=== PATIENT | male | born 1955 | race Two or more races ===

== ENCOUNTER 2021-11-06 22:49 | Inpatient (IN) | payer MEDICARE, MEDICAID, SELFPAY ==
--- NOTE | ~2021-11-06 | CT_ITS ---
EXAMINATION: CT ANGIOGRAM OF THE CHEST WITH AND WITHOUT CONTRAST (CT PULMONARY ANGIOGRAM FOR PE) CLINICAL INFORMATION: Reason for Exam Shortness of breath, elevated D-dimer rule out PE COMPARISON: Chest x-ray dated 11/06/2021 TECHNIQUE: Prior to contrast administration, noncontrast localization images were obtained. Subsequently, multidetector volumetric imaging was performed from the thoracic inlet to below the diaphragms following the administration of 65 mL Omnipaque 350 intravenous contrast. No contrast reaction reported Sagittal, coronal, and MIP oblique sagittal reformatted images were obtained on the CT workstation, uploaded to PACS, and reviewed. This CT examination was performed using dose optimization techniques as appropriate, variously including the following: *Automated exposure control *Adjustment of mA and/or kV according to patient size (this includes techniques or standardized protocols for targeted exams where dose is matched to indication/reason for exam; i.e. extremities or head) *Use of iterative reconstruction technique Total exam dose-length product 259 mGy-cm FINDINGS: QUALITY OF STUDY/CONTRAST BOLUS: Satisfactory. PULMONARY ARTERIES: No central or segmental pulmonary emboli. THORACIC AORTA: Right aortic arch with mirror-image branching of the supraaortic branches. No aneurysm or dissection. LUNG/PLEURA: [id number] emphysema. Mild diffuse bronchial wall thickening without bronchiectasis. There is a 2.5 x 1.5 cm patchy opacity within the left upper lobe, subpleural in location. No focal opacities present within the right upper lobe laterally. There are small bilateral pleural effusions with accompanying atelectasis. No pneumothorax. MEDIASTINUM: Mild cardiomegaly. No pericardial effusion. No mediastinal or hilar adenopathy. No evidence of septal bowing or right heart strain. CHEST WALL/AXILLA: No axillary or internal mammary lymphadenopathy. OSSEOUS STRUCTURES: No acute or suspicious osseous abnormality. UPPER ABDOMEN: Cholelithiasis. Impression CT/CT angio chest PE protocol IMPRESSION: * Focal patchy subpleural parenchymal airspace opacities within the bilateral upper lobes could represent infiltrates or noninfectious pulmonary nodules. Follow CT chest recommended in 3 months. * Moderate emphysema. * Small bilateral pleural effusions with accompanying atelectasis. * Right aortic arch with near image branching. * Mild cardiomegaly. * Hepatic steatosis VTE: negative
--- NOTE | ~2021-11-06 | XR_ITS ---
EXAMINATION: XR CHEST CLINICAL INFORMATION: Shortness of breath COMPARISON: 05/13/2012 TECHNIQUE: Frontal view of the chest was obtained. FINDINGS: Cardiomegaly and pulmonary venous congestion. Interstitial edema evident. Bilateral perihilar streaky airspace and patchy airspace opacities. Small bilateral pleural effusions. Normal heart size. No pneumothorax. No acute or suspicious osseous abnormalities. XR/XR chest 1V IMPRESSION: * Cardiomegaly, pulmonary venous congestion and interstitial edema with small bilateral pleural effusions. * There are bilateral parahilar patchy and streaky airspace opacities which could represent an alveolar component of the edema or multifocal infectious pneumonitis.
[2021-11-06 22:55] VITALS: BP 166/98; PULSE 130; O2SAT 89
[2021-11-06 23:36] VITALS: BP 137/56; PULSE 85; RESP 20; TEMP 36; O2SAT 100; BMI 25.2
--- NOTE | 2021-11-06 23:48 | ECG_ITS ---
Test Reason : SHORTNESS OF BREATH Blood Pressure : / mmHG Vent. Rate : 090 BPM Atrial Rate : 090 BPM P-R Int : 166 ms QRS Dur : 112 ms QT Int : 352 ms P-R-T Axes : 063 -30 080 degrees QTc Int : 430 ms Artifact in tracing Normal sinus rhythm Left axis deviation Left ventricular hypertrophy with repolarization abnormality ( [place] product , Romhilt-Granado ) Abnormal ECG When compared with ECG of 13-MAY-2012 11:55, QRS duration has increased Nonspecific T wave abnormality no longer evident in Inferior leads Referred By: Generic ED Physician Electronically Signed By:AMINA WHATLEY
[2021-11-07] VITALS (8 sets, daily range): BP systolic 133–160; BP diastolic 67–77; PULSE 69–87; RESP 15–26; TEMP 36.6–36.9; O2SAT 97–100
[2021-11-07] LABS: COVID-19 Test Negative (Negative)
[2021-11-07 01:14] LABS: MANUAL DIFF FLAG NO
[2021-11-07 01:22] LABS: Basophils Percent Auto 0.4 % (0-2); Eosinophils Absolute Auto 0.1 X10*3/uL (0.0-0.4); Eosinophils Percent Auto 1.5 % (0-4); Hemoglobin 11.4 g/dl (14.0-18.0); Imm Gran Abs Auto 0.01 X10*3/uL (0.00-0.03); Imm Gran Pct Auto 0.2 % (0.0-0.4); Lymphocytes Absolute Auto 1.2 X10*3/uL (1.2-4.9); Lymphocytes Percent Auto 22.9 % (20-40); Mean Corpuscular HGB Conc 30.8 g/dl (31.0-36.0); Mean Corpuscular Hemoglobin 25.9 pg (27.0-33.0); Mean Corpuscular Volume 83.9 fL (80.0-98.0); Mean Platelet Volume 11.6 fL (9.4-12.4); Monocytes Absolute Auto 0.6 X10*3/uL (0.1-1.2); Monocytes Percent Auto 10.7 % (2-11); Neutrophils Absolute Auto 3.4 x10*3/uL (2.0-8.3); Neutrophils Percent Auto 64.3 % (45-73); Platelet Count 269 X10*3/uL (160-400); Red Blood Count 4.41 X10*6/uL (4.60-5.80); Red Cell Distribution Width 15.7 % (11.0-16.0); White Blood Count 5.3 X10*3/uL (4.8-10.8)
[2021-11-07 01:32] LABS: Anion Gap 12 (12-20); Blood Urea Nitrogen 15 mg/dL (9-16); Calcium 9.2 mg/dL (8.4-10.2); Carbon Dioxide 26 mmol/L (22-29); Chloride 108 mmol/L (96-108); Creatinine Clr Calc Pharmacy 45.9; Estimated Glomerular Filt Rate 59; Glucose Random 136 mg/dL (60-115); Potassium 4.3 mmol/L (3.3-5.1); Sodium 142 mmol/L (135-145)
[2021-11-07 01:39] LABS: B Type Natriuretic Peptide 1143 pg/mL (<100); Troponin-I High Sensitivity 24.9 ng/L (<3.5-35.0)
[2021-11-07 02:05] LABS: Lactic Acid 0.6 mmol/L (0.5-2.0)
[2021-11-07] MEDS: Furosemide 40 MG/4 ML VIAL IVPUSH ×2 (02:12→18:33)
[2021-11-07] MEDS: cefTRIAXone sodium 1 GM in 0.9 % Sodium Chloride 50 ML IV (02:13)
[2021-11-07] MEDS: dexAMETHasone sod phosphate 10 MG/ML VIAL IVPUSH (02:13)
[2021-11-07 02:14] LABS: Prothrombin Time 11.9 SEC (9.9-13.0)
[2021-11-07 02:16] LABS: D Dimer High Sensitivity 348 NG/ML; Partial Thromboplastin Time 36.7 SEC (24.1-38.0)
[2021-11-07 02:18] LABS: Alanine Aminotransferase 26 U/L (0-40); Albumin Level 3.4 g/dL (3.5-5.0); Alkaline Phosphatase 276 U/L (39-117); Aspartate Amino Transferase 39 U/L (5-37); Bilirubin Direct 0.3 mg/dL (0.0-0.5); Bilirubin Total 0.4 mg/dL (0.0-1.0); C Reactive Protein 2.41 mg/dL (< or = 0.50); Lactate Dehydrogenase 191 U/L (118-273); Total Protein 7.6 g/dL (6.5-8.0)
[2021-11-07] MEDS: Azithromycin 500 MG in 0.9 % Sodium Chloride 250 ML 125 MG IV (02:22)
[2021-11-07 02:30] LABS: Ferritin 61 ng/mL (20-250)
[2021-11-07 03:17] LABS: Erythrocyte Sedimentation Rate 54 MM/HR (0-15)
[2021-11-07 03:18] LABS: Procalcitonin 0.32 ng/mL
[2021-11-07 04:32] LABS: Troponin-I High Sensitivity 23.6 ng/L (<3.5-35.0)
[2021-11-07] MEDS: iohexoL 350 MG/ML 100 ML INFUS..BTL 65 ML IV (04:58)
--- NOTE | 2021-11-07 05:44 | PC.NURSE ---
Pt resting on stretcher in NAD, breathing with ease on supplemental O2. Pt offers no complaints of pain/discomfort, uses bedside urinal independently.
--- NOTE | 2021-11-07 06:27 | ED_ITS ---
HPI - SOB/Dyspnea General Chief Complaint: Dyspnea Stated Complaint: difficulty breathing Time Seen by Provider: 11/07/21 01:12 Source: patient Mode of arrival: EMS Limitations: language barrier (Japanese speaking only, assistant engineer used) History of Present Illness HPI Narrative: 66-year-old man who presents emergency department for evaluation of shortness of breath since 11/04/2021 (3 days). The patient states that the shortness of breath came on gradually and got progressively worse. He states that he has had a fever which is occasionally productive of clear phlegm with no blood in the sputum. He denied fever or chills. He denied chest pain. States he is having significant dyspnea on exertion and he is also having orthopnea. He did not notice any leg swelling. The patient has a history of asthma and he states that he was using his updraft and inhaler without any relief. Patient shortness of breath got worse so he called an ambulance. The patient was found to have an O2 saturation of 89% on room air which improved to 100% on 2 L of oxygen via nasal cannula. He denied myalgias arthralgias but is complaining of lower back pain. He denied nausea, vomiting or diarrhea. The patient has been vaccinated with the 2 shot [employer] vaccination. Related Data Home Medications Medication Instructions Recorded Confirmed amlodipine 5 mg tablet 1 tab PO DAILY 11/07/21 11/07/21 aspirin 81 mg tablet,delayed 1 tab PO DAILY 11/07/21 11/07/21 release atorvastatin 20 mg tablet 1 tab PO DAILY 11/07/21 11/07/21 carvedilol 6.25 mg tablet 1 tab PO BID 11/07/21 11/07/21 cholecalciferol (vitamin D3) 25 1 tab PO DAILY 11/07/21 11/07/21 mcg (1,000 unit) tablet (Vitamin D3) docusate sodium 100 mg capsule 1 cap PO BID PRN 11/07/21 11/07/21 (DOK) fluticasone 232 mcg-salmeterol 14 1 puff INHALATION BID 11/07/21 11/07/21 mcg/actuation breath activated powdr folic acid 1 mg tablet 1 tab PO DAILY 11/07/21 11/07/21 furosemide 20 mg tablet 1 tab PO DAILY 11/07/21 11/07/21 lisinopril 10 mg tablet 1 tab PO DAILY 11/07/21 11/07/21 multivitamin with folic acid 400 1 tab PO DAILY 11/07/21 11/07/21 mcg tablet (Tab-A-Miguelangel) oxybutynin chloride 5 mg 1 tab PO DAILY 11/07/21 11/07/21 tablet,extended release 24 hr quetiapine 50 mg tablet 1 tab PO DAILY PRN 11/07/21 11/07/21 sertraline 100 mg tablet 1 tab PO DAILY 11/07/21 11/07/21 terazosin 5 mg capsule 1 cap PO BEDTIME 11/07/21 11/07/21 tiotropium bromide 18 mcg capsule 1 cap INHALATION DAILY 11/07/21 11/07/21 with inhalation device (Spiriva with HandiHaler) Allergies Allergy/AdvReac Type Severity Reaction Status Date / Time acetaminophen [From Tylenol] Allergy Unknown UNKNOWN Verified 11/07/21 02:26 Review of Systems Review of Systems: Yes all other systems are reviewed and are negative [facility] Past Medical History [facility] Narrative: Past medical history: Hypertension, hyperlipidemia, myocardial infarction x2 with his last infarction 2 years prior. Heart murmur, asthma, stroke 2 years prior. Past surgical history the patient states he has had multiple surgeries on his bladder. Social history: The patient lives alone. He smokes 1/2 pack of cigarettes per day times 53 years. He denies alcohol use. He denies drug use. Medical History (Updated 11/07/21 @ 07:42 by Abhinav Carbajal MD) Asthma Social History Social History Advance Directives: No Physical Exam Vital Signs: Vital Signs: Last Vital Signs Temp 98.3 F 11/07/21 02:00 Pulse 84 11/07/21 05:40 Resp 24 H 11/07/21 05:40 BP 160/77 H 11/07/21 05:40 Pulse Ox 98 11/07/21 05:40 Oxygen Flow Rate 4 11/06/21 23:36 BMI result Body Mass Index 25.2 Const: Other: Very thin appearing male patient, pleasant and cooperative, appears to be short of breath, answers all questions appropriately. HENMT: Head: Yes normal to inspection, Yes normocephalic and Yes atraumatic Ears: external ears normal General nose exam: Normal external nose present Face and sinus: Yes normal facial exam Mouth: Normal oral and palatal mucosa present Throat: Yes posterior oropharynx normal Eyes: General: appearance normal, both eyes and all related structures Pupils: Equal, round and reactive pupils present Neck: Neck: Yes normal visual inspection, Yes no lymphadenopathy, Yes trachea midline and Yes supple Chest: Chest palpation & inspection: normal inspection of the chest and normal palpation of entire chest wall Resp: Effort & Inspection: able to speak in complete sentences Auscultation: rales (At base) Cardio: Rate: regular rate Rhythm: regular rhythm Heart sounds: S1 normal heart sound present, S2 normal heart sound present and no murmurs GI: Inspection: Yes normal to inspection Palpation (GI): Soft to palpation, nontender and no guarding Auscultation: normal bowel sounds : General: Yes no CVA tenderness Back/Spine/Pelvis: Back: no CVA tenderness Skin: General skin exam: no rashes or lesions noted Neuro: Cranial nerves: Yes CN's II-XII intact bilaterally and Yes Equal, round and reactive pupils present Cognition (Neuro): normal cognition Motor exam (neuro): 5/5 motor strength present throughout Extrem: General: Yes normal to inspection Psych: Appearance: grossly normal Speech and movement: Normal speech and movement present Affect: normal affect Attitude: cooperative Thought process: Normal thought process present Thought content: Normal thought content present Course Course Course Narrative: 66-year-old male with history of hypertension, hyperlipidemia, myocardial infarction with stents 2 years prior, asthma who presents emergency department for evaluation of gradual onset of shortness of breath 3 days prior with a cough which is occasionally productive of phlegm, no fever, no chills no chest pain. He has also noted significant dyspnea on exertion and orthopnea. Vital signs revealed elevated blood pressure is 137/56 and 160/77, respiratory rate varied from 20-24, patient had documented hypoxia by the paramedics but his O2 saturation was 100% on 2 L of oxygen via nasal cannula. Lung exam did reveal rales at the bases. 0653: Laboratory evaluation: CBC was unremarkable. Coags revealed an elevated D-dimer of 348. COVID-19 was negative. COVID-19 was negative. ESR was elevated at 54, CRP was elevated at 2.41. BNP was elevated at 1141. Procalcitonin was normal. Ferritin was normal. Chest x-ray revealed car diomegaly with venous congestion interstitial edema, small bilateral pleural effusions and bilateral airspace disease. CT pulmonary angiogram PE protocol revealed no obvious PE. Patient had focal patchy subpleural parenchymal airspace opacity within the bilateral upper lobes which could represent infiltrate or non infection. Patient had moderate emphysema. Small bilateral pleural effusions with atelectasis. Given these findings, the patient was treated for pneumonia with ceftriaxone 1 g IV and azithromycin 500 mg IV and Lasix 40 mg IV. Patient had good diuresis with the Lasix (1.2 L of urine output). Patient is feeling better. The patient's COVID-19 is negative any is vaccinated however given his hypoxia I did order dexamethasone 10 mg IV. I will discuss admission with the covering hospitalist. 0706: Patient was noted to have a rapid heart rate. Twelve EKG revealed an SVT with a rate of 142. The nurse performed a vagal maneuver and made the patient blood into a 10 cc syringe with the plunger in the syringe. and the patient's SVT broke and he is now in a sinus rhythm with a rate of 80. 0740: Patient again went into an SVT with a rate of 142, 12 EKG revealed a narrow complex SVT with prolonged QTC of 486 milliseconds and a prolonged QRS of 114 milliseconds with no significant change in ST segment elevation/depression compared to the baseline EKG. Patient again broke with a vagal maneuver by blowing into a 10 cc syringe. I did discuss admission with the covering hospitalist, Dr. Talley. MDM - SOB/Dyspnea Lab Data Result diagrams: 11/07/21 01:04 11/07/21 01:04 Labs: Lab Results 11/06/21 11/07/21 11/07/21 Range/Units 23:30 01:04 01:04 WBC 5.3 (4.8-10.8) X10*3/uL RBC 4.41 L (4.60-5.80) X10*6/uL Hgb 11.4 L (14.0-18.0) g/dl Hct 37.0 L (42.0-52.0) % MCV 83.9 (80.0-98.0) fL MCH 25.9 L (27.0-33.0) pg MCHC 30.8 L (31.0-36.0) g/dl RDW 15.7 (11.0-16.0) % Plt Count 269 (160-400) X10*3/uL MPV 11.6 (9.4-12.4) fL Immature Gran % (Auto) 0.2 (0.0-0.4) % Neut % (Auto) 64.3 (45-73) % Lymph % (Auto) 22.9 (20-40) % [place] % (Auto) 10.7 (2-11) % Eos % (Auto) 1.5 (0-4) % Baso % (Auto) 0.4 (0-2) % Lymph # (Auto) 1.2 (1.2-4.9) X10*3/uL [place] # (Auto) 0.6 (0.1-1.2) X10*3/uL Eos # (Auto) 0.1 (0.0-0.4) X10*3/uL Baso # (Auto) 0.0 (0.0-0.2) X10*3/uL Abs Immat Gran (auto) 0.01 (0.00-0.03) X10*3/uL Absolute Neuts (auto) 3.4 (2.0-8.3) x10*3/uL Absolute Nucleated RBC 0.000 (0.0-0.012) X10*3/uL Nucleated RBC % (auto) 0.0 (0.0-0.2) /100WBC ESR (0-15) MM/HR PT (9.9-13.0) SEC INR (0.9-1.1) APTT (24.1-38.0) SEC D-Dimer High Sensitivty NG/ML Sodium 142 (135-145) mmol/L Potassium 4.3 (3.3-5.1) mmol/L Chloride 108 (96-108) mmol/L Carbon Dioxide 26 (22-29) mmol/L Anion Gap 12 (12-20) BUN 15 (9-16) mg/dL Creatinine 1.22 (0.5-1.4) mg/dL Estim Creat Clear Calc 45.9 Estimated GFR 59 Random Glucose 136 H (60-115) mg/dL Lactic Acid (0.5-2.0) mmol/L Calcium 9.2 (8.4-10.2) mg/dL Ferritin 61 (20-250) ng/mL Total Bilirubin 0.4 (0.0-1.0) mg/dL Direct Bilirubin 0.3 (0.0-0.5) mg/dL AST 39 H (5-37) U/L ALT 26 (0-40) U/L Alkaline Phosphatase 276 H (39-117) U/L Lactate Dehydrogenase 191 (118-273) U/L Troponin I High Sens (<3.5-35.0) ng/L C-Reactive Protein 2.41 H (< or = 0.50) mg/dL B-Natriuretic Peptide (<100) pg/mL Total Protein 7.6 (6.5-8.0) g/dL Albumin 3.4 L (3.5-5.0) g/dL Procalcitonin ng/mL COVID-19 (SOLE) Negative (Negative) COVID-19 Clin Com See Note 11/07/21 11/07/21 11/07/21 Range/Units 01:04 01:04 01:04 WBC (4.8-10.8) X10*3/uL RBC (4.60-5.80) X10*6/uL Hgb (14.0-18.0) g/dl Hct (42.0-52.0) % MCV (80.0-98.0) fL MCH (27.0-33.0) pg MCHC (31.0-36.0) g/dl RDW (11.0-16.0) % Plt Count (160-400) X10*3/uL MPV (9.4-12.4) fL Immature Gran % (Auto) (0.0-0.4) % Neut % (Auto) (45-73) % Lymph % (Auto) (20-40) % [place] % (Auto) (2-11) % Eos % (Auto) (0-4) % Baso % (Auto) (0-2) % Lymph # (Auto) (1.2-4.9) X10*3/uL [place] # (Auto) (0.1-1.2) X10*3/uL Eos # (Auto) (0.0-0.4) X10*3/uL Baso # (Auto) (0.0-0.2) X10*3/uL Abs Immat Gran (auto) (0.00-0.03) X10*3/uL Absolute Neuts (auto) (2.0-8.3) x10*3/uL Absolute Nucleated RBC (0.0-0.012) X10*3/uL Nucleated RBC % (auto) (0.0-0.2) /100WBC ESR (0-15) MM/HR PT 11.9 (9.9-13.0) SEC INR 1.0 (0.9-1.1) APTT 36.7 (24.1-38.0) SEC D-Dimer High Sensitivty 348 NG/ML Sodium (135-145) mmol/L Potassium (3.3-5.1) mmol/L Chloride (96-108) mmol/L Carbon Dioxide (22-29) mmol/L Anion Gap (12-20) BUN (9-16) mg/dL Creatinine (0.5-1.4) mg/dL Estim Creat Clear Calc Estimated GFR Random Glucose (60-115) mg/dL Lactic Acid (0.5-2.0) mmol/L Calcium (8.4-10.2) mg/dL Ferritin (20-250) ng/mL Total Bilirubin (0.0-1.0) mg/dL Direct Bilirubin (0.0-0.5) mg/dL AST (5-37) U/L ALT (0-40) U/L Alkaline Phosphatase (39-117) U/L Lactate Dehydrogenase (118-273) U/L Troponin I High Sens 24.9 (<3.5-35.0) ng/L C-Reactive Protein (< or = 0.50) mg/dL B-Natriuretic Peptide 1143 H (<100) pg/mL Total Protein (6.5-8.0) g/dL Albumin (3.5-5.0) g/dL Procalcitonin 0.32 ng/mL COVID-19 (SOLE) (Negative) COVID-19 Clin Com 11/07/21 11/07/21 11/07/21 Range/Units 01:47 02:11 04:02 WBC (4.8-10.8) X10*3/uL RBC (4.60-5.80) X10*6/uL Hgb (14.0-18.0) g/dl Hct (42.0-52.0) % MCV (80.0-98.0) fL MCH (27.0-33.0) pg MCHC (31.0-36.0) g/dl RDW (11.0-16.0) % Plt Count (160-400) X10*3/uL MPV (9.4-12.4) fL Immature Gran % (Auto) (0.0-0.4) % Neut % (Auto) (45-73) % Lymph % (Auto) (20-40) % [place] % (Auto) (2-11) % Eos % (Auto) (0-4) % Baso % (Auto) (0-2) % Lymph # (Auto) (1.2-4.9) X10*3/uL [place] # (Auto) (0.1-1.2) X10*3/uL Eos # (Auto) (0.0-0.4) X10*3/uL Baso # (Auto) (0.0-0.2) X10*3/uL Abs Immat Gran (auto) (0.00-0.03) X10*3/uL Absolute Neuts (auto) (2.0-8.3) x10*3/uL Absolute Nucleated RBC (0.0-0.012) X10*3/uL Nucleated RBC % (auto) (0.0-0.2) /100WBC ESR 54 H (0-15) MM/HR PT (9.9-13.0) SEC INR (0.9-1.1) APTT (24.1-38.0) SEC D-Dimer High Sensitivty NG/ML Sodium (135-145) mmol/L Potassium (3.3-5.1) mmol/L Chloride (96-108) mmol/L Carbon Dioxide (22-29) mmol/L Anion Gap (12-20) BUN (9-16) mg/dL Creatinine (0.5-1.4) mg/dL Estim Creat Clear Calc Estimated GFR Random Glucose (60-115) mg/dL Lactic Acid 0.6 (0.5-2.0) mmol/L Calcium (8.4-10.2) mg/dL Ferritin (20-250) ng/mL Total Bilirubin (0.0-1.0) mg/dL Direct Bilirubin (0.0-0.5) mg/dL AST (5-37) U/L ALT (0-40) U/L Alkaline Phosphatase (39-117) U/L Lactate Dehydrogenase (118-273) U/L Troponin I High Sens 23.6 (<3.5-35.0) ng/L C-Reactive Protein (< or = 0.50) mg/dL B-Natriuretic Peptide (<100) pg/mL Total Protein (6.5-8.0) g/dL Albumin (3.5-5.0) g/dL Procalcitonin ng/mL COVID-19 (SOLE) (Negative) COVID-19 Clin Com ECG Data Attestation: I personally reviewed and interpreted this ECG as follows: Interpretation: 0121: Normal sinus rhythm with a rate of 90, normal DC interval of 166 milliseconds, prolonged QTC interval of 112 milliseconds, normal QTC of 430 milliseconds, is J-point elevation V1 through V5 with less than [address] segment depression V5 and V6, no PACs, no PVCs. 0657: Supraventricular tachycardia with a rate of 142, prolonged QRS of 114 milliseconds prolonged QTC of 486 milliseconds, J-point elevation V1 through V4 and less than [address] segment depression V5 and V6 similar to initial EKG except for the SVT. No PACs no PVCs Critical Care Time Critical Care Time Total Critical Care Time: 50 Attestation: Critical Care: The patient was critically ill with a high pr obability of imminent or life threatening deterioration. I spent greater than 30 minutes of discontinuous time evaluating the patient,delivering critical care at the bedside, discussing and evaluating pertinent data with consultants. Critical care time does not include time spent performing separately billable procedures or teaching. Total time spent performing critical care was 50 minutes. Discharge Plan Discharge Patient Disposition: Admitted As Inpatient Prescriptions: No Action terazosin 5 mg capsule 1 cap PO BEDTIME RF: 0 carvedilol 6.25 mg tablet 1 tab PO BID RF: 0 atorvastatin 20 mg tablet 1 tab PO DAILY RF: 0 sertraline 100 mg tablet 1 tab PO DAILY RF: 0 amlodipine 5 mg tablet 1 tab PO DAILY RF: 0 aspirin 81 mg tablet,delayed release (DR/EC) 1 tab PO DAILY RF: 0 lisinopril 10 mg tablet 1 tab PO DAILY RF: 0 docusate sodium [DOK] 100 mg capsule 1 cap PO BID PRN (Reason: constipation) RF: 0 oxybutynin chloride 5 mg tablet extended release 24hr 1 tab PO DAILY RF: 0 folic acid 1 mg tablet 1 tab PO DAILY RF: 0 furosemide 20 mg tablet 1 tab PO DAILY RF: 0 Spiriva with HandiHaler 18 mcg capsule, w/inhalation device 1 cap inhalation DAILY RF: 0 quetiapine 50 mg tablet 1 tab PO DAILY PRN (Reason: Agitation) RF: 0 cholecalciferol (vitamin D3) [Vitamin D3] 25 mcg (1,000 unit) tablet 1 tab PO DAILY RF: 0 multivitamin with folic acid [Tab-A-Miguelangel] 400 mcg tablet 1 tab PO DAILY RF: 0 fluticasone propion-salmeterol 232-14 mcg/actuation aerosol powdr breath activated 1 puff inhalation BID RF: 0
--- NOTE | 2021-11-07 06:58 | ECG_ITS ---
Test Reason : TACHYCARDIA Blood Pressure : / mmHG Vent. Rate : 142 BPM Atrial Rate : 000 BPM P-R Int : 000 ms QRS Dur : 114 ms QT Int : 316 ms P-R-T Axes : 000 050 088 degrees QTc Int : 486 ms Supraventricular tachycardia Left ventricular hypertrophy with repolarization abnormality ( [place] product , Romhilt-Granado ) Abnormal ECG When compared with ECG of 07-NOV-2021 01:21, Vent. rate has increased BY 52 BPM Referred By: Abhinav Carbajal Electronically Signed By:AMINA WHATLEY
--- NOTE | 2021-11-07 07:03 | PC.NURSE ---
this rn notified by [facility] that pt hr in 140s. this rn notified dr ruggiero, this rn to bedside, notes what appears to be svt on bedside monitor. ekg obtained which confirms svt. pt provided a syringe to blow into to perform vagal maneuver, converted to NSR at 85.
--- NOTE | 2021-11-07 07:19 | PC.NURSE ---
this rn giving report to yazmin champagne and notes pt in svt in 140s again. per sciaruto, give 6mg of adenosine. this rn to bedside to medicate, pallet sorter called to bedside. while awaiting pallet sorter, this rn had pt blow into syringe once again to vagal pt. pt performed vagal maneuver, hr to NSR 85. per sciangelo, hold adenosine at this time.
--- NOTE | 2021-11-07 10:23 | P.HPHOSP_ITS ---
History of Present Illness Date of Service: 11/07/21 Attending physician on admission: Sherrie Richmond Chief Complaint: sob 66-year-old Swedish-speaking gentleman with past medical history significant for coronary artery disease status post myocardial infarction 2 years ago, history of CVA, hypertension , hyperlipidemia, asthma, lives alone presented to [facility] with progressive shortness of breath of 2-3 days duration associated with orthopnea and dyspnea on exertion, patient denies any associated chest pain no diaphoresis denies any fever chills complaining of cough productive of clear phlegm , denies nausea vomiting abdominal pain or diarrhea, denies urinary symptoms of urgency and frequency, denies sick contacts, no recent travel not on home O2, he took his home inhalers with no relief therefore called the ambulance EMS found O2 sat of 89% on room air therefore patient was placed on 2 L of oxygen O2 sat improved to 100%. Workup in the emergency room showed elevated D-dimer of 348 COVID-19 was negative ESR 54 CRP 2.41 BNP 1140, chest x-ray showed cardiomegaly with venous congestion and small bilateral pleural effusion and bilateral airspace disease, CTA chest showed no PE patient was noted to have patchy subpleural parenchymal airspace opacity both upper lobes and moderate emphysema with small bilateral pleural effusion, patient in the ER was treated with IV azithromycin and ceftriaxone and 1 dose of IV Lasix, patient responded well to Lasix and diuresed 1.2 L of urine COVID-19 came back negative while in the emergency room patient noted to have a rapid heart rate in 140s that improved after vagal maneuver, patient went back into SVT within half an hours EKG showed narrow complex SVT patient treated again with vagal Meniere with good response currently in normal sinus rhythm Patient is being admitted due to acute congestive heart failure with no prior history of CHF. Review of Systems Review of Systems: General no headache no dizziness no fever chills. CVS no chest pain, no palpitation. Respiratory shortness of breath, orthopnea, denies respiratory distress, dyspnea on exertion Gastrointestinal no nausea no vomiting, no abdominal pain no urgency , no frequency Skin no rash Musculoskeletal no pain Yes all other systems are reviewed and are negative [facility] Medical History (Updated 11/07/21 @ 10:46 by Sherrie Richmond MD) Asthma CVA (cerebrovascular accident) Pertinent family history: No history of premature coronary artery disease. Social History (Updated 11/07/21 @ 10:48 by Sherrie Richmond MD) Patient Tobacco Use Status: Current everyday Tobacco user Advance Directives: No Meds Allergies Allergy/AdvReac Type Severity Reaction Status Date / Time acetaminophen [From Tylenol] Allergy Unknown UNKNOWN Verified 11/07/21 02:26 Active Medications: Current Medications Acetaminophen (Acetaminophen 325 Mg Tablet) 650 mg PO Q6H PRN PRN Reason: Pain, Mild (Pain Scale 1-3) Amlodipine Besylate (Amlodipine Besylate 5 Mg Tablet) 5 mg PO DAILY [facility]; Protocol Aspirin (Aspirin Enteric Coated 81 Mg Tablet.Dr) 81 mg PO DAILY [facility] Atorvastatin Calcium (Atorvastatin Calcium 20 Mg Tablet) 20 mg PO DAILY [facility] Carvedilol (Carvedilol 6.25 Mg Tablet) 6.25 mg PO BID [facility]; Protocol Docusate Sodium (Docusate Sodium 100 Mg Capsule) 100 mg PO BID PRN PRN Reason: constipation Folic Acid (Folic Acid 1 Mg Tablet) 1 mg PO DAILY [facility] Lisinopril (Lisinopril 10 Mg Tablet) 10 mg PO DAILY [facility]; Protocol Multivitamins/Vitamin C (Multivitamin Tablet) 1 tab PO DAILY [facility] Non-Formulary Medication (Terazosin) 1 cap PO BEDTIME [facility] Ondansetron HCl (Ondansetron Hcl 4 Mg/2 Ml Vial) 4 mg IVPUSH Q8H PRN PRN Reason: Nausea and Vomiting Oxybutynin Chloride (Oxybutynin Chloride Er 5 Mg Tab.Er.24) 5 mg PO DAILY [facility] Quetiapine Fumarate (Quetiapine Fumarate 50 Mg Tablet) 50 mg PO DAILY PRN PRN Reason: Agitation Sertraline HCl (Sertraline Hcl 100 Mg Tablet) 100 mg PO DAILY [facility] Sodium Chloride (0.9 % Sodium Chloride Flush 3 Ml Syringe) 3 ml IVFLUSH QSHIFT [facility] Tiotropium [place] (Tiotropium [place] 18 Mcg Cap.W.Dev) puff INHALE DAILY [facility] Vitamin D (Cholecalciferol (Vitamin D3) 25 Mcg Tablet) 25 mcg PO DAILY [facility] Home Medications Medication Instructions Recorded Confirmed Last Taken Type amlodipine 5 mg tablet 1 tab PO DAILY 11/07/21 11/07/21 Unknown History aspirin 81 mg tablet,delayed 1 tab PO DAILY 11/07/21 11/07/21 Unknown History release atorvastatin 20 mg tablet 1 tab PO DAILY 11/07/21 11/07/21 Unknown History carvedilol 6.25 mg tablet 1 tab PO BID 11/07/21 11/07/21 Unknown History cholecalciferol (vitamin D3) 25 1 tab PO DAILY 11/07/21 11/07/21 Unknown History mcg (1,000 unit) tablet (Vitamin D3) docusate sodium 100 mg capsule 1 cap PO BID PRN 11/07/21 11/07/21 Unknown History (DOK) fluticasone 232 mcg-salmeterol 14 1 puff INHALATION BID 11/07/21 11/07/21 Unknown History mcg/actuation breath activated powdr folic acid 1 mg tablet 1 tab PO DAILY 11/07/21 11/07/21 Unknown History furosemide 20 mg tablet 1 tab PO DAILY 11/07/21 11/07/21 Unknown History lisinopril 10 mg tablet 1 tab PO DAILY 11/07/21 11/07/21 Unknown History multivitamin with folic acid 400 1 tab PO DAILY 11/07/21 11/07/21 Unknown History mcg tablet (Tab-A-Miguelangel) oxybutynin chloride 5 mg 1 tab PO DAILY 11/07/21 11/07/21 Unknown History tablet,extended release 24 hr quetiapine 50 mg tablet 1 tab PO DAILY PRN 11/07/21 11/07/21 Unknown History sertraline 100 mg tablet 1 tab PO DAILY 11/07/21 11/07/21 Unknown History terazosin 5 mg capsule 1 cap PO BEDTIME 11/07/21 11/07/21 Unknown History tiotropium bromide 18 mcg capsule 1 cap INHALATION DAILY 11/07/21 11/07/21 Unknown History with inhalation device (Spiriva with HandiHaler) Physical Exam Vital Signs and Narrative: Vital Signs: Last Vital Signs Temp 98.3 F 11/07/21 02:00 Pulse 84 11/07/21 05:40 Resp 24 H 11/07/21 05:40 BP 160/77 H 11/07/21 05:40 Pulse Ox 98 11/07/21 05:40 Oxygen Flow Rate 4 11/06/21 23:36 BMI result Body Mass Index 25.2 General awake alert, in no acute distress HEENT pupils equal round reactive to light and accommodation Neck supple no JVD. CVS regular rate rhythm, Respiratory lungs bibasilar crackles no use of accessory muscle Gastrointestinal abdomen soft, nontender, bowel sounds audible,no guarding , no rigidity. Extremities no edema. Neuro nonfocal Skin no rash Psych appropriate affect Results Labs CBC and Chem 7: 11/07/21 01:04 11/07/21 01:04 Labs: Laboratory Results - last 24 hr 11/06/21 11/07/21 11/07/21 23:30 01:04 01:04 MCV 83.9 MCH 25.9 L MCHC 30.8 L RDW 15.7 Plt Count 269 MPV 11.6 Immature Gran % (Auto) 0.2 Neut % (Auto) 64.3 Lymph % (Auto) 22.9 [place] % (Auto) 10.7 Eos % (Auto) 1.5 Baso % (Auto) 0.4 Lymph # (Auto) 1.2 [place] # (Auto) 0.6 Eos # (Auto) 0.1 Baso # (Auto) 0.0 Abs Immat Gran (auto) 0.01 Absolute Neuts (auto) 3.4 Absolute Nucleated RBC 0.000 Nucleated RBC % (auto) 0.0 ESR PT INR APTT D-Dimer High Sensitivty Anion Gap 12 Estim Creat Clear Calc 45.9 Estimated GFR 59 Random Glucose 136 H Lactic Acid Calcium 9.2 Ferritin 61 Total Bilirubin 0.4 Direct Bilirubin 0.3 AST 39 H ALT 26 Alkaline Phosphatase 276 H Lactate Dehydrogenase 191 Troponin I High Sens C-Reactive Protein 2.41 H B-Natriuretic Peptide Total Protein 7.6 Albumin 3.4 L Procalcitonin COVID-19 (SOLE) Negative COVID-19 Clin Com See Note 11/07/21 11/07/21 11/07/21 01:04 01:04 01:04 MCV MCH MCHC RDW Plt Count MPV Immature Gran % (Auto) Neut % (Auto) Lymph % (Auto) [place] % (Auto) Eos % (Auto) Baso % (Auto) Lymph # (Auto) [place] # (Auto) Eos # (Auto) Baso # (Auto) Abs Immat Gran (auto) Absolute Neuts (auto) Absolute Nucleated RBC Nucleated RBC % (auto) ESR PT 11.9 INR 1.0 APTT 36.7 D-Dimer High Sensitivty 348 Anion Gap Estim Creat Clear Calc Estimated GFR Random Glucose Lactic Acid Calcium Ferritin Total Bilirubin Direct Bilirubin AST ALT Alkaline Phosphatase Lactate Dehydrogenase Troponin I High Sens 24.9 C-Reactive Protein B-Natriuretic Peptide 1143 H Total Protein Albumin Procalcitonin 0.32 COVID-19 (SOLE) COVID-19 Clin Com 11/07/21 11/07/21 11/07/21 01:47 02:11 04:02 MCV MCH MCHC RDW Plt Count MPV Immature Gran % (Auto) Neut % (Auto) Lymph % (Auto) [place] % (Auto) Eos % (Auto) Baso % (Auto) Lymph # (Auto) [place] # (Auto) Eos # (Auto) Baso # (Auto) Abs Immat Gran (auto) Absolute Neuts (auto) Absolute Nucleated RBC Nucleated RBC % (auto) ESR 54 H PT INR APTT D-Dimer High Sensitivty Anion Gap Estim Creat Clear Calc Estimated GFR Random Glucose Lactic Acid 0.6 Calcium Ferritin Total Bilirubin Direct Bilirubin AST ALT Alkaline Phosphatase Lactate Dehydrogenase Troponin I High Sens 23.6 C-Reactive Protein B-Natriuretic Peptide Total Protein Albumin Procalcitonin COVID-19 (SOLE) COVID-19 Clin Com Imaging Radiologist's Impressions: Impressions Chest X-Ray 11/07/21 00:15 IMPRESSION: * Cardiomegaly, pulmonary venous congestion and interstitial edema with small bilateral pleural effusions. * There are bilateral parahilar patchy and streaky airspace opacities which could represent an alveolar component of the edema or multifocal infectious pneumonitis. Chest CTA 11/07/21 04:48 IMPRESSION: * Focal patchy subpleural parenchymal airspace opacities within the bilateral upper lobes could represent infiltrates or noninfectious pulmonary nodules. Follow CT chest recommended in 3 months. * Moderate emphysema. * Small bilateral pleural effusions with accompanying atelectasis. * Right aortic arch with near image branching. * Mild cardiomegaly. * Hepatic steatosis VTE: negative Assessment and Plan (1) CHF (congestive heart failure): Qualifiers: Heart failure type: other Qualified Code(s): I50.9 - Heart failure, unspecified Status: Acute (2) SVT (supraventricular tachycardia): Status: Acute (3) Pneumonia: Qualifiers: Laterality: bilateral Pneumonia type: due to unspecified organism Status: Acute (4) Acute respiratory failure with hypoxia: Status: Acute (5) Hypertension: Status: Acute (6) Coronary artery disease: Status: Acute 66-year-old [place] gentleman with known history of coronary artery disease status post NE 2 years ago being followed by orthopedic surgeon from was last seen 1 year ago presented to [facility] with worsening shortness of breath worse with exertion and orthopnea of 2-3 days duration workup in the emergency room showed elevated BNP, normal troponin, chest x-ray and CTA chest suggestive of fluid overload patient is now being admitted with a diagnosis of acute congestive heart failure with unknown EF, and also noted to have 2 episodes of SVT that broke with vagal maneuver. Acute hypoxic respiratory failure due to acute congestive heart failure/pneumonia wean o2 as tolerated New onset acute congestive heart failure of unknown EF Will admit to telemetry unit treat with IV Lasix 40 mg b.i.d. Obtain echocardiogram strict I's and O's daily weight Continue Coreg and lisinopril Obtain cardiology consultation SVT Improved continue beta-blockers, tele monitor follow electrolytes closely Pneumonia Complaining of productive cough, no fevers no chills normal WBC Bilateral infiltrates on chest x-ray and CT chest Will treat with IV ceftriaxone and azithromycin x5 days , cough medication and repeat imaging study in 3 months History of coronary artery disease No chest pain, normal troponins follow clinical course Continue aspirin, statins and beta-hayley Tobacco use disorder will place on Nicorette gums patient is self weaning History of asthma/emphysema (overlap syndrome) Strongly recommend to abstain from smoking Will continue home inhalers, as needed updraft History of CVA no residual Code status full code DVT prophylaxis with Lovenox subcu Quality Stroke Does the patient have a stroke diagnosis?: No VTE Prior VTE?: No VTE Risk Level:: Medical - moderate - high VTE Device Contraindication: Treatment Not Indicated VTE Drug Contraindication: N/A - Med Ordered
[2021-11-07] MEDS: Aspirin Enteric Coated 81 MG TABLET.DR PO (11:50)
[2021-11-07] MEDS: amLODIPine Besylate 5 MG TABLET PO (11:50)
[2021-11-07] MEDS: carvediloL 6.25 MG TABLET PO ×2 (11:50→21:50)
[2021-11-07] MEDS: 0.9 % Sodium Chloride Flush 3 ML SYRINGE IVFLUSH (18:34)
[2021-11-07] MEDS: Doxazosin Mesylate 2 MG TABLET 4 MG PO (21:50)
[2021-11-08] VITALS (7 sets, daily range): BP systolic 140–160; BP diastolic 66–76; PULSE 70–96; RESP 16–33; TEMP 36.7–36.9; O2SAT 96–98
[2021-11-08] MEDS: 0.9 % Sodium Chloride Flush 3 ML SYRINGE IVFLUSH (00:48)
[2021-11-08] MEDS: amLODIPine Besylate 5 MG TABLET PO (07:50)
[2021-11-08] MEDS: Cholecalciferol (Vitamin D3) 25 MCG TABLET PO (07:50)
[2021-11-08] MEDS: Multivitamin TABLET 1 TAB PO (07:50)
[2021-11-08] MEDS: lisinopriL 10 MG TABLET PO (07:50)
[2021-11-08] MEDS: carvediloL 6.25 MG TABLET PO (07:50)
[2021-11-08] MEDS: Furosemide 40 MG/4 ML VIAL IVPUSH ×2 (07:51→16:37)
[2021-11-08] MEDS: Folic Acid 1 MG TABLET PO (07:51)
[2021-11-08] MEDS: Sertraline HCL 100 MG TABLET PO (07:51)
[2021-11-08] MEDS: Aspirin Enteric Coated 81 MG TABLET.DR PO (07:51)
[2021-11-08] MEDS: Atorvastatin Calcium 20 MG TABLET PO (07:51)
--- NOTE | 2021-11-08 07:58 | PC.NURSE ---
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 Pt has intermittent prod cough with high respiratoins and remains on 2L N/C Heart murmur ausculated with lungs crackles and slight wheeze. Pt abd soft and non-tender. B/L LE no edema noted.
[2021-11-08 08:24] LABS: Anion Gap 11 (12-20); Blood Urea Nitrogen 27 mg/dL (9-16); Calcium 9.2 mg/dL (8.4-10.2); Carbon Dioxide 29 mmol/L (22-29); Chloride 106 mmol/L (96-108); Creatinine Clr Calc Pharmacy 44.8; Estimated Glomerular Filt Rate 58; Glucose Random 128 mg/dL (60-115); Potassium 4.4 mmol/L (3.3-5.1); Sodium 142 mmol/L (135-145)
[2021-11-08 08:27] LABS: B Type Natriuretic Peptide 891 pg/mL (<100)
--- NOTE | 2021-11-08 11:34 | PM.CNCAR ---
History of Present Illness History of Present Illness Date of Service: 11/08/21 Chief complaint: SOB Narrative: This is a cardiology consultation regarding shortness of breath. He states that recently has not been feeling good and has been short of breath even walking short distances. It seems that he probably has some shortness of breath at baseline. However, progress recently. No clear anginal-type symptoms. No significant leg swelling. No palpitations, dizzy spells or syncopal episodes. Unclear coronary status but there is a history of myocardial infarction in the past. When I questioned him regarding cardiac catheterization, he states he has not had 1. Hence not clear what really happened. Otherwise multiple co-morbidities including history of stroke, hypertension, dyslipidemia, asthma. Review of Systems Review of Systems: Yes all other systems are reviewed and are negative Cardiovascular: Cardiovascular: Reports as per HPI, Reports no additional cardiovascular complaints, Denies acrocyanosis, Denies cool extremities, Denies painful fingertips, Denies chest pain, Denies chest pain at rest, Denies diaphoresis, Denies syncope, Denies irregular heart rhythm, Denies claudication, Denies leg edema, Denies lightheadedness, Denies palpitations and Reports dyspnea Respiratory: Respiratory: Reports dyspnea Neurologic: Denies syncope Endocrine: Endocrine: Denies palpitations PMFSH Past Medical History Medical History (Updated 11/08/21 @ 11:37 by Boris Gan MD) Asthma CVA (cerebrovascular accident) Family History Pertinent family history: No significant relevant FH Social History Social History (Updated 11/07/21 @ 10:48 by Sherrie Richmond MD) Patient Tobacco Use Status: Current everyday Tobacco user Advance Directives: No Meds Allergies Allergy/AdvReac Type Severity Reaction Status Date / Time acetaminophen [From Tylenol] Allergy Unknown UNKNOWN Verified 11/07/21 02:26 Active Medications: Current Medications Acetaminophen (Acetaminophen 325 Mg Tablet) 650 mg PO Q6H PRN PRN Reason: Pain, Mild (Pain Scale 1-3) Albuterol/Ipratropium (Albuterol/Iprat 2.5/0.5mg 3 Ml Ampul.Neb) 3 ml INHALE Q4H PRN PRN Reason: Shortness of Breath Amlodipine Besylate (Amlodipine Besylate 5 Mg Tablet) 5 mg PO DAILY [facility]; Protocol Last Admin: 11/08/21 07:50 Dose: 5 mg Documented by: Aspirin (Aspirin Enteric Coated 81 Mg Tablet.) 81 mg PO DAILY [facility] Last Admin: 11/08/21 07:51 Dose: 81 mg Documented by: Atorvastatin Calcium (Atorvastatin Calcium 20 Mg Tablet) 20 mg PO DAILY [facility] Last Admin: 11/08/21 07:51 Dose: 20 mg Documented by: Carvedilol (Carvedilol 6.25 Mg Tablet) 6.25 mg PO BID [facility]; Protocol Last Admin: 11/08/21 07:50 Dose: 6.25 mg Documented by: Docusate Sodium (Docusate Sodium 100 Mg Capsule) 100 mg PO BID PRN PRN Reason: constipation Doxazosin Mesylate (Doxazosin Mesylate 2 Mg Tablet) 4 mg PO BEDTIME [facility] Last Admin: 11/07/21 21:50 Dose: 4 mg Documented by: Folic Acid (Folic Acid 1 Mg Tablet) 1 mg PO DAILY [facility] Last Admin: 11/08/21 07:51 Dose: 1 mg Documented by: Furosemide (Furosemide 40 Mg/4 Ml Vial) 40 mg IVPUSH BID@0900,1800 [facility]; Protocol Last Admin: 11/08/21 07:51 Dose: 40 mg Documented by: Lisinopril (Lisinopril 10 Mg Tablet) 10 mg PO DAILY [facility]; Protocol Last Admin: 11/08/21 07:50 Dose: 10 mg Documented by: Multivitamins/Vitamin C (Multivitamin Tablet) 1 tab PO DAILY [facility] Last Admin: 11/08/21 07:50 Dose: 1 tab Documented by: Nicotine Polacrilex (Nicotine Polacrilex 2 Mg Gum) 2 mg BUCCAL Q3H PRN PRN Reason: nicotine cravings Ondansetron HCl (Ondansetron Hcl 4 Mg/2 Ml Vial) 4 mg IVPUSH Q8H PRN PRN Reason: Nausea and Vomiting Oxybutynin Chloride (Oxybutynin Chloride Er 5 Mg Tab.Er.24) 5 mg PO DAILY [facility] Last Admin: 11/08/21 08:28 Dose: 5 mg Documented by: Quetiapine Fumarate (Quetiapine Fumarate 50 Mg Tablet) 50 mg PO DAILY PRN PRN Reason: Agitation Sertraline HCl (Sertraline Hcl 100 Mg Tablet) 100 mg PO DAILY [facility] Last Admin: 11/08/21 07:51 Dose: 100 mg Documented by: Sodium Chloride (0.9 % Sodium Chloride Flush 3 Ml Syringe) 3 ml IVFLUSH QSHIFT [facility] Last Admin: 11/08/21 07:01 Dose: Not Given Documented by: Tiotropium [place] (Tiotropium [place] 18 Mcg Cap.W.Dev) 1 puff INHALE DAILY [facility] Last Admin: 11/08/21 10:35 Dose: 1 puff Documented by: Vitamin D (Cholecalciferol (Vitamin D3) 25 Mcg Tablet) 25 mcg PO DAILY [facility] Last Admin: 11/08/21 07:50 Dose: 25 mcg Documented by: Home Medications Medication Instructions Recorded Confirmed Last Taken Type amlodipine 5 mg tablet 1 tab PO DAILY 11/07/21 11/07/21 Unknown History aspirin 81 mg tablet,delayed 1 tab PO DAILY 11/07/21 11/07/21 Unknown History release atorvastatin 20 mg tablet 1 tab PO DAILY 11/07/21 11/07/21 Unknown History carvedilol 6.25 mg tablet 1 tab PO BID 11/07/21 11/07/21 Unknown History cholecalciferol (vitamin D3) 25 1 tab PO DAILY 11/07/21 11/07/21 Unknown History mcg (1,000 unit) tablet (Vitamin D3) docusate sodium 100 mg capsule 1 cap PO BID PRN 11/07/21 11/07/21 Unknown History (DOK) fluticasone 232 mcg-salmeterol 14 1 puff INHALATION BID 11/07/21 11/07/21 Unknown History mcg/actuation breath activated powdr folic acid 1 mg tablet 1 tab PO DAILY 11/07/21 11/07/21 Unknown History furosemide 20 mg tablet 1 tab PO DAILY 11/07/21 11/07/21 Unknown History lisinopril 10 mg tablet 1 tab PO DAILY 11/07/21 11/07/21 Unknown History multivitamin with folic acid 400 1 tab PO DAILY 11/07/21 11/07/21 Unknown History mcg tablet (Tab-A-Miguelangel) oxybutynin chloride 5 mg 1 tab PO DAILY 11/07/21 11/07/21 Unknown History tablet,extended release 24 hr quetiapine 50 mg tablet 1 tab PO DAILY PRN 11/07/21 11/07/21 Unknown History sertraline 100 mg tablet 1 tab PO DAILY 11/07/21 11/07/21 Unknown History terazosin 5 mg capsule 1 cap PO BEDTIME 11/07/21 11/07/21 Unknown History tiotropium bromide 18 mcg capsule 1 cap INHALATION DAILY 11/07/21 11/07/21 Unknown History with inhalation device (Spiriva with HandiHaler) Physical Exam Vital Signs: Vital Signs: Last Vital Signs Temp 98.5 F 11/08/21 07:55 Pulse 96 11/08/21 07:55 Resp 33 H 11/08/21 07:55 BP 153/76 H 11/08/21 07:55 Pulse Ox 98 11/08/21 07:55 Oxygen Flow Rate 4 11/06/21 23:36 BMI result Body Mass Index 25.2 Const: General: no acute distress HENMT: Other: Unremarkable Neck: Neck: Yes normal visual inspection Chest: Chest palpation & inspection: normal inspection of the chest Resp: Other: pursed lip breathing Auscultation: crackles (basal) Cardio: Palpation: normal PMI Heart sounds: S1 normal heart sound present, S2 normal heart sound present, no gallops, no murmurs and no rubs GI: Palpation (GI): Soft to palpation Back/Spine/Pelvis: Other: unremarkable Skin: Lesions: other Neuro: Cranial nerves: Yes Other cranial nerve findings present Extrem: General: Yes other Psych: Mental Status: other Objective Labs and Meds Result diagrams: 11/07/21 01:04 11/08/21 07:28 Lab results: Laboratory Results - last 24 hr 11/08/21 11/08/21 07:28 07:28 Sodium 142 Potassium 4.4 Chloride 106 Carbon Dioxide 29 Anion Gap 11 L BUN 27 H D Creatinine 1.25 Estim Creat Clear Calc 44.8 Estimated GFR 58 Random Glucose 128 H Calcium 9.2 B-Natriuretic Peptide 891 H ECG Interpretation: EKG with sinus rhythm at 90/Min; left ventricle hypertrophy/repolarization changes. In the repeat EKG, probable sinus tachycardia at 142/Min vs SVT. Assessment and Plan (1) Acute on chronic congestive heart failure: Status: Acute (2) Essential hypertension: Status: Acute (3) SVT (supraventricular tachycardia): Status: Acute High sensitivity troponins are 24.923.6. Cardiac BNP is 1143 and 891. COVID test is negative. Chest CT reported to have focal patchy parenchymal opacities in the upper lobes which could represent infiltrates are not infectious. Moderate emphysema. Overall, possibly multifactorial symptoms. Unknown LVEF. We need to get an echocardiogram for further evaluation. Empiric diuretics but he does not look too much volume overloaded. With regard to the question of SVT episode , based on response to vagal maneuver could be SVT. Has not had any recurrences. If necessary can go up on beta-blockers or add diltiazem. Procedures Date of Service Date of Service: 11/08/21
[2021-11-08] MEDS: cefTRIAXone sodium 1 GM in 0.9 % Sodium Chloride 50 ML IV (13:11)
[2021-11-08] MEDS: Azithromycin 500 MG in 0.9 % Sodium Chloride 250 ML 125 MG IV (14:34)
--- NOTE | 2021-11-08 15:30 | HO.PM.IMPN ---
Subjective Subjective Date of Service: 11/08/21 Interval History: Feeling better since admit, able to sleep last night but still complaining of shortness of breath, denies chest pain, no palpitations, no nausea, no vomiting no fevers no chills no other acute complaints. Review of Systems Review of Systems: Yes all other systems are reviewed and are negative Physical Exam Vital Signs: Vital Signs: Last Vital Signs Temp 98.5 F 11/08/21 07:55 Pulse 81 11/08/21 14:35 Resp 16 11/08/21 14:35 BP 151/75 H 11/08/21 14:35 Pulse Ox 98 11/08/21 14:35 Oxygen Flow Rate 4 11/06/21 23:36 BMI result Body Mass Index 25.2 General awake alert, in no acute distress HEENT pupils equal round reactive to light and accommodation Neck supple,+ JVD. CVS? regular rate rhythm, Respiratory lungs bibasilar crackles no use of accessory muscle Gastrointestinal abdomen soft, nontender, bowel sounds audible,no guarding , no rigidity. Extremities no edema. Neuro nonfocal Skin no rash Psych appropriate affect Objective Data Active Medications Acetaminophen (Acetaminophen 325 Mg Tablet) 650 mg PO Q6H PRN PRN Reason: Pain, Mild (Pain Scale 1-3) Albuterol/Ipratropium (Albuterol/Iprat 2.5/0.5mg 3 Ml Ampul.Neb) 3 ml INHALE Q4H PRN PRN Reason: Shortness of Breath Amlodipine Besylate (Amlodipine Besylate 5 Mg Tablet) 5 mg PO DAILY [facility]; Protocol Last Admin: 11/08/21 07:50 Dose: 5 mg Documented by: MARY ALICE Aspirin (Aspirin Enteric Coated 81 Mg Tablet.) 81 mg PO DAILY [facility] Last Admin: 11/08/21 07:51 Dose: 81 mg Documented by: MARY ALICE Atorvastatin Calcium (Atorvastatin Calcium 20 Mg Tablet) 20 mg PO DAILY [facility] Last Admin: 11/08/21 07:51 Dose: 20 mg Documented by: MARY ALICE Carvedilol (Carvedilol 6.25 Mg Tablet) 6.25 mg PO BID [facility]; Protocol Last Admin: 11/08/21 07:50 Dose: 6.25 mg Documented by: MARY ALICE Docusate Sodium (Docusate Sodium 100 Mg Capsule) 100 mg PO BID PRN PRN Reason: constipation Doxazosin Mesylate (Doxazosin Mesylate 2 Mg Tablet) 4 mg PO BEDTIME [facility] Last Admin: 11/07/21 21:50 Dose: 4 mg Documented by: JOHN Folic Acid (Folic Acid 1 Mg Tablet) 1 mg PO DAILY [facility] Last Admin: 11/08/21 07:51 Dose: 1 mg Documented by: MARY ALICE Furosemide (Furosemide 40 Mg/4 Ml Vial) 40 mg IVPUSH BID@0900,1800 [facility]; Protocol Last Admin: 11/08/21 07:51 Dose: 40 mg Documented by: MARY ALICE Azithromycin 500 mg/ Sodium (Chloride) 250 mls @ 125 mls/hr IV Q24H [facility] Last Admin: 11/08/21 14:34 Dose: 125 mls/hr Documented by: MARY ALICE Ceftriaxone Sodium 1 gm/ (Sodium Chloride) 50 mls @ 100 mls/hr IV Q24H [facility] Last Infusion: 11/08/21 13:59 Dose: 0 mls/hr Documented by: MARY ALICE Lisinopril (Lisinopril 10 Mg Tablet) 10 mg PO DAILY [facility]; Protocol Last Admin: 11/08/21 07:50 Dose: 10 mg Documented by: MARY ALICE Multivitamins/Vitamin C (Multivitamin Tablet) 1 tab PO DAILY [facility] Last Admin: 11/08/21 07:50 Dose: 1 tab Documented by: MARY ALICE Nicotine Polacrilex (Nicotine Polacrilex 2 Mg Gum) 2 mg BUCCAL Q3H PRN PRN Reason: nicotine cravings Ondansetron HCl (Ondansetron Hcl 4 Mg/2 Ml Vial) 4 mg IVPUSH Q8H PRN PRN Reason: Nausea and Vomiting Oxybutynin Chloride (Oxybutynin Chloride Er 5 Mg Tab.Er.24) 5 mg PO DAILY [facility] Last Admin: 11/08/21 08:28 Dose: 5 mg Documented by: MARY ALICE Quetiapine Fumarate (Quetiapine Fumarate 50 Mg Tablet) 50 mg PO DAILY PRN PRN Reason: Agitation Sertraline HCl (Sertraline Hcl 100 Mg Tablet) 100 mg PO DAILY [facility] Last Admin: 11/08/21 07:51 Dose: 100 mg Documented by: MARY ALICE Sodium Chloride (0.9 % Sodium Chloride Flush 3 Ml Syringe) 3 ml IVFLUSH QSHIFT [facility] Last Admin: 11/08/21 15:17 Dose: Not Given Documented by: MARY ALICE Non-Admin Reason: Med Not Available Tiotropium [place] (Tiotropium [place] 18 Mcg Cap.W.Dev) 1 puff INHALE DAILY [facility] Last Admin: 11/08/21 10:35 Dose: 1 puff Documented by: MARY ALICE Vitamin D (Cholecalciferol (Vitamin D3) 25 Mcg Tablet) 25 mcg PO DAILY [facility] Last Admin: 11/08/21 07:50 Dose: 25 mcg Documented by: MARY ALICE Labs CBC & Chem 7: 11/07/21 01:04 11/08/21 07:28 Labs: Laboratory Results - last 24 hr 11/08/21 11/08/21 07:28 07:28 Anion Gap 11 L Estim Creat Clear Calc 44.8 Estimated GFR 58 Random Glucose 128 H Calcium 9.2 B-Natriuretic Peptide 891 H Microbiology Microbiology Results: Microbiology 11/07/21 02:10 Blood Culture - Preliminary Blood - Venous No growth after 24 hours. 11/07/21 01:47 Blood Culture - Preliminary Blood - Venous No growth after 24 hours. Assessment and Plan (1) Essential hypertension: Status: Acute (2) Hypertension: Status: Acute (3) SVT (supraventricular tachycardia): Status: Acute (4) Pneumonia: Status: Acute (5) CHF (congestive heart failure): Status: Acute (6) Acute respiratory failure with hypoxia: Status: Acute Assessment and Plan: 66-year-old [place] gentleman with known history of coronary artery disease status post OH 2 years ago being followed by interactive marketing strategist from [facility] was last seen 1 year ago presented to [facility] with worsening shortness of breath worse with exertion and orthopnea of 2-3 days duration workup in the emergency room showed elevated BNP, normal troponin, chest x-ray and CTA chest suggestive of fluid overload patient is now being admitted with a diagnosis of acute congestive heart failure with unknown EF, and also noted to have 2 episodes of SVT that broke with vagal maneuver. Acute hypoxic respiratory failure due to acute congestive heart failure/pneumonia Continue 2 L of oxygen, finger oximetry 98% wean o2 as tolerated, not on home O2 New onset acute congestive heart failure of unknown EF Persistent shortness of breath, on IV Lasix 40 mg b.i.d. echocardiogram, strict I's and O's, daily weight Continue Coreg and lisinopril BNP trending down, stable electrolytes follow BMP/mg and BNP. Seen by Cardiology they agree with above management SVT Improved continue beta-blockers, will increase dose of Coreg from 6.25-12.5 b.i.d., continue tele monitor follow electrolytes closely Pneumonia Complaining of productive cough, no fevers no chills normal WBC Bilateral infiltrates on chest x-ray and CT chest on IV ceftriaxone and azithromycin day 2/5 days , cough medication and repeat imaging study in 3 months History of coronary artery disease No chest pain, normal troponins follow clinical course Continue aspirin, statins and beta-hayley dose increased as above Tobacco use disorder on Nicorette gums patient is self weaning, counseling done Acute exacerbation of asthma/emphysema (overlap syndrome) Persistent shortness of breath due to combination of CHF and exacerbation of copd Strongly recommend to abstain from smoking Will place on scheduled and as needed xopenex, IV steroids , home inhalers, will need outpatient PFTs History of CVA no residual Code status full code DVT prophylaxis with Lovenox subcu Quality Stroke Does the patient have a stroke diagnosis?: No VTE Prior VTE?: No VTE Risk Level:: Medical - moderate - high VTE Device Contraindication: Treatment Not Indicated VTE Drug Contraindication: N/A - Med Ordered
[2021-11-08] MEDS: methylPREDNISolone Sod Succ 40 MG/ML VIAL IVPUSH (16:36)
[2021-11-08] MEDS: Enoxaparin Sodium 40 MG/0.4 ML SYRINGE SUBCUT (17:11)
[2021-11-08] MEDS: carvediloL 12.5 MG TABLET PO (21:53)
[2021-11-09] VITALS (8 sets, daily range): BP systolic 139–158; BP diastolic 53–73; PULSE 60–90; RESP 15–22; O2SAT 95–100; BMI 21.4
[2021-11-09] MEDS: 0.9 % Sodium Chloride Flush 3 ML SYRINGE IVFLUSH ×2 (00:13→08:43)
[2021-11-09] MEDS: methylPREDNISolone Sod Succ 40 MG/ML VIAL IVPUSH ×2 (04:21→17:00)
--- NOTE | 2021-11-09 05:30 | MHC.PIE ---
P SVT I.PT HAD BURST OF SVT,HR 160'S.ABLE TO BREAK WITH VAGAL MANUEVERS.HR BACK TO SB,HR 50'S.BEING FOLLOWED BY CARDIOLOGY.KEITH AMES UPDATED.NO NEW ORDERS. E.CONT TO MONITOR.
[2021-11-09 05:33] LABS: B Type Natriuretic Peptide 1122 pg/mL (<100)
[2021-11-09 05:39] LABS: Anion Gap 15 (12-20); Blood Urea Nitrogen 38 mg/dL (9-16); Calcium 9.3 mg/dL (8.4-10.2); Carbon Dioxide 30 mmol/L (22-29); Chloride 104 mmol/L (96-108); Creatinine Clr Calc Pharmacy 41.2; Estimated Glomerular Filt Rate 52; Glucose Random 120 mg/dL (60-115); Magnesium 2.3 mg/dL (1.6-2.6); Potassium 5.2 mmol/L (3.3-5.1); Sodium 144 mmol/L (135-145)
--- NOTE | 2021-11-09 07:30 | CA_ITS ---
Transthoracic Echocardiogram Patient (Last, First, Middle): Chu Tan, Gender: Male Date of : 1955 Age: 66 Procedure Date: 11/09/2021 Procedure Type: Transthoracic Echocardiogram Location: ER Height: 157.48 cm Weight: 53.07 kg BSA: 1.52 m2 Heart Rate: bpm BP: 158 / 73 mmHg Senior Application Programmer: GERALDINE Referring MD: Sherrie Richmond MD Symptoms: chf Study Quality: Fair Conclusions: - Normal left ventricular cavity size. There is normal left ventricular wall thickness. The left ventricular systolic function is moderate to severely decreased. The visually estimated ejection fraction is between 25-30%. - The entire septum is akinetic. - Normal right ventricular cavity size and systolic function. - Membranous VSD noted with a small mobile mass attached to it - differentials vegetation vs clot. - Cannot estimate an accurate pulmonary pressure because Doppler assessment for tricuspid valve regurgitation is in the same area where VSD jet is present. - There is mild dilatation of the ascending aorta measuring 3.50 cm. Findings Left Ventricle Normal left ventricular cavity size. There is normal left ventricular wall thickness. The left ventricular systolic function is moderate to severely decreased. The visually estimated ejection fraction is between 25-30%. There is moderate global hypokinesis. Abnormal diastolic function is noted. Spectral Doppler is indicative of an impaired relaxation filling pattern. Elevated filling pressures. Membranous VSD noted with a small mobile mass attached to it - differentials vegetation vs clot. Wall Motion Rest Echo Findings The entire septum is akinetic. Right Ventricle Normal right ventricular cavity size and systolic function. Atria The left atrium is severely dilated. Aortic Valve There is mild calcification of the aortic valve. There is mild thickening of the aortic valve. There is no aortic valve stenosis. There is trace (trivial) aortic valve regurgitation. Mitral Valve Normal mitral valve structure and function. There is mild mitral valve regurgitation. There is no mitral valve stenosis. Tricuspid Valve Moderately elevated right atrial pressure. Cannot estimate an accurate pulmonary pressure because Doppler assessment for tricuspid valve regurgitation is in the same area where VSD jet is present. Great Vessels There is mild dilatation of the ascending aorta measuring 3.50 cm. The visualized portions of the pulmonary artery and branches are normal. Venous The inferior vena cava is dilated and collapses greater than 50% with inspiration. Pericardium/Pleural There is no evidence of pericardial effusion. Prior Study Comparison No prior study available for comparison. Measurements 2D Linear Measurements IVSd: 0.85 0.6-0.9/0.6-1.0 cm LVIDd: 5.58 3.9-5.3/4.2-5.9 cm LVIDd Index: 3.67 2.4-3.2/2.2-3.1 cm/m2 LVIDs: 5.03 2.0-3.6 cm LVPWd: 0.89 0.7-1.1 cm Ao Root: 3.30 2.1-3.5 cm LA Diam: 3.70 2.7-3.8/3.0-4.0 cm LAIDs Index: 2.43 1.5-2.3 cm/m2 LV Mass: 227.05 67-162/88-224 g LV Mass Index: 149.38 43-95/49-115 g/m2 LVOT Diam: 2.10 3.0+(-)1.3 cm 2D Systolic Function EF 4C: 45.10 >55% EF 2C: 34.10 >55% Mitral Valve MV Pk E: 1.21 MV PK A: 1.03 MV Decel Time: 139.00 E/A: 1.20 E'Lateral: 7.94 E'Medial: 4.79 E/E' Med: 25.30 E/E' Lat: 15.20 PHT: 41.00 MVA PHT: 5.37 Decel [place]: 8.72 Aortic Valve AoV Pk Yariel: 1.79 AoV Mn Yariel: 1.28 AoV VTI: 0.38 AoV Pk Grad: 13.00 Aov Mn Grad: 7.00 ERNESTO Cont.VTI: 1.89 LVOT LVOT Pk Yariel: 0.95 LVOT Mn Yariel: 0.65 LVOT VTI: 0.21 LVOT Pk Grad: 4.00 LVOT Mn Grad: 2.00 LVOT Diam: 2.10 LVOT Area: 3.46 Diastolic Function MV Pk E: 1.21 MV Pk A: 1.03 E/A: 1.20 E'Medial: 4.79 E/E' Med: 25.30 E' Laterial: 7.94 E/E' Lat: 15.20 Right Ventricle TAPSE (mm): 2.43 TVS' Yariel: 16.10 Tricuspid Valve TR Pk Yariel: 4.78 TR Pk Grad: 91.00 RA Press: 15.00 Great Vessels Aorta Ao Root-2D: 3.30 2.0-3.7 cm Ao Asc: 3.50 2.1-3.4 cm Updated in Other Vendor System with Status of Final Cruz Teran MD electronically signed on 11/09/2021 4:42:41 PM with status of Final
--- NOTE | 2021-11-09 07:32 | PHA.MEDREC ---
Pharmacy Consult ? Medication Reconciliation Pharmacy has reviewed the medication reconciliation completed by Janene San. There are no remarkable issues for provider's attention. Valorie Israel, PharmD
[2021-11-09] MEDS: Folic Acid 1 MG TABLET PO (08:39)
[2021-11-09] MEDS: Furosemide 40 MG/4 ML VIAL IVPUSH (08:39)
[2021-11-09] MEDS: Aspirin Enteric Coated 81 MG TABLET.DR PO (08:39)
[2021-11-09] MEDS: carvediloL 12.5 MG TABLET PO ×2 (08:40→20:34)
[2021-11-09] MEDS: Multivitamin TABLET 1 TAB PO (08:40)
[2021-11-09] MEDS: Cholecalciferol (Vitamin D3) 25 MCG TABLET PO (08:40)
[2021-11-09] MEDS: lisinopriL 10 MG TABLET PO (08:40)
[2021-11-09] MEDS: Sertraline HCL 100 MG TABLET PO (08:40)
[2021-11-09] MEDS: Atorvastatin Calcium 20 MG TABLET PO (08:40)
[2021-11-09] MEDS: amLODIPine Besylate 5 MG TABLET PO (08:40)
--- NOTE | 2021-11-09 09:41 | PC.NURSE ---
Pt is A&Ox3, no complaints of pain at this time,SR on the monitor at this time, R lung with crackles in the bases at this time. Medicated as per [facility] orders, aware lasix was given, urinal at bedside. Awaiting bed assignment, will continue to monitor.
[2021-11-09 10:33] LABS: Procalcitonin 0.27 ng/mL
[2021-11-09] MEDS: Sodium Zirconium Cyclosilicate 10 GM POWD.PACK PO (11:37)
--- NOTE | 2021-11-09 11:39 | P.PNCA_ITS ---
Subjective Subjective Date of Service: 11/09/21 Interval history: Patient was seen and examined at bedside. Feeling better. Echo showing LV dysfunction with EF 25 30%. He also has concern for ventricular septal defect. Physical Exam Vital Signs: Last Vital Signs Temp 98.1 F 11/08/21 19:56 Pulse 66 11/09/21 08:54 Resp 15 11/09/21 08:54 BP 150/70 H 11/09/21 08:54 Pulse Ox 98 11/09/21 08:54 Oxygen Flow Rate 4 11/06/21 23:36 BMI result Body Mass Index 21.4 GENERAL APPEARANCE: in no acute distress, pleasant. NECK: no carotid bruit, no obvious jugular venous distention. SKIN: no suspicious lesions, warm and dry. HEART: no murmurs, regular rate and rhythm. LUNGS: clear to auscultation bilaterally. ABDOMEN: soft, nontender. EXTREMITIES: no edema. Objective Labs and Meds Result diagrams: 11/07/21 01:04 11/09/21 04:17 Lab results: Laboratory Results - last 24 hr 11/09/21 11/09/21 11/09/21 04:17 04:17 04:17 Sodium 144 Potassium 5.2 H Chloride 104 Carbon Dioxide 30 H Anion Gap 15 BUN 38 H Creatinine 1.36 Estim Creat Clear Calc 41.2 Estimated GFR 52 Random Glucose 120 H Calcium 9.3 Magnesium 2.3 C-Reactive Protein 2.40 H Cancelled B-Natriuretic Peptide 1122 H Procalcitonin 11/09/21 04:17 Sodium Potassium Chloride Carbon Dioxide Anion Gap BUN Creatinine Estim Creat Clear Calc Estimated GFR Random Glucose Calcium Magnesium C-Reactive Protein B-Natriuretic Peptide Procalcitonin 0.27 Progress Note: A&P Assessment and plan (1) Essential hypertension: Status: Acute (2) Acute on chronic congestive heart failure: Status: Acute (3) VSD (ventricular septal defect): Status: Acute Assessment and Plan: [age] year gentleman gentleman shortness of breath. He had elevated BNP levels and was diuresed. Echocardiography is showing moderate severe LV dysfunction with concern for ventricular septal defect. There is also small mobile mass attached to that area and I cannot rule out endocarditis. His blood cultures are positive 1/2 with Gram-positive cocci. Continue antibiotics adjust for Gram-positive cocci. Repeat blood cultures. I will see if there is any or echocardiogram in [facility] system which I can review to see if he did have a VSD before. Ventricular septal defect eventually leads to LV volume overload and dysfunction which we are seeing and I am not sure whether this is the reason for LV dysfunction in this case or not. He is hemodynamically stable at this point. Thank you for allowing me to participate in the care of your patient. Please feel free to contact me if you have any questions. Fall Risk Details Current Medications: Current Medications Acetaminophen (Acetaminophen 325 Mg Tablet) 650 mg PO Q6H PRN PRN Reason: Pain, Mild (Pain Scale 1-3) Albuterol/Ipratropium (Albuterol/Iprat 2.5/0.5mg 3 Ml Ampul.Neb) 3 ml INHALE Q4H PRN PRN Reason: Shortness of Breath Amlodipine Besylate (Amlodipine Besylate 5 Mg Tablet) 5 mg PO DAILY [facility]; Protocol Last Admin: 11/09/21 08:40 Dose: 5 mg Documented by: Aspirin (Aspirin Enteric Coated 81 Mg Tablet.) 81 mg PO DAILY [facility] Last Admin: 11/09/21 08:39 Dose: 81 mg Documented by: Atorvastatin Calcium (Atorvastatin Calcium 20 Mg Tablet) 20 mg PO DAILY [facility] Last Admin: 11/09/21 08:40 Dose: 20 mg Documented by: Carvedilol (Carvedilol 12.5 Mg Tablet) 12.5 mg PO BID [facility]; Protocol Last Admin: 11/09/21 08:40 Dose: 12.5 mg Documented by: Docusate Sodium (Docusate Sodium 100 Mg Capsule) 100 mg PO BID PRN PRN Reason: constipation Doxazosin Mesylate (Doxazosin Mesylate 2 Mg Tablet) 4 mg PO BEDTIME [facility] Last Admin: 11/08/21 21:54 Dose: Not Given Documented by: Enoxaparin Sodium (Enoxaparin Sodium 40 Mg/0.4 Ml Syringe) 40 mg SUBCUT Q24H [facility] Last Admin: 11/08/21 17:11 Dose: 40 mg Documented by: Folic Acid (Folic Acid 1 Mg Tablet) 1 mg PO DAILY [facility] Last Admin: 11/09/21 08:39 Dose: 1 mg Documented by: Furosemide (Furosemide 40 Mg/4 Ml Vial) 40 mg IVPUSH BID@0900,1800 [facility]; Protocol Last Admin: 11/09/21 08:39 Dose: 40 mg Documented by: Azithromycin 500 mg/ Sodium (Chloride) 250 mls @ 125 mls/hr IV Q24H [facility] Last Infusion: 11/08/21 16:30 Dose: Infused Documented by: Ceftriaxone Sodium 1 gm/ (Sodium Chloride) 50 mls @ 100 mls/hr IV Q24H [facility] Last Infusion: 11/08/21 13:59 Dose: Infused Documented by: Levalbuterol HCl (Levalbuterol Hcl 1.25 Mg/0.5 Ml Vial.Neb) 1.25 mg INHALE RQ4H WHILE AWAKE [facility] Last Admin: 11/09/21 08:50 Dose: 1.25 mg Documented by: Lisinopril (Lisinopril 10 Mg Tablet) 10 mg PO DAILY [facility]; Protocol Last Admin: 11/09/21 08:40 Dose: 10 mg Documented by: Methylprednisolone Sodium Succinate (Methylprednisolone Sod Succ 40 Mg/Ml Vial) 40 mg IVPUSH Q12H [facility] Last Admin: 11/09/21 04:21 Dose: 40 mg Documented by: Multivitamins/Vitamin C (Multivitamin Tablet) 1 tab PO DAILY [facility] Last Admin: 11/09/21 08:40 Dose: 1 tab Documented by: Nicotine Polacrilex (Nicotine Polacrilex 2 Mg Gum) 2 mg BUCCAL Q3H PRN PRN Reason: nicotine cravings Ondansetron HCl (Ondansetron Hcl 4 Mg/2 Ml Vial) 4 mg IVPUSH Q8H PRN PRN Reason: Nausea and Vomiting Oxybutynin Chloride (Oxybutynin Chloride Er 5 Mg Tab.Er.24) 5 mg PO DAILY [facility] Last Admin: 11/09/21 08:40 Dose: 5 mg Documented by: Quetiapine Fumarate (Quetiapine Fumarate 50 Mg Tablet) 50 mg PO DAILY PRN PRN Reason: Agitation Sertraline HCl (Sertraline Hcl 100 Mg Tablet) 100 mg PO DAILY [facility] Last Admin: 11/09/21 08:40 Dose: 100 mg Documented by: Sodium Chloride (0.9 % Sodium Chloride Flush 3 Ml Syringe) 3 ml IVFLUSH QSHIFT [facility] Last Admin: 11/09/21 08:43 Dose: 3 ml Documented by: Tiotropium [place] (Tiotropium [place] 18 Mcg Cap.W.Dev) 1 puff INHALE DAILY [facility] Last Admin: 11/08/21 10:35 Dose: 1 puff Documented by: Vitamin D (Cholecalciferol (Vitamin D3) 25 Mcg Tablet) 25 mcg PO DAILY [facility] Last Admin: 11/09/21 08:40 Dose: 25 mcg Documented by: Time Spent With Patient Time: Total time spent is greater than 50% in coordination of care (as documente d) at patient's floor/unit and/or counseling patient: Time with patient: 25 - 35 minutes Progress Note: Quality Stroke Does the patient have a stroke diagnosis?: No Procedures Date of Service Date of Service: 11/09/21
--- NOTE | 2021-11-09 12:16 | HO.PM.IMPN ---
Subjective Subjective Date of Service: 11/09/21 Interval History: Short run of SVT this am that terminated with vagal manuevers. Dyspnea improved. No chest pain. 1/2 BCx positive for GPCs in clusters TTE shows VSD and likely aortic valve vegetation Review of Systems Review of Systems: Yes all other systems are reviewed and are negative Physical Exam Vital Signs: Vital Signs: Last Vital Signs Temp 98.1 F 11/08/21 19:56 Pulse 67 11/09/21 12:05 Resp 17 11/09/21 12:05 BP 150/70 H 11/09/21 08:54 Pulse Ox 98 11/09/21 08:54 Oxygen Flow Rate 4 11/06/21 23:36 BMI result Body Mass Index 21.4 Gen: in no acute distress HEENT: sclera anicteric, moist mucus membranes Neck: supple Lungs: clear to auscultation bilaterally Heart: regular rate and rhythm, no murmurs Abd: soft, non-tender, non-distended Ext: no edema Skin: warm/well-perfused Neuro: alert and oriented x3, no focal findings Psych: appropriate affect Objective Data Active Medications Acetaminophen (Acetaminophen 325 Mg Tablet) 650 mg PO Q6H PRN PRN Reason: Pain, Mild (Pain Scale 1-3) Albuterol/Ipratropium (Albuterol/Iprat 2.5/0.5mg 3 Ml Ampul.Neb) 3 ml INHALE Q4H PRN PRN Reason: Shortness of Breath Amlodipine Besylate (Amlodipine Besylate 5 Mg Tablet) 5 mg PO DAILY [facility]; Protocol Last Admin: 11/09/21 08:40 Dose: 5 mg Documented by: LUIZ Aspirin (Aspirin Enteric Coated 81 Mg Tablet.) 81 mg PO DAILY [facility] Last Admin: 11/09/21 08:39 Dose: 81 mg Documented by: LUIZ Atorvastatin Calcium (Atorvastatin Calcium 20 Mg Tablet) 20 mg PO DAILY [facility] Last Admin: 11/09/21 08:40 Dose: 20 mg Documented by: LUIZ Carvedilol (Carvedilol 12.5 Mg Tablet) 12.5 mg PO BID [facility]; Protocol Last Admin: 11/09/21 08:40 Dose: 12.5 mg Documented by: LUIZ Docusate Sodium (Docusate Sodium 100 Mg Capsule) 100 mg PO BID PRN PRN Reason: constipation Doxazosin Mesylate (Doxazosin Mesylate 2 Mg Tablet) 4 mg PO BEDTIME [facility] Last Admin: 11/08/21 21:54 Dose: Not Given Documented by: LEONIDES Non-Admin Reason: Med Not Available Enoxaparin Sodium (Enoxaparin Sodium 40 Mg/0.4 Ml Syringe) 40 mg SUBCUT Q24H [facility] Last Admin: 11/08/21 17:11 Dose: 40 mg Documented by: MARY ALICE Folic Acid (Folic Acid 1 Mg Tablet) 1 mg PO DAILY [facility] Last Admin: 11/09/21 08:39 Dose: 1 mg Documented by: LUIZ Furosemide (Furosemide 40 Mg Tablet) 40 mg PO DAILY [facility]; Protocol Azithromycin 500 mg/ Sodium (Chloride) 250 mls @ 125 mls/hr IV Q24H [facility] Last Infusion: 11/08/21 16:30 Dose: 0 mls/hr Documented by: MARY ALICE Ceftriaxone Sodium 1 gm/ (Sodium Chloride) 50 mls @ 100 mls/hr IV Q24H [facility] Last Infusion: 11/08/21 13:59 Dose: 0 mls/hr Documented by: MARY ALICE Levalbuterol HCl (Levalbuterol Hcl 1.25 Mg/0.5 Ml Vial.Neb) 1.25 mg INHALE RQ4H WHILE AWAKE [facility] Last Admin: 11/09/21 12:04 Dose: 1.25 mg Documented by: ALESHA Lisinopril (Lisinopril 10 Mg Tablet) 10 mg PO DAILY [facility]; Protocol Last Admin: 11/09/21 08:40 Dose: 10 mg Documented by: LUIZ Methylprednisolone Sodium Succinate (Methylprednisolone Sod Succ 40 Mg/Ml Vial) 40 mg IVPUSH Q12H [facility] Last Admin: 11/09/21 04:21 Dose: 40 mg Documented by: ELISE Multivitamins/Vitamin C (Multivitamin Tablet) 1 tab PO DAILY [facility] Last Admin: 11/09/21 08:40 Dose: 1 tab Documented by: LUIZ Nicotine Polacrilex (Nicotine Polacrilex 2 Mg Gum) 2 mg BUCCAL Q3H PRN PRN Reason: nicotine cravings Ondansetron HCl (Ondansetron Hcl 4 Mg/2 Ml Vial) 4 mg IVPUSH Q8H PRN PRN Reason: Nausea and Vomiting Oxybutynin Chloride (Oxybutynin Chloride Er 5 Mg Tab.Er.24) 5 mg PO DAILY [facility] Last Admin: 11/09/21 08:40 Dose: 5 mg Documented by: LUIZ Pharmacy Consult (Consult Rx Vancomycin Dosing) 1 each MISCELLANE NOW STA Stop: 11/09/21 12:10 Quetiapine Fumarate (Quetiapine Fumarate 50 Mg Tablet) 50 mg PO DAILY PRN PRN Reason: Agitation Sertraline HCl (Sertraline Hcl 100 Mg Tablet) 100 mg PO DAILY [facility] Last Admin: 11/09/21 08:40 Dose: 100 mg Documented by: LUIZ Sodium Chloride (0.9 % Sodium Chloride Flush 3 Ml Syringe) 3 ml IVFLUSH QSHIFT [facility] Last Admin: 11/09/21 08:43 Dose: 3 ml Documented by: LUIZ Tiotropium Beeson (Tiotropium Beeson 18 Mcg Cap.W.Dev) 1 puff INHALE DAILY [facility] Last Admin: 11/09/21 11:50 Dose: Not Given Documented by: ALESHA Non-Admin Reason: Med Not Available Vitamin D (Cholecalciferol (Vitamin D3) 25 Mcg Tablet) 25 mcg PO DAILY [facility] Last Admin: 11/09/21 08:40 Dose: 25 mcg Documented by: LUIZ Labs CBC & Chem 7: 11/07/21 01:04 11/09/21 04:17 Labs: Laboratory Results - last 24 hr 11/09/21 11/09/21 11/09/21 04:17 04:17 04:17 Anion Gap 15 Estim Creat Clear Calc 41.2 Estimated GFR 52 Random Glucose 120 H Calcium 9.3 Magnesium 2.3 C-Reactive Protein 2.40 H Cancelled B-Natriuretic Peptide 1122 H Procalcitonin 11/09/21 04:17 Anion Gap Estim Creat Clear Calc Estimated GFR Random Glucose Calcium Magnesium C-Reactive Protein B-Natriuretic Peptide Procalcitonin 0.27 Microbiology Microbiology Results: Microbiology 11/07/21 02:10 Blood Culture - Preliminary Blood - Venous Prelim: GPC Gram Stain only 11/07/21 01:47 Blood Culture - Preliminary Blood - Venous No growth after 48 hours. Assessment and Plan (1) Essential hypertension: Status: Acute (2) Hypertension: Status: Acute (3) SVT (supraventricular tachycardia): Status: Acute (4) Pneumonia: Status: Acute (5) CHF (congestive heart failure): Status: Acute (6) Acute respiratory failure with hypoxia: Status: Acute Assessment and Plan: hospital d#3 66yo M with CAD s/p SC 2 yr ago presenting with worsening exertional dyspnea + orthopnea x3d admitted for CHF exacerbation, SVT episodes, pneumonia, hypoxia # suspected infective endocarditis - on ceftriaxone d#3, add vancomycin, recheck BCx, follow speciation + susceptibilities # VSD - Cardiology to discuss with Cardiothoracic Surgery # acute HFrEF - now euvolemic, change to PO furosemide - continue carvedilol + lisinopril # acute hypoxic respiratory failure - supplemental O2, wean as tolerated, treat CHF + pneumonia # acute asthma/COPD exacerbation - IV steroids, scheduled/prn levalbuterol, home tiotropium - outpt PFTs # SVT - continue carvedilol at increased dose # hyperK, mild - Lokelma, recheck BMP in am # PNA - ceftriaxone + azithromycin d#3, trend PCT, check RVP, follow BCx # CAD # hx CVA with no residual - continue ASA, statin, carvedilol, lisinopril # tobacco abuse - NRT # VTE ppx - LMWH Quality Stroke Does the patient have a stroke diagnosis?: No VTE Prior VTE?: No VTE Risk Level:: Medical - moderate - high VTE Device Contraindication: Treatment Not Indicated VTE Drug Contraindication: N/A - Med Ordered
[2021-11-09] MEDS: cefTRIAXone sodium 1 GM in 0.9 % Sodium Chloride 50 ML IV (12:54)
[2021-11-09] MEDS: vancomycin HCL 1,250 MG in 0.9 % Sodium Chloride 250 ML 166.67 MG IV (13:08)
[2021-11-09] MEDS: Azithromycin 500 MG in 0.9 % Sodium Chloride 250 ML 125 MG IV (16:18)
[2021-11-09] MEDS: Enoxaparin Sodium 40 MG/0.4 ML SYRINGE SUBCUT (17:00)
[2021-11-09] MEDS: Doxazosin Mesylate 2 MG TABLET 4 MG PO (20:32)
[2021-11-10] VITALS (9 sets, daily range): BP systolic 135–153; BP diastolic 44–98; PULSE 54–82; RESP 15–24; TEMP 36.2–36.9; O2SAT 97–100
[2021-11-10 04:26] LABS: HBc Num1 0.27 S/CO (0.00-0.79); HIV AB/AG Nonreactive (Nonreactive); HIV Num 1 0.19 S/CO (0.00-0.99); Hepatitis B Core Antibody Nonreactive (Nonreactive); ~HepC Num1 12.42 S/CO (0.00-0.79); ~Hepatitis C Antibody Reactive (Nonreactive)
[2021-11-10 04:27] LABS: HBS Num1 1.13 mIU/mL (0-7.99); Hepatitis B Surface Antigen Negative (Negative); ~Hepatitis B Surface Antibody NONREACTIVE (Nonreactive)
[2021-11-10] MEDS: methylPREDNISolone Sod Succ 40 MG/ML VIAL IVPUSH (05:58)
[2021-11-10 07:25] LABS: Hematocrit 29.3 % (42.0-52.0); Mean Corpuscular HGB Conc 30.7 g/dl (31.0-36.0); Mean Corpuscular Hemoglobin 25.8 pg (27.0-33.0); Mean Platelet Volume 12.6 fL (9.4-12.4); Platelet Count 236 X10*3/uL (160-400); Red Blood Count 3.49 X10*6/uL (4.60-5.80); Red Cell Distribution Width 15.5 % (11.0-16.0); White Blood Count 4.8 X10*3/uL (4.8-10.8)
[2021-11-10 07:45] LABS: B Type Natriuretic Peptide 939 pg/mL (<100)
[2021-11-10 07:51] LABS: Anion Gap 12 (12-20); Blood Urea Nitrogen 46 mg/dL (9-16); Calcium 8.8 mg/dL (8.4-10.2); Carbon Dioxide 29 mmol/L (22-29); Chloride 104 mmol/L (96-108); Creatinine Clr Calc Pharmacy 41.9; Estimated Glomerular Filt Rate 55; Glucose Random 123 mg/dL (60-115); Magnesium 2.5 mg/dL (1.6-2.6); Potassium 4.6 mmol/L (3.3-5.1); Sodium 140 mmol/L (135-145)
[2021-11-10] MEDS: lisinopriL 10 MG TABLET PO ×2 (09:33→13:10)
[2021-11-10] MEDS: 0.9 % Sodium Chloride Flush 3 ML SYRINGE IVFLUSH ×2 (09:33→16:09)
[2021-11-10] MEDS: carvediloL 12.5 MG TABLET PO ×2 (09:34→21:26)
[2021-11-10] MEDS: Atorvastatin Calcium 20 MG TABLET PO (09:34)
[2021-11-10] MEDS: amLODIPine Besylate 5 MG TABLET PO (09:34)
[2021-11-10] MEDS: Folic Acid 1 MG TABLET PO (09:34)
[2021-11-10] MEDS: Furosemide 40 MG TABLET PO (09:34)
[2021-11-10] MEDS: Multivitamin TABLET 1 TAB PO (09:35)
[2021-11-10] MEDS: Cholecalciferol (Vitamin D3) 25 MCG TABLET PO (09:35)
[2021-11-10] MEDS: Aspirin Enteric Coated 81 MG TABLET.DR PO (09:35)
[2021-11-10] MEDS: Sertraline HCL 100 MG TABLET PO (09:37)
--- NOTE | 2021-11-10 09:42 | MHC.CM.PN ---
Addendum entered by Arlen Maya RN 11/10/21 09:46: CM ALSO MET W/PT TO COMPLETE A HCP, PT NAMED HIS BROTHER RALPH AMBROSIO [phone] Original Note: IMM 11/10/21, EMR REVIEWED, PT ADMITTED W/SOB AND ACUTE NEW ONSET CHF, CM MET W/PT VIA [employer] PT IS A&O, REPORTS HE IS INDEPENDENT W/CARE, HAS NO DME HOWEVER DOES HAVE A VNA BID FOR MEDS, PT IS UNABLE TO VERIFY HIS PCP HOWEVER REPORTS HE GOES TO [facility] AND CM HOME BUILDER WILL CALL TO [facility], PT ALSO REPORTS HE RECEIVED 2 PFIZER VACCINES HOWEVER HAS CARD W/HIM AND VACCINE CARD SHOWS MODERNA 02/28, 03/28 AND PT REPORTS HE RECEIVED IT AT [facility]. DCP: RETURN HOME W/BID NURSING, PT WILL NEED [facility] SHUTTLE HOME.
[2021-11-10] MEDS: cefTRIAXone sodium 1 GM in 0.9 % Sodium Chloride 50 ML IV (11:41)
[2021-11-10] MEDS: vancomycin HCL 1,000 MG in 0.9 % Sodium Chloride 250 ML 270 MG IV (12:50)
--- NOTE | 2021-11-10 12:54 | P.PNCA_ITS ---
Subjective Subjective Date of Service: 11/10/21 Interval history: He is saying his breathing is okay. Occasionally feels short of breath. Echocardiography has shown moderate severe LV dysfunction with ventricular septal defect. Discussing with him he had known history of EST. I have rev iewed his chart at [facility] and appears he had echocardiography last year which showed EF of 30 35% with small VSD. He was last seen by Dr. Myles at [facility]. Physical Exam Vital Signs: Last Vital Signs Temp 97.5 F 11/10/21 10:19 Pulse 63 11/10/21 11:32 Resp 20 11/10/21 11:32 BP 153/75 H 11/10/21 10:19 Pulse Ox 97 11/10/21 10:19 Oxygen Flow Rate 4 11/06/21 23:36 BMI result Body Mass Index 21.4 GENERAL APPEARANCE: in no acute distress, pleasant. NECK: no carotid bruit, positive for degenerative flux. SKIN: no suspicious lesions, warm and dry. HEART: Faint holosystolic murmur left sternal border regular rate and rhythm. LUNGS: Diminished at bases with bilateral crackles. ABDOMEN: soft, nontender. EXTREMITIES: no edema. Objective Labs and Meds Result diagrams: 11/10/21 06:29 11/10/21 06:29 Lab results: Laboratory Results - last 24 hr 11/09/21 11/10/21 11/10/21 12:40 06:29 06:29 WBC 4.8 RBC 3.49 L D Hgb 9.0 L D Hct 29.3 L D MCV 84.0 MCH 25.8 L MCHC 30.7 L RDW 15.5 Plt Count 236 MPV 12.6 H Absolute Nucleated RBC 0.000 Nucleated RBC % (auto) 0.0 Sodium 140 Potassium 4.6 Chloride 104 Carbon Dioxide 29 Anion Gap 12 BUN 46 H Creatinine 1.30 Estim Creat Clear Calc 41.9 Estimated GFR 55 Random Glucose 123 H Calcium 8.8 Magnesium 2.5 B-Natriuretic Peptide Hep Bs Antigen Negative Hep Bs Antibody NONREACTIVE Hep B Core Total Ab Nonreactive Hepatitis C Ab (EIA) Reactive H HIV 1&2 Ab/P24 Ag 4thGn Nonreactive 11/10/21 06:29 WBC RBC Hgb Hct MCV MCH MCHC RDW Plt Count MPV Absolute Nucleated RBC Nucleated RBC % (auto) Sodium Potassium Chloride Carbon Dioxide Anion Gap BUN Creatinine Estim Creat Clear Calc Estimated GFR Random Glucose Calcium Magnesium B-Natriuretic Peptide 939 H Hep Bs Antigen Hep Bs Antibody Hep B Core Total Ab Hepatitis C Ab (EIA) HIV 1&2 Ab/P24 Ag 4thGn Progress Note: A&P Assessment and plan (1) VSD (ventricular septal defect): Status: Acute (2) Essential hypertension: Status: Acute (3) Acute on chronic congestive heart failure: Status: Acute Assessment and Plan: Pleasant 66 year gentleman with known ventricular septal defect from as well as cardiomyopathy with EF of 30 35% with presenting with dyspnea and congestive heart failure. Clinically still congested and I think we should continue IV diuretics. Ejection fraction is 25 30% which is similar to his previous ejection fraction. He follows with [facility]. Blood pressure is elevated and I think we should increase the lisinopril to 20 mg once a day. Giving an extra dose of 10 mg today. I think we should maximize lisinopril as next step. I think his VSD and ca rdiomyopathy is known. As he improves plan is to discharge home. He had 1/2 cultures positive for problem positive cocci. I think we should repeat blood cultures but it is likely that he had contamination. Thank you for allowing me to participate in the care of your patient. Please feel free to contact me if you have any questions. Fall Risk Details Current Medications: Current Medications Acetaminophen (Acetaminophen 325 Mg Tablet) 650 mg PO Q6H PRN PRN Reason: Pain, Mild (Pain Scale 1-3) Albuterol/Ipratropium (Albuterol/Iprat 2.5/0.5mg 3 Ml Ampul.Neb) 3 ml INHALE Q4H PRN PRN Reason: Shortness of Breath Amlodipine Besylate (Amlodipine Besylate 5 Mg Tablet) 5 mg PO DAILY [facility]S [facility]; Protocol Last Admin: 11/10/21 09:34 Dose: 5 mg Documented by: Aspirin (Aspirin Enteric Coated 81 Mg Tablet.) 81 mg PO DAILY [facility] 234 BEDS AT [facility] Last Admin: 11/10/21 09:35 Dose: 81 mg Documented by: Atorvastatin Calcium (Atorvastatin Calcium 20 Mg Tablet) 20 mg PO DAILY [facility] 234 BEDS AT THE [facility] Last Admin: 11/10/21 09:34 Dose: 20 mg Documented by: Carvedilol (Carvedilol 12.5 Mg Tablet) 12.5 mg PO BID [facility] 234 BEDS AT THE [facility]; Protocol Last Admin: 11/10/21 09:34 Dose: 12.5 mg Documented by: Docusate Sodium (Docusate Sodium 100 Mg Capsule) 100 mg PO BID PRN PRN Reason: constipation Doxazosin Mesylate (Doxazosin Mesylate 2 Mg Tablet) 4 mg PO BEDTIME [facility] 234 BEDS AT [facility] Last Admin: 11/09/21 20:32 Dose: 4 mg Documented by: Enoxaparin Sodium (Enoxaparin Sodium 40 Mg/0.4 Ml Syringe) 40 mg SUBCUT Q24H [facility] 234 BEDS AT THE [facility] Last Admin: 11/09/21 17:00 Dose: 40 mg Documented by: Folic Acid (Folic Acid 1 Mg Tablet) 1 mg PO DAILY [facility] 234 BEDS AT [facility] Last Admin: 11/10/21 09:34 Dose: 1 mg Documented by: Furosemide (Furosemide 40 Mg/4 Ml Vial) 40 mg IVPUSH BID@0900,1800 [facility]CLUDE 234 BEDS AT [facility]; Protocol Ceftriaxone Sodium 1 gm/ (Sodium Chloride) 50 mls @ 100 mls/hr IV Q24H [facility] 234 BEDS AT THE [facility] Last Infusion: 11/10/21 12:13 Dose: Infused Documented by: Vancomycin HCl 1,000 mg/ (Sodium Chloride) 270 mls @ 270 mls/hr IV Q24H [facility]CLUDE 234 BEDS AT THE [facility] Azithromycin 500 mg/ Sodium (Chloride) 250 mls @ 125 mls/hr IV Q24H [facility]CLUDE 234 BEDS AT THE [facility] Last Infusion: 11/09/21 20:32 Dose: Infused Documented by: Levalbuterol HCl (Levalbuterol Hcl 1.25 Mg/0.5 Ml Vial.Neb) 1.25 mg INHALE RQ4H WHILE AWAKE [facility] 234 BEDS AT THE [facility] Last Admin: 11/10/21 11:31 Dose: 1.25 mg Documented by: Lisinopril (Lisinopril 10 Mg Tablet) 10 mg PO DAILY [facility] 234 BEDS AT [facility]; Protocol Last Admin: 11/10/21 09:33 Dose: 10 mg Documented by: Methylprednisolone Sodium Succinate (Methylprednisolone Sod Succ 40 Mg/Ml Vial) 40 mg IVPUSH Q24H [facility]CLUDE 234 BEDS AT THE [facility] Multivitamins/Vitamin C (Multivitamin Tablet) 1 tab PO DAILY [facility] 234 BEDS AT THE [facility] Last Admin: 11/10/21 09:35 Dose: 1 tab Documented by: Nicotine Polacrilex (Nicotine Polacrilex 2 Mg Gum) 2 mg BUCCAL Q3H PRN PRN Reason: nicotine cravings Ondansetron HCl (Ondansetron Hcl 4 Mg/2 Ml Vial) 4 mg IVPUSH Q8H PRN PRN Reason: Nausea and Vomiting Oxybutynin Chloride (Oxybutynin Chloride Er 5 Mg Tab.Er.24) 5 mg PO DAILY [facility] 234 BEDS AT [facility] Last Admin: 11/10/21 09:33 Dose: 5 mg Documented by: Quetiapine Fumarate (Quetiapine Fumarate 50 Mg Tablet) 50 mg PO DAILY PRN PRN Reason: Agitation Sertraline HCl (Sertraline Hcl 100 Mg Tablet) 100 mg PO DAILY [facility] 234 BEDS AT [facility] Last Admin: 11/10/21 09:37 Dose: 100 mg Documented by: Sodium Chloride (0.9 % Sodium Chloride Flush 3 Ml Syringe) 3 ml IVFLUSH QSHIFT [facility]S INCLUDE 234 BEDS AT THE [facility] Last Admin: 11/10/21 09:33 Dose: 3 ml Documented by: Tiotropium [place] (Tiotropium [place] 18 Mcg Cap.W.Dev) 1 puff INHALE DAILY [facility]CLUDE 234 BEDS AT THE [facility] Last Admin: 11/10/21 08:51 Dose: 1 puff Documented by: Vitamin D (Cholecalciferol (Vitamin D3) 25 Mcg Tablet) 25 mcg PO DAILY [facility]CLUDE 234 BEDS AT THE [facility] Last Admin: 11/10/21 09:35 Dose: 25 mcg Documented by: Time Spent With Patient Time: Total time spent is greater than 50% in coordination of care (as do cumented) at patient's floor/unit and/or counseling patient: Time with patient: 25 - 35 minutes Progress Note: Quality Stroke Does the patient have a stroke diagnosis?: No Procedures Date of Service Date of Service: 11/10/21
--- NOTE | 2021-11-10 13:34 | P.PNIM_ITS ---
Subjective Subjective Date of Service: 11/10/21 Interval History: Dyspnea somewhat improved States he was diagnosed with VSD as child and is followed at [facility] BCx grew 1/2 coag-neg Staph, likely contaminant Review of Systems Review of Systems: Yes all other systems are reviewed and are negative Physical Exam Vital Signs: Vital Signs: Last Vital Signs Temp 97.5 F 11/10/21 10:19 Pulse 63 11/10/21 11:32 Resp 20 11/10/21 11:32 BP 153/75 H 11/10/21 10:19 Pulse Ox 97 11/10/21 10:19 Oxygen Flow Rate 4 11/06/21 23:36 BMI result Body Mass Index 21.4 Gen: in no acute distress HEENT: sclera anicteric, moist mucus membranes Neck: supple Lungs diminished bilaterally Heart: regular rate and rhythm, no murmurs Abd: soft, non-tender, non-distended Ext: no edema Skin: warm/well-perfused Neuro: alert and oriented x3, no focal findings Psych: appropriate affect Objective Data Active Medications Acetaminophen (Acetaminophen 325 Mg Tablet) 650 mg PO Q6H PRN PRN Reason: Pain, Mild (Pain Scale 1-3) Albuterol/Ipratropium (Albuterol/Iprat 2.5/0.5mg 3 Ml Ampul.Neb) 3 ml INHALE Q4H PRN PRN Reason: Shortness of Breath Amlodipine Besylate (Amlodipine Besylate 5 Mg Tablet) 5 mg PO DAILY [facility]; Protocol Last Admin: 11/10/21 09:34 Dose: 5 mg Documented by: VIVIAN Aspirin (Aspirin Enteric Coated 81 Mg Tablet.) 81 mg PO DAILY [facility] Last Admin: 11/10/21 09:35 Dose: 81 mg Documented by: VIVIAN Atorvastatin Calcium (Atorvastatin Calcium 20 Mg Tablet) 20 mg PO DAILY [facility] Last Admin: 11/10/21 09:34 Dose: 20 mg Documented by: VIVIAN Carvedilol (Carvedilol 12.5 Mg Tablet) 12.5 mg PO BID [facility]; Protocol Last Admin: 11/10/21 09:34 Dose: 12.5 mg Documented by: VIVIAN Docusate Sodium (Docusate Sodium 100 Mg Capsule) 100 mg PO BID PRN PRN Reason: constipation Doxazosin Mesylate (Doxazosin Mesylate 2 Mg Tablet) 4 mg PO BEDTIME [facility] Last Admin: 11/09/21 20:32 Dose: 4 mg Documented by: SRAVAN Enoxaparin Sodium (Enoxaparin Sodium 40 Mg/0.4 Ml Syringe) 40 mg SUBCUT Q24H [facility] Last Admin: 11/09/21 17:00 Dose: 40 mg Documented by: SARAH-KRISTIAN Folic Acid (Folic Acid 1 Mg Tablet) 1 mg PO DAILY [facility] Last Admin: 11/10/21 09:34 Dose: 1 mg Documented by: VIVIAN Furosemide (Furosemide 40 Mg/4 Ml Vial) 40 mg IVPUSH BID@0900,1800 [facility]; Protocol Ceftriaxone Sodium 1 gm/ (Sodium Chloride) 50 mls @ 100 mls/hr IV Q24H [facility] Last Infusion: 11/10/21 12:13 Dose: 0 mls/hr Documented by: VIVIAN Vancomycin HCl 1,000 mg/ (Sodium Chloride) 270 mls @ 270 mls/hr IV Q24H [facility] Last Admin: 11/10/21 12:50 Dose: 270 mls/hr Documented by: VIVIAN Azithromycin 500 mg/ Sodium (Chloride) 250 mls @ 125 mls/hr IV Q24H [facility] Last Infusion: 11/09/21 20:32 Dose: 0 mls/hr Documented by: SRAVAN Levalbuterol HCl (Levalbuterol Hcl 1.25 Mg/0.5 Ml Vial.Neb) 1.25 mg INHALE RQ4H WHILE AWAKE [facility] Last Admin: 11/10/21 11:31 Dose: 1.25 mg Documented by: SHAILA Lisinopril (Lisinopril 20 Mg Tablet) 20 mg PO DAILY [facility]; Protocol Methylprednisolone Sodium Succinate (Methylprednisolone Sod Succ 40 Mg/Ml Vial) 40 mg IVPUSH Q24H [facility] Multivitamins/Vitamin C (Multivitamin Tablet) 1 tab PO DAILY [facility] Last Admin: 11/10/21 09:35 Dose: 1 tab Documented by: VIVIAN Nicotine Polacrilex (Nicotine Polacrilex 2 Mg Gum) 2 mg BUCCAL Q3H PRN PRN Reason: nicotine cravings Ondansetron HCl (Ondansetron Hcl 4 Mg/2 Ml Vial) 4 mg IVPUSH Q8H PRN PRN Reason: Nausea and Vomiting Oxybutynin Chloride (Oxybutynin Chloride Er 5 Mg Tab.Er.24) 5 mg PO DAILY [facility] Last Admin: 11/10/21 09:33 Dose: 5 mg Documented by: VIVIAN Quetiapine Fumarate (Quetiapine Fumarate 50 Mg Tablet) 50 mg PO DAILY PRN PRN Reason: Agitation Sertraline HCl (Sertraline Hcl 100 Mg Tablet) 100 mg PO DAILY [facility] Last Admin: 11/10/21 09:37 Dose: 100 mg Documented by: VIVIAN Sodium Chloride (0.9 % Sodium Chloride Flush 3 Ml Syringe) 3 ml IVFLUSH QSHIFT [facility] Last Admin: 11/10/21 09:33 Dose: 3 ml Documented by: VIVIAN Tiotropium [place] (Tiotropium [place] 18 Mcg Cap.W.Dev) 1 puff INHALE DAILY [facility] Last Admin: 11/10/21 08:51 Dose: 1 puff Documented by: ALESHA Vitamin D (Cholecalciferol (Vitamin D3) 25 Mcg Tablet) 25 mcg PO DAILY [facility] Last Admin: 11/10/21 09:35 Dose: 25 mcg Documented by: VIVIAN Labs CBC & Chem 7: 11/10/21 06:29 11/10/21 06:29 Labs: Laboratory Results - last 24 hr 11/09/21 11/10/21 11/10/21 12:40 06:29 06:29 MCV 84.0 MCH 25.8 L MCHC 30.7 L RDW 15.5 Plt Count 236 MPV 12.6 H Absolute Nucleated RBC 0.000 Nucleated RBC % (auto) 0.0 Anion Gap 12 Estim Creat Clear Calc 41.9 Estimated GFR 55 Random Glucose 123 H Calcium 8.8 Magnesium 2.5 B-Natriuretic Peptide Hep Bs Antigen Negative Hep Bs Antibody NONREACTIVE Hep B Core Total Ab Nonreactive Hepatitis C Ab (EIA) Reactive H HIV 1&2 Ab/P24 Ag 4thGn Nonreactive 11/10/21 06:29 MCV MCH MCHC RDW Plt Count MPV Absolute Nucleated RBC Nucleated RBC % (auto) Anion Gap Estim Creat Clear Calc Estimated GFR Random Glucose Calcium Magnesium B-Natriuretic Peptide 939 H Hep Bs Antigen Hep Bs Antibody Hep B Core Total Ab Hepatitis C Ab (EIA) HIV 1&2 Ab/P24 Ag 4thGn Microbiology Microbiology Results: Microbiology 11/07/21 02:10 Blood Culture - Final Blood - Venous Coag negative Staphylococcus Assessment and Plan (1) Essential hypertension: Status: Acute (2) Hypertension: Status: Acute (3) SVT (supraventricular tachycardia): Status: Acute (4) Pneumonia: Status: Acute (5) CHF (congestive heart failure): Status: Acute (6) Acute respiratory failure with hypoxia: Status: Acute Assessment and Plan: hospital d#4 66yo M with CAD s/p DC 2 yr ago presenting with worsening exertional dyspnea + orthopnea x3d admitted for CHF exacerbation, SVT episodes, pneumonia, hypoxia # acute/chronic HFrEF - hypervolemic, will restart IV furosemide, trend I+O/BNP/BMP/Mg - continue carvedilol + lisinopril [increased latter from 10 to 20 mg/d] # VSD, ?vegetation vs clot - outpt f/u with [facility] - very unlikely to have IE given coag-neg staph. repeat BCx pending. will d/c vancomycin. # acute hypoxic respiratory failure - supplemental O2, wean as tolerated, treat CHF + pneumonia # acute asthma/COPD exacerbation - IV steroids, scheduled/prn levalbuterol, home tiotropium - outpt PFTs # SVT - continue carvedilol at increased dose # hyperK, mild - resolved after Lokelma x1 dose # PNA - ceftriaxone + azithromycin d#4, trend PCT # CAD # hx CVA with no residual - continue ASA, statin, carvedilol, lisinopril # tobacco abuse - NRT # VTE ppx - LMWH # dispo - anticipate home with VNA once euvolemic Quality Stroke Does the patient have a stroke diagnosis?: No VTE Prior VTE?: No VTE Risk Level:: Medical - moderate - high VTE Device Contraindication: Treatment Not Indicated VTE Drug Contraindication: N/A - Med Ordered
[2021-11-10 13:56] LABS: Immature Retic Fraction 15.4 % (2.3-13.4); Reticulocytes Absolute 0.068 X10*6/uL (0.026-0.095)
[2021-11-10 14:06] LABS: Iron 20 mcg/dL (45-160); Lactate Dehydrogenase 167 U/L (118-273); Percent Iron Saturation 5 % (15-50); Total Iron Binding Capacity 391 mcg/dL (228-428); Unsaturated Iron Binding 371 ug/dL
[2021-11-10 14:26] LABS: Ferritin 60 ng/mL (20-250)
[2021-11-10 14:45] LABS: Folate > 20.0 ng/mL (> or = 4.0); Vitamin B12 830 pg/mL (200-900)
--- NOTE | 2021-11-10 15:47 | MHC.CM.PN ---
CM CONTACTED PT'S PCP OFFICE AND THEIR MEDICAL RECORD DEPT TO VERIFY VNA SERVICES AND THEY HAVE NOTHING LISTED FOR PT, CM ALSO CONTACTED [facility] AND THEY HAVE NO RECORD OF A VNA FOR PT, CM HAS SENT OUT 34 REFERRALS W/NO ONE CLAIMING THIS PT IS UNDER THEIR CARE, CM HAS ATTEMPTED TO CONTACT PT'S BROTHER RALPH AMBROSIO AT 3:50PM [phone], NO ANSWER AND MESSAGE LEFT W/CM CONTACT INFO.
[2021-11-10] MEDS: Azithromycin 500 MG in 0.9 % Sodium Chloride 250 ML 125 MG IV (15:59)
[2021-11-10] MEDS: Enoxaparin Sodium 40 MG/0.4 ML SYRINGE SUBCUT (16:09)
[2021-11-10] MEDS: Furosemide 40 MG/4 ML VIAL IVPUSH (18:12)
--- NOTE | 2021-11-10 20:12 | PC.NURSE ---
pt sitting upright in bed, resps = and non labored. bronchial and vesicular ls are clear all laird, pt is nsr in lead 2. pt offers no complaint.
[2021-11-10] MEDS: Doxazosin Mesylate 2 MG TABLET 4 MG PO (21:27)
[2021-11-11] VITALS (13 sets, daily range): BP systolic 132–179; BP diastolic 57–79; PULSE 50–81; RESP 15–28; TEMP 23.6–37.1; O2SAT 90–100
[2021-11-11] MEDS: methylPREDNISolone Sod Succ 40 MG/ML VIAL IVPUSH (05:27)
[2021-11-11 07:02] LABS: Hemoglobin 9.2 g/dl (14.0-18.0); Mean Corpuscular HGB Conc 30.7 g/dl (31.0-36.0); Mean Corpuscular Volume 84.7 fL (80.0-98.0); Mean Platelet Volume 12.7 fL (9.4-12.4); Platelet Count 226 X10*3/uL (160-400); Red Blood Count 3.54 X10*6/uL (4.60-5.80); Red Cell Distribution Width 15.5 % (11.0-16.0); White Blood Count 5.4 X10*3/uL (4.8-10.8)
[2021-11-11 07:32] LABS: B Type Natriuretic Peptide 815 pg/mL (<100)
[2021-11-11 07:42] LABS: Anion Gap 12 (12-20); Blood Urea Nitrogen 46 mg/dL (9-16); Calcium 9.2 mg/dL (8.4-10.2); Carbon Dioxide 33 mmol/L (22-29); Chloride 103 mmol/L (96-108); Creatinine Clr Calc Pharmacy 39.2; Estimated Glomerular Filt Rate 51; Glucose Random 116 mg/dL (60-115); Magnesium 2.5 mg/dL (1.6-2.6); Potassium 4.8 mmol/L (3.3-5.1); Sodium 143 mmol/L (135-145)
[2021-11-11 07:50] LABS: Procalcitonin 0.41 ng/mL
--- NOTE | 2021-11-11 08:19 | MHC.CM.PN ---
SEVERAL VNA AGENCIES ARE OFFERING SERVICES, CM WILL DETERMINE WHICH IS ABLE TO PROVIDE THE SOONEST SOC. CURRENT DC PLAN IS HOME WITH VNA FAMILY TO TRANSPORT. CM ALSO RECEIVED A VM FROM [facility] BROTHER RALPH [phone]
[2021-11-11] MEDS: Atorvastatin Calcium 20 MG TABLET PO (08:56)
[2021-11-11] MEDS: Multivitamin TABLET 1 TAB PO (08:56)
[2021-11-11] MEDS: Furosemide 40 MG/4 ML VIAL IVPUSH ×2 (08:56→18:14)
[2021-11-11] MEDS: amLODIPine Besylate 5 MG TABLET PO (08:56)
[2021-11-11] MEDS: Sertraline HCL 100 MG TABLET PO (08:56)
[2021-11-11] MEDS: Aspirin Enteric Coated 81 MG TABLET.DR PO (08:56)
[2021-11-11] MEDS: carvediloL 12.5 MG TABLET PO ×2 (08:56→19:54)
[2021-11-11] MEDS: Folic Acid 1 MG TABLET PO (08:56)
[2021-11-11] MEDS: Cholecalciferol (Vitamin D3) 25 MCG TABLET PO (08:56)
[2021-11-11] MEDS: 0.9 % Sodium Chloride Flush 3 ML SYRINGE IVFLUSH ×2 (08:57→19:54)
[2021-11-11] MEDS: lisinopriL 20 MG TABLET PO (08:57)
--- NOTE | 2021-11-11 10:24 | P.PNCA_ITS ---
Subjective Subjective Date of Service: 11/11/21 Interval history: Feeling better. Physical Exam Vital Signs: Last Vital Signs Temp 97.3 F 11/11/21 08:08 Pulse 81 11/11/21 08:11 Resp 17 11/11/21 08:11 BP 134/59 L 11/11/21 08:08 Pulse Ox 96 11/11/21 08:08 Oxygen Flow Rate 4 11/06/21 23:36 BMI result Body Mass Index 21.4 GENERAL APPEARANCE: in no acute distress, pleasant. NECK: no carotid bruit, positive JVD. SKIN: no suspicious lesions, warm and dry. HEART:? Faint holosystolic murmur left sternal border regular rate and rhythm. LUNGS:? It auscultation. ABDOMEN: soft, nontender. EXTREMITIES: no edema. Objective Labs and Meds Result diagrams: 11/11/21 06:13 11/11/21 06:13 Lab results: Laboratory Results - last 24 hr 11/10/21 11/10/21 11/10/21 06:29 06:29 06:29 WBC RBC Hgb Hct MCV MCH MCHC RDW Plt Count MPV Absolute Nucleated RBC Nucleated RBC % (auto) Absolute Retic 0.068 Percent Retic 2.0 H Immature Retic Fraction 15.4 H Retic Hgb Equivalent 26.0 L Sodium Potassium Chloride Carbon Dioxide Anion Gap BUN Creatinine Estim Creat Clear Calc Estimated GFR Random Glucose Calcium Magnesium Iron 20 L TIBC 391 % Saturation 5 L Unsat Iron Binding 371 Ferritin 60 Lactate Dehydrogenase 167 B-Natriuretic Peptide Vitamin B12 830 Folate > 20.0 Procalcitonin 11/11/21 11/11/21 11/11/21 06:13 06:13 06:13 WBC 5.4 RBC 3.54 L Hgb 9.2 L Hct 30.0 L MCV 84.7 MCH 26.0 L MCHC 30.7 L RDW 15.5 Plt Count 226 MPV 12.7 H Absolute Nucleated RBC 0.000 Nucleated RBC % (auto) 0.0 Absolute Retic Percent Retic Immature Retic Fraction Retic Hgb Equivalent Sodium 143 Potassium 4.8 Chloride 103 Carbon Dioxide 33 H Anion Gap 12 BUN 46 H Creatinine 1.39 Estim Creat Clear Calc 39.2 Estimated GFR 51 Random Glucose 116 H Calcium 9.2 Magnesium 2.5 Iron TIBC % Saturation Unsat Iron Binding Ferritin Lactate Dehydrogenase B-Natriuretic Peptide Vitamin B12 Folate Procalcitonin 0.41 11/11/21 06:13 WBC RBC Hgb Hct MCV MCH MCHC RDW Plt Count MPV Absolute Nucleated RBC Nucleated RBC % (auto) Absolute Retic Percent Retic Immature Retic Fraction Retic Hgb Equivalent Sodium Potassium Chloride Carbon Dioxide Anion Gap BUN Creatinine Estim Creat Clear Calc Estimated GFR Random Glucose Calcium Magnesium Iron TIBC % Saturation Unsat Iron Binding Ferritin Lactate Dehydrogenase B-Natriuretic Peptide 815 H Vitamin B12 Folate Procalcitonin Progress Note: A&P Assessment and plan (1) VSD (ventricular septal defect): Status: Acute (2) Essential hypertension: Status: Acute (3) Acute on chronic congestive heart failure: Status: Acute Assessment and Plan: Pleasant 66-year-old gentleman who is presenting for shortness of breath. Clinically was in heart failure and has been diuresed. He has known history of cardiomyopathy with EF of 30 35% and small ventricular septal defect present from . Volume status is improving. I think he should stay on IV diuretics today. Can be changed to oral furosemide twice a day from tomorrow. Can go home and follow-up with Dr. Micaela Myles with [facility]. Thank you for allowing me to participate in the care of your patient. Please feel free to contact me if you have any questions. Fall Risk Details Current Medications: Current Medications Acetaminophen (Acetaminophen 325 Mg Tablet) 650 mg PO Q6H PRN PRN Reason: Pain, Mild (Pain Scale 1-3) Albuterol/Ipratropium (Albuterol/Iprat 2.5/0.5mg 3 Ml Ampul.Neb) 3 ml INHALE Q4H PRN PRN Reason: Shortness of Breath Amlodipine Besylate (Amlodipine Besylate 5 Mg Tablet) 5 mg PO DAILY [facility]; Protocol Last Admin: 11/11/21 08:56 Dose: 5 mg Documented by: Aspirin (Aspirin Enteric Coated 81 Mg Tablet.) 81 mg PO DAILY [facility] Last Admin: 11/11/21 08:56 Dose: 81 mg Documented by: Atorvastatin Calcium (Atorvastatin Calcium 20 Mg Tablet) 20 mg PO DAILY [facility] Last Admin: 11/11/21 08:56 Dose: 20 mg Documented by: Carvedilol (Carvedilol 12.5 Mg Tablet) 12.5 mg PO BID [facility]; Protocol Last Admin: 11/11/21 08:56 Dose: 12.5 mg Documented by: Docusate Sodium (Docusate Sodium 100 Mg Capsule) 100 mg PO BID PRN PRN Reason: constipation Doxazosin Mesylate (Doxazosin Mesylate 2 Mg Tablet) 4 mg PO BEDTIME [facility] Last Admin: 11/10/21 21:27 Dose: 4 mg Documented by: Enoxaparin Sodium (Enoxaparin Sodium 40 Mg/0.4 Ml Syringe) 40 mg SUBCUT Q24H [facility] Last Admin: 11/10/21 16:09 Dose: 40 mg Documented by: Folic Acid (Folic Acid 1 Mg Tablet) 1 mg PO DAILY [facility] Last Admin: 11/11/21 08:56 Dose: 1 mg Documented by: Furosemide (Furosemide 40 Mg/4 Ml Vial) 40 mg IVPUSH BID@0900,1800 [facility]; Protocol Last Admin: 11/11/21 08:56 Dose: 40 mg Documented by: Ceftriaxone Sodium 1 gm/ (Sodium Chloride) 50 mls @ 100 mls/hr IV Q24H [facility] Last Infusion: 11/10/21 12:13 Dose: Infused Documented by: Azithromycin 500 mg/ Sodium (Chloride) 250 mls @ 125 mls/hr IV Q24H [facility] Last Infusion: 11/10/21 18:09 Dose: Infused Documented by: Levalbuterol HCl (Levalbuterol Hcl 1.25 Mg/0.5 Ml Vial.Neb) 1.25 mg INHALE RQ4H WHILE AWAKE [facility] Last Admin: 11/11/21 08:08 Dose: 1.25 mg Documented by: Lisinopril (Lisinopril 20 Mg Tablet) 20 mg PO DAILY [facility]; Protocol Last Admin: 11/11/21 08:57 Dose: 20 mg Documented by: Methylprednisolone Sodium Succinate (Methylprednisolone Sod Succ 40 Mg/Ml Vial) 40 mg IVPUSH Q24H [facility] Last Admin: 11/11/21 05:27 Dose: 40 mg Documented by: Multivitamins/Vitamin C (Multivitamin Tablet) 1 tab PO DAILY [facility] Last Admin: 11/11/21 08:56 Dose: 1 tab Documented by: Nicotine Polacrilex (Nicotine Polacrilex 2 Mg Gum) 2 mg BUCCAL Q3H PRN PRN Reason: nicotine cravings Ondansetron HCl (Ondansetron Hcl 4 Mg/2 Ml Vial) 4 mg IVPUSH Q8H PRN PRN Reason: Nausea and Vomiting Oxybutynin Chloride (Oxybutynin Chloride Er 5 Mg Tab.Er.24) 5 mg PO DAILY [facility] Last Admin: 11/11/21 08:56 Dose: 5 mg Documented by: Quetiapine Fumarate (Quetiapine Fumarate 50 Mg Tablet) 50 mg PO DAILY PRN PRN Reason: Agitation Sertraline HCl (Sertraline Hcl 100 Mg Tablet) 100 mg PO DAILY [facility] Last Admin: 11/11/21 08:56 Dose: 100 mg Documented by: Sodium Chloride (0.9 % Sodium Chloride Flush 3 Ml Syringe) 3 ml IVFLUSH QSHIFT [facility] Last Admin: 11/11/21 08:57 Dose: 3 ml Documented by: Tiotropium [place] (Tiotrop[place] 18 Mcg Cap.W.Dev) 1 puff INHALE DAILY [facility] Last Admin: 11/11/21 08:08 Dose: 1 puff Documented by: Vitamin D (Cholecalciferol (Vitamin D3) 25 Mcg Tablet) 25 mcg PO DAILY [facility] Last Admin: 11/11/21 08:56 Dose: 25 mcg Documented by: Time Spent With Patient Time: Total time spent is greater than 50% in coordination of care (as documented) at patient's floor/unit and/or counseling patient: Time with patient: 15 - 24 minutes Progress Note: Quality Stroke Does the patient have a stroke diagnosis?: No Procedures Date of Service Date of Service: 11/11/21
--- NOTE | 2021-11-11 11:28 | PC.NURSE ---
Pt is A&Ox3, SB on monitor. No complaints of pain, LCA. Medicated as per MAR orders, plan for IV lasix today and DC tomorrow on PO diuretics. Call mares within reach, will continue to monitor.
--- NOTE | 2021-11-11 12:30 | MHC.CM.PN ---
Addendum entered by Felipa Jiang 11/11/21 12:34: Per Dr House, patient will need VNA for fci at d/c. Original Note: Patient remains in ER overflow. Patient is from home with [employer]. Patient thought he received VNA services. However, after contacting PCP's office, patient is not active with any VNA. Per Dr House, patient will be home to discharge home in 2-3 days. Spoke with patient's brother, Montez, via telephone at [phone]. Update given. Montez verbalized understanding. Continue to monitor for d/c needs.
[2021-11-11] MEDS: cefTRIAXone sodium 1 GM in 0.9 % Sodium Chloride 50 ML IV (12:42)
--- NOTE | 2021-11-11 15:40 | HO.PM.IMPN ---
Subjective Subjective Date of Service: 11/11/21 Interval History: This history was taken in Frisian from the patient. Still dyspneic and on O2 though feeling better. Review of Systems Review of Systems: Yes all other systems are reviewed and are negative Physical Exam Vital Signs: Vital Signs: Last Vital Signs Temp 97.8 F 11/11/21 11:34 Pulse 67 11/11/21 15:26 Resp 15 11/11/21 15:26 BP 132/58 L 11/11/21 11:34 Pulse Ox 100 11/11/21 11:34 Oxygen Flow Rate 4 11/06/21 23:36 BMI result Body Mass Index 21.4 Gen: in no acute distress HEENT: sclera anicteric, moist mucus membranes Neck: supple, JVD present Lungs diminished bilaterally Heart: regular rate and rhythm, no murmurs Abd: soft, non-tender, non-distended Ext: no edema Skin: warm/well-perfused Neuro: alert and oriented x3, no focal findings Psych: appropriate affect Objective Data Active Medications Acetaminophen (Acetaminophen 325 Mg Tablet) 650 mg PO Q6H PRN PRN Reason: Pain, Mild (Pain Scale 1-3) Albuterol/Ipratropium (Albuterol/Iprat 2.5/0.5mg 3 Ml Ampul.Neb) 3 ml INHALE Q4H PRN PRN Reason: Shortness of Breath Amlodipine Besylate (Amlodipine Besylate 5 Mg Tablet) 5 mg PO DAILY [facility]; Protocol Last Admin: 11/11/21 08:56 Dose: 5 mg Documented by: LUIZ Aspirin (Aspirin Enteric Coated 81 Mg Tablet.) 81 mg PO DAILY [facility] Last Admin: 11/11/21 08:56 Dose: 81 mg Documented by: LUIZ Atorvastatin Calcium (Atorvastatin Calcium 20 Mg Tablet) 20 mg PO DAILY [facility] Last Admin: 11/11/21 08:56 Dose: 20 mg Documented by: LUIZ Carvedilol (Carvedilol 12.5 Mg Tablet) 12.5 mg PO BID [facility]; Protocol Last Admin: 11/11/21 08:56 Dose: 12.5 mg Documented by: LUIZ Docusate Sodium (Docusate Sodium 100 Mg Capsule) 100 mg PO BID PRN PRN Reason: constipation Doxazosin Mesylate (Doxazosin Mesylate 2 Mg Tablet) 4 mg PO BEDTIME [facility] Last Admin: 11/10/21 21:27 Dose: 4 mg Documented by: JUAN Enoxaparin Sodium (Enoxaparin Sodium 40 Mg/0.4 Ml Syringe) 40 mg SUBCUT Q24H [facility] Last Admin: 11/10/21 16:09 Dose: 40 mg Documented by: VIVIAN Folic Acid (Folic Acid 1 Mg Tablet) 1 mg PO DAILY [facility] Last Admin: 11/11/21 08:56 Dose: 1 mg Documented by: LUIZ Furosemide (Furosemide 40 Mg/4 Ml Vial) 40 mg IVPUSH BID@0900,1800 [facility]; Protocol Last Admin: 11/11/21 08:56 Dose: 40 mg Documented by: LUIZ Ceftriaxone Sodium 1 gm/ (Sodium Chloride) 50 mls @ 100 mls/hr IV Q24H [facility] Last Admin: 11/11/21 12:42 Dose: 100 mls/hr Documented by: LUIZ Azithromycin 500 mg/ Sodium (Chloride) 250 mls @ 125 mls/hr IV Q24H [facility] Last Infusion: 11/10/21 18:09 Dose: 0 mls/hr Documented by: VIVIAN Levalbuterol HCl (Levalbuterol Hcl 1.25 Mg/0.5 Ml Vial.Neb) 1.25 mg INHALE RQ4H WHILE AWAKE [facility] Last Admin: 11/11/21 15:24 Dose: 1.25 mg Documented by: ALESHA Lisinopril (Lisinopril 20 Mg Tablet) 20 mg PO DAILY [facility]; Protocol Last Admin: 11/11/21 08:57 Dose: 20 mg Documented by: LUIZ Methylprednisolone Sodium Succinate (Methylprednisolone Sod Succ 40 Mg/Ml Vial) 40 mg IVPUSH Q24H [facility] Last Admin: 11/11/21 05:27 Dose: 40 mg Documented by: MEGAN Multivitamins/Vitamin C (Multivitamin Tablet) 1 tab PO DAILY [facility] Last Admin: 11/11/21 08:56 Dose: 1 tab Documented by: LUIZ Nicotine Polacrilex (Nicotine Polacrilex 2 Mg Gum) 2 mg BUCCAL Q3H PRN PRN Reason: nicotine cravings Ondansetron HCl (Ondansetron Hcl 4 Mg/2 Ml Vial) 4 mg IVPUSH Q8H PRN PRN Reason: Nausea and Vomiting Oxybutynin Chloride (Oxybutynin Chloride Er 5 Mg Tab.Er.24) 5 mg PO DAILY [facility] Last Admin: 11/11/21 08:56 Dose: 5 mg Documented by: LUIZ Quetiapine Fumarate (Quetiapine Fumarate 50 Mg Tablet) 50 mg PO DAILY PRN PRN Reason: Agitation Sertraline HCl (Sertraline Hcl 100 Mg Tablet) 100 mg PO DAILY [facility] Last Admin: 11/11/21 08:56 Dose: 100 mg Documented by: LUIZ Sodium Chloride (0.9 % Sodium Chloride Flush 3 Ml Syringe) 3 ml IVFLUSH QSHIFT [facility] Last Admin: 11/11/21 08:57 Dose: 3 ml Documented by: LUIZ Tiotropium [place] (Tiotropium [place] 18 Mcg Cap.W.Dev) 1 puff INHALE DAILY [facility] Last Admin: 11/11/21 08:08 Dose: 1 puff Documented by: ALESHA Vitamin D (Cholecalciferol (Vitamin D3) 25 Mcg Tablet) 25 mcg PO DAILY [facility] Last Admin: 11/11/21 08:56 Dose: 25 mcg Documented by: LUIZ Labs CBC & Chem 7: 11/11/21 06:13 11/11/21 06:13 Labs: Laboratory Results - last 24 hr 11/11/21 11/11/21 11/11/21 06:13 06:13 06:13 MCV 84.7 MCH 26.0 L MCHC 30.7 L RDW 15.5 Plt Count 226 MPV 12.7 H Absolute Nucleated RBC 0.000 Nucleated RBC % (auto) 0.0 Anion Gap 12 Estim Creat Clear Calc 39.2 Estimated GFR 51 Random Glucose 116 H Calcium 9.2 Magnesium 2.5 B-Natriuretic Peptide Procalcitonin 0.41 11/11/21 06:13 MCV MCH MCHC RDW Plt Count MPV Absolute Nucleated RBC Nucleated RBC % (auto) Anion Gap Estim Creat Clear Calc Estimated GFR Random Glucose Calcium Magnesium B-Natriuretic Peptide 815 H Procalcitonin Microbiology Microbiology Results: Microbiology 11/09/21 13:17 Blood Culture - Preliminary Blood - Venous No growth after 48 hours. 11/09/21 15:42 Blood Culture - Preliminary Blood - Venous No growth after 24 hours. Assessment and Plan (1) Essential hypertension: Status: Acute (2) Hypertension: Status: Acute (3) SVT (supraventricular tachycardia): Status: Acute (4) Pneumonia: Status: Acute (5) CHF (congestive heart failure): Status: Acute (6) Acute respiratory failure with hypoxia: Status: Acute Assessment and Plan: hospital d#4 66yo M with CAD s/p [facility] 2 yr ago presenting with worsening exertional dyspnea + orthopnea x3d admitted for CHF exacerbation, SVT episodes, pneumonia, hypoxia # acute/chronic HFrEF [LVEF 25-30% 11/09/21] - will diurese IV another day. Cardiology following. - continue carvedilol + lisinopril # VSD, ?vegetation vs clot - outpt f/u with [facility]. known to have VSD since - very unlikely to have IE given coag-neg staph. repeat BCx negative at 24hr # acute hypoxic respiratory failure - supplemental O2, wean as tolerated, treat CHF + pneumonia # acute asthma/COPD exacerbation - IV steroids, scheduled/prn levalbuterol, home tiotropium - outpt PFTs # SVT - continue carvedilol at increased dose # hyperK, mild - resolved after Lokelma x1 dose # anemia - replete Fe # HCV Ab positive - viral load pending, outpt f/u # PNA - ceftriaxone + azithromycin d#5, trend PCT # CAD # hx CVA with no residual - continue ASA, statin, carvedilol, lisinopril # tobacco abuse - NRT # VTE ppx - LMWH # dispo - anticipate home with VNA once euvolemic, possibly tomorrow Quality Stroke Does the patient have a stroke diagnosis?: No VTE Prior VTE?: No VTE Risk Level:: Medical - moderate - high VTE Device Contraindication: Treatment Not Indicated VTE Drug Contraindication: N/A - Med Ordered
[2021-11-11] MEDS: Azithromycin 500 MG in 0.9 % Sodium Chloride 250 ML 125 MG IV (16:28)
--- NOTE | 2021-11-11 17:59 | PC.NURSE ---
Pt A&Ox3, report octavio Dixon RN. Pt medicated as per MAR orders prior to leaving unit.
[2021-11-11] MEDS: Enoxaparin Sodium 40 MG/0.4 ML SYRINGE SUBCUT (18:17)
[2021-11-11] MEDS: Doxazosin Mesylate 2 MG TABLET 4 MG PO (19:54)
[2021-11-12 03:39] VITALS: BP 154/63; PULSE 65; RESP 18; TEMP 36.7; O2SAT 93
[2021-11-12] MEDS: methylPREDNISolone Sod Succ 40 MG/ML VIAL IVPUSH (05:39)
[2021-11-12 05:57] LABS: Anion Gap 11 (12-20); Blood Urea Nitrogen 46 mg/dL (9-16); Calcium 9.3 mg/dL (8.4-10.2); Carbon Dioxide 34 mmol/L (22-29); Chloride 104 mmol/L (96-108); Creatinine Clr Calc Pharmacy 42.6; Estimated Glomerular Filt Rate 56; Glucose Random 117 mg/dL (60-115); Magnesium 2.3 mg/dL (1.6-2.6); Potassium 4.3 mmol/L (3.3-5.1); Sodium 145 mmol/L (135-145)
[2021-11-12 06:03] LABS: B Type Natriuretic Peptide 736 pg/mL (<100)
[2021-11-12 07:30] VITALS: BP 135/67; PULSE 76; RESP 19; TEMP 36.7; O2SAT 94
[2021-11-12] MEDS: Multivitamin TABLET 1 TAB PO (07:54)
[2021-11-12] MEDS: Furosemide 40 MG/4 ML VIAL IVPUSH (07:54)
[2021-11-12] MEDS: carvediloL 12.5 MG TABLET PO (07:54)
[2021-11-12] MEDS: Sertraline HCL 100 MG TABLET PO (07:54)
[2021-11-12] MEDS: Folic Acid 1 MG TABLET PO (07:54)
[2021-11-12] MEDS: Cholecalciferol (Vitamin D3) 25 MCG TABLET PO (07:54)
[2021-11-12] MEDS: lisinopriL 20 MG TABLET PO (07:55)
[2021-11-12] MEDS: Aspirin Enteric Coated 81 MG TABLET.DR PO (07:55)
[2021-11-12] MEDS: Ferrous Sulfate 324 MG TABLET.DR PO (07:55)
[2021-11-12] MEDS: Atorvastatin Calcium 20 MG TABLET PO (07:55)
[2021-11-12] MEDS: amLODIPine Besylate 5 MG TABLET PO (07:55)
[2021-11-12] MEDS: 0.9 % Sodium Chloride Flush 3 ML SYRINGE IVFLUSH (07:57)
[2021-11-12 08:07] VITALS: PULSE 64; RESP 18; O2SAT 95
[2021-11-12 11:26] VITALS: PULSE 64; RESP 16; O2SAT 94
--- NOTE | 2021-11-12 11:34 | PM.DS ---
DS: Providers Provider Date of Service: 11/12/21 Date of admission: 11/07/21 10:15 Primary care physician: Unknown Physician Consults: 11/07/21 10:22 Consult to Cardiology Routine Consulting Provider: Boris Gan Reason for consultation: chf/svt Has provider been notified: No DS: Diagnosis Discharge Diagnosis (1) Essential hypertension: Status: Acute (2) Hypertension: Status: Acute (3) SVT (supraventricular tachycardia): Status: Acute (4) Pneumonia: Status: Acute (5) CHF (congestive heart failure): Status: Acute (6) Acute respiratory failure with hypoxia: Status: Acute DS: Summary Hospital Course Hospital Course: Chief Complaint: sob 66-year-old Maldivian-speaking gentleman with past medical history significant for coronary artery disease status post myocardial infarction 2 years ago, history of CVA, hypertension , hyperlipidemia, asthma, lives alone presented to [facility] with progressive shortness of breath of 2-3 days duration associated with orthopnea and dyspnea on exertion, patient denies any associated chest pain no diaphoresis denies any fever chills complaining of cough productive of clear phlegm , denies nausea vomiting abdominal pain or diarrhea, denies urinary symptoms of urgency and frequency, denies sick contacts, no recent travel not on home O2, he took his home inhalers with no relief therefore called the ambulance EMS found O2 sat of 89% on room air therefore patient was placed on 2 L of oxygen O2 sat improved to 100%. Workup in the emergency room showed elevated D-dimer of 348 COVID-19 was negative ESR 54 CRP 2.41 BNP 1140, chest x-ray showed cardiomegaly with venous congestion and small bilateral pleural effusion and bilateral airspace disease, CTA chest showed no PE patient was noted to have patchy subpleural parenchymal airspace opacity both upper lobes and moderate emphysema with small bilateral pleural effusion, patient in the ER was treated with IV azithromycin and ceftriaxone and 1 dose of IV Lasix, patient responded well to Lasix and diuresed 1.2 L of urine COVID-19 came back negative while in the emergency room patient noted to have a rapid heart rate in 140s that improved after vagal maneuver, patient went back into SVT within half an hours EKG showed narrow complex SVT patient treated again with vagal Meniere with good response currently in normal sinus rhythm Patient is being admitted due to acute congestive heart failure with no prior history of CHF. Hospital course 66yo M with CAD s/p [place] 2 yr ago presented with worsening exertional dyspnea + orthopnea x3d, admitted to [facility] with a diagnosis of congestive heart failure and couple episode of supraventricular tachycardia pneumonia and acute hypoxic respiratory failure, patient treated with IV Lasix, dose of Coreg and lisinopril were adjusted and echocardiogram was obtained that showed EF of 25-30% and a small ventricular septal defect, that he has from there was a is small mobile mass attached to it question vegetation versus clot, infective endocarditis less likely given negative blood cultures recommend outpatient follow-up with primary client support representative Dr. Myles with repeat echocardiogram, patient responded well to above treatment currently appears euvolemic with stable blood pressure therefore being discharged home with VNA services oxygenation is stable on room air. BNP improved from 939 to 736. In regard to acute asthma/COPD exacerbation with pneumonia patient was treated with IV antibiotic, IV steroids, oxygen and updraft treatment, patient finished course of antibiotic , he has been recommended to completely abstain from smoking and is being discharged home on Spiriva and home inhalers, and recommend to use as needed albuterol, he was noted to have mild hyperkalemia that has been resolved with lokelma, patient noted to have H CV antibody positive, viral load remains pending recommend close outpatient follow-up with primary care physician. Patient has history of CVA with no residual, in regard to coronary artery disease patient has been continued on aspirin statin Coreg and lisinopril. Patient also noted to have normocytic anemia with low iron and saturation, has been placed on iron supplement will need close outpatient CBC follow-up and further testing including stool guaiac and colonoscopy as recommended. Time Spent with Patient Time attestation: Total time spent providing and/or coordinating discharge services: Discharge coordination time: Greater than 30 minutes Quality: Stroke Does the patient have a stroke diagnosis?: No Physical Exam Vital Signs: Vital Signs: Last Vital Signs Temp 98.0 F 11/12/21 07:30 Pulse 64 11/12/21 11:26 Resp 16 11/12/21 11:26 BP 135/67 11/12/21 07:30 Pulse Ox 94 11/12/21 07:30 Oxygen Flow Rate 4 11/06/21 23:36 BMI result Body Mass Index 21.4 Gen: in no acute d istress HEENT: scl era anicteric, king st mucus membranes Neck: supple, no JVD Lungs clear to auscultation no wheeze, no crackl es Heart: regular rate and rhythm, n o murmurs Abd: sof t, non-tender, non -distended Ext: no edema Skin: warm/ well-perfused Neur o: alert and orien cherri x3, no focal f indings Psych: abiola ropriate affect DS: Data Data Completed and Pending Labs on day of discharge: Laboratory Results - last 24 hr 11/12/21 11/12/21 05:20 05:20 Sodium 145 Potassium 4.3 Chloride 104 Carbon Dioxide 34 H Anion Gap 11 L BUN 46 H Creatinine 1.28 Estim Creat Clear Calc 42.6 Estimated GFR 56 Random Glucose 117 H Calcium 9.3 Magnesium 2.3 B-Natriuretic Peptide 736 H Preliminary micro results at discharge 11/09/21 15:42 Blood Culture - Preliminary Blood - Venous No growth after 48 hours. 11/09/21 13:17 Blood Culture - Preliminary Blood - Venous No growth after 48 hours. Discharge Plan Discharge Patient Disposition: Home Health Service Discharge Diagnosis: Acute on chronic heart failure with reduced EF Acute hypoxic respiratory failure Acute asthma/COPD exacerbation Supraventricular tachycardia Hyperkalemia Pneumonia Tobacco use disorder Referrals: Physician,Unknown J [Primary Care Provider] - 1 Week Discharge Medications: New lisinopril 20 mg Tablet 20 mg PO DAILY Qty: 30 RF: 0 furosemide [Lasix] 40 mg tablet 40 mg PO BID Qty: 60 RF: 0 nicotine (polacrilex) 2 mg Gum 2 mg buccal Q3H PRN (Reason: nicotine cravings) Qty: 60 RF: 0 albuterol sulfate 90 mcg/actuation HFA aerosol inhaler 2 puff inhalation QID PRN (Reason: shortness of breath or wheezing) Qty: 8.5 RF: 0 carvedilol 12.5 mg Tablet 12.5 mg PO BID Qty: 60 RF: 0 Continued terazosin 5 mg capsule 1 cap PO BEDTIME RF: 0 atorvastatin 20 mg tablet 1 tab PO DAILY RF: 0 sertraline 100 mg tablet 1 tab PO DAILY RF: 0 amlodipine 5 mg tablet 1 tab PO DAILY RF: 0 aspirin 81 mg tablet,delayed release (DR/EC) 1 tab PO DAILY RF: 0 docusate sodium [DOK] 100 mg capsule 1 cap PO BID PRN (Reason: constipation) RF: 0 oxybutynin chloride 5 mg tablet extended release 24hr 1 tab PO DAILY RF: 0 folic acid 1 mg tablet 1 tab PO DAILY RF: 0 Spiriva with HandiHaler 18 mcg capsule, w/inhalation device 1 cap inhalation DAILY RF: 0 quetiapine 50 mg tablet 1 tab PO DAILY PRN (Reason: Agitation) RF: 0 cholecalciferol (vitamin D3) [Vitamin D3] 25 mcg (1,000 unit) tablet 1 tab PO DAILY RF: 0 multivitamin with folic acid [Tab-A-Miguelangel] 400 mcg tablet 1 tab PO DAILY RF: 0 fluticasone propion-salmeterol 232-14 mcg/actuation aerosol powdr breath activated 1 puff inhalation BID RF: 0 quetiapine 150 mg tablet extended release 24 hr 1 tab PO BEDTIME RF: 0 Discontinued carvedilol 6.25 mg tablet 1 tab PO BID RF: 0 lisinopril 10 mg tablet 1 tab PO DAILY RF: 0 furosemide 20 mg tablet 1 tab PO DAILY RF: 0 Discharge Orders: Discharge Order (Routine); Ordered 11/12/21 Ordered By: Sherrie Richmond Diet: low fat, low cholesterol Activity on Discharge: As tolerated Stand Alone Forms: Patient Portal Discharge page Other Ambulatory Orders: Basic Metabolic Panel (Routine) Timeframe: [id number] Facility: [facility] - Location: Laboratory Ordered By: Sherrie Richmond Care Plan Goals: Acute respiratory failure due to pneumonia, congestive heart failure and COPD exacerbation resolved dose of Lasix increased to 40 mg b.i.d., dose of lisinopril increased to 20 mg daily, and dose of Coreg increased to 12.5 mg b.i.d. recommend outpatient follow-up with primary client support representative Dr. Myles in next 1-2 weeks Follow low-salt and low-cholesterol diet, completely abstain from smoking, use Nicorette gums as needed Follow BMP in 1 week Health Concerns: Congestive heart failure/COPD/smoking/says coronary artery disease/mood disorder take all medications as prescribed above being discharged with VNA service Plan of Treatment: Outpatient follow-up with primary care physician in 1-2 weeks, outpatient follow-up with primary client support representative Dr. Micaela myles in 1-2 weeks call to make appointment Assessment: Per discharge summary
--- NOTE | 2021-11-12 11:54 | P.PNCA_ITS ---
Subjective Subjective Date of Service: 11/12/21 Interval history: Feeling better Physical Exam Vital Signs: Last Vital Signs Temp 98.0 F 11/12/21 07:30 Pulse 64 11/12/21 11:26 Resp 16 11/12/21 11:26 BP 135/67 11/12/21 07:30 Pulse Ox 94 11/12/21 07:30 Oxygen Flow Rate 4 11/06/21 23:36 BMI result Body Mass Index 21.4 GENERAL APPEARANCE: in no acute distress, pleasant. NECK: no carotid bruit, positive JVD. SKIN: no suspicious lesions, warm and dry. HEART:? Faint holosystolic murmur left sternal border regular rate and rhythm. LUNGS:? It auscultation. ABDOMEN: soft, nontender. EXTREMITIES: no edema. Objective Labs and Meds Result diagrams: 11/11/21 06:13 11/12/21 05:20 Lab results: Laboratory Results - last 24 hr 11/12/21 11/12/21 05:20 05:20 Sodium 145 Potassium 4.3 Chloride 104 Carbon Dioxide 34 H Anion Gap 11 L BUN 46 H Creatinine 1.28 Estim Creat Clear Calc 42.6 Estimated GFR 56 Random Glucose 117 H Calcium 9.3 Magnesium 2.3 B-Natriuretic Peptide 736 H Progress Note: A&P Assessment and plan (1) VSD (ventricular septal defect): Status: Acute (2) Essential hypertension: Status: Acute (3) Acute on chronic congestive heart failure: Status: Acute Assessment and Plan: 66-year-old gentleman with hypertension, VSD and acute on chronic congestive heart failure. Clinically compensated. Blood pressure control is good. He can be discharged home and follow up with Dr. Micaela Myles at [facility]. Thank you for allowing me to participate in the care of your patient. Please feel free to contact me if you have any questions. Fall Risk Details Current Medications: Current Medications Acetaminophen (Acetaminophen 325 Mg Tablet) 650 mg PO Q6H PRN PRN Reason: Pain, Mild (Pain Scale 1-3) Albuterol/Ipratropium (Albuterol/Iprat 2.5/0.5mg 3 Ml Ampul.Neb) 3 ml INHALE Q4H PRN PRN Reason: Shortness of Breath Amlodipine Besylate (Amlodipine Besylate 5 Mg Tablet) 5 mg PO DAILY KRISTIE; Protocol Last Admin: 11/12/21 07:55 Dose: 5 mg Documented by: Aspirin (Aspirin Enteric Coated 81 Mg Tablet.) 81 mg PO DAILY [facility] Last Admin: 11/12/21 07:55 Dose: 81 mg Documented by: Atorvastatin Calcium (Atorvastatin Calcium 20 Mg Tablet) 20 mg PO DAILY [facility] Last Admin: 11/12/21 07:55 Dose: 20 mg Documented by: Carvedilol (Carvedilol 12.5 Mg Tablet) 12.5 mg PO BID [facility]; Protocol Last Admin: 11/12/21 07:54 Dose: 12.5 mg Documented by: Docusate Sodium (Docusate Sodium 100 Mg Capsule) 100 mg PO BID PRN PRN Reason: constipation Doxazosin Mesylate (Doxazosin Mesylate 2 Mg Tablet) 4 mg PO BEDTIME [facility] Last Admin: 11/11/21 19:54 Dose: 4 mg Documented by: Enoxaparin Sodium (Enoxaparin Sodium 40 Mg/0.4 Ml Syringe) 40 mg SUBCUT Q24H [facility] Last Admin: 11/11/21 18:17 Dose: 40 mg Documented by: Ferrous Sulfate (Ferrous Sulfate 324 Mg Tablet.) 324 mg PO DAILY [facility] Last Admin: 11/12/21 07:55 Dose: 324 mg Documented by: Folic Acid (Folic Acid 1 Mg Tablet) 1 mg PO DAILY [facility] Last Admin: 11/12/21 07:54 Dose: 1 mg Documented by: Furosemide (Furosemide 40 Mg/4 Ml Vial) 40 mg IVPUSH BID@0900,1800 [facility]; Protocol Last Admin: 11/12/21 07:54 Dose: 40 mg Documented by: Ceftriaxone Sodium 1 gm/ (Sodium Chloride) 50 mls @ 100 mls/hr IV Q24H [facility] Last Infusion: 11/11/21 18:11 Dose: Infused Documented by: Azithromycin 500 mg/ Sodium (Chloride) 250 mls @ 125 mls/hr IV Q24H [facility] Last Infusion: 11/11/21 18:30 Dose: Infused Documented by: Levalbuterol HCl (Levalbuterol Hcl 1.25 Mg/0.5 Ml Vial.Rock) 1.25 mg INHALE RQ4H WHILE AWAKE [facility] Last Admin: 11/12/21 11:24 Dose: 1.25 mg Documented by: Lisinopril (Lisinopril 20 Mg Tablet) 20 mg PO DAILY [facility]; Protocol Last Admin: 11/12/21 07:55 Dose: 20 mg Documented by: Methylprednisolone Sodium Succinate (Methylprednisolone Sod Succ 40 Mg/Ml Vial) 40 mg IVPUSH Q24H [facility] Last Admin: 11/12/21 05:39 Dose: 40 mg Documented by: Multivitamins/Vitamin C (Multivitamin Tablet) 1 tab PO DAILY [facility] Last Admin: 11/12/21 07:54 Dose: 1 tab Documented by: Nicotine Polacrilex (Nicotine Polacrilex 2 Mg Gum) 2 mg BUCCAL Q3H PRN PRN Reason: nicotine cravings Ondansetron HCl (Ondansetron Hcl 4 Mg/2 Ml Vial) 4 mg IVPUSH Q8H PRN PRN Reason: Nausea and Vomiting Oxybutynin Chloride (Oxybutynin Chloride Er 5 Mg Tab.Er.24) 5 mg PO DAILY [facility] Last Admin: 11/12/21 07:54 Dose: 5 mg Documented by: Quetiapine Fumarate (Quetiapine Fumarate 50 Mg Tablet) 50 mg PO DAILY PRN PRN Reason: Agitation Sertraline HCl (Sertraline Hcl 100 Mg Tablet) 100 mg PO DAILY [facility] Last Admin: 11/12/21 07:54 Dose: 100 mg Documented by: Sodium Chloride (0.9 % Sodium Chloride Flush 3 Ml Syringe) 3 ml IVFLUSH QSHIFT [facility] Last Admin: 11/12/21 07:57 Dose: 3 ml Documented by: Tiotropium Inavale (Tiotropium Inavale 18 Mcg Cap.W.Dev) 1 puff INHALE DAILY [facility] Last Admin: 11/12/21 08:35 Dose: 1 puff Documented by: Vitamin D (Cholecalciferol (Vitamin D3) 25 Mcg Tablet) 25 mcg PO DAILY [facility] Last Admin: 11/12/21 07:54 Dose: 25 mcg Documented by: Time Spent With Patient Time: Total time spent is greater than 50% in coordination of care (as documented) at patient's floor/unit and/or counseling patient: Time with patient: 15 - 24 minutes Progress Note: Quality Stroke Does the patient have a stroke diagnosis?: No Procedures Date of Service Date of Service: 11/12/21
[2021-11-12] MEDS: cefTRIAXone sodium 1 GM in 0.9 % Sodium Chloride 50 ML IV (12:04)
[2021-11-12 12:07] LABS: Vancomycin Trough 7.6 mcg/mL (10.0-20.0)
--- NOTE | 2021-11-12 12:31 | MHC.CM.PN ---
PATIENT IS RETURNING HOME WITH [facility]. HIS BROTHER WILL BE IN TO TRANSPORT PATIENT HOME. IMM 11/10 IN CHART
--- NOTE | 2021-11-12 12:58 | P.F2F_ITS ---
Service Date Service Date: 11/12/21 Encounter Date of encounter: 11/12/21 Reasons for Services Signs and symptoms assessed: Shortness of breath due to acute congestive heart failure with reduced EF , pneumonia, acute hypoxic respiratory failure and COPD/asthma exacerbation, Reason for jail: CV/CP assess and/or care and medication treatment Homebound: Leaving the home is medically contraindicated at this time without the asist of a device and/or another person due th the listed conditions above and below. Reason homebound: weakness related to hospital stay Certification: Based on the above findings, I certify that this patient is confined to the home and needs intermittent jail care, physical therapy and/or speech therapy, or continues to need occupational therapy. The patient is under my care, and I have initiated the establishment of the plan of care. The patient will be followed by a physician who will periodically review the plan of care.
[2021-11-17 10:56] LABS: HCV Log PCR 6.79 log IU/mL; HepC Viral Load 6160000 IU/mL
== END 2021-11-12 14:14 | disposition home health service (06) | DRG 291 ==
LOC: HO.ED 11-07 07:42 → HO.EDOVER 11-07 10:33 → HO.S3 11-11 17:16
PROVIDERS: Family Medicine; Admitting Provider Hospitalist; Emergency Provider Emergency Medicine Emergency Medical Services; PCP Student in an Organized Health Care Education/Training Program; Visit Provider Hospitalist
DX: I11.0 Hypertensive heart disease with heart failure (principal); J18.9 Pneumonia, unspecified organism; J96.01 Acute respiratory failure with hypoxia; I50.23 Acute on chronic systolic (congestive) heart failure; I47.1 Supraventricular tachycardia; Q21.0 Ventricular septal defect; J45.901 Unspecified asthma with (acute) exacerbation; F17.210 Nicotine dependence, cigarettes, uncomplicated; Z71.6 Tobacco abuse counseling; Z86.73 Personal history of transient ischemic attack (TIA), and cerebral infarction without residual deficits; J45.909 Unspecified asthma, uncomplicated; J43.9 Emphysema, unspecified; I42.9 Cardiomyopathy, unspecified; I25.10 Atherosclerotic heart disease of native coronary artery without angina pectoris; I25.2 Old myocardial infarction; Z23 Encounter for immunization; Z20.822 Contact with and (suspected) exposure to COVID-19; Z88.6 Allergy status to analgesic agent; Z79.51 Long term (current) use of inhaled steroids; Z79.82 Long term (current) use of aspirin; Z79.899 Other long term (current) drug therapy
CPT/HCPCS: 36415; 71045; 71275; 80048; 80076; 80202; 82607; 82728; 82746; 83540; 83605; 83615; 83735; 83880; 84145; 84484; 85025; 85027; 85045; 85379; 85610; 85652; 85730; 86140; 86704; 86706; 86803; 87040; 87147; 87205; 87340; 87389; 87522; 87635; 90471; 90686; 93005; 93306; 96365; 96366; 96367; 96375; 97162; 99285; 99291; J0456; J0696; J1100; J1650; J1940; J2920; J3370; Q9967

== ENCOUNTER 2022-01-26 20:15 | Inpatient (IN) | payer MEDICARE, MEDICAID, SELFPAY ==
--- NOTE | ~2022-01-26 | CT_ITS ---
EXAMINATION: CT ABDOMEN WITHOUT AND WITH CONTRAST CLINICAL INFORMATION: Liver and renal mass COMPARISON: CT abdomen pelvis 04/11/2012, abdominal ultrasound 01/28/2022 TECHNIQUE: Contiguous axial thin section helical images of the abdomen were performed before and after the administration of 85 mL of Omnipaque 350 intravenous contrast. The data set was reformatted in the coronal and sagittal planes and reviewed on an independent workstation. This CT examination was performed using dose optimization techniques as appropriate, variously including the following: *Automated exposure control *Adjustment of mA and/or kV according to patient size (this includes techniques or standardized protocols for targeted exams where dose is matched to indication/reason for exam; i.e. extremities or head) *Use of iterative reconstruction technique DLP: 599 mGy-cm FINDINGS: LUNG BASES: Bibasilar atelectasis. Stable trace left pleural effusion. ABDOMINAL AND PELVIC WALL: Partially imaged mesh from prior hernia repair is noted in the left ventral pelvic wall. LIVER AND BILIARY TREE: A 10.2 x 8.5 cm mass replacing the right hepatic lobe which demonstrates heterogeneous arterial phase hyperenhancement with washout on more delayed phase. A 2.1 x 1.9 cm heterogeneously persistently hyperenhancing mass in hepatic segment 2/3. GALLBLADDER: Cholelithiasis without evidence of acute cholecystitis. PANCREAS: Unremarkable. SPLEEN: Unremarkable. ADRENAL GLANDS: Unremarkable. KIDNEYS AND URETERS: A 2.8 x 2.3 cm heterogeneously enhancing solid left exophytic renal mass which contacts the perirenal fascia. Bilateral renal hypodensities too small to characterize. GASTROINTESTINAL TRACT: Unremarkable. VASCULAR: Atherosclerosis of the abdominal aorta and iliac arteries. Conventional hepatic arterial anatomy. The hepatic mass displaces the hepatic veins and severely attenuates the branches of the right portal vein. LYMPH NODES/PERITONEUM: No lymphadenopathy. FREE FLUID: None. OSSEOUS STRUCTURES: Unremarkable. CT/CT abdomen wo/w con IMPRESSION: A 10.2 cm mass replacing the right hepatic lobe which demonstrate heterogeneous arterial phase enhancement with washout on more delayed phases suggestive of infiltrative hepatocellular carcinoma. An additional 2.1 cm heterogeneously enhancing left hepatic lobe mass in demonstrates indeterminate enhancement characteristics, however a metastasis or multifocal hepatocellular carcinoma could be considered. A 2.8 cm heterogeneously enhancing solid left exophytic renal mass contacting the perirenal fascia suspicious for renal cell carcinoma. The findings and recommendations were discussed with Dr. Bird by telephone at 01/30/2022 12:31 AM and it was ascertained that the content and urgency of the report was understood at the time of direct communication.
--- NOTE | ~2022-01-26 | XR_ITS ---
EXAMINATION: XR CHEST CLINICAL INFORMATION: Shortness of breath COMPARISON: 11/06/2021 TECHNIQUE: Frontal view of the chest was obtained. FINDINGS: Lung volumes are symmetric. Few scattered patchy opacities are identified bilaterally, most prominently at the lung bases. Somewhat coarsened appearance of the interstitium is noted. No evidence of pneumothorax or significant pleural effusion. Cardiac size is within normal limits. Redemonstrated right-sided aortic arch. No acute osseous findings are seen. XR/XR chest 1V IMPRESSION: Few scattered patchy opacities bilaterally, most prominently at the lung bases, which may be due to a mild infectious/inflammatory etiology. Somewhat coarsened appearance of interstitium may represent acute or chronic airways disease.
--- NOTE | ~2022-01-26 | XR_ITS ---
EXAMINATION: XR CHEST CLINICAL INFORMATION: Shortness of breath COMPARISON: 01/27/2022 TECHNIQUE: Frontal view of the chest was obtained. FINDINGS: There is slight elevation of the right hemidiaphragm, similar to prior. Streaky bibasilar opacities are noted, right greater than left. Mild interstitial prominence bilaterally. No evidence of pneumothorax or significant pleural effusion. Cardiac size is within normal limits. Right-sided aortic arch again noted. No acute osseous findings are seen. XR/XR chest 1V IMPRESSION: Mild diffuse interstitial prominence suggesting interstitial edema in the proper clinical setting. Streaky bibasilar opacities, right greater than left, more suggestive of atelectasis.
--- NOTE | ~2022-01-26 | US_ITS ---
EXAMINATION: ULTRASOUND-GUIDED LIVER BIOPSY CLINICAL INFORMATION: Liver masses and left renal mass. COMPARISON: Previous CT of the abdomen and pelvis and abdominal ultrasound from earlier this month. TECHNIQUE: Procedure and risks and benefits including bleeding and infection were discussed with the patient through an safety officer and informed consent was obtained. The patient was positioned in the left decubitus position. The right upper quadrant was prepped and draped in the usual sterile fashion. The skin and soft tissues were anesthetized with 1% lidocaine plain. Using CT guidance and a coaxial system, access to the lesion in the right lobe of the liver was obtained. Four 20-gauge core biopsies were obtained. There was no complication. The patient received Versed 0.5 mg and fentanyl 25 mcg intravenously during the procedure. Total sedation time was 15 minutes. FINDINGS: There is an 11 x 11 x 9 cm heterogeneous mass in the right lobe of the liver that was targeted for ultrasound-guided biopsy. US/US biopsy liver IMPRESSION: Ultrasound-guided liver biopsy.
--- NOTE | ~2022-01-26 | US_ITS ---
EXAMINATION: ABDOMINAL ULTRASOUND WITH DOPPLER CLINICAL INFORMATION: Bleed with question of portal vein thrombosis, cirrhosis or liver lesion COMPARISON: CT chest 01/27/2022, CT abdomen pelvis 05/11/2012 TECHNIQUE: Ultrasound of the abdomen was performed along with color flow Doppler imaging. FINDINGS: PANCREAS: The pancreas is well seen and is hyperechoic with heterogeneous coarse echotexture. No masses or ductal dilatation is seen. AORTA AND IVC: Visualized portions are clear normal but portions of these vessels are not seen. LIVER: 2 liver masses are seen. The largest is in the right lobe of the liver measuring 11.9 x 9.6 x 10.5 cm in size. It is heterogeneous with hyperechoic and isoechoic areas. There is vascular flow A smaller mass in the left lobe is seen measuring 2.0 x 1.4 x 2.1 cm which is also vascular.. No bile duct dilatation is seen. No ascites is present. GALLBLADDER: Multiple gallstones are seen with at least one stone measuring 1.5 cm in diameter. There is some areas of comet tail artifact in the gallbladder wall suggesting adenomyosis. No evidence of cholecystitis. COMMON BILE DUCT: 0.7 cm RIGHT KIDNEY: Right kidney measures 11.1 cm in length. No renal stones are seen. No gross hydronephrosis. There is a lower pole cyst measuring 1.1 x 1.3 x 1.5 cm. LEFT KIDNEY: Left kidney measures 10.6 cm in length. No gross hydronephrosis is seen. There is a small upper pole Bosniak class I cyst measuring 0.8 x 0.5 x 0.9 cm. At the lower pole, there is a complex mass with a large solid component measuring 3.6 x 2.1 x 2.4 cm. SPLEEN: The spleen appears unremarkable measuring 10 cm in greatest length Incidental note is made of bilateral pleural effusions. DOPPLER EXAM: Hepatopedal is noted in the portal venous system below the right portal vein could not be seen secondary to the large mass. Only the main hepatic artery was seen with a velocity of 276 cm/s. The hepatic veins are patent. There are distorted by the large liver mass. The splenic vein is patent. US/US duplex arterial venous comp IMPRESSION: * There are 2 hepatic mass is present measuring 11.9 cm and 2 cm. Surprisingly, these are extremely poorly seen on CT scan. MRI could be performed for further evaluation. The portal venous system appears patent. * There is a mass in the left kidney measuring 3.6 cm which needs further evaluation. MRI would be an excellent choice for further evaluation of both the above-mentioned hepatic masses in the renal mass. * Other incidental findings described above including cholelithiasis,
--- NOTE | ~2022-01-26 | CT_ITS ---
EXAMINATION: CT CHEST WITHOUT CONTRAST CLINICAL INFORMATION: Shortness of breath COMPARISON: CT from 11/07/2021 TECHNIQUE: Multidetector volumetric CT imaging of the chest was done. Axial MIP volume rendering provided. Sagittal and coronal reformatted images were obtained. This CT examination was performed using dose optimization techniques as appropriate, variously including the following: *Automated exposure control *Adjustment of mA and/or kV according to patient size (this includes techniques or standardized protocols for targeted exams where dose is matched to indication/reason for exam; i.e. extremities or head) *Use of iterative reconstruction technique DLP: 240 to mGy-cm FINDINGS: CAFETERIA OPERATOR: Elevated right hemidiaphragm. LUNGS: The central airways are patent. Motion limits evaluation of the lung parenchyma. There is bilateral diffuse septal thickening. Patchy airspace opacities are seen bilaterally. These were present on the previous study with somewhat nodular appearance. For instance nodular opacity measures 1.7 cm on series 6 image 138 in the right upper lobe. Left upper lobe nodular opacity measures 2.8 cm. Trace left pleural effusion noted. No pneumothorax. MEDIASTINUM: Somewhat prominent heart. Coronary artery calcifications. No pericardial effusion. Right-sided aortic arch noted. Mirror image branching. No lymphadenopathy. AXILLA: No lymphadenopathy. UPPER ABDOMEN: Stones in the gallbladder lumen. No inflammatory changes are seen. Somewhat heterogeneous attenuation of the liver, with evaluation limited on this noncontrast study. The appearance could be secondary to motion artifact. OSSEOUS STRUCTURES: No acute or suspicious osseous abnormality. Mild degenerative changes of the spine. CT/CT chest wo con IMPRESSION: Septal thickening is seen bilaterally, suggestive of edema. Patchy bilateral airspace opacities are present, which remain from the study on 11/07/2021. While infection does remain a possibility, cannot exclude neoplastic process. The overall similar appearance of these opacities does raise some concern. Consider PET/CT or tissue diagnosis. Fleischner guidelines were followed.
[2022-01-26 20:19] VITALS: BP 120/60; BP 121/52; PULSE 127; RESP 27; TEMP 36.9; O2SAT 97; O2SAT 99; BMI 21.6
--- NOTE | 2022-01-26 20:41 | ECG_ITS ---
Test Reason : TACHYCARDIA Blood Pressure : / mmHG Vent. Rate : 124 BPM Atrial Rate : 124 BPM P-R Int : 224 ms QRS Dur : 122 ms QT Int : 290 ms P-R-T Axes : 000 -73 056 degrees QTc Int : 416 ms Sinus tachycardia with 1st degree A-V block Left axis deviation Left ventricular hypertrophy with QRS widening and repolarization abnormality ( Goran product ) Abnormal ECG When compared with ECG of 07-NOV-2021 06:57, Sinus tachycardia has replaced Possible Supraventricular tachycardia NC interval has increased QRS axis Shifted left Nonspecific T wave abnormality no longer evident in Inferior leads Referred By: Brice Degroot Electronically Signed By:URSULA GODINEZ MD
--- NOTE | 2022-01-26 20:45 | ED_ITS ---
HPI - General Adult General Chief complaint: Recheck/Abnormal Lab/Rx Stated complaint: ? Blood pressure Time Seen by Provider: 01/26/22 20:33 Source: patient Mode of arrival: ambulatory Limitations: no limitations History of Present Illness HPI narrative: Patient history of hypertension schizoaffective disorder, ventricular septal defect on baby aspirin was seen at clinic had the labs done told that his hemoglobin is 6.3 patient feels weak sometimes dizzy with increased shortness of breath when ambulates, no chest pain no palpitation. No history of bleeding denies any black stool no abdominal pain Related Data Home Medications Medication Instructions Recorded Confirmed amlodipine 5 mg tablet 1 tab PO DAILY 11/07/21 01/26/22 aspirin 81 mg tablet,delayed 1 tab PO DAILY 11/07/21 01/26/22 release atorvastatin 20 mg tablet 1 tab PO DAILY 11/07/21 01/26/22 cholecalciferol (vitamin D3) 25 1 tab PO DAILY 11/07/21 01/26/22 mcg (1,000 unit) tablet (Vitamin D3) folic acid 1 mg tablet 1 tab PO DAILY 11/07/21 01/26/22 multivitamin with folic acid 400 1 tab PO DAILY 11/07/21 01/26/22 mcg tablet (Tab-A-Miguelangel) oxybutynin chloride 5 mg 1 tab PO DAILY 11/07/21 01/26/22 tablet,extended release 24 hr quetiapine 50 mg tablet 1 tab PO DAILY PRN 11/07/21 01/26/22 sertraline 100 mg tablet 1 tab PO DAILY 11/07/21 01/26/22 terazosin 5 mg capsule 1 cap PO BEDTIME 11/07/21 01/26/22 tiotropium bromide 18 mcg capsule 1 cap INHALATION DAILY 11/07/21 01/26/22 with inhalation device (Spiriva with HandiHaler) quetiapine 150 mg tablet,extended 1 tab PO BEDTIME 11/09/21 01/26/22 release 24 hr ferrous sulfate 325 mg (65 mg 1 tab PO DAILY 01/26/22 01/26/22 iron) tablet,delayed release fluticasone 232 mcg-salmeterol 14 1 puff INHALATION BID 01/26/22 01/26/22 mcg/actuation breath activated powdr furosemide 20 mg tablet 1 tab PO BID 01/26/22 01/26/22 lisinopril 10 mg tablet 1 tab PO DAILY 01/26/22 01/26/22 Previous Rx's Medication Instructions Recorded albuterol sulfate 90 mcg/actuation 2 puff INHALATION QID PRN #8.5 g 11/12/21 aerosol inhaler carvedilol 12.5 mg tablet 12.5 mg PO BID #60 tab 11/12/21 nicotine (polacrilex) 2 mg gum 2 mg BUCCAL Q3H PRN #60 ea 11/12/21 Allergies Allergy/AdvReac Type Severity Reaction Status Date / Time acetaminophen [From Tylenol] Allergy Unknown UNKNOWN Verified 11/07/21 02:26 Review of Systems Review of Systems: Yes all other systems are reviewed and are negative [facility] Past Medical History Medical History Asthma CHF (congestive heart failure) Coronary artery disease CVA (cerebrovascular accident) Essential hypertension Hypertension VSD (ventricular septal defect) Social History Social History Household Members: None Housing: Apartment Do you presently have visiting nurse or other home services: Yes Patient Tobacco Use Status: Current everyday Tobacco user Tobacco use type: Cigarette Cigarettes Per Day: 10 Second Hand Smoke Exposure: No Advance Directives: No Advance Directives Information Provided: Yes service: No Current occupational status: unemployed Physical Exam ED Vital Signs: Vital Signs - 24 hr 01/26/22 20:19 01/26/22 22:26 01/26/22 22:48 Temperature 98.5 F 98.8 F 985 F H Pulse Rate 127 H 128 H 128 H Respiratory Rate 27 H 21 H 24 H Blood Pressure 121/52 L 127/73 127/73 Pulse Oximetry 97 93 01/26/22 23:02 Temperature 98.3 F Pulse Rate 127 H Respiratory Rate 24 H Blood Pressure 128/68 Pulse Oximetry BMI result Body Mass Index 21.6 Appearance: Alert. Oriented X3. No acute distress. Eyes: No pallor or icterus ENT: Pharynx normal. Oral Mucosa moist Neck: Normal inspection. Neck supple. CVS: Sinus tachycardia soft holosystolic murmur left parasternal, Pulses normal. Respiratory: No respiratory distress. Equal air entry bilateral, no wheezing/rhonchi , bilateral basal rales++ Abdomen: Soft and nontender. Bowel sounds are present, no mass palpable, no CVA tenderness Rectal: Dark stool occult blood positive Skin: Skin warm and dry. Normal skin color. Normal skin turgor. Extremities: No lower extremity edema. No calf tenderness Neuro: Oriented X 3. No motor deficit. Medical Decision Making MDM Narrative Medical decision making narrative: Patient has significant anemia with guaiac-positive and dark stools likely a gastric ulcer patient denies any abdominal pain will give him Protonix transfuse 2 units of blood and admit. Patient does have iron deficiency anemia also has not taking his iron pills lab workup showed significant iron deficiency also patient BNP is elevated with chest x-ray showing some congestion will give Lasix Medical Records Medical records reviewed: Yes I reviewed the patient's medical records. Lab Data Lab results reviewed: Yes I reviewed the patient's lab results. Result diagrams: 01/26/22 20:53 01/26/22 20:53 Labs: Lab Results 01/26/22 01/26/22 01/26/22 Range/Units 20:53 20:53 20:53 WBC 7.2 (4.8-10.8) X10*3/uL RBC 2.93 L (4.60-5.80) X10*6/uL Hgb 6.4 L* D (14.0-18.0) g/dl Hct 22.2 L D (42.0-52.0) % MCV 75.8 L (80.0-98.0) fL MCH 21.8 L (27.0-33.0) pg MCHC 28.8 L (31.0-36.0) g/dl RDW 16.5 H (11.0-16.0) % Plt Count 500 H D (160-400) X10*3/uL MPV 11.1 (9.4-12.4) fL Immature Gran % (Auto) 0.1 (0.0-0.4) % Neut % (Auto) 65.2 (45-73) % Lymph % (Auto) 21.2 (20-40) % [place] % (Auto) 11.2 H (2-11) % Eos % (Auto) 1.9 (0-4) % Baso % (Auto) 0.4 (0-2) % Lymph # (Auto) 1.5 (1.2-4.9) X10*3/uL [place] # (Auto) 0.8 (0.1-1.2) X10*3/uL Eos # (Auto) 0.1 (0.0-0.4) X10*3/uL Baso # (Auto) 0.0 (0.0-0.2) X10*3/uL Abs Immat Gran (auto) 0.01 (0.00-0.03) X10*3/uL Absolute Neuts (auto) 4.7 (2.0-8.3) x10*3/uL Absolute Nucleated RBC 0.000 (0.0-0.012) X10*3/uL Nucleated RBC % (auto) 0.0 (0.0-0.2) /100WBC PT 14.4 H (9.9-13.0) SEC INR 1.3 H (0.9-1.1) Sodium 140 (135-145) mmol/L Potassium 4.3 (3.3-5.1) mmol/L Chloride 103 (96-108) mmol/L Carbon Dioxide 30 H (22-29) mmol/L Anion Gap 11 L (12-20) BUN 31 H (9-16) mg/dL Creatinine 1.90 H (0.5-1.4) mg/dL Estim Creat Clear Calc 31.8 Estimated GFR 36 Random Glucose 110 (60-115) mg/dL Calcium 8.8 (8.4-10.2) mg/dL Iron 25 L (45-160) mcg/dL TIBC 475 H (228-428) mcg/dL % Saturation 5 L (15-50) % Unsat Iron Binding 450 ug/dL Total Bilirubin 0.3 (0.0-1.0) mg/dL AST 36 (5-37) U/L ALT 17 (0-40) U/L Alkaline Phosphatase 400 H D (39-117) U/L B-Natriuretic Peptide (<100) pg/mL Total Protein 7.5 (6.5-8.0) g/dL Albumin 3.2 L (3.5-5.0) g/dL Stool Occult Blood (NEGATIVE) COVID-19 (SOLE) (Negative) COVID-19 Clin Com Blood Type Antibody Screen Crossmatch 01/26/22 01/26/22 01/26/22 Range/Units 20:53 20:53 21:47 WBC (4.8-10.8) X10*3/uL RBC (4.60-5.80) X10*6/uL Hgb (14.0-18.0) g/dl Hct (42.0-52.0) % MCV (80.0-98.0) fL MCH (27.0-33.0) pg MCHC (31.0-36.0) g/dl RDW (11.0-16.0) % Plt Count (160-400) X10*3/uL MPV (9.4-12.4) fL Immature Gran % (Auto) (0.0-0.4) % Neut % (Auto) (45-73) % Lymph % (Auto) (20-40) % [place] % (Auto) (2-11) % Eos % (Auto) (0-4) % Baso % (Auto) (0-2) % Lymph # (Auto) (1.2-4.9) X10*3/uL [place] # (Auto) (0.1-1.2) X10*3/uL Eos # (Auto) (0.0-0.4) X10*3/uL Baso # (Auto) (0.0-0.2) X10*3/uL Abs Immat Gran (auto) (0.00-0.03) X10*3/uL Absolute Neuts (auto) (2.0-8.3) x10*3/uL Absolute Nucleated RBC (0.0-0.012) X10*3/uL Nucleated RBC % (auto) (0.0-0.2) /100WBC PT (9.9-13.0) SEC INR (0.9-1.1) Sodium (135-145) mmol/L Potassium (3.3-5.1) mmol/L Chloride (96-108) mmol/L Carbon Dioxide (22-29) mmol/L Anion Gap (12-20) BUN (9-16) mg/dL Creatinine (0.5-1.4) mg/dL Estim Creat Clear Calc Estimated GFR Random Glucose (60-115) mg/dL Calcium (8.4-10.2) mg/dL Iron (45-160) mcg/dL TIBC (228-428) mcg/dL % Saturation (15-50) % Unsat Iron Binding ug/dL Total Bilirubin (0.0-1.0) mg/dL AST (5-37) U/L ALT (0-40) U/L Alkaline Phosphatase (39-117) U/L B-Natriuretic Peptide 1238 H (<100) pg/mL Total Protein (6.5-8.0) g/dL Albumin (3.5-5.0) g/dL Stool Occult Blood (NEGATIVE) COVID-19 (SOLE) Negative (Negative) COVID-19 Clin Com See Note Blood Type A Positive Antibody Screen NEGATIVE Crossmatch See Detail 01/26/22 Range/Units 22:26 WBC (4.8-10.8) X10*3/uL RBC (4.60-5.80) X10*6/uL Hgb (14.0-18.0) g/dl Hct (42.0-52.0) % MCV (80.0-98.0) fL MCH (27.0-33.0) pg MCHC (31.0-36.0) g/dl RDW (11.0-16.0) % Plt Count (160-400) X10*3/uL MPV (9.4-12.4) fL Immature Gran % (Auto) (0.0-0.4) % Neut % (Auto) (45-73) % Lymph % (Auto) (20-40) % [place] % (Auto) (2-11) % Eos % (Auto) (0-4) % Baso % (Auto) (0-2) % Lymph # (Auto) (1.2-4.9) X10*3/uL [place] # (Auto) (0.1-1.2) X10*3/uL Eos # (Auto) (0.0-0.4) X10*3/uL Baso # (Auto) (0.0-0.2) X10*3/uL Abs Immat Gran (auto) (0.00-0.03) X10*3/uL Absolute Neuts (auto) (2.0-8.3) x10*3/uL Absolute Nucleated RBC (0.0-0.012) X10*3/uL Nucleated RBC % (auto) (0.0-0.2) /100WBC PT (9.9-13.0) SEC INR (0.9-1.1) Sodium (135-145) mmol/L Potassium (3.3-5.1) mmol/L Chloride (96-108) mmol/L Carbon Dioxide (22-29) mmol/L Anion Gap (12-20) BUN (9-16) mg/dL Creatinine (0.5-1.4) mg/dL Estim Creat Clear Calc Estimated GFR Random Glucose (60-115) mg/dL Calcium (8.4-10.2) mg/dL Iron (45-160) mcg/dL TIBC (228-428) mcg/dL % Saturation (15-50) % Unsat Iron Binding ug/dL Total Bilirubin (0.0-1.0) mg/dL AST (5-37) U/L ALT (0-40) U/L Alkaline Phosphatase (39-117) U/L B-Natriuretic Peptide (<100) pg/mL Total Protein (6.5-8.0) g/dL Albumin (3.5-5.0) g/dL Stool Occult Blood POSITIVE (NEGATIVE) COVID-19 (SOLE) (Negative) COVID-19 Clin Com Blood Type Antibody Screen Crossmatch Discharge Plan Discharge Clinical Impression: Severe anemia, GI (gastrointestinal bleed) Patient Disposition: Admitted As Inpatient
[2022-01-26 20:58] LABS: MANUAL DIFF FLAG NO
[2022-01-26 20:59] LABS: Basophils Percent Auto 0.4 % (0-2); Eosinophils Absolute Auto 0.1 X10*3/uL (0.0-0.4); Eosinophils Percent Auto 1.9 % (0-4); Hematocrit 22.2 % (42.0-52.0); Imm Gran Abs Auto 0.01 X10*3/uL (0.00-0.03); Imm Gran Pct Auto 0.1 % (0.0-0.4); Lymphocytes Absolute Auto 1.5 X10*3/uL (1.2-4.9); Lymphocytes Percent Auto 21.2 % (20-40); Mean Corpuscular HGB Conc 28.8 g/dl (31.0-36.0); Mean Corpuscular Hemoglobin 21.8 pg (27.0-33.0); Mean Corpuscular Volume 75.8 fL (80.0-98.0); Mean Platelet Volume 11.1 fL (9.4-12.4); Monocytes Absolute Auto 0.8 X10*3/uL (0.1-1.2); Monocytes Percent Auto 11.2 % (2-11); Neutrophils Absolute Auto 4.7 x10*3/uL (2.0-8.3); Neutrophils Percent Auto 65.2 % (45-73); Platelet Count 500 X10*3/uL (160-400); Red Blood Count 2.93 X10*6/uL (4.60-5.80); Red Cell Distribution Width 16.5 % (11.0-16.0); White Blood Count 7.2 X10*3/uL (4.8-10.8)
[2022-01-26 21:03] LABS: Hemoglobin 6.4 g/dl (14.0-18.0)
[2022-01-26 21:05] LABS: INTERNATIONAL NORM RATIO 1.3 (0.9-1.1); Prothrombin Time 14.4 SEC (9.9-13.0)
[2022-01-26 21:13] LABS: Alanine Aminotransferase 17 U/L (0-40); Albumin Level 3.2 g/dL (3.5-5.0); Alkaline Phosphatase 400 U/L (39-117); Anion Gap 11 (12-20); Aspartate Amino Transferase 36 U/L (5-37); Bilirubin Total 0.3 mg/dL (0.0-1.0); Blood Urea Nitrogen 31 mg/dL (9-16); Calcium 8.8 mg/dL (8.4-10.2); Carbon Dioxide 30 mmol/L (22-29); Chloride 103 mmol/L (96-108); Creatinine Clr Calc Pharmacy 31.8; Estimated Glomerular Filt Rate 36; Glucose Random 110 mg/dL (60-115); Potassium 4.3 mmol/L (3.3-5.1); Sodium 140 mmol/L (135-145); Total Protein 7.5 g/dL (6.5-8.0)
[2022-01-26 21:25] LABS: Iron 25 mcg/dL (45-160); Percent Iron Saturation 5 % (15-50); Total Iron Binding Capacity 475 mcg/dL (228-428); Unsaturated Iron Binding 450 ug/dL
[2022-01-26 22:10] LABS: COVID-19 Test Negative (Negative)
--- NOTE | 2022-01-26 22:20 | PHA.MEDREC ---
Pharmacy Consult ? Medication Reconciliation Pharmacy has completed the medication reconciliation.
[2022-01-26 22:26] VITALS: BP 127/73; PULSE 128; RESP 21; TEMP 37.1; O2SAT 93
[2022-01-26 22:40] LABS: OBS Int Ctl Valid YES; OBS1 POSITIVE (NEGATIVE)
[2022-01-26] MEDS: Pantoprazole Sodium 40 MG/10 ML VIAL IVPUSH (22:42)
[2022-01-26 22:48] VITALS: BP 127/73; PULSE 128; RESP 24; TEMP 529.4; TEMP 985
--- NOTE | 2022-01-26 23:00 | PM.IMHP ---
History of Present Illness Date of Service: 01/26/22 Chief Complaint: anemia Norwegian-speaking only, history is obtained with the help of staff interpreter This is a 66-year-old Norwegian-speaking male with past medical history of CHF on Lasix, iron deficiency anemia,asthma, CAD, CVA, HTN, VSD who presents to the hospital with complaints of abnormal labs. Patient reports that he did routine labs and was found to be anemic therefore was asked to come to the hospital. Patient denies any use of NSAIDs, he reports dark stools but he reports that he takes iron., no hematochezia, hemoptysis or heat hematemesis. He denies any dizziness, no weakness at this time. Patient reports compliance with his iron supplement. on my a exam patient appear to be tachypneic, on further questioning he reported orthopnea, PND, dyspnea on exertion, no lower extremity edema. On arrival to the ED patient found to have a heart rate of 127, respiratory rate of 27, blood pressure stable, patient's heart rate throughout the ED stay was jumping between 60s to 120s 130s. Labs are significant for hemoglobin of 6.4 which is significantly dropped from 9.2 in October, hematocrit 22.2, MCV of 75.8, INR of 1.3, creatinine of 1.9 C with a baseline around 1.28, iron of 25, TIBC of 475, BNP of 1238. stool guaiac positive Chest x-ray shows few scattered patchy opacities bilaterally, this may be mild infection versus inflammatory etiology. Review of Systems Review of Systems: Yes all other systems are reviewed and are negative [facility] Medical History Asthma CHF (congestive heart failure) Coronary artery disease CVA (cerebrovascular accident) Essential hypertension Hypertension VSD (ventricular septal defect) Social History Household Members: None Housing: Apartment Do you presently have visiting nurse or other home services: Yes Alcohol intake: unknown Patient Tobacco Use Status: Tobacco use Unknown Tobacco use type: Cigarette Cigarettes Per Day: 10 Second Hand Smoke Exposure: No Use of substances other than those prescribed or required for medical reasons: Unknown Advance Directives: No Advance Directives Information Provided: Yes service: No Current occupational status: unemployed Meds Allergies Allergy/AdvReac Type Severity Reaction Status Date / Time acetaminophen [From Tylenol] Allergy Unknown UNKNOWN Verified 11/07/21 02:26 Home Medications Medication Instructions Recorded Confirmed Last Taken Type amlodipine 5 mg tablet 1 tab PO DAILY 11/07/21 01/26/22 Unknown History aspirin 81 mg tablet,delayed 1 tab PO DAILY 11/07/21 01/26/22 Unknown History release atorvastatin 20 mg tablet 1 tab PO DAILY 11/07/21 01/26/22 Unknown History cholecalciferol (vitamin D3) 25 1 tab PO DAILY 11/07/21 01/26/22 Unknown History mcg (1,000 unit) tablet (Vitamin D3) folic acid 1 mg tablet 1 tab PO DAILY 11/07/21 01/26/22 Unknown History multivitamin with folic acid 400 1 tab PO DAILY 11/07/21 01/26/22 Unknown History mcg tablet (Tab-A-Miguelangel) oxybutynin chloride 5 mg 1 tab PO DAILY 11/07/21 01/26/22 Unknown History tablet,extended release 24 hr quetiapine 50 mg tablet 1 tab PO DAILY PRN 11/07/21 01/26/22 Unknown History sertraline 100 mg tablet 1 tab PO DAILY 11/07/21 01/26/22 Unknown History terazosin 5 mg capsule 1 cap PO BEDTIME 11/07/21 01/26/22 Unknown History tiotropium bromide 18 mcg capsule 1 cap INHALATION DAILY 11/07/21 01/26/22 Unknown History with inhalation device (Spiriva with HandiHaler) quetiapine 150 mg tablet,extended 1 tab PO BEDTIME 11/09/21 01/26/22 Unknown History release 24 hr ferrous sulfate 325 mg (65 mg 1 tab PO DAILY 01/26/22 01/26/22 Unknown History iron) tablet,delayed release fluticasone 232 mcg-salmeterol 14 1 puff INHALATION BID 01/26/22 01/26/22 Unknown History mcg/actuation breath activated powdr furosemide 20 mg tablet 1 tab PO BID 01/26/22 01/26/22 Unknown History lisinopril 10 mg tablet 1 tab PO DAILY 01/26/22 01/26/22 Unknown History Physical Exam Vital Signs and Narrative: Vital Signs: Last Vital Signs Temp 985 F H 01/26/22 22:48 Pulse 128 H 01/26/22 22:48 Resp 24 H 01/26/22 22:48 BP 127/73 01/26/22 22:48 Pulse Ox 93 01/26/22 22:26 BMI result Body Mass Index 21.6 Const: General: cooperative and no acute distress Orientation/consciousness: patient oriented x3 Eyes: General: appearance normal, both eyes and all related structures Pupils: Equal, round and reactive pupils present Resp: Other: Tachypneic, crackles bilaterally Effort & Inspection: normal respiratory effort Cardio: Other: tachycardic Rhythm: regular rhythm GI: Palpation (GI): Soft to palpation Auscultation: normal bowel sounds Skin: General skin exam: no rashes or lesions noted Neuro: General: patient oriented x3 Cranial nerves: Yes Equal, round and reactive pupils present Cognition (Neuro): normal cognition Extrem: Other: trace lower extremity edema bilaterally General: Yes normal to inspection Results Labs CBC and Chem 7: 01/26/22 20:53 01/26/22 20:53 Labs: Laboratory Results - last 24 hr 01/26/22 01/26/22 01/26/22 20:53 20:53 20:53 MCV 75.8 L MCH 21.8 L MCHC 28.8 L RDW 16.5 H Plt Count 500 H D MPV 11.1 Immature Gran % (Auto) 0.1 Neut % (Auto) 65.2 Lymph % (Auto) 21.2 [place] % (Auto) 11.2 H Eos % (Auto) 1.9 Baso % (Auto) 0.4 Lymph # (Auto) 1.5 [place] # (Auto) 0.8 Eos # (Auto) 0.1 Baso # (Auto) 0.0 Abs Immat Gran (auto) 0.01 Absolute Neuts (auto) 4.7 Absolute Nucleated RBC 0.000 Nucleated RBC % (auto) 0.0 PT 14.4 H INR 1.3 H Anion Gap 11 L Estim Creat Clear Calc 31.8 Estimated GFR 36 Random Glucose 110 Calcium 8.8 Iron 25 L TIBC 475 H % Saturation 5 L Unsat Iron Binding 450 Total Bilirubin 0.3 AST 36 ALT 17 Alkaline Phosphatase 400 H D Total Protein 7.5 Albumin 3.2 L Stool Occult Blood COVID-19 (SOLE) COVID-19 Clin Com Blood Type Antibody Screen Crossmatch 01/26/22 01/26/22 01/26/22 20:53 21:47 22:26 MCV MCH MCHC RDW Plt Count MPV Immature Gran % (Auto) Neut % (Auto) Lymph % (Auto) [place] % (Auto) Eos % (Auto) Baso % (Auto) Lymph # (Auto) [place] # (Auto) Eos # (Auto) Baso # (Auto) Abs Immat Gran (auto) Absolute Neuts (auto) Absolute Nucleated RBC Nucleated RBC % (auto) PT INR Anion Gap Estim Creat Clear Calc Estimated GFR Random Glucose Calcium Iron TIBC % Saturation Unsat Iron Binding Total Bilirubin AST ALT Alkaline Phosphatase Total Protein Albumin Stool Occult Blood POSITIVE COVID-19 (SOLE) Negative COVID-19 Clin Com See Note Blood Type A Positive Antibody Screen NEGATIVE Crossmatch See Detail Assessment and Plan (1) Severe anemia: Status: Acute (2) GI (gastrointestinal bleed): Status: Acute (3) CHF exacerbation: Status: Acute (4) Tachycardia: Status: Acute (5) Tachypnea: Status: Acute Plan this is a 66-year-old male with past medical history of CAD, CHF, hypertension presents to the hospital with complaints of abnormal labs found to be anemic # acute on chronic microcytic anemia - likely secondary to iron deficiency anemia - guaiac-positive - symptomatic with tachypnea, tachycardia, and dyspnea - patient receiving PRBC - follow CBC - GI consulted # GI bleed - guaiac-positive - denies any history of NSAID use - will consult GI # CHF exacerbation - has dyspnea, orthopnea, PND, trace lower extremity edema - pulmonary congestion on chest x-ray - will start on IV Lasix, low-sodium diet, strict I&O, daily weight - echocardiogram - cardiology on consult # ? pneumonia - pulmonary infiltrates on chest x-ray- likely pulmonary congestion, has no leukocytosis, afebrile - will obtain CT chest given his tachypnea - prophylactic treatment with antibiotic until chest CT shows further clarification of the infiltrate - blood cultures - lactic acid per day # tachycardia/tachypnea - likely secondary to severe anemia as well as CHF exacerbation - infection less likely - at this time will prophylactically treat with antibiotics until chest CT results # GUERRERO - likely prerenal in the setting of CHF - follow BMP # history of CAD - no chest pain - continue home medications # hypertension - stable - continue antihypertensive DVT prophylaxis: Heparin subQ Quality Stroke Does the patient have a stroke diagnosis?: No VTE Prior VTE?: No VTE Risk Level:: Medical - moderate - high VTE Device Contraindication: Treatment Not Indicated VTE Drug Contraindication: N/A - Med Ordered
[2022-01-26 23:02] VITALS: BP 128/68; PULSE 127; RESP 24; TEMP 36.8
[2022-01-27] VITALS (10 sets, daily range): BP systolic 116–135; BP diastolic 48–76; PULSE 62–136; RESP 20–28; TEMP 36.6–37; O2SAT 97–100
--- NOTE | 2022-01-27 | ECG_ITS ---
Test Reason : RECHECK BW Blood Pressure : / mmHG Vent. Rate : 129 BPM Atrial Rate : 000 BPM P-R Int : 000 ms QRS Dur : 126 ms QT Int : 340 ms P-R-T Axes : 000 -61 077 degrees QTc Int : 498 ms Sinus tachycardia Left axis deviation Left ventricular hypertrophy with QRS widening and repolarization abnormality ( Goran product ) Abnormal ECG When compared with ECG of 26-JAN-2022 20:42, No significant changes seen Referred By: Brice Degroot Electronically Signed By:URSULA GODINEZ MD
--- NOTE | 2022-01-27 | ECG_ITS ---
Test Reason : RECHECK BW Blood Pressure : / mmHG Vent. Rate : 127 BPM Atrial Rate : 127 BPM P-R Int : 208 ms QRS Dur : 128 ms QT Int : 292 ms P-R-T Axes : 000 -60 094 degrees QTc Int : 424 ms Sinus tachycardia Left axis deviation Left ventricular hypertrophy with QRS widening and repolarization abnormality ( Goran product ) Lateral infarct , age undetermined Abnormal ECG When compared with ECG of 26-JAN-2022 23:15, No significant changes seen Referred By: Brice Degroot Electronically Signed By:URSULA GODINEZ MD
[2022-01-27 00:02] LABS: B Type Natriuretic Peptide 1238 pg/mL (<100)
[2022-01-27 00:41] LABS: Troponin-I High Sensitivity 12.2 ng/L (<3.5-35.0)
[2022-01-27] MEDS: Furosemide 40 MG/4 ML VIAL IVPUSH ×4 (00:50→18:29)
[2022-01-27] MEDS: QUEtiapine Fumarate 50 MG TABLET 150 MG PO ×2 (00:59→21:31)
--- NOTE | 2022-01-27 03:37 | PC.NURSE ---
I assumed care of Chu upon his arrival to bed 22 from EMS stretcher. He presents via EMS from home due to low hemoglobin of 6.3. Since that time he has remained alert, oriented x 3, calm and cooperative, soft spoken, belarusian speaking only. He makes eye contact with staff, LIM x 4 and has ambulated to and from the bathroom independently and with steady gait. On arrival respirations are spontaneous, non-labored, RR 20, no cyanosis. Skin with scattered ecchymoses to upper extremities. NO nausea. No vomiting. HR 120-130's and regular on arrival. Pt denies any chest pain or SOB on arrival. Shortly after arrival IV access and labs were obtained and the pt was found to have a low hemoglobin. It was decided that the pt would receive 2U PRBC's. The 1st unit was given without incident. Prior to the second unit 40mg IVP Lasix was ordered and given. At this time the pt's HR, which was 128 and regular, broke to a rate of 60; it did not gradually decrease to 60, rather it went from 128 to 60 immediately. I attempted to obtain an EKG while his HR was in the 60's, but was unable to before his rate increased to 130 again. Pelon VASQUEZ was notified. A repeat EKG was obtained while in the rate of 120's and was visualized by ER MD Rodrigues. The 2nd unit was initiated and transfused without incident. At the completion of this the pt's HR again decreased into the 60's for a short time before increasing, again, to a HR in the 120's. Since the start of the second unit of PRBC's his respirations have appeared mildly labored and his RR - which was initially at a rate of 20 on arrival and was at a rate of 20 prior to 2nd unit PRBC's - has increased slightly to 24-26. Sat's on 2L are 96% (nasal cannula @ 2L was given immediately after arrival not due to hypoxia but because of the known low hemoglobin). No cyanosis. Pelon VASQUEZ has bene updated. Pt is sleeping. Since Lasix admin he has voided 650-700cc into bedside urinal. Will continue to monitor Chu.
[2022-01-27 07:50] LABS: Lactic Acid 0.5 mmol/L (0.5-2.0); MANUAL DIFF FLAG NO
[2022-01-27 07:57] LABS: Basophils Percent Auto 0.4 % (0-2); Eosinophils Absolute Auto 0.1 X10*3/uL (0.0-0.4); Eosinophils Percent Auto 0.7 % (0-4); Hematocrit 31.2 % (42.0-52.0); Hemoglobin 9.3 g/dl (14.0-18.0); Imm Gran Abs Auto 0.04 X10*3/uL (0.00-0.03); Imm Gran Pct Auto 0.4 % (0.0-0.4); Lymphocytes Absolute Auto 1.6 X10*3/uL (1.2-4.9); Lymphocytes Percent Auto 15.9 % (20-40); Mean Corpuscular HGB Conc 29.8 g/dl (31.0-36.0); Mean Corpuscular Hemoglobin 23.8 pg (27.0-33.0); Mean Corpuscular Volume 79.8 fL (80.0-98.0); Mean Platelet Volume 11.1 fL (9.4-12.4); Monocytes Absolute Auto 1.1 X10*3/uL (0.1-1.2); Monocytes Percent Auto 11.3 % (2-11); Neutrophils Percent Auto 71.3 % (45-73); Platelet Count 479 X10*3/uL (160-400); Red Blood Count 3.91 X10*6/uL (4.60-5.80); Red Cell Distribution Width 18.2 % (11.0-16.0); White Blood Count 9.8 X10*3/uL (4.8-10.8)
[2022-01-27] MEDS: Multivitamin TABLET 1 TAB PO (08:07)
[2022-01-27] MEDS: Folic Acid 1 MG TABLET PO (08:07)
[2022-01-27] MEDS: Cholecalciferol (Vitamin D3) 25 MCG TABLET PO (08:07)
[2022-01-27] MEDS: Sertraline HCL 100 MG TABLET PO (08:07)
[2022-01-27] MEDS: lisinopriL 10 MG TABLET PO (08:07)
[2022-01-27] MEDS: Ferrous Sulfate 324 MG TABLET.DR PO (08:07)
[2022-01-27 08:09] LABS: Anion Gap 13 (12-20); Blood Urea Nitrogen 29 mg/dL (9-16); Carbon Dioxide 28 mmol/L (22-29); Chloride 103 mmol/L (96-108); Creatinine Clr Calc Pharmacy 36.2; Estimated Glomerular Filt Rate 41; Glucose Random 128 mg/dL (60-115); Potassium 4.5 mmol/L (3.3-5.1); Sodium 139 mmol/L (135-145)
[2022-01-27] MEDS: cefTRIAXone sodium 1 GM in 0.9 % Sodium Chloride 50 ML IV (08:09)
[2022-01-27] MEDS: amLODIPine Besylate 5 MG TABLET PO (08:11)
[2022-01-27] MEDS: carvediloL 12.5 MG TABLET PO ×2 (08:11→21:31)
[2022-01-27] MEDS: Atorvastatin Calcium 20 MG TABLET PO (08:12)
[2022-01-27] MEDS: Azithromycin 500 MG in 0.9 % Sodium Chloride 250 ML 125 MG IV (08:53)
[2022-01-27] MEDS: Fluticasone/Vilanterol 200/25 BLST.W.DEV 1 PUFF INHALE (09:17)
--- NOTE | 2022-01-27 09:57 | PM.CNCAR ---
History of Present Illness History of Present Illness Date of Service: 01/27/22 Requesting physician: Balbina Bird Consult reason: congestive heart failure Chief complaint: Anemia, chf Narrative: I was consulted to see Chu in cardiology evaluation for severe cardiomyopathy and shortness of breath in the setting of severe anemia. History was obtained with help of carbon plant grinder. Patient says that he was called to come to the emergency room because his blood work showed severe anemia. He came to the emergency room and was noted to have elevated BNP and radiologic findings consistent with congestive heart failure. He denies any clear orthopnea but has significant exertional shortness of breath which limits his activity level. This is chronic. 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 He takes all his medications. Currently on carvedilol and lisinopril. He denies any significant chest pain or shortness of breath or palpitation at this time. When he came in he was noted to be tachycardic and EKGs are more consistent with sinus tachycardia. He is on low-dose aspirin therapy. Comes for recurrent GI bleed Review of Systems Constitutional: Constitutional: Reports lethargy and Reports weakness Eyes: Eyes: Reports no additional eye complaints Cardiovascular: Cardiovascular: Denies chest pain, Denies rapid heart rate, Denies lightheadedness, Denies Loss of Consciousness, Denies palpitations, Reports dyspnea on exertion and Denies orthopnea Respiratory: Respiratory: Reports no additional respiratory complaints and Reports dyspnea on exertion Gastrointestinal: Gastrointestinal: Reports melena Genitourinary: Genitourinary: Reports no additional male genitourinary complaints Musculoskeletal: Musculoskeletal: Reports no additional musculoskeletal complaints Integumentary/Breasts: Skin/Breast: Reports system reviewed and no additional complaints, except as docu Neurologic: Reports system reviewed and no additional complaints, except as documented and Reports weakness Psychiatric: Psychiatric: Reports no additional psychiatric complaints Endocrine: Endocrine: Reports no additional endocrine complaints and Denies palpitations Hematologic/Lymphatic: Hematologic/Lymphatic: Reports no additional hematologic/lymphatic complaints Allergic/Immunologic: Allergic/Immunologic: Reports no additional allergic/immunologic complaints [facility] Past Medical History Medical History Asthma CHF (congestive heart failure) Coronary artery disease CVA (cerebrovascular accident) Essential hypertension Hypertension VSD (ventricular septal defect) Social History Social History Household Members: None Housing: Apartment Do you presently have visiting nurse or other home services: Yes Alcohol intake: unknown Patient Tobacco Use Status: Tobacco use Unknown Tobacco use type: Cigarette Cigarettes Per Day: 10 Second Hand Smoke Exposure: No Use of substances other than those prescribed or required for medical reasons: Unknown Advance Directives: No Advance Directives Information Provided: Yes service: No Current occupational status: unemployed Meds Allergies Allergy/AdvReac Type Severity Reaction Status Date / Time acetaminophen [From Tylenol] Allergy Unknown UNKNOWN Verified 11/07/21 02:26 Active Medications: Current Medications Albuterol Sulfate (Albuterol Sulfate 90 Mcg 8 Gm Inhaler) 2 puff INHALE QID PRN PRN Reason: shortness of breath or wheezing Amlodipine Besylate (Amlodipine Besylate 5 Mg Tablet) 5 mg PO DAILY [facility]; Protocol Last Admin: 01/27/22 08:11 Dose: 5 mg Documented by: Atorvastatin Calcium (Atorvastatin Calcium 20 Mg Tablet) 20 mg PO DAILY [facility] Last Admin: 01/27/22 08:12 Dose: 20 mg Documented by: Carvedilol (Carvedilol 12.5 Mg Tablet) 12.5 mg PO BID [facility]; Protocol Last Admin: 01/27/22 08:11 Dose: 12.5 mg Documented by: Docusate Sodium (Docusate Sodium 100 Mg Capsule) 100 mg PO DAILY PRN PRN Reason: Constipation Ferrous Sulfate (Ferrous Sulfate 324 Mg Tablet.) 324 mg PO DAILY [facility] Last Admin: 01/27/22 08:07 Dose: 324 mg Documented by: Fluticasone/Vilanterol (Fluticasone/Vilanterol 200/25 Blst.W.Dev) 1 puff INHALE DAILY [facility] Last Admin: 01/27/22 09:17 Dose: 1 puff Documented by: Folic Acid (Folic Acid 1 Mg Tablet) 1 mg PO DAILY [facility] Last Admin: 01/27/22 08:07 Dose: 1 mg Documented by: Furosemide (Furosemide 40 Mg/4 Ml Vial) 40 mg IVPUSH BID@0900,1800 [facility]; Protocol Last Admin: 01/27/22 08:11 Dose: 40 mg Documented by: Ceftriaxone Sodium 1 gm/ (Sodium Chloride) 50 mls @ 100 mls/hr IV Q24H [facility] Last Admin: 01/27/22 08:09 Dose: 100 mls/hr Documented by: Azithromycin 500 mg/ Sodium (Chloride) 250 mls @ 125 mls/hr IV Q24H [facility] Last Admin: 01/27/22 08:53 Dose: 125 mls/hr Documented by: Lisinopril (Lisinopril 10 Mg Tablet) 10 mg PO DAILY [facility]; Protocol Last Admin: 01/27/22 08:07 Dose: 10 mg Documented by: Multivitamins/Vitamin C (Multivitamin Tablet) 1 tab PO DAILY [facility] Last Admin: 01/27/22 08:07 Dose: 1 tab Documented by: Nicotine Polacrilex (Nicotine Polacrilex 2 Mg Gum) 2 mg BUCCAL Q3H PRN PRN Reason: nicotine cravings Ondansetron HCl (Ondansetron Hcl 4 Mg/2 Ml Vial) 4 mg IVPUSH Q8H PRN PRN Reason: Nausea and Vomiting Oxybutynin Chloride (Oxybutynin Chloride Er 5 Mg Tab.Er.24) 5 mg PO DAILY [facility] Quetiapine Fumarate (Quetiapine Fumarate 50 Mg Tablet) 50 mg PO DAILY PRN PRN Reason: Agitation Quetiapine Fumarate (Quetiapine Fumarate 50 Mg Tablet) 150 mg PO BEDTIME [facility] Last Admin: 01/27/22 00:59 Dose: 150 mg Documented by: Sertraline HCl (Sertraline Hcl 100 Mg Tablet) 100 mg PO DAILY [facility] Last Admin: 01/27/22 08:07 Dose: 100 mg Documented by: Sodium Chloride (0.9 % Sodium Chloride Flush 3 Ml Syringe) 3 ml IVFLUSH QSHIFT [facility] Last Admin: 01/27/22 00:59 Dose: Not Given Documented by: Tiotropium Shaw (Tiotropium Shaw 18 Mcg Cap.W.Dev) 1 puff INHALE DAILY [facility] Last Admin: 01/27/22 09:17 Dose: 1 puff Documented by: Vitamin D (Cholecalciferol (Vitamin D3) 25 Mcg Tablet) 25 mcg PO DAILY [facility] Last Admin: 01/27/22 08:07 Dose: 25 mcg Documented by: Home Medications Medication Instructions Recorded Confirmed Last Taken Type amlodipine 5 mg tablet 1 tab PO DAILY 11/07/21 01/26/22 Unknown History aspirin 81 mg tablet,delayed 1 tab PO DAILY 11/07/21 01/26/22 Unknown History release atorvastatin 20 mg tablet 1 tab PO DAILY 11/07/21 01/26/22 Unknown History cholecalciferol (vitamin D3) 25 1 tab PO DAILY 11/07/21 01/26/22 Unknown History mcg (1,000 unit) tablet (Vitamin D3) folic acid 1 mg tablet 1 tab PO DAILY 11/07/21 01/26/22 Unknown History multivitamin with folic acid 400 1 tab PO DAILY 11/07/21 01/26/22 Unknown History mcg tablet (Tab-A-Miguelangel) oxybutynin chloride 5 mg 1 tab PO DAILY 11/07/21 01/26/22 Unknown History tablet,extended release 24 hr quetiapine 50 mg tablet 1 tab PO DAILY PRN 11/07/21 01/26/22 Unknown History sertraline 100 mg tablet 1 tab PO DAILY 11/07/21 01/26/22 Unknown History terazosin 5 mg capsule 1 cap PO BEDTIME 11/07/21 01/26/22 Unknown History tiotropium bromide 18 mcg capsule 1 cap INHALATION DAILY 11/07/21 01/26/22 Unknown History with inhalation device (Spiriva with HandiHaler) quetiapine 150 mg tablet,extended 1 tab PO BEDTIME 11/09/21 01/26/22 Unknown History release 24 hr ferrous sulfate 325 mg (65 mg 1 tab PO DAILY 01/26/22 01/26/22 Unknown History iron) tablet,delayed release fluticasone 232 mcg-salmeterol 14 1 puff INHALATION BID 01/26/22 01/26/22 Unknown History mcg/actuation breath activated powdr furosemide 20 mg tablet 1 tab PO BID 01/26/22 01/26/22 Unknown History lisinopril 10 mg tablet 1 tab PO DAILY 01/26/22 01/26/22 Unknown History Physical Exam Vital Signs: Vital Signs: Last Vital Signs Temp 98.5 F 01/27/22 01:11 Pulse 85 01/27/22 09:18 Resp 25 H 01/27/22 09:18 BP 121/55 L 01/27/22 08:59 Pulse Ox 100 01/27/22 08:59 BMI result Body Mass Index 21.6 Const: General: cooperative, comfortable, no acute distress, alert and awake Nutritional Appearance: underweight Orientation/consciousness: patient oriented x3 Limitations: no limitations HEENT: Head: Yes normocephalic and Yes atraumatic Neck: Neck: Yes trachea midline and Yes no JVD Chest: Chest palpation & inspection: normal inspection of the chest Resp: Effort & Inspection: normal respiratory effort Auscultation: crackles bilateral at the base Cardio: Jugular venous distension: no JVD Palpation: abnormal PMI displaced PMI Rate: regular rate Rhythm: regular rhythm Heart sounds: S1 normal heart sound present, S2 normal heart sound present, no click, no gallops and Murmur heart sound present systolic GI: Auscultation: normal bowel sounds Skin: General skin exam: no rashes or lesions noted and ecchymosis Neuro: General: patient oriented x3 and no focal motor deficits Extrem: General: Yes no clubbing, cyanosis or edema Psych: Appearance: grossly normal Objective Labs and Meds Result diagrams: 01/27/22 07:33 01/27/22 07:33 Lab results: Laboratory Results - last 24 hr 01/26/22 01/26/22 01/26/22 20:53 20:53 20:53 WBC 7.2 RBC 2.93 L Hgb 6.4 L* D Hct 22.2 L D MCV 75.8 L MCH 21.8 L MCHC 28.8 L RDW 16.5 H Plt Count 500 H D MPV 11.1 Immature Gran % (Auto) 0.1 Neut % (Auto) 65.2 Lymph % (Auto) 21.2 Monroe % (Auto) 11.2 H Eos % (Auto) 1.9 Baso % (Auto) 0.4 Lymph # (Auto) 1.5 Monroe # (Auto) 0.8 Eos # (Auto) 0.1 Baso # (Auto) 0.0 Abs Immat Gran (auto) 0.01 Absolute Neuts (auto) 4.7 Absolute Nucleated RBC 0.000 Nucleated RBC % (auto) 0.0 PT 14.4 H INR 1.3 H Sodium 140 Potassium 4.3 Chloride 103 Carbon Dioxide 30 H Anion Gap 11 L BUN 31 H Creatinine 1.90 H Estim Creat Clear Calc 31.8 Estimated GFR 36 Random Glucose 110 Lactic Acid Calcium 8.8 Iron 25 L TIBC 475 H % Saturation 5 L Unsat Iron Binding 450 Total Bilirubin 0.3 AST 36 ALT 17 Alkaline Phosphatase 400 H D Troponin I High Sens B-Natriuretic Peptide Total Protein 7.5 Albumin 3.2 L Stool Occult Blood COVID-19 (SOLE) COVID-19 Clin Com Resp Virus Cult Rapid Blood Type Antibody Screen Crossmatch 01/26/22 01/26/22 01/26/22 20:53 20:53 21:47 WBC RBC Hgb Hct MCV MCH MCHC RDW Plt Count MPV Immature Gran % (Auto) Neut % (Auto) Lymph % (Auto) Monroe % (Auto) Eos % (Auto) Baso % (Auto) Lymph # (Auto) Monroe # (Auto) Eos # (Auto) Baso # (Auto) Abs Immat Gran (auto) Absolute Neuts (auto) Absolute Nucleated RBC Nucleated RBC % (auto) PT INR Sodium Potassium Chloride Carbon Dioxide Anion Gap BUN Creatinine Estim Creat Clear Calc Estimated GFR Random Glucose Lactic Acid Calcium Iron TIBC % Saturation Unsat Iron Binding Total Bilirubin AST ALT Alkaline Phosphatase Troponin I High Sens B-Natriuretic Peptide 1238 H Total Protein Albumin Stool Occult Blood COVID-19 (SOLE) Negative COVID-19 Clin Com See Note Resp Virus Cult Rapid Blood Type A Positive Antibody Screen NEGATIVE Crossmatch See Detail 01/26/22 01/27/22 01/27/22 22:26 00:05 07:04 WBC RBC Hgb Hct MCV MCH MCHC RDW Plt Count MPV Immature Gran % (Auto) Neut % (Auto) Lymph % (Auto) Monroe % (Auto) Eos % (Auto) Baso % (Auto) Lymph # (Auto) Monroe # (Auto) Eos # (Auto) Baso # (Auto) Abs Immat Gran (auto) Absolute Neuts (auto) Absolute Nucleated RBC Nucleated RBC % (auto) PT INR Sodium Potassium Chloride Carbon Dioxide Anion Gap BUN Creatinine Estim Creat Clear Calc Estimated GFR Random Glucose Lactic Acid Calcium Iron TIBC % Saturation Unsat Iron Binding Total Bilirubin AST ALT Alkaline Phosphatase Troponin I High Sens 12.2 B-Natriuretic Peptide Total Protein Albumin Stool Occult Blood POSITIVE COVID-19 (SOLE) COVID-19 Clin Com Resp Virus Cult Rapid TNP Blood Type Antibody Screen Crossmatch 01/27/22 01/27/22 01/27/22 07:04 07:33 07:33 WBC 9.8 RBC 3.91 L D Hgb 9.3 L D Hct 31.2 L D MCV 79.8 L MCH 23.8 L MCHC 29.8 L RDW 18.2 H Plt Count 479 H MPV 11.1 Immature Gran % (Auto) 0.4 Neut % (Auto) 71.3 Lymph % (Auto) 15.9 L Monroe % (Auto) 11.3 H Eos % (Auto) 0.7 Baso % (Auto) 0.4 Lymph # (Auto) 1.6 Monroe # (Auto) 1.1 Eos # (Auto) 0.1 Baso # (Auto) 0.0 Abs Immat Gran (auto) 0.04 H Absolute Neuts (auto) 7.0 Absolute Nucleated RBC 0.000 Nucleated RBC % (auto) 0.0 PT INR Sodium 139 Potassium 4.5 Chloride 103 Carbon Dioxide 28 Anion Gap 13 BUN 29 H Creatinine 1.67 H Estim Creat Clear Calc 36.2 Estimated GFR 41 Random Glucose 128 H Lactic Acid Calcium 9.0 Iron TIBC % Saturation Unsat Iron Binding Total Bilirubin AST ALT Alkaline Phosphatase Troponin I High Sens B-Natriuretic Peptide Total Protein Albumin Stool Occult Blood COVID-19 (SOLE) COVID-19 Clin Com Resp Virus Cult Rapid TNP Blood Type Antibody Screen Crossmatch 01/27/22 07:33 WBC RBC Hgb Hct MCV MCH MCHC RDW Plt Count MPV Immature Gran % (Auto) Neut % (Auto) Lymph % (Auto) Monroe % (Auto) Eos % (Auto) Baso % (Auto) Lymph # (Auto) Monroe # (Auto) Eos # (Auto) Baso # (Auto) Abs Immat Gran (auto) Absolute Neuts (auto) Absolute Nucleated RBC Nucleated RBC % (auto) PT INR Sodium Potassium Chloride Carbon Dioxide Anion Gap BUN Creatinine Estim Creat Clear Calc Estimated GFR Random Glucose Lactic Acid 0.5 Calcium Iron TIBC % Saturation Unsat Iron Binding Total Bilirubin AST ALT Alkaline Phosphatase Troponin I High Sens B-Natriuretic Peptide Total Protein Albumin Stool Occult Blood COVID-19 (SOLE) COVID-19 Clin Com Resp Virus Cult Rapid Blood Type Antibody Screen Crossmatch Imaging Radiologist's impression: Impressions Chest X-Ray 01/26/22 23:35 IMPRESSION: Few scattered patchy opacities bilaterally, most prominently at the lung bases, which may be due to a mild infectious/inflammatory etiology. Somewhat coarsened appearance of interstitium may represent acute or chronic airways disease. Chest CT 01/27/22 08:11 IMPRESSION: Septal thickening is seen bilaterally, suggestive of edema. Patchy bilateral airspace opacities are present, which remain from the study on 11/07/2021. While infection does remain a possibility, cannot exclude neoplastic process. The overall similar appearance of these opacities does raise some concern. Consider PET/CT or tissue diagnosis. Fleischner guidelines were followed. Assessment and Plan (1) CHF exacerbation: Status: Acute CHF in this elderly gentleman with severe cardiomyopathy known by last echocardiogram, precipitated due to severe anemia. At current time still appears to have some rales in his lower basis. Continue IV diuresis. Strict intake and output chart. Continue to monitor renal function as well as electrolytes. Continue carvedilol therapy. Will switch his lisinopril therapy to Diovan therapy with the eventual plan to switch him to Entresto therapy given that he has NYHA class 3 symptoms. Also add Aldactone 12.5 mg to his regimen. Follow K levels. Transfuse as needed to maintain hematocrit above 30. GI consult to evaluate for recurrent anemia as this is leading to hospitalizations. Appears to be related to GI bleed. Stop his aspirin, no clear significant indication for it. He does have prior history of VSD but no clear history of CAD or prior vascular events. Discussed with him with help of carbon plant grinder importance of follow-up with Cardiology to optimize his medical regimen as outpatient to improve his long-term prognosis. He showed understanding. Will follow with you Procedures Date of Service Date of Service: 01/27/22
[2022-01-27] MEDS: Spironolactone 25 MG TABLET 12.5 MG PO (12:55)
--- NOTE | 2022-01-27 13:22 | HO.PM.IMPN ---
Subjective Subjective Date of Service: 01/28/22 Interval History: history obtained via last model maker, patient complains of chronic shortness of breath, orthopnea,PND,VIZCARRA, denies chest pain, no cough, no fever, no chills, no palpitations, no acute issues since admission. 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 CVS? regular rate rhythm, Respiratory lungs bibasilar crackles no use of accessory muscle Gastrointestinal abdomen soft, nontender, bowel sounds audible,no guarding , no rigidity. Extremities no edema. Neuro nonfocal Skin no rash Psych appropriate affect Objective Data Active Medications Albuterol Sulfate (Albuterol Sulfate 90 Mcg 8 Gm Inhaler) 2 puff INHALE QID PRN PRN Reason: shortness of breath or wheezing Amlodipine Besylate (Amlodipine Besylate 5 Mg Tablet) 5 mg PO DAILY [facility]; Protocol Last Admin: 01/27/22 08:11 Dose: 5 mg Documented by: YUKI Atorvastatin Calcium (Atorvastatin Calcium 20 Mg Tablet) 20 mg PO DAILY [facility] Last Admin: 01/27/22 08:12 Dose: 20 mg Documented by: YUKI Carvedilol (Carvedilol 12.5 Mg Tablet) 12.5 mg PO BID [facility]; Protocol Last Admin: 01/27/22 08:11 Dose: 12.5 mg Documented by: YUKI Docusate Sodium (Docusate Sodium 100 Mg Capsule) 100 mg PO DAILY PRN PRN Reason: Constipation Ferrous Sulfate (Ferrous Sulfate 324 Mg Tablet.Dr) 324 mg PO DAILY [facility] Last Admin: 01/27/22 08:07 Dose: 324 mg Documented by: YUKI Fluticasone/Vilanterol (Fluticasone/Vilanterol 200/25 Blst.W.Dev) 1 puff INHALE DAILY [facility] Last Admin: 01/27/22 09:17 Dose: 1 puff Documented by: ALESHA Folic Acid (Folic Acid 1 Mg Tablet) 1 mg PO DAILY [facility] Last Admin: 01/27/22 08:07 Dose: 1 mg Documented by: YUKI Furosemide (Furosemide 40 Mg/4 Ml Vial) 40 mg IVPUSH BID@0900,1800 [facility]; Protocol Last Admin: 01/27/22 08:11 Dose: 40 mg Documented by: YUKI Multivitamins/Vitamin C (Multivitamin Tablet) 1 tab PO DAILY [facility] Last Admin: 01/27/22 08:07 Dose: 1 tab Documented by: YUKI Nicotine Polacrilex (Nicotine Polacrilex 2 Mg Gum) 2 mg BUCCAL Q3H PRN PRN Reason: nicotine cravings Ondansetron HCl (Ondansetron Hcl 4 Mg/2 Ml Vial) 4 mg IVPUSH Q8H PRN PRN Reason: Nausea and Vomiting Oxybutynin Chloride (Oxybutynin Chloride Er 5 Mg Tab.Er.24) 5 mg PO DAILY [facility] Last Admin: 01/27/22 10:06 Dose: 5 mg Documented by: YUKI Quetiapine Fumarate (Quetiapine Fumarate 50 Mg Tablet) 50 mg PO DAILY PRN PRN Reason: Agitation Quetiapine Fumarate (Quetiapine Fumarate 50 Mg Tablet) 150 mg PO BEDTIME [facility] Last Admin: 01/27/22 00:59 Dose: 150 mg Documented by: SRAVAN Sertraline HCl (Sertraline Hcl 100 Mg Tablet) 100 mg PO DAILY [facility] Last Admin: 01/27/22 08:07 Dose: 100 mg Documented by: YUKI Sodium Chloride (0.9 % Sodium Chloride Flush 3 Ml Syringe) 3 ml IVFLUSH QSHIFT [facility] Last Admin: 01/27/22 10:11 Dose: Not Given Documented by: GE[place]IA Non-Admin Reason: Med Not Available Spironolactone (Spironolactone 25 Mg Tablet) 12.5 mg PO DAILY [facility]; Protocol Last Admin: 01/27/22 12:55 Dose: 12.5 mg Documented by: YUKI Tiotropium Reeves (Tiotropium Reeves 18 Mcg Cap.WPauletteDev) 1 puff INHALE DAILY [facility] Last Admin: 01/27/22 09:17 Dose: 1 puff Documented by: ALESHA Valsartan (Valsartan 40 Mg Tablet) 40 mg PO BID [facility]; Protocol Vitamin D (Cholecalciferol (Vitamin D3) 25 Mcg Tablet) 25 mcg PO DAILY [facility] Last Admin: 01/27/22 08:07 Dose: 25 mcg Documented by: YUKI Labs CBC & Chem 7: 01/27/22 07:33 01/28/22 06:52 Labs: Laboratory Results - last 24 hr 01/26/22 01/26/22 01/26/22 20:53 20:53 20:53 MCV 75.8 L MCH 21.8 L MCHC 28.8 L RDW 16.5 H Plt Count 500 H D MPV 11.1 Immature Gran % (Auto) 0.1 Neut % (Auto) 65.2 Lymph % (Auto) 21.2 [place] % (Auto) 11.2 H Eos % (Auto) 1.9 Baso % (Auto) 0.4 Lymph # (Auto) 1.5 [place] # (Auto) 0.8 Eos # (Auto) 0.1 Baso # (Auto) 0.0 Abs Immat Gran (auto) 0.01 Absolute Neuts (auto) 4.7 Absolute Nucleated RBC 0.000 Nucleated RBC % (auto) 0.0 PT 14.4 H INR 1.3 H Anion Gap 11 L Estim Creat Clear Calc 31.8 Estimated GFR 36 Random Glucose 110 Lactic Acid Calcium 8.8 Iron 25 L TIBC 475 H % Saturation 5 L Unsat Iron Binding 450 Total Bilirubin 0.3 AST 36 ALT 17 Alkaline Phosphatase 400 H D Troponin I High Sens B-Natriuretic Peptide Total Protein 7.5 Albumin 3.2 L Stool Occult Blood COVID-19 (SOLE) COVID-19 Clin Com Resp Virus Cult Rapid Blood Type Antibody Screen Crossmatch 01/26/22 01/26/22 01/26/22 20:53 20:53 21:47 MCV MCH MCHC RDW Plt Count MPV Immature Gran % (Auto) Neut % (Auto) Lymph % (Auto) [place] % (Auto) Eos % (Auto) Baso % (Auto) Lymph # (Auto) [place] # (Auto) Eos # (Auto) Baso # (Auto) Abs Immat Gran (auto) Absolute Neuts (auto) Absolute Nucleated RBC Nucleated RBC % (auto) PT INR Anion Gap Estim Creat Clear Calc Estimated GFR Random Glucose Lactic Acid Calcium Iron TIBC % Saturation Unsat Iron Binding Total Bilirubin AST ALT Alkaline Phosphatase Troponin I High Sens B-Natriuretic Peptide 1238 H Total Protein Albumin Stool Occult Blood COVID-19 (SOLE) Negative [employer]-19 Clin Com See Note Resp Virus Cult Rapid Blood Type A Positive Antibody Screen NEGATIVE Crossmatch See Detail 01/26/22 01/27/22 01/27/22 22:26 00:05 07:04 MCV MCH MCHC RDW Plt Count MPV Immature Gran % (Auto) Neut % (Auto) Lymph % (Auto) [place] % (Auto) Eos % (Auto) Baso % (Auto) Lymph # (Auto) [place] # (Auto) Eos # (Auto) Baso # (Auto) Abs Immat Gran (auto) Absolute Neuts (auto) Absolute Nucleated RBC Nucleated RBC % (auto) PT INR Anion Gap Estim Creat Clear Calc Estimated GFR Random Glucose Lactic Acid Calcium Iron TIBC % Saturation Unsat Iron Binding Total Bilirubin AST ALT Alkaline Phosphatase Troponin I High Sens 12.2 B-Natriuretic Peptide Total Protein Albumin Stool Occult Blood POSITIVE COVID-19 (SOLE) COVID-19 Clin Com Resp Virus Cult Rapid TNP Blood Type Antibody Screen Crossmatch 01/27/22 01/27/22 01/27/22 07:04 07:33 07:33 MCV 79.8 L MCH 23.8 L MCHC 29.8 L RDW 18.2 H Plt Count 479 H MPV 11.1 Immature Gran % (Auto) 0.4 Neut % (Auto) 71.3 Lymph % (Auto) 15.9 L [place] % (Auto) 11.3 H Eos % (Auto) 0.7 Baso % (Auto) 0.4 Lymph # (Auto) 1.6 [place] # (Auto) 1.1 Eos # (Auto) 0.1 Baso # (Auto) 0.0 Abs Immat Gran (auto) 0.04 H Absolute Neuts (auto) 7.0 Absolute Nucleated RBC 0.000 Nucleated RBC % (auto) 0.0 PT INR Anion Gap 13 Estim Creat Clear Calc 36.2 Estimated GFR 41 Random Glucose 128 H Lactic Acid Calcium 9.0 Iron TIBC % Saturation Unsat Iron Binding Total Bilirubin AST ALT Alkaline Phosphatase Troponin I High Sens B-Natriuretic Peptide Total Protein Albumin Stool Occult Blood COVID-19 (SOLE) COVID-19 Clin Com Resp Virus Cult Rapid TNP Blood Type Antibody Screen Crossmatch 01/27/22 07:33 MCV MCH MCHC RDW Plt Count MPV Immature Gran % (Auto) Neut % (Auto) Lymph % (Auto) [place] % (Auto) Eos % (Auto) Baso % (Auto) Lymph # (Auto) [place] # (Auto) Eos # (Auto) Baso # (Auto) Abs Immat Gran (auto) Absolute Neuts (auto) Absolute Nucleated RBC Nucleated RBC % (auto) PT INR Anion Gap Estim Creat Clear Calc Estimated GFR Random Glucose Lactic Acid 0.5 Calcium Iron TIBC % Saturation Unsat Iron Binding Total Bilirubin AST ALT Alkaline Phosphatase Troponin I High Sens B-Natriuretic Peptide Total Protein Albumin Stool Occult Blood COVID-19 (SOLE) COVID-19 Clin Com Resp Virus Cult Rapid Blood Type Antibody Screen Crossmatch Assessment and Plan (1) CHF exacerbation: Status: Acute (2) Severe anemia: Status: Acute (3) Tachycardia: Status: Acute Plan 66-year-old male with past medical history of CAD, CHF, hypertension presents to the hospital with complaints of abnormal labs found to have severe anemia #? acute on chronic microcytic anemia ?no acute GI bleed noted, guaiac-positive on presentation noted to have tachypnea, tachycardia, and dyspnea iron studies consistent with iron deficiency anemia received 2 units of packed RBC hematocrit improved from 22.2 to 31 DC aspirin,await GI input. #? acute on chronic CHF exacerbation due to reduced EF dyspnea, orthopnea, PND, trace? lower extremity edema and bilateral crackles present on admission noted to have tachycardia tachypnea likely due to CHF and anemia. continue IV Lasix 40 mg b.i.d., low-sodium diet, strict I&O, daily weight case discussed with Cardiology they recommend to add Aldactone 12.5 mg by mouth daily and valsartan 40 mg b.i.d., will DC lisinopril wishes to transfer his care to [facility] since find difficult to go to [place]. # ? pneumonia ? pulmonary infiltrates on chest x-ray, CT chest showed bilateral septal thickening likely pulmonary congestion, airspace opacities chronic since October/2021, neoplastic process cannot be ruled out therefore recommend PET/ CT or tissue diagnosis, history of tobacco use, will recommend outpatient pulmonary follow up LA 0.5, no fevers, no cough will DC IV antibiotics # ? GUERRERO -? likely prerenal in the setting of CHF, creatinine improved from 1.9 to 1.7 -? follow BMP #? history of CAD status post [place] -? no chest pain, DC aspirin due to anemia, continue Coreg and statin #? hypertension -? stable # history of asthma/ emphysema overlap syndrome no acute exacerbation continue Spiriva/ Breo # # VSD, ? vegetation vs clot seen on last echocardiogram, will discuss with Cardiology regarding limited echo # mood continues Zoloft, and Seroquel. ?DVT prophylaxis:? Heparin subQ Quality Stroke Does the patient have a stroke diagnosis?: No VTE Prior VTE?: No VTE Risk Level:: Medical - moderate - high VTE Device Contraindication: Treatment Not Indicated VTE Drug Contraindication: N/A - Med Ordered
--- NOTE | 2022-01-27 13:52 | PC.NURSE ---
PT SITTING UP AT BEDSIDE, EATING LUNCH, NO ACUTE ISSUES TO NOTE. AMBULATORY W SLOW, STEADY GAIT TO BATHROOM.
--- NOTE | 2022-01-27 16:05 | MHC.CM.PN ---
CM met with admitted patient with bed assignment pending. IMM 01/27. A&O x3, but pt is a poor historian. Message left with brother/HCP Montez Tan([phone]) to return CM call for history. Old record reviewed. PCP [address] [place]. Pt states [facility]. Vaxx2 moderna 02/28,03/28. Pt d/c from [facility] on 11/12 with [facility]. Pt states nurse comes to give him his medications and check his BP. Pt denies SPECIAL EVENT ASSISTANT or any other services. No DME. D/C plan is home with existing services. [facility] to see if pt active with [facility]. Pt states will take shuttle, lyft or cab home. CM to follow for d/c needs.
[2022-01-27 18:26] LABS: Glucose, Whole Blood 192 mg/dL (60-115)
[2022-01-27] MEDS: Valsartan 40 MG TABLET PO (21:31)
[2022-01-28] VITALS (10 sets, daily range): BP systolic 107–143; BP diastolic 50–81; PULSE 70–144; RESP 15–25; TEMP 36.5–37; O2SAT 90–99
--- NOTE | 2022-01-28 | ECG_ITS ---
Test Reason : cp Blood Pressure : / mmHG Vent. Rate : 141 BPM Atrial Rate : 141 BPM P-R Int : 152 ms QRS Dur : 122 ms QT Int : 306 ms P-R-T Axes : 000 -09 084 degrees QTc Int : 468 ms Sinus tachycardia Non-specific intra-ventricular conduction delay Minimal voltage criteria for LVH, may be normal variant ( Gallina product ) Nonspecific ST and T wave abnormality Abnormal ECG When compared with ECG of 27-JAN-2022 01:42, QRS axis Shifted right Criteria for Lateral infarct are no longer Present Referred By: Balbina Bird Electronically Signed By:URSULA GODINEZ MD
--- NOTE | 2022-01-28 | ECG_ITS ---
Test Reason : RHYTHM CHECK Blood Pressure : / mmHG Vent. Rate : 054 BPM Atrial Rate : 054 BPM P-R Int : 164 ms QRS Dur : 122 ms QT Int : 408 ms P-R-T Axes : 048 -49 -77 degrees QTc Int : 386 ms Sinus bradycardia with Premature atrial complexes Left axis deviation Left ventricular hypertrophy with QRS widening ( Goran product , Romhilt-Granado ) ST & T wave abnormality, consider lateral ischemia Abnormal ECG When compared with ECG of 28-JAN-2022 02:54, Sinus bradycardia has replaced Atrial tachycardia Referred By: Geraldo Boyle Electronically Signed By:GERALDO BOYLE MD
[2022-01-28] MEDS: 0.9 % Sodium Chloride Flush 3 ML SYRINGE IVFLUSH ×3 (01:09→23:20)
[2022-01-28] MEDS: Ibuprofen 800 MG TABLET PO (03:13)
[2022-01-28] MEDS: Metoprolol Tartrate 5 MG/5 ML VIAL IVPUSH ×2 (03:13→04:18)
--- NOTE | 2022-01-28 07:05 | PM.GICN ---
History of Present Illness Data of Consult Service Date: 01/28/22 Requesting physician: Sherrie Richmond Primary Care Provider: Unknown Physician HPI Reason for consult: anemia 66-year-old male with past medical history of CHF,? iron deficiency anemia, asthma, CAD, CVA, HTN, VSD who I am seeing for assessment for anemia. Patient was admitted after he had lab work done which revealed hemoglobin of 6.4 which dropped from 9.2 in October. He has been taking iron supplements and has dark stool at baseline, no fresh rectal bleeding, no hematuria, no hemoptysis or nose bleeds. He denies any dizziness, no weakness at this time but does admit to worsening SOB with orthopnea and exertional dyspnea. He denies abdominal pain, nausea, emesis. Patient denies any use of NSAIDs, Chest x-ray shows few scattered patchy opacities bilaterally, this may be mild infection versus inflammatory etiology. Hep C pos with pos viral load 10/2021, denies drug use and says he has known about the diagnosis for 8 yrs at least ? 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, no dizziness GI no nausea, no vomiting musculoskeletal no pain Yes all other systems are reviewed and are negative Constitutional: Constitutional: Reports lethargy and Reports weakness Eyes: Eyes: Reports no additional eye complaints Cardiovascular: Cardiovascular: Denies chest pain, Denies rapid heart rate, Denies lightheadedness, Denies Loss of Consciousness, Denies palpitations and Reports dyspnea on exertion Respiratory: Respiratory: Reports dyspnea on exertion Gastrointestinal: Gastrointestinal: Reports melena Genitourinary: Genitourinary: Reports no additional male genitourinary complaints Musculoskeletal: Musculoskeletal: Reports no additional musculoskeletal complaints Integumentary/Breasts: Skin/Breast: Reports system reviewed and no additional complaints, except as docu Neurologic: Reports system reviewed and no additional complaints, except as documented and Reports weakness Psychiatric: Psychiatric: Reports no additional psychiatric complaints Endocrine: Endocrine: Reports no additional endocrine complaints and Denies palpitations Hematologic/Lymphatic: Hematologic/Lymphatic: Reports no additional hematologic/lymphatic complaints Allergic/Immunologic: Allergic/Immunologic: Reports no additional allergic/immunologic complaints [facility] Past Medical History Medical History Asthma CHF (congestive heart failure) Coronary artery disease CVA (cerebrovascular accident) Essential hypertension Hypertension VSD (ventricular septal defect) Social History Social History Household Members: None Housing: Apartment Do you presently have visiting nurse or other home services: Yes Alcohol intake: unknown Patient Tobacco Use Status: Tobacco use Unknown Tobacco use type: Cigarette Cigarettes Per Day: 10 Second Hand Smoke Exposure: No Use of substances other than those prescribed or required for medical reasons: Unknown Advance Directives: No Advance Directives Information Provided: Yes service: No Current occupational status: unemployed Meds Allergies Allergy/AdvReac Type Severity Reaction Status Date / Time acetaminophen [From Tylenol] Allergy Unknown UNKNOWN Verified 11/07/21 02:26 Active Medications: Current Medications Albuterol Sulfate (Albuterol Sulfate 90 Mcg 8 Gm Inhaler) 2 puff INHALE QID PRN PRN Reason: shortness of breath or wheezing Amlodipine Besylate (Amlodipine Besylate 5 Mg Tablet) 5 mg PO DAILY [facility]; Protocol Last Admin: 01/27/22 08:11 Dose: 5 mg Documented by: Atorvastatin Calcium (Atorvastatin Calcium 20 Mg Tablet) 20 mg PO DAILY [facility] Last Admin: 01/27/22 08:12 Dose: 20 mg Documented by: Carvedilol (Carvedilol 12.5 Mg Tablet) 12.5 mg PO BID [facility]; Protocol Last Admin: 01/27/22 21:31 Dose: 12.5 mg Documented by: Docusate Sodium (Docusate Sodium 100 Mg Capsule) 100 mg PO DAILY PRN PRN Reason: Constipation Ferrous Sulfate (Ferrous Sulfate 324 Mg Tablet.) 324 mg PO DAILY [facility] Last Admin: 01/27/22 08:07 Dose: 324 mg Documented by: Fluticasone/Vilanterol (Fluticasone/Vilanterol 200/25 Blst.W.Dev) 1 puff INHALE DAILY [facility] Last Admin: 01/27/22 09:17 Dose: 1 puff Documented by: Folic Acid (Folic Acid 1 Mg Tablet) 1 mg PO DAILY [facility] Last Admin: 01/27/22 08:07 Dose: 1 mg Documented by: Furosemide (Furosemide 40 Mg/4 Ml Vial) 40 mg IVPUSH BID@0900,1800 [facility]; Protocol Last Admin: 01/27/22 18:29 Dose: 40 mg Documented by: Multivitamins/Vitamin C (Multivitamin Tablet) 1 tab PO DAILY [facility] Last Admin: 01/27/22 08:07 Dose: 1 tab Documented by: Nicotine Polacrilex (Nicotine Polacrilex 2 Mg Gum) 2 mg BUCCAL Q3H PRN PRN Reason: nicotine cravings Ondansetron HCl (Ondansetron Hcl 4 Mg/2 Ml Vial) 4 mg IVPUSH Q8H PRN PRN Reason: Nausea and Vomiting Oxybutynin Chloride (Oxybutynin Chloride Er 5 Mg Tab.Er.24) 5 mg PO DAILY [facility] Last Admin: 01/27/22 10:06 Dose: 5 mg Documented by: Quetiapine Fumarate (Quetiapine Fumarate 50 Mg Tablet) 50 mg PO DAILY PRN PRN Reason: Agitation Quetiapine Fumarate (Quetiapine Fumarate 50 Mg Tablet) 150 mg PO BEDTIME [facility] Last Admin: 01/27/22 21:31 Dose: 150 mg Documented by: Sertraline HCl (Sertraline Hcl 100 Mg Tablet) 100 mg PO DAILY [facility] Last Admin: 01/27/22 08:07 Dose: 100 mg Documented by: Sodium Chloride (0.9 % Sodium Chloride Flush 3 Ml Syringe) 3 ml IVFLUSH QSHIFT [facility] Last Admin: 01/28/22 01:09 Dose: 3 ml Documented by: Spironolactone (Spironolactone 25 Mg Tablet) 12.5 mg PO DAILY [facility]; Protocol Last Admin: 01/27/22 12:55 Dose: 12.5 mg Documented by: Tiotropium [place] (Tiotropium [place] 18 Mcg Cap.W.Dev) 1 puff INHALE DAILY [facility] Last Admin: 01/27/22 09:17 Dose: 1 puff Documented by: Valsartan (Valsartan 40 Mg Tablet) 40 mg PO BID [facility]; Protocol Last Admin: 01/27/22 21:31 Dose: 40 mg Documented by: Vitamin D (Cholecalciferol (Vitamin D3) 25 Mcg Tablet) 25 mcg PO DAILY [facility] Last Admin: 01/27/22 08:07 Dose: 25 mcg Documented by: Home Medications Medication Instructions Recorded Confirmed Last Taken Type amlodipine 5 mg tablet 1 tab PO DAILY 11/07/21 01/26/22 Unknown History aspirin 81 mg tablet,delayed 1 tab PO DAILY 11/07/21 01/26/22 Unknown History release atorvastatin 20 mg tablet 1 tab PO DAILY 11/07/21 01/26/22 Unknown History cholecalciferol (vitamin D3) 25 1 tab PO DAILY 11/07/21 01/26/22 Unknown History mcg (1,000 unit) tablet (Vitamin D3) folic acid 1 mg tablet 1 tab PO DAILY 11/07/21 01/26/22 Unknown History multivitamin with folic acid 400 1 tab PO DAILY 11/07/21 01/26/22 Unknown History mcg tablet (Tab-A-Miguelangel) oxybutynin chloride 5 mg 1 tab PO DAILY 11/07/21 01/26/22 Unknown History tablet,extended release 24 hr quetiapine 50 mg tablet 1 tab PO DAILY PRN 11/07/21 01/26/22 Unknown History sertraline 100 mg tablet 1 tab PO DAILY 11/07/21 01/26/22 Unknown History terazosin 5 mg capsule 1 cap PO BEDTIME 11/07/21 01/26/22 Unknown History tiotropium bromide 18 mcg capsule 1 cap INHALATION DAILY 11/07/21 01/26/22 Unknown History with inhalation device (Spiriva with HandiHaler) quetiapine 150 mg tablet,extended 1 tab PO BEDTIME 11/09/21 01/26/22 Unknown History release 24 hr ferrous sulfate 325 mg (65 mg 1 tab PO DAILY 01/26/22 01/26/22 Unknown History iron) tablet,delayed release fluticasone 232 mcg-salmeterol 14 1 puff INHALATION BID 01/26/22 01/26/22 Unknown History mcg/actuation breath activated powdr furosemide 20 mg tablet 1 tab PO BID 01/26/22 01/26/22 Unknown History lisinopril 10 mg tablet 1 tab PO DAILY 01/26/22 01/26/22 Unknown History Physical Exam Vital Signs: Vital Signs: Last Vital Signs Temp 98.6 F 01/28/22 04:00 Pulse 140 H 01/28/22 04:00 Resp 18 01/28/22 04:00 BP 143/81 H 01/28/22 04:00 Pulse Ox 98 01/28/22 04:00 BMI result Body Mass Index 21.6 Const: General: cooperative, comfortable, no acute distress, alert and awake Nutritional Appearance: underweight Orientation/consciousness: patient oriented x3 Limitations: no limitations HEENT: Head: Yes normocephalic and Yes atraumatic Eyes: General: appearance normal, both eyes and all related structures Pupils: Equal, round and reactive pupils present Neck: Neck: Yes trachea midline and Yes no JVD Chest: Chest palpation & inspection: normal inspection of the chest Resp: Effort & Inspection: abnormal respiratory pattern Auscultation: crackles bilateral at the base Cardio: Other: tachycardic Jugular venous distension: no JVD Palpation: abnormal PMI displaced PMI Rate: regular rate Rhythm: regular rhythm Heart sounds: S1 normal heart sound present, S2 normal heart sound present, no click, no gallops and Murmur heart sound present systolic GI: Palpation (GI): Soft to palpation Auscultation: normal bowel sounds Skin: General skin exam: no rashes or lesions noted and ecchymosis Neuro: General: patient oriented x3 and no focal motor deficits Cranial nerves: Yes Equal, round and reactive pupils present Cognition (Neuro): normal cognition Extrem: Other: trace lower extremity edema bilaterally General: Yes normal to inspection and Yes no clubbing, cyanosis or edema Psych: Appearance: grossly normal Results Labs CBC & Chem 7: 01/27/22 07:33 01/28/22 06:52 Labs: Short CBC 01/27/22 Range/Units 07:33 WBC 9.8 (4.8-10.8) X10*3/uL Hgb 9.3 L D (14.0-18.0) g/dl Hct 31.2 L D (42.0-52.0) % Plt Count 479 H (160-400) X10*3/uL BMP 01/27/22 07:33 Sodium 139 Potassium 4.5 Chloride 103 Carbon Dioxide 28 BUN 29 H Creatinine 1.67 H Calcium 9.0 Assessment and Plan (1) Severe anemia: Status: Acute Plan 1/ Acute on chronic blood loss anemia, pos hx of untreated Hep C, ddx:mucosal bleeding, portal hypertensive gastropathy, slow variceal bleed, PUD, dieulafoy, colonic lesion (never had colonoscopy) 2/ Acute CHF exacerbation, still SOB, and has crackles with episodic tachycardia (EF on ECHO 10/2021 about 25-30%) PLAN: 1/ Optimize cardiorespiratory status 2/ once diuresed then will schedule EGD,c olonoscopy, prob Tuesday unless clinical condition worsens, right now holding HGB, BP is ok 3/ US abdomen and doppler to check for PVT and cirrhosis, liver lesions 4/ PPI BID e.g pantoprazole 40 mg BID, if HGB trends further downwards and US with cirrhosis then can add octreotide Procedures Date of Service Date of Service: 01/28/22
[2022-01-28 07:28] LABS: Anion Gap 15 (12-20); Blood Urea Nitrogen 37 mg/dL (9-16); Calcium 8.9 mg/dL (8.4-10.2); Carbon Dioxide 27 mmol/L (22-29); Chloride 105 mmol/L (96-108); Creatinine Clr Calc Pharmacy 40.4; Estimated Glomerular Filt Rate 47; Glucose Random 124 mg/dL (60-115); Potassium 4.6 mmol/L (3.3-5.1); Sodium 142 mmol/L (135-145)
[2022-01-28 07:31] LABS: B Type Natriuretic Peptide 2812 pg/mL (<100)
[2022-01-28] MEDS: Fluticasone/Vilanterol 200/25 BLST.W.DEV 1 PUFF INHALE (07:45)
[2022-01-28] MEDS: Cholecalciferol (Vitamin D3) 25 MCG TABLET PO (08:13)
[2022-01-28] MEDS: Spironolactone 25 MG TABLET 12.5 MG PO (08:13)
[2022-01-28] MEDS: Furosemide 40 MG/4 ML VIAL IVPUSH (08:13)
[2022-01-28] MEDS: amLODIPine Besylate 5 MG TABLET PO (08:13)
[2022-01-28] MEDS: Multivitamin TABLET 1 TAB PO (08:13)
[2022-01-28] MEDS: carvediloL 12.5 MG TABLET PO ×2 (08:14→21:19)
[2022-01-28] MEDS: Sertraline HCL 100 MG TABLET PO (08:15)
[2022-01-28] MEDS: Ferrous Sulfate 324 MG TABLET.DR PO (08:15)
[2022-01-28] MEDS: Folic Acid 1 MG TABLET PO (08:15)
[2022-01-28] MEDS: Atorvastatin Calcium 20 MG TABLET PO (08:15)
[2022-01-28] MEDS: Valsartan 40 MG TABLET PO ×2 (08:25→21:19)
--- NOTE | 2022-01-28 08:25 | PC.NURSE ---
pt up to bathroom. reconnected to monitors upon return. 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 resting comfortably. pt placed back on 2L NC as SaO2 was 88-90%. pt requesting home O2 for d/c.
--- NOTE | 2022-01-28 08:38 | PC.NURSE ---
GI at bedside
--- NOTE | 2022-01-28 11:25 | MHC.CM.PN ---
Received notification from [facility] ed[facility] that patient is active with their agency. Referral made via [employer] so they can follow for d/c needs.
--- NOTE | 2022-01-28 11:50 | P.PNIM_ITS ---
Subjective Subjective Date of Service: 01/28/22 Interval History: noted to have shortness of breath and tachycardia with ambulation, denies chest pain, no lightheadedness, no dizziness, no fevers, no chills, no acute issues overnight. Review of Systems [employer] no headache no dizziness CVS no chest pain, no palpitation GI no nausea, no vomiting, no diarrhea Review of Systems: Yes all other systems are reviewed and are negative Physical Exam Vital Signs: Vital Signs: Last Vital Signs Temp 98.6 F 01/28/22 04:00 Pulse 88 01/28/22 08:03 Resp 24 H 01/28/22 08:03 BP 127/54 L 01/28/22 08:03 Pulse Ox 90 L 01/28/22 08:03 BMI result Body Mass Index 21.6 Const: Other: General awake alert, in no acute distress HEENT pupils equal round reactive to light and accommodation Neck supple,no JVD. CVS? regular rate rhythm, Respiratory lungs bibasilar crackles no use of accessory muscle Gastrointestinal abdomen soft, nontender, bowel sounds audible,no guarding , no rigidity. Extremities no edema. Neuro nonfocal Skin no rash Psych appropriate affect Objective Data Active Medications Albuterol Sulfate (Albuterol Sulfate 90 Mcg 8 Gm Inhaler) 2 puff INHALE QID PRN PRN Reason: shortness of breath or wheezing Amlodipine Besylate (Amlodipine Besylate 5 Mg Tablet) 5 mg PO DAILY [facility]; Protocol Last Admin: 01/28/22 08:13 Dose: 5 mg Documented by: IZAIAH Atorvastatin Calcium (Atorvastatin Calcium 20 Mg Tablet) 20 mg PO DAILY [facility] Last Admin: 01/28/22 08:15 Dose: 20 mg Documented by: IZAIAH Carvedilol (Carvedilol 12.5 Mg Tablet) 12.5 mg PO BID [facility]; Protocol Last Admin: 01/28/22 08:14 Dose: 12.5 mg Documented by: IZAIAH Docusate Sodium (Docusate Sodium 100 Mg Capsule) 100 mg PO DAILY PRN PRN Reason: Constipation Ferrous Sulfate (Ferrous Sulfate 324 Mg Tablet.Dr) 324 mg PO DAILY [facility] Last Admin: 01/28/22 08:15 Dose: 324 mg Documented by: IZAIAH Fluticasone/Vilanterol (Fluticasone/Vilanterol 200/25 Blst.W.Dev) 1 puff INHALE DAILY [facility] Last Admin: 01/28/22 07:45 Dose: 1 puff Documented by: ALESHA Folic Acid (Folic Acid 1 Mg Tablet) 1 mg PO DAILY [facility] Last Admin: 01/28/22 08:15 Dose: 1 mg Documented by: IZAIAH Furosemide 200 mg/ Sodium (Chloride) 100 mls @ 5 mls/hr IVCONT .Q20H [facility] Multivitamins/Vitamin C (Multivitamin Tablet) 1 tab PO DAILY [facility] Last Admin: 01/28/22 08:13 Dose: 1 tab Documented by: IZAIAH Nicotine Polacrilex (Nicotine Polacrilex 2 Mg Gum) 2 mg BUCCAL Q3H PRN PRN Reason: nicotine cravings Ondansetron HCl (Ondansetron Hcl 4 Mg/2 Ml Vial) 4 mg IVPUSH Q8H PRN PRN Reason: Nausea and Vomiting Oxybutynin Chloride (Oxybutynin Chloride Er 5 Mg Tab.Er.24) 5 mg PO DAILY [facility] Last Admin: 01/28/22 08:14 Dose: 5 mg Documented by: IZAIAH Quetiapine Fumarate (Quetiapine Fumarate 50 Mg Tablet) 50 mg PO DAILY PRN PRN Reason: Agitation Quetiapine Fumarate (Quetiapine Fumarate 50 Mg Tablet) 150 mg PO BEDTIME [facility] Last Admin: 01/27/22 21:31 Dose: 150 mg Documented by: JANNETH Sertraline HCl (Sertraline Hcl 100 Mg Tablet) 100 mg PO DAILY [facility] Last Admin: 01/28/22 08:15 Dose: 100 mg Documented by: IZAIAH Sodium Chloride (0.9 % Sodium Chloride Flush 3 Ml Syringe) 3 ml IVFLUSH QSHIFT [facility] Last Admin: 01/28/22 08:19 Dose: 3 ml Documented by: IZAIAH Spironolactone (Spironolactone 25 Mg Tablet) 12.5 mg PO DAILY [facility]; Protocol Last Admin: 01/28/22 08:13 Dose: 12.5 mg Documented by: IZAIAH Tiotropium Valier (Tiotropium Valier 18 Mcg Cap.W.Dev) 1 puff INHALE DAILY [facility] Last Admin: 01/28/22 07:45 Dose: 1 puff Documented by: ALESHA Valsartan (Valsartan 40 Mg Tablet) 40 mg PO BID [facility]; Protocol Last Admin: 01/28/22 08:25 Dose: 40 mg Documented by: IZAIAH Vitamin D (Cholecalciferol (Vitamin D3) 25 Mcg Tablet) 25 mcg PO DAILY [facility] Last Admin: 01/28/22 08:13 Dose: 25 mcg Documented by: IZAIAH Labs CBC & Chem 7: 01/27/22 07:33 01/28/22 06:52 Labs: Laboratory Results - last 24 hr 01/27/22 01/28/22 01/28/22 18:11 06:52 06:52 Anion Gap 15 Estim Creat Clear Calc 40.4 Estimated GFR 47 POC Glucose 192 H Random Glucose 124 H Calcium 8.9 B-Natriuretic Peptide 2812 H Microbiology Microbiology Results: Microbiology 01/27/22 07:33 Blood Culture - Preliminary Blood - Venous No growth after 24 hours. 01/27/22 07:33 Blood Culture - Preliminary Blood - Venous No growth after 24 hours. Assessment and Plan (1) CHF exacerbation: Status: Acute (2) Severe anemia: Status: Acute (3) Tachycardia: Status: Acute Plan 66-year-old male with past medical history of CAD, CHF, hypertension presents to the hospital with complaints of abnormal labs found to have severe anemia #? acute on chronic microcytic anemia ?no acute GI bleed noted, guaiac-positive iron studies consistent with iron deficiency anemia received 2 units of packed RBC hematocrit improved from 22.2 to [address] Finch he recommend EGD/ colonoscopy probably on Tuesday if cardio respiratory status is stable, will check abdominal ultrasound and Doppler to check for cirrhosis liver lesion and portal venous thrombosis, will continue PPI b.i.d. is him more Procrit trends down and ultrasound showed cirrhosis will consider octreotide #? acute on chronic CHF exacerbation due to reduced EF persistent tachycardia, tachypnea likely due to CHF and anemia. on IV Lasix 40 mg b.i.d., urinary output low, elevated BNP will transition to IV Lasix drip 10 milligram/hour, continue low-sodium diet, strict I&O, daily weight cont. Aldactone 12.5 mg by mouth daily and valsartan 40 mg b.i.d. follow BMP/ magnesium # ? pneumonia ? pulmonary infiltrates on chest x-ray, CT chest showed bilateral septal thickening likely pulmonary congestion, airspace opacities chronic since October/2021, neoplastic process cannot be ruled out therefore recommend PET/ CT or tissue diagnosis, history of tobacco use, will recommend outpatient pulmonary follow up LA 0.5, no fevers, no cough , does not qualify for antibiotics # ? GUERRERO -? likely prerenal in the setting of CHF, creatinine improved from 1.9 to 1.5 -? follow BMP while being diuresed #? history of CAD status post CA -? no chest pain, DC aspirin due to anemia, continue Coreg and statin #? hypertension -? stable # history of asthma/ emphysema overlap syndrome no acute exacerbation continue Spiriva/ Breo # # VSD, ? vegetation vs clot seen on last echocardiogram, limited echo for follow-up # mood continues Zoloft, and Seroquel. ?DVT prophylaxis:? Heparin subQ Quality Stroke Does the patient have a stroke diagnosis?: No VTE Prior VTE?: No VTE Risk Level:: Medical - moderate - high VTE Device Contraindication: Treatment Not Indicated VTE Drug Contraindication: N/A - Med Ordered
[2022-01-28] MEDS: Furosemide 200 MG in 0.9 % Sodium Chloride 80 ML IVCONT (12:21)
--- NOTE | 2022-01-28 12:28 | P.PNCA_ITS ---
Subjective Subjective Date of Service: 01/28/22 Principal diagnosis: Decompensated congestive heart failure. Interval history: Patient continues to be short of breath. Diuresing not very well. Not sure if eyes and nose I accurately charted. Intermittently has tachycardia. EKG in sinus rhythm appears to have normal VT interval. With tachycardia that appears to be prolonged VT interval consistent with most likely atrial tachycardia. However this is not persistent at this point in time. Denies palpitations, lightheadedness, syncope. Review of Systems Constitutional: Reports no additional constitutional complaints Cardiovascular: Denies chest pain, Denies rapid heart rate, Denies lightheadedness, Denies Loss of Consciousness and Reports dyspnea Respiratory: Reports no additional respiratory complaints and Reports dyspnea Gastrointestinal: Reports no additional gastrointestinal complaints Genitourinary: Reports no additional male genitourinary complaints Musculoskeletal: Reports no additional musculoskeletal complaints Skin/Breast: Reports system reviewed and no additional complaints, except as docu Reports system reviewed and no additional complaints, except as documented Psychiatric: Reports no additional psychiatric complaints Endocrine: Reports no additional endocrine complaints Hematologic/Lymphatic: Reports no additional hematologic/lymphatic complaints Physical Exam Vital Signs: Last Vital Signs Temp 98.1 F 01/28/22 11:52 Pulse 70 01/28/22 11:52 Resp 19 01/28/22 11:52 BP 107/71 01/28/22 11:52 Pulse Ox 98 01/28/22 11:52 BMI result Body Mass Index 21.6 Const General: cooperative, comfortable, alert, awake and in distress mild and respiratory Orientation/consciousness: patient oriented x3 Neck Neck: Yes trachea midline, Yes supple and Yes JVD Resp Effort & Inspection: normal respiratory effort Auscultation: rales bilateral 2/[address] way up and diminished lung sounds bilateral in the lower lung laird Cardio Jugular venous distension: JVD Rate: regular rate Rhythm: regular rhythm Heart sounds: S1 normal heart sound present, S2 normal heart sound present, no click, no gallops and no murmurs Neuro General: patient oriented x3 and no focal motor deficits Extrem General: Yes no clubbing, cyanosis or edema Objective Labs and Meds Result diagrams: 01/27/22 07:33 01/28/22 06:52 Lab results: Laboratory Results - last 24 hr 01/27/22 01/28/22 01/28/22 18:11 06:52 06:52 Sodium 142 Potassium 4.6 Chloride 105 Carbon Dioxide 27 Anion Gap 15 BUN 37 H Creatinine 1.50 H Estim Creat Clear Calc 40.4 Estimated GFR 47 POC Glucose 192 H Random Glucose 124 H Calcium 8.9 B-Natriuretic Peptide 2812 H Imaging Radiologist's impression: Impressions Chest X-Ray 01/28/22 03:20 IMPRESSION: Mild diffuse interstitial prominence suggesting interstitial edema in the proper clinical setting. Streaky bibasilar opacities, right greater than left, more suggestive of atelectasis. Progress Note: A&P Assessment and plan (1) CHF exacerbation: Status: Acute Assessment and Plan: Patient with persistent heart failure with not adequate diuresis with clinical findings consistent with decompensated congestive heart failure with increasing BNP. Switch to IV Lasix drip. Strict intake and output chart needs to be pursued. Continue monitor renal function and electrolytes. Continue spironolactone, carvedilol and valsartan therapy. Can add Jardiance 10 mg to his regimen. (2) Atrial tachycardia: Status: Acute Assessment and Plan: Intermittent fast heart rate, the retrospectively appear to be more atrial tachycardia. Currently in sinus rhythm and bradycardia. However if he has persistent recurrent atrial tachycardia that are difficult control may require antiarrhythmic drug therapy with amiodarone. Continue to monitor electrolytes and replace as needed. Will follow with you Fall Risk Details Current Medications: Current Medications Albuterol Sulfate (Albuterol Sulfate 90 Mcg 8 Gm Inhaler) 2 puff INHALE QID PRN PRN Reason: shortness of breath or wheezing Amlodipine Besylate (Amlodipine Besylate 5 Mg Tablet) 5 mg PO DAILY [facility]; Protocol Last Admin: 01/28/22 08:13 Dose: 5 mg Documented by: Atorvastatin Calcium (Atorvastatin Calcium 20 Mg Tablet) 20 mg PO DAILY [facility] Last Admin: 01/28/22 08:15 Dose: 20 mg Documented by: Carvedilol (Carvedilol 12.5 Mg Tablet) 12.5 mg PO BID [facility]; Protocol Last Admin: 01/28/22 08:14 Dose: 12.5 mg Documented by: Docusate Sodium (Docusate Sodium 100 Mg Capsule) 100 mg PO DAILY PRN PRN Reason: Constipation Ferrous Sulfate (Ferrous Sulfate 324 Mg Tablet.Dr) 324 mg PO DAILY [facility] Last Admin: 01/28/22 08:15 Dose: 324 mg Documented by: Fluticasone/Vilanterol (Fluticasone/Vilanterol 200/25 Blst.W.Dev) 1 puff INHALE DAILY [facility] Last Admin: 01/28/22 07:45 Dose: 1 puff Documented by: Folic Acid (Folic Acid 1 Mg Tablet) 1 mg PO DAILY [facility] Last Admin: 01/28/22 08:15 Dose: 1 mg Documented by: Furosemide 200 mg/ Sodium (Chloride) 100 mls @ 5 mls/hr IVCONT .Q20H [facility] Last Admin: 01/28/22 12:21 Dose: 10 mg/hr, 5 mls/hr Documented by: Multivitamins/Vitamin C (Multivitamin Tablet) 1 tab PO DAILY [facility] Last Admin: 01/28/22 08:13 Dose: 1 tab Documented by: Nicotine Polacrilex (Nicotine Polacrilex 2 Mg Gum) 2 mg BUCCAL Q3H PRN PRN Reason: nicotine cravings Omeprazole (Omeprazole 40 Mg Capsule.Dr) 40 mg PO BID@0630,1630 [facility] Ondansetron HCl (Ondansetron Hcl 4 Mg/2 Ml Vial) 4 mg IVPUSH Q8H PRN PRN Reason: Nausea and Vomiting Oxybutynin Chloride (Oxybutynin Chloride Er 5 Mg Tab.Er.24) 5 mg PO DAILY [facility] Last Admin: 01/28/22 08:14 Dose: 5 mg Documented by: Quetiapine Fumarate (Quetiapine Fumarate 50 Mg Tablet) 50 mg PO DAILY PRN PRN Reason: Agitation Quetiapine Fumarate (Quetiapine Fumarate 50 Mg Tablet) 150 mg PO BEDTIME [facility] Last Admin: 01/27/22 21:31 Dose: 150 mg Documented by: Sertraline HCl (Sertraline Hcl 100 Mg Tablet) 100 mg PO DAILY [facility] Last Admin: 01/28/22 08:15 Dose: 100 mg Documented by: Sodium Chloride (0.9 % Sodium Chloride Flush 3 Ml Syringe) 3 ml IVFLUSH QSHIFT [facility] Last Admin: 01/28/22 08:19 Dose: 3 ml Documented by: Spironolactone (Spironolactone 25 Mg Tablet) 12.5 mg PO DAILY [facility]; Protocol Last Admin: 01/28/22 08:13 Dose: 12.5 mg Documented by: Tiotropium Pierce (Tiotropium Pierce 18 Mcg Cap.W.Dev) 1 puff INHALE DAILY [facility] Last Admin: 01/28/22 07:45 Dose: 1 puff Documented by: Valsartan (Valsartan 40 Mg Tablet) 40 mg PO BID [facility]; Protocol Last Admin: 01/28/22 08:25 Dose: 40 mg Documented by: Vitamin D (Cholecalciferol (Vitamin D3) 25 Mcg Tablet) 25 mcg PO DAILY [facility] Last Admin: 01/28/22 08:13 Dose: 25 mcg Documented by: Time Spent With Patient Time: Total time spent is greater than 50% in coordination of care (as documented) at patient's floor/unit and/or counseling patient: Progress Note: Quality Stroke Does the patient have a stroke diagnosis?: No Procedures Date of Service Date of Service: 01/28/22
[2022-01-28] MEDS: Omeprazole 40 MG CAPSULE.DR PO (17:01)
--- NOTE | 2022-01-28 19:10 | PC.NURSE ---
Took report from Jennifer to assume care of PT.
[2022-01-28] MEDS: QUEtiapine Fumarate 50 MG TABLET 150 MG PO (21:19)
[2022-01-29] VITALS: BP 128/71; PULSE 67; RESP 16; TEMP 36.7; O2SAT 99
--- NOTE | 2022-01-29 01:01 | PC.NURSE ---
Pt sleeping, chest rise and fall observed, O2 sat 93-97% on 3 L NC, this RN continues to monito.
--- NOTE | 2022-01-29 02:41 | PC.NURSE ---
Pt transported to room 462 with classroom monitor, lasix infusing, Pt stable for transport, safety maintained
[2022-01-29 03:04] VITALS: BMI 18.1
[2022-01-29 03:24] VITALS: BP 120/58; PULSE 66; RESP 19; TEMP 37.8; O2SAT 96
[2022-01-29 05:00] VITALS: BMI 18.3
[2022-01-29] MEDS: Omeprazole 40 MG CAPSULE.DR PO ×2 (05:01→17:32)
[2022-01-29] MEDS: Furosemide 200 MG in 0.9 % Sodium Chloride 80 ML IVCONT (05:01)
[2022-01-29 07:38] VITALS: BP 134/59; PULSE 52; RESP 16; TEMP 36.7; O2SAT 96
[2022-01-29 09:30] LABS: Anion Gap 13 (12-20); Blood Urea Nitrogen 39 mg/dL (9-16); Calcium 8.9 mg/dL (8.4-10.2); Carbon Dioxide 34 mmol/L (22-29); Chloride 99 mmol/L (96-108); Creatinine Clr Calc Pharmacy 31.9; Estimated Glomerular Filt Rate 43; Glucose Random 142 mg/dL (60-115); Magnesium 2.1 mg/dL (1.6-2.6); Potassium 4.2 mmol/L (3.3-5.1); Sodium 142 mmol/L (135-145)
[2022-01-29] MEDS: Sertraline HCL 100 MG TABLET PO (09:46)
[2022-01-29] MEDS: Atorvastatin Calcium 20 MG TABLET PO (09:46)
[2022-01-29] MEDS: Spironolactone 25 MG TABLET 12.5 MG PO (09:46)
[2022-01-29] MEDS: 0.9 % Sodium Chloride Flush 3 ML SYRINGE IVFLUSH ×3 (09:46→20:07)
[2022-01-29] MEDS: Valsartan 40 MG TABLET PO ×2 (09:46→20:06)
[2022-01-29] MEDS: Ferrous Sulfate 324 MG TABLET.DR PO (09:46)
[2022-01-29] MEDS: Multivitamin TABLET 1 TAB PO (09:47)
[2022-01-29] MEDS: Cholecalciferol (Vitamin D3) 25 MCG TABLET PO (09:47)
[2022-01-29] MEDS: amLODIPine Besylate 5 MG TABLET PO (09:47)
[2022-01-29] MEDS: Folic Acid 1 MG TABLET PO (09:48)
[2022-01-29 10:38] VITALS: BMI 18.3
--- NOTE | 2022-01-29 11:29 | P.PNCA_ITS ---
Subjective Subjective Date of Service: 01/29/22 Principal diagnosis: Decompensated congestive heart failure. Interval history: patient feeling better. Diuresed well overnight with Lasix drip. Today his shortness of his back to normally laying flat in bed. Blood pressure is optimal. No significant tachycardia noted overnight. Review of Systems Constitutional: Reports no additional constitutional complaints Cardiovascular: Reports no additional cardiovascular complaints Respiratory: Reports no additional respiratory complaints Gastrointestinal: Reports no additional gastrointestinal complaints Genitourinary: Reports no additional male genitourinary complaints Musculoskeletal: Reports no additional musculoskeletal complaints Reports system reviewed and no additional complaints, except as documented Psychiatric: Reports no additional psychiatric complaints Endocrine: Reports no additional endocrine complaints Allergic/Immunologic: Reports no additional allergic/immunologic complaints Physical Exam Vital Signs: Last Vital Signs Temp 98.0 F 01/29/22 07:38 Pulse 52 01/29/22 07:38 Resp 16 01/29/22 07:38 BP 134/59 L 01/29/22 07:38 Pulse Ox 96 01/29/22 07:38 BMI result Body Mass Index 18.3 Const General: cooperative, comfortable, no acute distress, alert and awake Nutritional Appearance: thin Orientation/consciousness: patient oriented x3 Neck Neck: Yes trachea midline, Yes supple and Yes no JVD Resp Effort & Inspection: normal respiratory effort Auscultation: no rales and diminished lung sounds Cardio Jugular venous distension: no JVD Palpation: abnormal PMI displaced PMI Rate: regular rate Rhythm: regular rhythm Heart sounds: S1 normal heart sound present, S2 normal heart sound present, no click, no gallops and no murmurs GI Auscultation: normal bowel sounds Skin General skin exam: no rashes or lesions noted and ecchymosis Neuro General: patient oriented x3 Objective Labs and Meds Result diagrams: 01/27/22 07:33 01/29/22 08:51 Lab results: Laboratory Results - last 24 hr 01/29/22 08:51 Sodium 142 Potassium 4.2 Chloride 99 Carbon Dioxide 34 H Anion Gap 13 BUN 39 H Creatinine 1.61 H Estim Creat Clear Calc 31.9 Estimated GFR 43 Random Glucose 142 H Calcium 8.9 Magnesium 2.1 Imaging Radiologist's impression: Impressions Doppler Study Ultrasound 01/28/22 16:21 IMPRESSION: * There are 2 hepatic mass is present measuring 11.9 cm and 2 cm. Surprisingly, these are extremely poorly seen on CT scan. MRI could be performed for further evaluation. The portal venous system appears patent. * There is a mass in the left kidney measuring 3.6 cm which needs further evaluation. MRI would be an excellent choice for further evaluation of both the above-mentioned hepatic masses in the renal mass. * Other incidental findings described above including cholelithiasis, Progress Note: A&P Assessment and plan (1) CHF exacerbation: Status: Acute Assessment and Plan: CHF exacerbation due to severe anemia. Clinically doing well after IV Lasix drip yesterday. Clinically euvolemic and much improved. Switch to p.o. Lasix. Continue neurohormonal modulation with carvedilol and should switch lisinopril to Diovan therapy on discharge so we can transition him to Entresto therapy as outpatient. Continue Aldactone therapy. Heart failure education needs to be provided to the patient. Also recurrent anemia needs to be avoided at GI consult and follow-up should be pursued. Patient is agreeable to follow-up locally as he has having difficulty going to [place] for follow-up. Will set up for follow-up in 7-10 days. (2) Atrial tachycardia: Status: Acute Assessment and Plan: Atrial tachycardia with no recurrence. Continue carvedilol therapy. If he has future recurrence which affects his overall cardiac status and CHF may need antiarrhythmic drug therapy. Outpatient Holter monitor will be pursued. Will follow up as outpatient. Thank you for allowing us to partake in his care Fall Risk Details Current Medications: Current Medications Albuterol Sulfate (Albuterol Sulfate 90 Mcg 8 Gm Inhaler) 2 puff INHALE QID PRN PRN Reason: shortness of breath or wheezing Amlodipine Besylate (Amlodipine Besylate 5 Mg Tablet) 5 mg PO DAILY [facility]; Protocol Last Admin: 01/29/22 09:47 Dose: 5 mg Documented by: Atorvastatin Calcium (Atorvastatin Calcium 20 Mg Tablet) 20 mg PO DAILY [facility] Last Admin: 01/29/22 09:46 Dose: 20 mg Documented by: Carvedilol (Carvedilol 12.5 Mg Tablet) 12.5 mg PO BID [facility]; Protocol Last Admin: 01/29/22 10:12 Dose: Not Given Documented by: Docusate Sodium (Docusate Sodium 100 Mg Capsule) 100 mg PO DAILY PRN PRN Reason: Constipation Ferrous Sulfate (Ferrous Sulfate 324 Mg Tablet.Dr) 324 mg PO DAILY [facility] Last Admin: 01/29/22 09:46 Dose: 324 mg Documented by: Fluticasone/Vilanterol (Fluticasone/Vilanterol 200/25 Blst.W.Dev) 1 puff INHALE DAILY [facility] Last Admin: 01/28/22 07:45 Dose: 1 puff Documented by: Folic Acid (Folic Acid 1 Mg Tablet) 1 mg PO DAILY [facility] Last Admin: 01/29/22 09:48 Dose: 1 mg Documented by: Multivitamins/Vitamin C (Multivitamin Tablet) 1 tab PO DAILY [facility] Last Admin: 01/29/22 09:47 Dose: 1 tab Documented by: Nicotine Polacrilex (Nicotine Polacrilex 2 Mg Gum) 2 mg BUCCAL Q3H PRN PRN Reason: nicotine cravings Omeprazole (Omeprazole 40 Mg Capsule.Dr) 40 mg PO BID@0630,1630 [facility] Last Admin: 01/29/22 05:01 Dose: 40 mg Documented by: Ondansetron HCl (Ondansetron Hcl 4 Mg/2 Ml Vial) 4 mg IVPUSH Q8H PRN PRN Reason: Nausea and Vomiting Oxybutynin Chloride (Oxybutynin Chloride Er 5 Mg Tab.Er.24) 5 mg PO DAILY [facility] Last Admin: 01/29/22 09:47 Dose: 5 mg Documented by: Quetiapine Fumarate (Quetiapine Fumarate 50 Mg Tablet) 50 mg PO DAILY PRN PRN Reason: Agitation Quetiapine Fumarate (Quetiapine Fumarate 50 Mg Tablet) 150 mg PO BEDTIME [facility] Last Admin: 01/28/22 21:19 Dose: 150 mg Documented by: Sertraline HCl (Sertraline Hcl 100 Mg Tablet) 100 mg PO DAILY [facility] Last Admin: 01/29/22 09:46 Dose: 100 mg Documented by: Sodium Chloride (0.9 % Sodium Chloride Flush 3 Ml Syringe) 3 ml IVFLUSH QSHIFT [facility] Last Admin: 01/29/22 09:46 Dose: 3 ml Documented by: Spironolactone (Spironolactone 25 Mg Tablet) 12.5 mg PO DAILY [facility]; Protocol Last Admin: 01/29/22 09:46 Dose: 12.5 mg Documented by: Tiotropium [place] (Tiotropium [place] 18 Mcg Cap.W.Dev) 1 puff INHALE DAILY [facility] Last Admin: 01/28/22 07:45 Dose: 1 puff Documented by: Valsartan (Valsartan 40 Mg Tablet) 40 mg PO BID [facility]; Protocol Last Admin: 01/29/22 09:46 Dose: 40 mg Documented by: Vitamin D (Cholecalciferol (Vitamin D3) 25 Mcg Tablet) 25 mcg PO DAILY [facility] Last Admin: 01/29/22 09:47 Dose: 25 mcg Documented by: Time Spent With Patient Time: Total time spent is greater than 50% in coordination of care (as documented) at patient's floor/unit and/or counseling patient: Progress Note: Quality Stroke Does the patient have a stroke diagnosis?: No Procedures Date of Service Date of Service: 01/29/22
[2022-01-29 11:56] VITALS: BP 139/62; PULSE 75; RESP 16; TEMP 37; O2SAT 91
--- NOTE | 2022-01-29 13:06 | MHC.CM.PN ---
Patient is not yet medically cleared for dc (cardiology following); home/resume vna is the goal and CM will continue to follow for possible need to adjust the dc plan.
--- NOTE | 2022-01-29 14:21 | P.PNIM_ITS ---
Subjective Subjective Date of Service: 01/29/22 Interval History: feeling better this morning denies shortness of breath, no hematemesis, no melena, slept well, no acute issues overnight. 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 CVS? regular rate rhythm, Respiratory lungs no crackles , no use of accessory muscle Gastrointestinal abdomen soft, nontender, bowel sounds audible,no guarding , no rigidity. Extremities no edema. Neuro nonfocal Skin no rash Psych appropriate affect Objective Data Active Medications Albuterol Sulfate (Albuterol Sulfate 90 Mcg 8 Gm Inhaler) 2 puff INHALE QID PRN PRN Reason: shortness of breath or wheezing Amlodipine Besylate (Amlodipine Besylate 5 Mg Tablet) 5 mg PO DAILY [facility]; Protocol Last Admin: 01/29/22 09:47 Dose: 5 mg Documented by: JOYCELYN Atorvastatin Calcium (Atorvastatin Calcium 20 Mg Tablet) 20 mg PO DAILY [facility] Last Admin: 01/29/22 09:46 Dose: 20 mg Documented by: JOYCELYN Carvedilol (Carvedilol 12.5 Mg Tablet) 12.5 mg PO BID [facility]; Protocol Last Admin: 01/29/22 10:12 Dose: Not Given Documented by: JOYCELYN Non-Admin Reason: Decreased Heart Rate Docusate Sodium (Docusate Sodium 100 Mg Capsule) 100 mg PO DAILY PRN PRN Reason: Constipation Ferrous Sulfate (Ferrous Sulfate 324 Mg Tablet.Dr) 324 mg PO DAILY [facility] Last Admin: 01/29/22 09:46 Dose: 324 mg Documented by: JOYCELYN Fluticasone/Vilanterol (Fluticasone/Vilanterol 200/25 Blst.W.Dev) 1 puff INHALE DAILY [facility] Last Admin: 01/29/22 12:03 Dose: Not Given Documented by: MINOR Non-Admin Reason: Med Not Available Folic Acid (Folic Acid 1 Mg Tablet) 1 mg PO DAILY [facility] Last Admin: 01/29/22 09:48 Dose: 1 mg Documented by: JOYCELYN Multivitamins/Vitamin C (Multivitamin Tablet) 1 tab PO DAILY [facility] Last Admin: 01/29/22 09:47 Dose: 1 tab Documented by: JOYCELYN Nicotine Polacrilex (Nicotine Polacrilex 2 Mg Gum) 2 mg BUCCAL Q3H PRN PRN Reason: nicotine cravings Omeprazole (Omeprazole 40 Mg Capsule.Dr) 40 mg PO BID@0630,1630 [facility] Last Admin: 01/29/22 05:01 Dose: 40 mg Documented by: SWETHA Ondansetron HCl (Ondansetron Hcl 4 Mg/2 Ml Vial) 4 mg IVPUSH Q8H PRN PRN Reason: Nausea and Vomiting Oxybutynin Chloride (Oxybutynin Chloride Er 5 Mg Tab.Er.24) 5 mg PO DAILY [facility] Last Admin: 01/29/22 09:47 Dose: 5 mg Documented by: JOYCELYN Quetiapine Fumarate (Quetiapine Fumarate 50 Mg Tablet) 50 mg PO DAILY PRN PRN Reason: Agitation Quetiapine Fumarate (Quetiapine Fumarate 50 Mg Tablet) 150 mg PO BEDTIME [facility] Last Admin: 01/28/22 21:19 Dose: 150 mg Documented by: ANDRZEJ Sertraline HCl (Sertraline Hcl 100 Mg Tablet) 100 mg PO DAILY [facility] Last Admin: 01/29/22 09:46 Dose: 100 mg Documented by: JOYCELYN Sodium Chloride (0.9 % Sodium Chloride Flush 3 Ml Syringe) 3 ml IVFLUSH QSHIFT [facility] Last Admin: 01/29/22 09:46 Dose: 3 ml Documented by: JOYCELYN Spironolactone (Spironolactone 25 Mg Tablet) 12.5 mg PO DAILY [facility]; Protocol Last Admin: 01/29/22 09:46 Dose: 12.5 mg Documented by: JOYCELYN Tiotropium [place] (Tiotropium [place] 18 Mcg Cap.W.Dev) 1 puff INHALE DAILY [facility] Last Admin: 01/29/22 12:06 Dose: Not Given Documented by: MINOR Non-Admin Reason: Med Not Available Valsartan (Valsartan 40 Mg Tablet) 40 mg PO BID [facility]; Protocol Last Admin: 01/29/22 09:46 Dose: 40 mg Documented by: JOYCELYN Vitamin D (Cholecalciferol (Vitamin D3) 25 Mcg Tablet) 25 mcg PO DAILY [facility] Last Admin: 01/29/22 09:47 Dose: 25 mcg Documented by: JOYCELYN Labs CBC & Chem 7: 01/27/22 07:33 01/29/22 08:51 Labs: Laboratory Results - last 24 hr 01/29/22 08:51 Anion Gap 13 Estim Creat Clear Calc 31.9 Estimated GFR 43 Random Glucose 142 H Calcium 8.9 Magnesium 2.1 Microbiology Microbiology Results: Microbiology 01/27/22 07:33 Blood Culture - Preliminary Blood - Venous No growth after 48 hours. 01/27/22 07:33 Blood Culture - Preliminary Blood - Venous No growth after 48 hours. Assessment and Plan (1) CHF exacerbation: Status: Acute (2) Severe anemia: Status: Acute (3) Tachycardia: Status: Acute Plan 66-year-old male with past medical history of CAD, CHF, hypertension presents to the hospital with complaints of abnormal labs found to have severe anemia #? acute on chronic microcytic anemia ?no acute GI bleed noted, guaiac-positive iron studies consistent with iron deficiency anemia received 2 units of packed RBC hematocrit improved from 22.2 to [address] Finch he recommend EGD/ colonoscopy planned for Tuesday / keep him NPO Tuesday midnight abdominal ultrasound showed no portal venous thrombosis but showed 2 liver and left renal mass, CT abdomen with and without contrast ordered to follow-up on both masses continue PPI b.i.d. #? acute on chronic CHF exacerbation due to reduced EF no CHF, no PND or orthopnea on IV Lasix drip 10 milligram/hour, since patient clinically stable will DC Lasix drip and placed on Lasix 40 mg b.i.d. continue strict I&O, daily weight cont. Aldactone 12.5 mg by mouth daily and valsartan 40 mg b.i.d. follow BMP/ magnesium # atrial tachycardia recurrent runs of atrial tachycardia likely due to severely dilated left atrium # ? pneumonia ? pulmonary infiltrates on chest x-ray, CT chest showed bilateral septal thickening likely pulmonary congestion, airspace opacities chronic since October/2021, neoplastic process cannot be ruled out therefore recommend PET/ CT or tissue diagnosis, history of tobacco use, will recommend outpatient pulmonary follow up LA 0.5, no fevers, no cough , does not qualify for antibiotics # GUERRERO -? likely prerenal in the setting of CHF, creatinine improved from 1.9 to 1.5 -? follow BMP while being diuresed #? history of CAD status post IL -? no chest pain, DC aspirin due to anemia, continue Coreg and statin #? hypertension -? stable # history of asthma/ emphysema overlap syndrome no acute exacerbation continue Spiriva/ Breo # # VSD, Membranous VSD noted with a small mobile mass attached to it - differentials vegetation vs clot.seen on last echocardiogram, will order limited echo for follow-up. # mood continues Zoloft, and Seroquel. ?DVT prophylaxis:? Heparin subQ Quality Stroke Does the patient have a stroke diagnosis?: No VTE Prior VTE?: No VTE Risk Level:: Medical - moderate - high VTE Device Contraindication: Treatment Not Indicated VTE Drug Contraindication: N/A - Med Ordered
--- NOTE | 2022-01-29 15:30 | CA_ITS ---
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 The visually estimated ejection fraction is between 20-25%. There is severe global hypokinesis. There is no evidence of a mass in the left ventricle. There is evidence of a small membranous ventricular septal defect. Pericardium/Pleural There is no evidence of pericardial effusion. Measurements 2D Systolic Function EF 4C: 29.10 >55% EF 2C: 15.40 >55% EF BiP: 21.10 >55% Tricuspid Valve TR Pk Yariel: 3.42 TR Pk Grad: 47.00 Updated in Other Vendor System with Status of Final Geraldo Boyle MD electronically signed on 01/29/2022 4:41:37 PM with status of Final
[2022-01-29 15:43] VITALS: BP 140/71; PULSE 90; RESP 20; TEMP 37.3; O2SAT 92
[2022-01-29] MEDS: iohexoL 350 MG/ML 100 ML INFUS..BTL IV (17:33)
[2022-01-29 19:50] VITALS: BP 148/69; PULSE 84; RESP 18; TEMP 36.9; O2SAT 93
[2022-01-29] MEDS: QUEtiapine Fumarate 50 MG TABLET 150 MG PO (20:05)
[2022-01-29] MEDS: carvediloL 12.5 MG TABLET PO (20:06)
[2022-01-30] VITALS (7 sets, daily range): BP systolic 129–141; BP diastolic 62–67; PULSE 58–93; RESP 16–23; TEMP 36.5–37.1; O2SAT 87–99; BMI 18.6
--- NOTE | 2022-01-30 04:53 | PM.EVENT ---
Event Note Date of Service: 01/30/22 Event Note: ct abd showed possible malignancy
[2022-01-30] MEDS: Omeprazole 40 MG CAPSULE.DR PO ×2 (05:45→18:04)
[2022-01-30 06:44] LABS: Hematocrit 30.4 % (42.0-52.0); Hemoglobin 9.1 g/dl (14.0-18.0); Mean Corpuscular HGB Conc 29.9 g/dl (31.0-36.0); Mean Corpuscular Hemoglobin 23.7 pg (27.0-33.0); Mean Corpuscular Volume 79.2 fL (80.0-98.0); Mean Platelet Volume 11.6 fL (9.4-12.4); Platelet Count 377 X10*3/uL (160-400); Red Blood Count 3.84 X10*6/uL (4.60-5.80); Red Cell Distribution Width 19.9 % (11.0-16.0); White Blood Count 8.1 X10*3/uL (4.8-10.8)
[2022-01-30 07:00] LABS: Anion Gap 11 (12-20); Blood Urea Nitrogen 40 mg/dL (9-16); Calcium 8.9 mg/dL (8.4-10.2); Carbon Dioxide 34 mmol/L (22-29); Chloride 100 mmol/L (96-108); Creatinine Clr Calc Pharmacy 40.1; Estimated Glomerular Filt Rate 55; Glucose Random 103 mg/dL (60-115); Sodium 141 mmol/L (135-145)
[2022-01-30] MEDS: Fluticasone/Vilanterol 200/25 BLST.W.DEV 1 PUFF INHALE (08:19)
[2022-01-30] MEDS: Spironolactone 25 MG TABLET 12.5 MG PO (10:01)
[2022-01-30] MEDS: 0.9 % Sodium Chloride Flush 3 ML SYRINGE IVFLUSH ×2 (10:01→19:49)
[2022-01-30] MEDS: Sertraline HCL 100 MG TABLET PO (10:02)
[2022-01-30] MEDS: Atorvastatin Calcium 20 MG TABLET PO (10:02)
[2022-01-30] MEDS: Valsartan 40 MG TABLET PO ×2 (10:02→19:49)
[2022-01-30] MEDS: carvediloL 12.5 MG TABLET PO ×2 (10:02→19:49)
[2022-01-30] MEDS: Folic Acid 1 MG TABLET PO (10:02)
[2022-01-30] MEDS: amLODIPine Besylate 5 MG TABLET PO (10:02)
[2022-01-30] MEDS: Multivitamin TABLET 1 TAB PO (10:03)
[2022-01-30] MEDS: Ferrous Sulfate 324 MG TABLET.DR PO (10:03)
[2022-01-30] MEDS: Cholecalciferol (Vitamin D3) 25 MCG TABLET PO (10:03)
[2022-01-30] MEDS: Furosemide 40 MG TABLET PO ×2 (10:15→18:04)
--- NOTE | 2022-01-30 12:11 | PC.NURSE ---
RN NOTIFIED PATIENT HAD A BLOODY NOSE. O2 CHECKED ON ROOM AIR - 87-88% 2L GOLDEN NC WITH HUMIDIFIED AIR APPLIED - 98% DENIES PAIN, SOB, OR DIFFICULTY BREATHING. WILL CONTINUE TO MONITOR.
--- NOTE | 2022-01-30 17:07 | HO.PM.IMPN ---
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 No focal complaints Review of Systems Denies chest pain Denies shortness of breath Denies nausea vomiting diarrhea Physical Exam Vital Signs: Vital Signs: Last Vital Signs Temp 98 F 01/30/22 15:50 Pulse 63 01/30/22 15:50 Resp 18 01/30/22 15:50 BP 131/62 01/30/22 15:50 Pulse Ox 96 01/30/22 15:50 BMI result Body Mass Index 18.6 Const: Other: Awake alert oriented x3 no acute distress Resp: Other: Clear auscultation bilaterally no rales rhonchi or wheezes Cardio: Other: No S4; positive S1-S2; no S3 murmurs of her gallops GI: Other: Soft nontender nondistended with normoactive bowel sounds Extrem: Other: No edema bilaterally Objective Data Active Medications Albuterol Sulfate (Albuterol Sulfate 90 Mcg 8 Gm Inhaler) 2 puff INHALE QID PRN PRN Reason: shortness of breath or wheezing Amlodipine Besylate (Amlodipine Besylate 5 Mg Tablet) 5 mg PO DAILY [facility]; Protocol Last Admin: 01/30/22 10:02 Dose: 5 mg Documented by: CAITLYN Atorvastatin Calcium (Atorvastatin Calcium 20 Mg Tablet) 20 mg PO DAILY [facility] Last Admin: 01/30/22 10:02 Dose: 20 mg Documented by: CAITLYN Carvedilol (Carvedilol 12.5 Mg Tablet) 12.5 mg PO BID [facility]; Protocol Last Admin: 01/30/22 10:02 Dose: 12.5 mg Documented by: CAITLYN Docusate Sodium (Docusate Sodium 100 Mg Capsule) 100 mg PO DAILY PRN PRN Reason: Constipation Ferrous Sulfate (Ferrous Sulfate 324 Mg Tablet.Dr) 324 mg PO DAILY [facility] Last Admin: 01/30/22 10:03 Dose: 324 mg Documented by: CAITLYN Fluticasone/Vilanterol (Fluticasone/Vilanterol 200/25 Blst.W.Dev) 1 puff INHALE DAILY [facility] Last Admin: 01/30/22 08:19 Dose: 1 puff Documented by: EMILY Folic Acid (Folic Acid 1 Mg Tablet) 1 mg PO DAILY [facility] Last Admin: 01/30/22 10:02 Dose: 1 mg Documented by: CAITLYN Furosemide (Furosemide 40 Mg Tablet) 40 mg PO BID@0900,1800 [facility]; Protocol Last Admin: 01/30/22 10:15 Dose: 40 mg Documented by: CAITLYN Multivitamins/Vitamin C (Multivitamin Tablet) 1 tab PO DAILY [facility] Last Admin: 01/30/22 10:03 Dose: 1 tab Documented by: CAITLYN Nicotine Polacrilex (Nicotine Polacrilex 2 Mg Gum) 2 mg BUCCAL Q3H PRN PRN Reason: nicotine cravings Omeprazole (Omeprazole 40 Mg Capsule.Dr) 40 mg PO BID@0630,1630 [facility] Last Admin: 01/30/22 05:45 Dose: 40 mg Documented by: FERNANDO Ondansetron HCl (Ondansetron Hcl 4 Mg/2 Ml Vial) 4 mg IVPUSH Q8H PRN PRN Reason: Nausea and Vomiting Oxybutynin Chloride (Oxybutynin Chloride Er 5 Mg Tab.Er.24) 5 mg PO DAILY [facility] Last Admin: 01/30/22 10:03 Dose: 5 mg Documented by: CAITLYN Quetiapine Fumarate (Quetiapine Fumarate 50 Mg Tablet) 50 mg PO DAILY PRN PRN Reason: Agitation Quetiapine Fumarate (Quetiapine Fumarate 50 Mg Tablet) 150 mg PO BEDTIME [facility] Last Admin: 01/29/22 20:05 Dose: 150 mg Documented by: FERNANDO Sertraline HCl (Sertraline Hcl 100 Mg Tablet) 100 mg PO DAILY [facility] Last Admin: 01/30/22 10:02 Dose: 100 mg Documented by: CAITLYN Sodium Chloride (0.9 % Sodium Chloride Flush 3 Ml Syringe) [facility] Last Admin: 01/30/22 10:01 Dose: 3 ml Documented by: CAITLYN Spironolactone (Spironolactone 25 Mg Tablet) 12.5 mg PO DAILY [facility]; Protocol Last Admin: 01/30/22 10:01 Dose: 12.5 mg Documented by: CAITLYN Tiotropium [place] (Tiotropium [place] 18 Mcg Cap.W.Dev) 1 puff INHALE DAILY [facility] Last Admin: 01/30/22 08:19 Dose: 1 puff Documented by: HO.SCOVILH Valsartan (Valsartan 40 Mg Tablet) 40 mg PO BID [facility]; Protocol Last Admin: 01/30/22 10:02 Dose: 40 mg Documented by: CAITLYN Vitamin D (Cholecalciferol (Vitamin D3) 25 Mcg Tablet) 25 mcg PO DAILY [facility] Last Admin: 01/30/22 10:03 Dose: 25 mcg Documented by: CAITLYN Labs CBC & Chem 7: 01/30/22 06:03 01/30/22 06:03 Labs: Laboratory Results - last 24 hr 01/30/22 01/30/22 06:03 06:03 MCV 79.2 L MCH 23.7 L MCHC 29.9 L RDW 19.9 H Plt Count 377 MPV 11.6 Absolute Nucleated RBC 0.000 Nucleated RBC % (auto) 0.0 Anion Gap 11 L Estim Creat Clear Calc 40.1 Estimated GFR 55 Random Glucose 103 Calcium 8.9 Assessment and Plan (1) Severe anemia: Status: Acute (2) CHF exacerbation: Status: Acute (3) Atrial tachycardia: Status: Acute Plan 66-year-old male with past medical history of CAD, CHF, hypertension presents to the hospital with complaints of abnormal labs found to have severe anemia along with acute on chronic CHF. Scheduled for EGD 02/01/22. CT abdomen done today demonstrates to 10.2 cm mass replacing the right hepatic lobe suggestive of infiltrated hepatocellular carcinoma; an additional 2.1 cm heterogeneously enhancing left hepatic lobe mass also suspicious for hepatocellular carcinoma. Concurrent finding of a 2.8 cm heterogeneously enhancing solid left exophytic renal mass suspicious for renal cell carcinoma. 1.Acute on chronic microcytic anemia -2 units of packed RBC hematocrit improved from 22.2 to 31 -EGD/ colonoscopy planned for Tuesday02/01/22. NPO after midnoc -PPI BID -CT with multiple massess suspicious for HC Ca. WIll reviewe with GI 2. Acute on chronic Systolic CHF exacerbation -echo 01/30/22 LVEF 20-25% - Aldactone 12.5 mg daily/valsartan 40 mg b.i.d. -follow renals/divalents 3.Paroxysmal Atrial tachycardia -acceptable rate control -continue Coreg...adjust as clinically indicated 4. GUERRERO -returned to baseline -continue lasix as ordered -follow renals/divalents 5. HTN -acceptable control on current therapies -adjust as per clinical response Heparin subQ Full Code Will require at least 2 midnights going forward to accommodate EGD on 02/01/2022. May require additional midnights based on results of EEG. Quality Stroke Does the patient have a stroke diagnosis?: No VTE Prior VTE?: No VTE Risk Level:: Medical - moderate - high VTE Device Contraindication: Treatment Not Indicated VTE Drug Contraindication: N/A - Med Ordered
[2022-01-30] MEDS: QUEtiapine Fumarate 50 MG TABLET 150 MG PO (19:49)
[2022-01-31] VITALS: BP 142/66; PULSE 61; RESP 20; TEMP 36.6; O2SAT 93
[2022-01-31 03:55] VITALS: BP 155/71; PULSE 73; RESP 18; TEMP 36.6; O2SAT 94
[2022-01-31 05:17] LABS: MANUAL DIFF FLAG NO
[2022-01-31 05:47] LABS: Basophils Absolute Auto 0.1 X10*3/uL (0.0-0.2); Basophils Percent Auto 0.7 % (0-2); Eosinophils Absolute Auto 0.1 X10*3/uL (0.0-0.4); Eosinophils Percent Auto 1.5 % (0-4); Hematocrit 30.9 % (42.0-52.0); Hemoglobin 9.1 g/dl (14.0-18.0); Imm Gran Abs Auto 0.01 X10*3/uL (0.00-0.03); Imm Gran Pct Auto 0.1 % (0.0-0.4); Lymphocytes Absolute Auto 1.4 X10*3/uL (1.2-4.9); Lymphocytes Percent Auto 20.2 % (20-40); Mean Corpuscular HGB Conc 29.4 g/dl (31.0-36.0); Mean Corpuscular Hemoglobin 23.5 pg (27.0-33.0); Mean Corpuscular Volume 79.8 fL (80.0-98.0); Mean Platelet Volume 12.4 fL (9.4-12.4); Monocytes Percent Auto 14.4 % (2-11); Neutrophils Absolute Auto 4.2 x10*3/uL (2.0-8.3); Neutrophils Percent Auto 63.1 % (45-73); Platelet Count 347 X10*3/uL (160-400); Red Blood Count 3.87 X10*6/uL (4.60-5.80); Red Cell Distribution Width 19.9 % (11.0-16.0); White Blood Count 6.7 X10*3/uL (4.8-10.8)
[2022-01-31 05:53] LABS: Alanine Aminotransferase 16 U/L (0-40); Albumin Level 2.8 g/dL (3.5-5.0); Alkaline Phosphatase 362 U/L (39-117); Anion Gap 14 (12-20); Aspartate Amino Transferase 34 U/L (5-37); Bilirubin Total 0.4 mg/dL (0.0-1.0); Blood Urea Nitrogen 47 mg/dL (9-16); Calcium 8.9 mg/dL (8.4-10.2); Carbon Dioxide 32 mmol/L (22-29); Chloride 101 mmol/L (96-108); Creatinine Clr Calc Pharmacy 35.5; Estimated Glomerular Filt Rate 48; Glucose Fasting 136 mg/dL (60-99); Potassium 4.4 mmol/L (3.3-5.1); Sodium 143 mmol/L (135-145); Total Protein 6.7 g/dL (6.5-8.0)
[2022-01-31 06:00] VITALS: BMI 18.6
[2022-01-31] MEDS: Omeprazole 40 MG CAPSULE.DR PO ×2 (06:37→15:54)
[2022-01-31 08:00] VITALS: BP 158/67; PULSE 72; RESP 20; TEMP 36.3; O2SAT 99
[2022-01-31] MEDS: Multivitamin TABLET 1 TAB PO (09:38)
[2022-01-31] MEDS: Spironolactone 25 MG TABLET 12.5 MG PO (09:39)
[2022-01-31] MEDS: amLODIPine Besylate 5 MG TABLET PO (09:40)
[2022-01-31] MEDS: Furosemide 40 MG TABLET PO ×2 (09:40→18:03)
[2022-01-31] MEDS: Folic Acid 1 MG TABLET PO (09:40)
[2022-01-31] MEDS: Valsartan 40 MG TABLET PO ×2 (09:40→19:55)
[2022-01-31] MEDS: Atorvastatin Calcium 20 MG TABLET PO (09:40)
[2022-01-31] MEDS: Sertraline HCL 100 MG TABLET PO (09:40)
[2022-01-31] MEDS: 0.9 % Sodium Chloride Flush 3 ML SYRINGE IVFLUSH ×3 (09:41→19:59)
[2022-01-31] MEDS: Ferrous Sulfate 324 MG TABLET.DR PO (09:41)
[2022-01-31] MEDS: Cholecalciferol (Vitamin D3) 25 MCG TABLET PO (09:41)
[2022-01-31] MEDS: carvediloL 12.5 MG TABLET PO (09:41)
--- NOTE | 2022-01-31 11:18 | HO.PM.IMPN ---
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 No focal complaints Review of Systems Denies chest pain Denies shortness of breath Denies nausea vomiting diarrhea Physical Exam Vital Signs: Vital Signs: Last Vital Signs Temp 97.4 F 01/31/22 08:00 Pulse 72 01/31/22 08:00 Resp 20 01/31/22 08:00 BP 158/67 H 01/31/22 08:00 Pulse Ox 99 01/31/22 08:00 BMI result Body Mass Index 18.6 Const: Other: Awake alert oriented x3 no acute distress Resp: Other: Clear auscultation bilaterally no rales rhonchi or wheezes Cardio: Other: No S4; positive S1-S2; no S3 murmurs of her gallops GI: Other: Soft nontender nondistended with normoactive bowel sounds Extrem: Other: No edema bilaterally Objective Data Active Medications Albuterol Sulfate (Albuterol Sulfate 90 Mcg 8 Gm Inhaler) 2 puff INHALE QID PRN PRN Reason: shortness of breath or wheezing Amlodipine Besylate (Amlodipine Besylate 5 Mg Tablet) 5 mg PO DAILY [facility]; Protocol Last Admin: 01/31/22 09:40 Dose: 5 mg Documented by: EDUARDO Atorvastatin Calcium (Atorvastatin Calcium 20 Mg Tablet) 20 mg PO DAILY [facility] Last Admin: 01/31/22 09:40 Dose: 20 mg Documented by: EDUARDO Carvedilol (Carvedilol 12.5 Mg Tablet) 12.5 mg PO BID [facility]; Protocol Last Admin: 01/31/22 09:41 Dose: 12.5 mg Documented by: EDUARDO Docusate Sodium (Docusate Sodium 100 Mg Capsule) 100 mg PO DAILY PRN PRN Reason: Constipation Ferrous Sulfate (Ferrous Sulfate 324 Mg Tablet.Dr) 324 mg PO DAILY [facility] Last Admin: 01/31/22 09:41 Dose: 324 mg Documented by: EDUARDO Fluticasone/Vilanterol (Fluticasone/Vilanterol 200/25 Blst.W.Dev) 1 puff INHALE DAILY [facility] Last Admin: 01/31/22 07:33 Dose: Not Given Documented by: NIRANJAN Non-Admin Reason: Patient Refused Folic Acid (Folic Acid 1 Mg Tablet) 1 mg PO DAILY [facility] Last Admin: 01/31/22 09:40 Dose: 1 mg Documented by: EDUARDO Furosemide (Furosemide 40 Mg Tablet) 40 mg PO BID@0900,1800 [facility]; Protocol Last Admin: 01/31/22 09:40 Dose: 40 mg Documented by: EDUARDO Multivitamins/Vitamin C (Multivitamin Tablet) 1 tab PO DAILY [facility] Last Admin: 01/31/22 09:38 Dose: 1 tab Documented by: EDUARDO Nicotine Polacrilex (Nicotine Polacrilex 2 Mg Gum) 2 mg BUCCAL Q3H PRN PRN Reason: nicotine cravings Omeprazole (Omeprazole 40 Mg Capsule.Dr) 40 mg PO BID@0630,1630 [facility] Last Admin: 01/31/22 06:37 Dose: 40 mg Documented by: TAL Ondansetron HCl (Ondansetron Hcl 4 Mg/2 Ml Vial) 4 mg IVPUSH Q8H PRN PRN Reason: Nausea and Vomiting Ondansetron HCl (Ondansetron Odt 4 Mg Tab.Rapdis) 4 mg TRANSLINGU Q6H PRN PRN Reason: Nausea Oxybutynin Chloride (Oxybutynin Chloride Er 5 Mg Tab.Er.24) 5 mg PO DAILY [facility] Last Admin: 01/31/22 09:38 Dose: 5 mg Documented by: EDUARDO Polyethylene Glycol/Electrolytes (Peg 3350/Na Sulf,Bicarb,Cl/Kcl 4,000 Ml Soln.Recon) 4,000 ml PO ONCE ONE Stop: 01/31/22 19:01 Quetiapine Fumarate (Quetiapine Fumarate 50 Mg Tablet) 50 mg PO DAILY PRN PRN Reason: Agitation Quetiapine Fumarate (Quetiapine Fumarate 50 Mg Tablet) 150 mg PO BEDTIME [facility] Last Admin: 01/30/22 19:49 Dose: 150 mg Documented by: CAITLYN Sertraline HCl (Sertraline Hcl 100 Mg Tablet) 100 mg PO DAILY [facility] Last Admin: 01/31/22 09:40 Dose: 100 mg Documented by: EDUARDO Sodium Chloride (0.9 % Sodium Chloride Flush 3 Ml Syringe) 3 ml IVFLUSH QSHIFT [facility] Last Admin: 01/31/22 09:41 Dose: 3 ml Documented by: EDUARDO Spironolactone (Spironolactone 25 Mg Tablet) 12.5 mg PO DAILY [facility]; Protocol Last Admin: 01/31/22 09:39 Dose: 12.5 mg Documented by: EDUARDO Tiotropium [place] (Tiotropium [place] 18 Mcg Cap.W.Dev) 1 puff INHALE DAILY [facility] Last Admin: 01/31/22 07:33 Dose: Not Given Documented by: NIRANJAN Non-Admin Reason: Patient Refused Valsartan (Valsartan 40 Mg Tablet) 40 mg PO BID [facility]; Protocol Last Admin: 01/31/22 09:40 Dose: 40 mg Documented by: EDUARDO Vitamin D (Cholecalciferol (Vitamin D3) 25 Mcg Tablet) 25 mcg PO DAILY [facility] Last Admin: 01/31/22 09:41 Dose: 25 mcg Documented by: EDUARDO Labs CBC & Chem 7: 01/31/22 04:36 01/31/22 04:36 Labs: Laboratory Results - last 24 hr 01/31/22 01/31/22 04:36 04:36 MCV 79.8 L MCH 23.5 L MCHC 29.4 L RDW 19.9 H Plt Count 347 MPV 12.4 Immature Gran % (Auto) 0.1 Neut % (Auto) 63.1 Lymph % (Auto) 20.2 [place] % (Auto) 14.4 H Eos % (Auto) 1.5 Baso % (Auto) 0.7 Lymph # (Auto) 1.4 [place] # (Auto) 1.0 Eos # (Auto) 0.1 Baso # (Auto) 0.1 Abs Immat Gran (auto) 0.01 Absolute Neuts (auto) 4.2 Absolute Nucleated RBC 0.000 Nucleated RBC % (auto) 0.0 Anion Gap 14 Estim Creat Clear Calc 35.5 Estimated GFR 48 Fasting Glucose 136 H Calcium 8.9 Total Bilirubin 0.4 AST 34 ALT 16 Alkaline Phosphatase 362 H Total Protein 6.7 Albumin 2.8 L Assessment and Plan (1) GI (gastrointestinal bleed): Status: Acute (2) Severe anemia: Status: Acute (3) CHF (congestive heart failure): Status: Acute Plan 66-year-old male with past medical history of CAD, CHF, hypertension presents to the hospital with complaints of abnormal labs found to have severe anemia along with acute on chronic CHF. Scheduled for EGD 02/01/22. CT abdomen done today demonstrates to 10.2 cm mass replacing the right hepatic lobe suggestive of infiltrated hepatocellular carcinoma; an additional 2.1 cm heterogeneously enhancing left hepatic lobe mass also suspicious for hepatocellular carcinoma. Concurrent finding of a 2.8 cm heterogeneously enhancing solid left exophytic renal mass suspicious for renal cell carcinoma. 1.Acute on chronic microcytic anemia -Hgb stable -NPO after midnight for EGD/Colon 2. Acute on chronic Systolic CHF exacerbation -echo 01/30/22 LVEF 20-25% - Aldactone 12.5 mg daily/valsartan 40 mg b.i.d. -follow renals/divalents 3.Paroxysmal Atrial tachycardia -acceptable rate control -continue Coreg...adjust as clinically indicated 4. GUERRERO -returned to baseline -continue lasix as ordered -follow renals/divalents 5. HTN -acceptable control on current therapies -adjust as per clinical response Heparin subQ Full Code Will require at least 2 midnights going forward to accommodate EGD on 02/01/2022. May require additional midnights based on results of EEG. Quality Stroke Does the patient have a stroke diagnosis?: No VTE Prior VTE?: No VTE Risk Level:: Medical - moderate - high VTE Device Contraindication: Treatment Not Indicated VTE Drug Contraindication: N/A - Med Ordered
[2022-01-31 11:25] VITALS: BP 119/71; PULSE 60; RESP 23; TEMP 36.2; O2SAT 99
[2022-01-31 15:08] VITALS: BP 113/56; PULSE 57; RESP 20; TEMP 36.2; O2SAT 99
--- NOTE | 2022-01-31 15:28 | PC.NURSE ---
1030 HR elevated to 130 Pt asymptomatic. resting in bed. Dr Talley aware
--- NOTE | 2022-01-31 17:51 | PC.NURSE ---
Orthostaic BP Results: Supine: BP 147/60 HR67 Sitting: BP 160/68 HR64 Standing:BP 167/75 HR 67
[2022-01-31 19:48] VITALS: BP 139/63; PULSE 64; RESP 20; TEMP 36.3; O2SAT 99
[2022-01-31] MEDS: PEG 3350/Na Sulf,Bicarb,Cl/KCL 4,000 ML SOLN.RECON 4000 ML PO (19:55)
[2022-01-31] MEDS: QUEtiapine Fumarate 50 MG TABLET 150 MG PO (19:56)
[2022-02-01] VITALS (15 sets, daily range): BP systolic 103–149; BP diastolic 54–71; PULSE 56–139; RESP 15–18; TEMP 36.3–36.9; O2SAT 91–100; BMI 19.3
[2022-02-01 06:46] LABS: MANUAL DIFF FLAG NO
[2022-02-01 07:03] LABS: Basophils Absolute Auto 0.1 X10*3/uL (0.0-0.2); Basophils Percent Auto 0.9 % (0-2); Eosinophils Absolute Auto 0.2 X10*3/uL (0.0-0.4); Eosinophils Percent Auto 2.9 % (0-4); Hemoglobin 8.9 g/dl (14.0-18.0); Imm Gran Abs Auto 0.01 X10*3/uL (0.00-0.03); Imm Gran Pct Auto 0.2 % (0.0-0.4); Lymphocytes Absolute Auto 1.6 X10*3/uL (1.2-4.9); Lymphocytes Percent Auto 29.7 % (20-40); Mean Corpuscular HGB Conc 29.7 g/dl (31.0-36.0); Mean Corpuscular Hemoglobin 23.7 pg (27.0-33.0); Mean Platelet Volume 11.4 fL (9.4-12.4); Monocytes Absolute Auto 0.7 X10*3/uL (0.1-1.2); Monocytes Percent Auto 12.8 % (2-11); Neutrophils Absolute Auto 2.9 x10*3/uL (2.0-8.3); Neutrophils Percent Auto 53.5 % (45-73); Platelet Count 293 X10*3/uL (160-400); Red Blood Count 3.75 X10*6/uL (4.60-5.80); Red Cell Distribution Width 19.5 % (11.0-16.0); White Blood Count 5.5 X10*3/uL (4.8-10.8)
[2022-02-01 07:10] LABS: Alanine Aminotransferase 15 U/L (0-40); Albumin Level 2.8 g/dL (3.5-5.0); Alkaline Phosphatase 365 U/L (39-117); Anion Gap 12 (12-20); Aspartate Amino Transferase 37 U/L (5-37); Bilirubin Total 0.4 mg/dL (0.0-1.0); Blood Urea Nitrogen 35 mg/dL (9-16); Calcium 8.8 mg/dL (8.4-10.2); Carbon Dioxide 35 mmol/L (22-29); Chloride 100 mmol/L (96-108); Estimated Glomerular Filt Rate > 60; Glucose Fasting 89 mg/dL (60-99); Potassium 3.8 mmol/L (3.3-5.1); Sodium 143 mmol/L (135-145); Total Protein 6.6 g/dL (6.5-8.0)
[2022-02-01] MEDS: Fluticasone/Vilanterol 200/25 BLST.W.DEV 1 PUFF INHALE (07:46)
[2022-02-01] MEDS: Spironolactone 25 MG TABLET 12.5 MG PO (07:54)
[2022-02-01] MEDS: Cholecalciferol (Vitamin D3) 25 MCG TABLET PO (07:54)
[2022-02-01] MEDS: Sertraline HCL 100 MG TABLET PO (07:54)
[2022-02-01] MEDS: Valsartan 40 MG TABLET PO ×2 (07:54→20:20)
[2022-02-01] MEDS: Ferrous Sulfate 324 MG TABLET.DR PO (07:54)
[2022-02-01] MEDS: 0.9 % Sodium Chloride Flush 3 ML SYRINGE IVFLUSH ×3 (07:54→20:20)
[2022-02-01] MEDS: Atorvastatin Calcium 20 MG TABLET PO (07:54)
[2022-02-01] MEDS: Furosemide 40 MG TABLET PO ×2 (07:55→18:06)
[2022-02-01] MEDS: carvediloL 12.5 MG TABLET PO ×2 (07:55→20:20)
[2022-02-01] MEDS: amLODIPine Besylate 5 MG TABLET PO (07:56)
[2022-02-01] MEDS: Folic Acid 1 MG TABLET PO (07:56)
[2022-02-01] MEDS: Multivitamin TABLET 1 TAB PO (07:56)
--- NOTE | 2022-02-01 11:54 | P.PNCA_ITS ---
Subjective Subjective Date of Service: 02/01/22 Principal diagnosis: Decompensated congestive heart failure. Interval history: We have been asked to assess his Shanta procedure cardiovascular risk before endoscopy. Doing well and denying any shortness of breath or any other complaints right now. Physical Exam Vital Signs: Last Vital Signs Temp 97.5 F 02/01/22 11:26 Pulse 65 02/01/22 11:26 Resp 18 02/01/22 11:26 BP 126/62 02/01/22 11:26 Pulse Ox 100 02/01/22 11:26 BMI result Body Mass Index 19.3 GENERAL APPEARANCE: in no acute distress, pleasant. NECK: no carotid bruit, no jugular venous distention. SKIN: no suspicious lesions, warm and dry. HEART: Holosystolic murmur left sternal border, regular rate and rhythm. LUNGS: some crackles at bases. ABDOMEN: soft, nontender. EXTREMITIES: no edema. PERIPHERAL PULSES: equal. NEUROLOGIC: No gross deficits, AAO X 3 Objective Labs and Meds Result diagrams: 02/01/22 06:28 02/01/22 06:28 Lab results: Laboratory Results - last 24 hr 02/01/22 02/01/22 06:28 06:28 WBC 5.5 RBC 3.75 L Hgb 8.9 L Hct 30.0 L MCV 80.0 MCH 23.7 L MCHC 29.7 L RDW 19.5 H Plt Count 293 MPV 11.4 Immature Gran % (Auto) 0.2 Neut % (Auto) 53.5 Lymph % (Auto) 29.7 [place] % (Auto) 12.8 H Eos % (Auto) 2.9 Baso % (Auto) 0.9 Lymph # (Auto) 1.6 [place] # (Auto) 0.7 Eos # (Auto) 0.2 Baso # (Auto) 0.1 Abs Immat Gran (auto) 0.01 Absolute Neuts (auto) 2.9 Absolute Nucleated RBC 0.000 Nucleated RBC % (auto) 0.0 Sodium 143 Potassium 3.8 Chloride 100 Carbon Dioxide 35 H Anion Gap 12 BUN 35 H Creatinine 1.15 Estim Creat Clear Calc 47.0 Estimated GFR > 60 Fasting Glucose 89 Calcium 8.8 Total Bilirubin 0.4 AST 37 ALT 15 Alkaline Phosphatase 365 H Total Protein 6.6 Albumin 2.8 L Imaging Radiologist's impression: Impressions Abdomen Ultrasound 01/28/22 16:21 IMPRESSION: * There are 2 hepatic mass is present measuring 11.9 cm and 2 cm. Surprisingly, these are extremely poorly seen on CT scan. MRI could be performed for further evaluation. The portal venous system appears patent. * There is a mass in the left kidney measuring 3.6 cm which needs further evaluation. MRI would be an excellent choice for further evaluation of both the above-mentioned hepatic masses in the renal mass. * Other incidental findings described above including cholelithiasis, Doppler Study Ultrasound 01/28/22 16:21 IMPRESSION: * There are 2 hepatic mass is present measuring 11.9 cm and 2 cm. Surprisingly, these are extremely poorly seen on CT scan. MRI could be performed for further evaluation. The portal venous system appears patent. * There is a mass in the left kidney measuring 3.6 cm which needs further evaluation. MRI would be an excellent choice for further evaluation of both the above-mentioned hepatic masses in the renal mass. * Other incidental findings described above including cholelithiasis, Progress Note: A&P Assessment and plan (1) Atrial tachycardia: Status: Acute (2) CHF (congestive heart failure): Status: Acute Plan [age] year gentleman with known cardiomyopathy and severely reduced ejection fraction who is presenting with chest of heart failure in setting of anemia and atrial tachycardia. He had another episode of atrial tachycardia this morning. He was asymptomatic. Overall clinically looks euvolemic. I think he can proceed for endoscopy with intermediate risk of periprocedural complications. If he has recurrent episodes of atrial tachycardia then we may have to consider adding amiodarone. I will check EKG before that to make sure his QT interval is okay as he has been on Seroquel at home. Thank you for allowing me to participate in the care of your patient. Please feel free to contact me if you have any questions. Fall Risk Details Current Medications: Current Medications Albuterol Sulfate (Albuterol Sulfate 90 Mcg 8 Gm Inhaler) 2 puff INHALE QID PRN PRN Reason: shortness of breath or wheezing Amlodipine Besylate (Amlodipine Besylate 5 Mg Tablet) 5 mg PO DAILY [facility]; Protocol Last Admin: 02/01/22 07:56 Dose: 5 mg Documented by: Atorvastatin Calcium (Atorvastatin Calcium 20 Mg Tablet) 20 mg PO DAILY [facility] Last Admin: 02/01/22 07:54 Dose: 20 mg Documented by: Carvedilol (Carvedilol 12.5 Mg Tablet) 12.5 mg PO BID [facility]; Protocol Last Admin: 02/01/22 07:55 Dose: 12.5 mg Documented by: Docusate Sodium (Docusate Sodium 100 Mg Capsule) 100 mg PO DAILY PRN PRN Reason: Constipation Ferrous Sulfate (Ferrous Sulfate 324 Mg Tablet.) 324 mg PO DAILY [facility] Last Admin: 02/01/22 07:54 Dose: 324 mg Documented by: Fluticasone/Vilanterol (Fluticasone/Vilanterol 200/25 Blst.W.Dev) 1 puff INHALE DAILY [facility] Last Admin: 02/01/22 07:46 Dose: 1 puff Documented by: Folic Acid (Folic Acid 1 Mg Tablet) 1 mg PO DAILY [facility] Last Admin: 02/01/22 07:56 Dose: 1 mg Documented by: Furosemide (Furosemide 40 Mg Tablet) 40 mg PO BID@0900,1800 [facility]; Protocol Last Admin: 02/01/22 07:55 Dose: 40 mg Documented by: Multivitamins/Vitamin C (Multivitamin Tablet) 1 tab PO DAILY [facility] Last Admin: 02/01/22 07:56 Dose: 1 tab Documented by: Nicotine Polacrilex (Nicotine Polacrilex 2 Mg Gum) 2 mg BUCCAL Q3H PRN PRN Reason: nicotine cravings Omeprazole (Omeprazole 40 Mg Capsule.) 40 mg PO BID@0630,1630 [facility] Last Admin: 02/01/22 06:24 Dose: Not Given Documented by: Ondansetron HCl (Ondansetron Hcl 4 Mg/2 Ml Vial) 4 mg IVPUSH Q8H PRN PRN Reason: Nausea and Vomiting Ondansetron HCl (Ondansetron Odt 4 Mg Tab.Rapdis) 4 mg TRANSLINGU Q6H PRN PRN Reason: Nausea Oxybutynin Chloride (Oxybutynin Chloride Er 5 Mg Tab.Er.24) 5 mg PO DAILY [facility] Last Admin: 02/01/22 07:55 Dose: 5 mg Documented by: Quetiapine Fumarate (Quetiapine Fumarate 50 Mg Tablet) 50 mg PO DAILY PRN PRN Reason: Agitation Quetiapine Fumarate (Quetiapine Fumarate 50 Mg Tablet) 150 mg PO BEDTIME [facility] Last Admin: 01/31/22 19:56 Dose: 150 mg Documented by: Sertraline HCl (Sertraline Hcl 100 Mg Tablet) 100 mg PO DAILY [facility] Last Admin: 02/01/22 07:54 Dose: 100 mg Documented by: Sodium Chloride (0.9 % Sodium Chloride Flush 3 Ml Syringe) 3 ml IVFLUSH QSHIFT [facility] Last Admin: 02/01/22 07:54 Dose: 3 ml Documented by: Spironolactone (Spironolactone 25 Mg Tablet) 12.5 mg PO DAILY [facility]; Protocol Last Admin: 02/01/22 07:54 Dose: 12.5 mg Documented by: Tiotropium Buford (Tiotropium Buford 18 Mcg Cap.W.Dev) 1 puff INHALE DAILY [facility] Last Admin: 02/01/22 07:46 Dose: 1 puff Documented by: Valsartan (Valsartan 40 Mg Tablet) 40 mg PO BID [facility]; Protocol Last Admin: 02/01/22 07:54 Dose: 40 mg Documented by: Vitamin D (Cholecalciferol (Vitamin D3) 25 Mcg Tablet) 25 mcg PO DAILY [facility] Last Admin: 02/01/22 07:54 Dose: 25 mcg Documented by: Time Spent With Patient Time: Total time spent is greater than 50% in coordination of care (as documented) at patient's floor/unit and/or counseling patient: Progress Note: Quality Stroke Does the patient have a stroke diagnosis?: No Procedures Date of Service Date of Service: 02/01/22
--- NOTE | 2022-02-01 13:06 | HO.ANESPROP2 ---
[facility] Active Problems Active Problems: All Active Problems (Updated 01/28/22 @ 12:33 by Geraldo Boyle MD) Atrial tachycardia (Acute) Tachypnea (Acute) Tachycardia (Acute) CHF exacerbation (Acute) Severe anemia (Acute) GI (gastrointestinal bleed) (Acute) CHF (congestive heart failure) (Acute) Past Medical History Medical History Asthma CHF (congestive heart failure) Coronary artery disease CVA (cerebrovascular accident) Essential hypertension Hypertension VSD (ventricular septal defect) Family History Family history of problems with anesthesia: No Surgical History History of Problems with Anesthesia: No Social History Social History Household Members: None Housing: Apartment Do you presently have visiting nurse or other home services: Yes (pt unsure) Alcohol intake: unknown Patient Tobacco Use Status: Current everyday Tobacco user Tobacco use type: Cigarette Cigarettes Per Day: 5.0 Second Hand Smoke Exposure: No service: No Current occupational status: unemployed Meds Allergies Allergy/AdvReac Type Severity Reaction Status Date / Time acetaminophen [From Tylenol] Allergy Unknown UNKNOWN Verified 11/07/21 02:26 Active Medications: Current Medications Albuterol Sulfate (Albuterol Sulfate 90 Mcg 8 Gm Inhaler) 2 puff INHALE QID PRN PRN Reason: shortness of breath or wheezing Amlodipine Besylate (Amlodipine Besylate 5 Mg Tablet) 5 mg PO DAILY [facility]; Protocol Last Admin: 02/01/22 07:56 Dose: 5 mg Documented by: Atorvastatin Calcium (Atorvastatin Calcium 20 Mg Tablet) 20 mg PO DAILY [facility] Last Admin: 02/01/22 07:54 Dose: 20 mg Documented by: Carvedilol (Carvedilol 12.5 Mg Tablet) 12.5 mg PO BID [facility]; Protocol Last Admin: 02/01/22 07:55 Dose: 12.5 mg Documented by: Docusate Sodium (Docusate Sodium 100 Mg Capsule) 100 mg PO DAILY PRN PRN Reason: Constipation Ferrous Sulfate (Ferrous Sulfate 324 Mg Tablet.Dr) 324 mg PO DAILY [facility] Last Admin: 02/01/22 07:54 Dose: 324 mg Documented by: Fluticasone/Vilanterol (Fluticasone/Vilanterol 200/25 Blst.W.Dev) 1 puff INHALE DAILY [facility] Last Admin: 02/01/22 07:46 Dose: 1 puff Documented by: Folic Acid (Folic Acid 1 Mg Tablet) 1 mg PO DAILY [facility] Last Admin: 02/01/22 07:56 Dose: 1 mg Documented by: Furosemide (Furosemide 40 Mg Tablet) 40 mg PO BID@0900,1800 [facility]; Protocol Last Admin: 02/01/22 07:55 Dose: 40 mg Documented by: Multivitamins/Vitamin C (Multivitamin Tablet) 1 tab PO DAILY [facility] Last Admin: 02/01/22 07:56 Dose: 1 tab Documented by: Nicotine Polacrilex (Nicotine Polacrilex 2 Mg Gum) 2 mg BUCCAL Q3H PRN PRN Reason: nicotine cravings Omeprazole (Omeprazole 40 Mg Capsule.Dr) 40 mg PO BID@0630,1630 [facility] Last Admin: 02/01/22 06:24 Dose: Not Given Documented by: Ondansetron HCl (Ondansetron Hcl 4 Mg/2 Ml Vial) 4 mg IVPUSH Q8H PRN PRN Reason: Nausea and Vomiting Ondansetron HCl (Ondansetron Odt 4 Mg Tab.Rapdis) 4 mg TRANSLINGU Q6H PRN PRN Reason: Nausea Oxybutynin Chloride (Oxybutynin Chloride Er 5 Mg Tab.Er.24) 5 mg PO DAILY [facility] Last Admin: 02/01/22 07:55 Dose: 5 mg Documented by: Quetiapine Fumarate (Quetiapine Fumarate 50 Mg Tablet) 50 mg PO DAILY PRN PRN Reason: Agitation Quetiapine Fumarate (Quetiapine Fumarate 50 Mg Tablet) 150 mg PO BEDTIME [facility] Last Admin: 01/31/22 19:56 Dose: 150 mg Documented by: Sertraline HCl (Sertraline Hcl 100 Mg Tablet) 100 mg PO DAILY [facility] Last Admin: 02/01/22 07:54 Dose: 100 mg Documented by: Sodium Chloride (0.9 % Sodium Chloride Flush 3 Ml Syringe) 3 ml IVFLUSH QSHIFT [facility] Last Admin: 02/01/22 07:54 Dose: 3 ml Documented by: Spironolactone (Spironolactone 25 Mg Tablet) 12.5 mg PO DAILY [facility]; Protocol Last Admin: 02/01/22 07:54 Dose: 12.5 mg Documented by: Tiotropium Beul[place] (Tiotropium [place] 18 Mcg Cap.W.Dev) 1 puff INHALE DAILY [facility] Last Admin: 02/01/22 07:46 Dose: 1 puff Documented by: Valsartan (Valsartan 40 Mg Tablet) 40 mg PO BID [facility]; Protocol Last Admin: 02/01/22 07:54 Dose: 40 mg Documented by: Vitamin D (Cholecalciferol (Vitamin D3) 25 Mcg Tablet) 25 mcg PO DAILY [facility] Last Admin: 02/01/22 07:54 Dose: 25 mcg Documented by: Home Medications Medication Instructions Recorded Confirmed Last Taken Type amlodipine 5 mg tablet 1 tab PO DAILY 11/07/21 01/26/22 Unknown History aspirin 81 mg tablet,delayed 1 tab PO DAILY 11/07/21 01/26/22 Unknown History release atorvastatin 20 mg tablet 1 tab PO DAILY 11/07/21 01/26/22 Unknown History cholecalciferol (vitamin D3) 25 1 tab PO DAILY 11/07/21 01/26/22 Unknown History mcg (1,000 unit) tablet (Vitamin D3) folic acid 1 mg tablet 1 tab PO DAILY 11/07/21 01/26/22 Unknown History multivitamin with folic acid 400 1 tab PO DAILY 11/07/21 01/26/22 Unknown History mcg tablet (Tab-A-Miguelangel) oxybutynin chloride 5 mg 1 tab PO DAILY 11/07/21 01/26/22 Unknown History tablet,extended release 24 hr quetiapine 50 mg tablet 1 tab PO DAILY PRN 11/07/21 01/26/22 Unknown History sertraline 100 mg tablet 1 tab PO DAILY 11/07/21 01/26/22 Unknown History terazosin 5 mg capsule 1 cap PO BEDTIME 11/07/21 01/26/22 Unknown History tiotropium bromide 18 mcg capsule 1 cap INHALATION DAILY 11/07/21 01/26/22 Unknown History with inhalation device (Spiriva with HandiHaler) quetiapine 150 mg tablet,extended 1 tab PO BEDTIME 11/09/21 01/26/22 Unknown History release 24 hr ferrous sulfate 325 mg (65 mg 1 tab PO DAILY 01/26/22 01/26/22 Unknown History iron) tablet,delayed release fluticasone 232 mcg-salmeterol 14 1 puff INHALATION BID 01/26/22 01/26/22 Unknown History mcg/actuation breath activated powdr furosemide 20 mg tablet 1 tab PO BID 01/26/22 01/26/22 Unknown History lisinopril 10 mg tablet 1 tab PO DAILY 01/26/22 01/26/22 Unknown History Exam Exam Date and Time: February 01, 2022 1306 Height,Weight and Vital Signs: Height 5 ft 5 in Weight 52.6 kg Last Vital Signs Temp 98.4 F 02/01/22 12:51 Pulse 56 02/01/22 12:51 Resp 16 02/01/22 12:51 BP 138/54 L 02/01/22 12:51 Pulse Ox 99 02/01/22 12:51 Pertinent Lab Results Pertinent Lab Results: Laboratory Tests 01/26/22 01/26/22 01/26/22 20:53 20:53 20:53 WBC 7.2 RBC 2.93 L Hgb 6.4 L* D Hct 22.2 L D MCV 75.8 L MCH 21.8 L MCHC 28.8 L RDW 16.5 H Plt Count 500 H D MPV 11.1 Immature Gran % (Auto) 0.1 Neut % (Auto) 65.2 Lymph % (Auto) 21.2 [place] % (Auto) 11.2 H Eos % (Auto) 1.9 Baso % (Auto) 0.4 Lymph # (Auto) 1.5 [place] # (Auto) 0.8 Eos # (Auto) 0.1 Baso # (Auto) 0.0 Abs Immat Gran (auto) 0.01 Absolute Neuts (auto) 4.7 Absolute Nucleated RBC 0.000 Nucleated RBC % (auto) 0.0 PT 14.4 H INR 1.3 H Sodium 140 Potassium 4.3 Chloride 103 Carbon Dioxide 30 H Anion Gap 11 L BUN 31 H Creatinine 1.90 H Estim Creat Clear Calc 31.8 Estimated GFR 36 POC Glucose Random Glucose 110 Fasting Glucose Lactic Acid Calcium 8.8 Magnesium Iron 25 L TIBC 475 H % Saturation 5 L Unsat Iron Binding 450 Total Bilirubin 0.3 AST 36 ALT 17 Alkaline Phosphatase 400 H D Troponin I High Sens B-Natriuretic Peptide Total Protein 7.5 Albumin 3.2 L Stool Occult Blood COVID-19 (SOLE) COVID-19 Clin Com Resp Virus Cult Rapid Blood Type Antibody Screen Crossmatch 01/26/22 01/26/22 01/26/22 20:53 20:53 21:47 WBC RBC Hgb Hct MCV MCH MCHC RDW Plt Count MPV Immature Gran % (Auto) Neut % (Auto) Lymph % (Auto) [place] % (Auto) Eos % (Auto) Baso % (Auto) Lymph # (Auto) [place] # (Auto) Eos # (Auto) Baso # (Auto) Abs Immat Gran (auto) Absolute Neuts (auto) Absolute Nucleated RBC Nucleated RBC % (auto) PT INR Sodium Potassium Chloride Carbon Dioxide Anion Gap BUN Creatinine Estim Creat Clear Calc Estimated GFR POC Glucose Random Glucose Fasting Glucose Lactic Acid Calcium Magnesium Iron TIBC % Saturation Unsat Iron Binding Total Bilirubin AST ALT Alkaline Phosphatase Troponin I High Sens B-Natriuretic Peptide 1238 H Total Protein Albumin Stool Occult Blood COVID-19 (SOLE) Negative COVID-19 Clin Com See Note Resp Virus Cult Rapid Blood Type A Positive Antibody Screen NEGATIVE Crossmatch See Detail 01/26/22 01/27/22 01/27/22 22:26 00:05 07:04 WBC RBC Hgb Hct MCV MCH MCHC RDW Plt Count MPV Immature Gran % (Auto) Neut % (Auto) Lymph % (Auto) [place] % (Auto) Eos % (Auto) Baso % (Auto) Lymph # (Auto) [place] # (Auto) Eos # (Auto) Baso # (Auto) Abs Immat Gran (auto) Absolute Neuts (auto) Absolute Nucleated RBC Nucleated RBC % (auto) PT INR Sodium Potassium Chloride Carbon Dioxide Anion Gap BUN Creatinine Estim Creat Clear Calc Estimated GFR POC Glucose Random Glucose Fasting Glucose Lactic Acid Calcium Magnesium Iron TIBC % Saturation Unsat Iron Binding Total Bilirubin AST ALT Alkaline Phosphatase Troponin I High Sens 12.2 B-Natriuretic Peptide Total Protein Albumin Stool Occult Blood POSITIVE COVID-19 (SOLE) COVID-19 Clin Com Resp Virus Cult Rapid TNP Blood Type Antibody Screen Crossmatch 01/27/22 01/27/22 01/27/22 07:04 07:33 07:33 WBC 9.8 RBC 3.91 L D Hgb 9.3 L D Hct 31.2 L D MCV 79.8 L MCH 23.8 L MCHC 29.8 L RDW 18.2 H Plt Count 479 H MPV 11.1 Immature Gran % (Auto) 0.4 Neut % (Auto) 71.3 Lymph % (Auto) 15.9 L [place] % (Auto) 11.3 H Eos % (Auto) 0.7 Baso % (Auto) 0.4 Lymph # (Auto) 1.6 [place] # (Auto) 1.1 Eos # (Auto) 0.1 Baso # (Auto) 0.0 Abs Immat Gran (auto) 0.04 H Absolute Neuts (auto) 7.0 Absolute Nucleated RBC 0.000 Nucleated RBC % (auto) 0.0 PT INR Sodium 139 Potassium 4.5 Chloride 103 Carbon Dioxide 28 Anion Gap 13 BUN 29 H Creatinine 1.67 H Estim Creat Clear Calc 36.2 Estimated GFR 41 POC Glucose Random Glucose 128 H Fasting Glucose Lactic Acid Calcium 9.0 Magnesium Iron TIBC % Saturation Unsat Iron Binding Total Bilirubin AST ALT Alkaline Phosphatase Troponin I High Sens B-Natriuretic Peptide Total Protein Albumin Stool Occult Blood COVID-19 (SOLE) COVID-19 [employer] Com Resp Virus Cult Rapid TNP Blood Type Antibody Screen Crossmatch 01/27/22 01/27/22 01/28/22 07:33 18:11 06:52 WBC RBC Hgb Hct MCV MCH MCHC RDW Plt Count MPV Immature Gran % (Auto) Neut % (Auto) Lymph % (Auto) [place] % (Auto) Eos % (Auto) Baso % (Auto) Lymph # (Auto) [place] # (Auto) Eos # (Auto) Baso # (Auto) Abs Immat Gran (auto) Absolute Neuts (auto) Absolute Nucleated RBC Nucleated RBC % (auto) PT INR Sodium 142 Potassium 4.6 Chloride 105 Carbon Dioxide 27 Anion Gap 15 BUN 37 H Creatinine 1.50 H Estim Creat Clear Calc 40.4 Estimated GFR 47 POC Glucose 192 H Random Glucose 124 H Fasting Glucose Lactic Acid 0.5 Calcium 8.9 Magnesium Iron TIBC % Saturation Unsat Iron Binding Total Bilirubin AST ALT Alkaline Phosphatase Troponin I High Sens B-Natriuretic Peptide Total Protein Albumin Stool Occult Blood COVID-19 (SOLE) COVID-19 Clin Com Resp Virus Cult Rapid Blood Type Antibody Screen Crossmatch 01/28/22 01/29/22 01/30/22 06:52 08:51 06:03 WBC 8.1 RBC 3.84 L Hgb 9.1 L Hct 30.4 L MCV 79.2 L MCH 23.7 L MCHC 29.9 L RDW 19.9 H Plt Count 377 MPV 11.6 Immature Gran % (Auto) Neut % (Auto) Lymph % (Auto) [place] % (Auto) Eos % (Auto) Baso % (Auto) Lymph # (Auto) [place] # (Auto) Eos # (Auto) Baso # (Auto) Abs Immat Gran (auto) Absolute Neuts (auto) Absolute Nucleated RBC 0.000 Nucleated RBC % (auto) 0.0 PT INR Sodium 142 Potassium 4.2 Chloride 99 Carbon Dioxide 34 H Anion Gap 13 BUN 39 H Creatinine 1.61 H Estim Creat Clear Calc 31.9 Estimated GFR 43 POC Glucose Random Glucose 142 H Fasting Glucose Lactic Acid Calcium 8.9 Magnesium 2.1 Iron TIBC % Saturation Unsat Iron Binding Total Bilirubin AST ALT Alkaline Phosphatase Troponin I High Sens B-Natriuretic Peptide 2812 H Total Protein Albumin Stool Occult Blood COVID-19 (SOLE) COVID-19 Clin Com Resp Virus Cult Rapid Blood Type Antibody Screen Crossmatch 01/30/22 01/31/22 01/31/22 06:03 04:36 04:36 WBC 6.7 RBC 3.87 L Hgb 9.1 L Hct 30.9 L MCV 79.8 L MCH 23.5 L MCHC 29.4 L RDW 19.9 H Plt Count 347 MPV 12.4 Immature Gran % (Auto) 0.1 Neut % (Auto) 63.1 Lymph % (Auto) 20.2 Coal % (Auto) 14.4 H Eos % (Auto) 1.5 Baso % (Auto) 0.7 Lymph # (Auto) 1.4 [place] # (Auto) 1.0 Eos # (Auto) 0.1 Baso # (Auto) 0.1 Abs Immat Gran (auto) 0.01 Absolute Neuts (auto) 4.2 Absolute Nucleated RBC 0.000 Nucleated RBC % (auto) 0.0 PT INR Sodium 141 143 Potassium 4.0 4.4 Chloride 100 101 Carbon Dioxide 34 H 32 H Anion Gap 11 L 14 BUN 40 H 47 H Creatinine 1.30 1.47 H Estim Creat Clear Calc 40.1 35.5 Estimated GFR 55 48 POC Glucose Random Glucose 103 Fasting Glucose 136 H Lactic Acid Calcium 8.9 8.9 Magnesium Iron TIBC % Saturation Unsat Iron Binding Total Bilirubin 0.4 AST 34 ALT 16 Alkaline Phosphatase 362 H Troponin I High Sens B-Natriuretic Peptide Total Protein 6.7 Albumin 2.8 L Stool Occult Blood COVID-19 (SOLE) COVID-19 Clin Com Resp Virus Cult Rapid Blood Type Antibody Screen Crossmatch 02/01/22 02/01/22 06:28 06:28 WBC 5.5 RBC 3.75 L Hgb 8.9 L Hct 30.0 L MCV 80.0 MCH 23.7 L MCHC 29.7 L RDW 19.5 H Plt Count 293 MPV 11.4 Immature Gran % (Auto) 0.2 Neut % (Auto) 53.5 Lymph % (Auto) 29.7 Coal % (Auto) 12.8 H Eos % (Auto) 2.9 Baso % (Auto) 0.9 Lymph # (Auto) 1.6 Coal # (Auto) 0.7 Eos # (Auto) 0.2 Baso # (Auto) 0.1 Abs Immat Gran (auto) 0.01 Absolute Neuts (auto) 2.9 Absolute Nucleated RBC 0.000 Nucleated RBC % (auto) 0.0 PT INR Sodium 143 Potassium 3.8 Chloride 100 Carbon Dioxide 35 H Anion Gap 12 BUN 35 H Creatinine 1.15 Estim Creat Clear Calc 47.0 Estimated GFR > 60 POC Glucose Random Glucose Fasting Glucose 89 Lactic Acid Calcium 8.8 Magnesium Iron TIBC % Saturation Unsat Iron Binding Total Bilirubin 0.4 AST 37 ALT 15 Alkaline Phosphatase 365 H Troponin I High Sens B-Natriuretic Peptide Total Protein 6.6 Albumin 2.8 L Stool Occult Blood COVID-19 (SOLE) COVID-19 Clin Com Resp Virus Cult Rapid Blood Type Antibody Screen Crossmatch Airway Mallampati Class: II TM Dist: >3cm Loose/Missing/Broken Teeth: Upper and Lower Lungs: clear Assessment and Plan Assessment Anesthesia Assessment: Anesthesia Plan Discussed, Smoking Cess. Discussed and Chart Reviewed Final Anesthetic Review Family History of Problems with Anesthesia: No History of Problems with Anesthesia: No NPO: Yes ASA Class: III Final Preanesthetic Review: No Changes in Pt Med Stat, Meds/Allgs Chart Reviewed, Consent Obtained/Reviewed and Anes Risks/Benef Reviewed Patient Risk: Intermediate Procedure Risk: Low Anesthetic Plan Anesthetic Plan: MAC: Disposition: Standard PACU
--- NOTE | 2022-02-01 13:37 | MHC.CM.PN ---
per rounds pt to have a egd today also cardiology to see pt
--- NOTE | 2022-02-01 13:54 | MHC.SHP ---
Pre-Procedural Eval Section A Date of Service: 02/01/22 The patient is an INPATIENT: Yes The History & Physical has been completed within 30 days and I have reviewed it.: Yes Section B Chief Complaint: Anemia, chf Allergies: Allergies Allergy/AdvReac Type Severity Reaction Status Date / Time acetaminophen [From Tylenol] Allergy Unknown UNKNOWN Verified 11/07/21 02:26 Plan Diagnosis/Plan: Unchanged I have reviewed the history and physical and performed a pertinent physical examination on my patient. No changes have occurred unless specified.
--- NOTE | 2022-02-01 13:55 | P.OP_ITS ---
Operative Note Operative Note Date of Service: 02/01/22 Narrative: Operative Information Procedure Description: EGD, Colonoscopy Indication: anemia, liver masses Anesthesia: MAC FLEXIBLE TRANSORAL UPPER GASTROINTESTINAL ENDOSCOPY AND COLONOSCOPY PROCEDURE NOTE UPPER ENDOSCOPY Consent: Indications for the procedure and potential complications of bleeding, perforation, reaction to medications and missed diagnosis were discussed with the patient and informed consent was obtained. Instrument: Olympus GIF H 190 J mid size upper endoscope Monitoring: Vital signs and clinical assessment, continuous EKG monitoring, Pulse oximetry, Carbon Dioxide monitoring and blood pressure monitoring were done throughout the procedure. Procedure: The patient was placed in the left lateral decubitis position and pre-procedure medications were administered and a bite block was placed. The endoscope was inserted into the mouth and advanced under direct vision to the third part of duodenum. A careful inspection was made as the upper endoscope was withdrawn including a retroflexed examination of the proximal stomach; Findings and interventions are described below. Findings: Larynx:normal Esophagus: GE junction at 40 cm, diaphragm hiatus at 40 cm, esophagitis noted, LA grade A, no varices seen Stomach: Patchy erythema. Biopsies were obtained. Grade 2 flap valve on retroflexed examination of the cardia. There were flecks of blood in the stomach but no bleeding source ?from upper airway or nasal . No gastric varices seen Duodenum: Normal bulb and descending duodenum, bx taken Intervention: Biopsies as noted above COLONOSCOPY Instrument: Olympus variable stiffness pediatric scope 190L Colonoscopy Monitoring: Vital signs and clinical assessment, continuous EKG monitoring, Pulse oximetry, Carbon Dioxide monitoring and blood pressure monitoring were done throughout the procedure. Colon withdrawal time was 10 minutes. Procedure: The patient was placed in the left lateral decubitis position and pre-procedure medications were administered. After a digital rectal examination of the ano-rectum, the video colonoscope was inserted into the rectum and advanced through the colon to the cecum/TI. The colonoscope was slowly withdrawn in a retrograde panoramic fashion and the colon mucosa was carefully examined including a retroflexed view of the rectum. Findings and interventions are described below. Procedure Difficulty:easy Findings: Terminal Ileum-normal, no blood seen Cecum: 12-15 mm sessile polyp removed with cold snare Ascending Colon: normal Transverse Colon -normal Descending Colon: 10 mm sessile polyp removed with cold snare and 3 clips applied for hemostasis Sigmoid Colon: 8 mm sessile polyp removed with cold snare -not retrieved Rectum: Retroflexion with small internal hemorrhoids, grade I Anorectum - normal Colon preparation: [place] Bowel Preparation Scale Right colon; 3 Transverse colon: 3 Left colon; 3 (0 = Unprepared colon segment with mucosa not seen due to solid stool that cannot be cleared. 1 = Portion of mucosa of the colon segment seen, but other areas of the colon segment not well seen due to staining, residual stool and/or opaque liquid. 2 = Minor amount of residual staining, small fragments of stool and/or opaque liquid, but mucosa of colon segment seen well. 3 = Entire mucosa of colon segment seen well with no residual staining, small fragments of stool or opaque liquid) Impression and Post Procedure Diagnosis: Endoscopy Findings: gastritis esophagitis Colonoscopy Findings: polyps internal hemorrhoids Plan: Await Pathology results Repeat Colonoscopy in 3-5 years or earlier if clinically indicated and health allows High fiber diet leaflet avoid straining at stool, epsom salts and sitz bath, anusol supps or cream can cont PPI, if H pylori pos then treat recommend liver or renal biopsy or both by IR if anticipate 2 separate tumour types Above findings were reviewed with the patient and relevant handouts were provided if indicated.
--- NOTE | 2022-02-01 13:55 | PM.OP ---
Brief Operative Note Date of Service: 02/01/22 Pre-op diagnosis: anemia, liver and renal masses Post-op diagnosis: same Procedure: see op note Surgeon: Tino Olivas MD Anesthesia: MAC Was an [employer] used for this Procedure?: No Estimated blood loss (mL): 0 Condition: stable Disposition: PACU
[2022-02-01] MEDS: Amiodarone/Dextrose 150 MG/100 ML PLAST..BAG 600 MG IV (15:00)
[2022-02-01] MEDS: Amiodarone HCL 900 MG in 0.9 % Sodium Chloride 500 ML 34.53 MG IVCONT (15:12)
--- NOTE | 2022-02-01 16:07 | P.PNIM_ITS ---
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 No focal complaints Review of Systems Denies chest pain Denies shortness of breath Denies nausea vomiting diarrhea Physical Exam Vital Signs: Vital Signs: Last Vital Signs Temp 98.3 F 02/01/22 15:54 Pulse 68 02/01/22 15:54 Resp 18 02/01/22 15:54 BP 133/63 02/01/22 15:54 Pulse Ox 97 02/01/22 15:54 BMI result Body Mass Index 19.3 Const: Other: Awake alert oriented x3 no acute distress Resp: Other: Clear auscultation bilaterally no rales rhonchi or wheezes Cardio: Other: No S4; positive S1-S2; no S3 murmurs of her gallops GI: Other: Soft nontender nondistended with normoactive bowel sounds Extrem: Other: No edema bilaterally Objective Data Active Medications Albuterol Sulfate (Albuterol Sulfate 90 Mcg 8 Gm Inhaler) 2 puff INHALE QID PRN PRN Reason: shortness of breath or wheezing Amlodipine Besylate (Amlodipine Besylate 5 Mg Tablet) 5 mg PO DAILY [facility]; Protocol Last Admin: 02/01/22 07:56 Dose: 5 mg Documented by: RASHAD Atorvastatin Calcium (Atorvastatin Calcium 20 Mg Tablet) 20 mg PO DAILY [facility] Last Admin: 02/01/22 07:54 Dose: 20 mg Documented by: RASHAD Carvedilol (Carvedilol 12.5 Mg Tablet) 12.5 mg PO BID [facility]; Protocol Last Admin: 02/01/22 07:55 Dose: 12.5 mg Documented by: RASHAD Docusate Sodium (Docusate Sodium 100 Mg Capsule) 100 mg PO DAILY PRN PRN Reason: Constipation Ferrous Sulfate (Ferrous Sulfate 324 Mg Tablet.Dr) 324 mg PO DAILY [facility] Last Admin: 02/01/22 07:54 Dose: 324 mg Documented by: RASHAD Fluticasone/Vilanterol (Fluticasone/Vilanterol 200/25 Blst.W.Dev) 1 puff INHALE DAILY [facility] Last Admin: 02/01/22 07:46 Dose: 1 puff Documented by: ALESHA Folic Acid (Folic Acid 1 Mg Tablet) 1 mg PO DAILY [facility] Last Admin: 02/01/22 07:56 Dose: 1 mg Documented by: RASHAD Furosemide (Furosemide 40 Mg Tablet) 40 mg PO BID@0900,1800 [facility]; Protocol Last Admin: 02/01/22 07:55 Dose: 40 mg Documented by: RASHAD Amiodarone HCl 900 mg/ Sodium (Chloride) 518 mls @ 34.533 mls/hr IVCONT .Q15H1M [facility]; Protocol Last Admin: 02/01/22 15:12 Dose: 1 mg/min, 34.53 mls/hr Documented by: PASCALE Multivitamins/Vitamin C (Multivitamin Tablet) 1 tab PO DAILY [facility] Last Admin: 02/01/22 07:56 Dose: 1 tab Documented by: RASHAD Nicotine Polacrilex (Nicotine Polacrilex 2 Mg Gum) 2 mg BUCCAL Q3H PRN PRN Reason: nicotine cravings Omeprazole (Omeprazole 40 Mg Capsule.Dr) 40 mg PO BID@0630,1630 [facility] Last Admin: 02/01/22 06:24 Dose: Not Given Documented by: ELISE Non-Admin Reason: NPO Ondansetron HCl (Ondansetron Hcl 4 Mg/2 Ml Vial) 4 mg IVPUSH Q8H PRN PRN Reason: Nausea and Vomiting Ondansetron HCl (Ondansetron Odt 4 Mg Tab.Rapdis) 4 mg TRANSLINGU Q6H PRN PRN Reason: Nausea Oxybutynin Chloride (Oxybutynin Chloride Er 5 Mg Tab.Er.24) 5 mg PO DAILY [facility] Last Admin: 02/01/22 07:55 Dose: 5 mg Documented by: RASHAD Quetiapine Fumarate (Quetiapine Fumarate 50 Mg Tablet) 50 mg PO DAILY PRN PRN Reason: Agitation Quetiapine Fumarate (Quetiapine Fumarate 50 Mg Tablet) 150 mg PO BEDTIME [facility] Last Admin: 01/31/22 19:56 Dose: 150 mg Documented by: LISETTE Sertraline HCl (Sertraline Hcl 100 Mg Tablet) 100 mg PO DAILY [facility] Last Admin: 02/01/22 07:54 Dose: 100 mg Documented by: RASHAD Sodium Chloride (0.9 % Sodium Chloride Flush 3 Ml Syringe) 3 ml IVFLUSH QSHIFT [facility] Last Admin: 02/01/22 07:54 Dose: 3 ml Documented by: RASHAD Spironolactone (Spironolactone 25 Mg Tablet) 12.5 mg PO DAILY [facility]; Protocol Last Admin: 02/01/22 07:54 Dose: 12.5 mg Documented by: RASHAD Tiotropium [place] (Tiotropium [place] 18 Mcg Cap.W.Dev) 1 puff INHALE DAILY [facility] Last Admin: 02/01/22 07:46 Dose: 1 puff Documented by: ALESHA Valsartan (Valsartan 40 Mg Tablet) 40 mg PO BID [facility]; Protocol Last Admin: 02/01/22 07:54 Dose: 40 mg Documented by: RASHAD Vitamin D (Cholecalciferol (Vitamin D3) 25 Mcg Tablet) 25 mcg PO DAILY [facility] Last Admin: 02/01/22 07:54 Dose: 25 mcg Documented by: RASHAD Labs CBC & Chem 7: 02/01/22 06:28 02/01/22 06:28 Labs: Laboratory Results - last 24 hr 02/01/22 02/01/22 06:28 06:28 MCV 80.0 MCH 23.7 L MCHC 29.7 L RDW 19.5 H Plt Count 293 MPV 11.4 Immature Gran % (Auto) 0.2 Neut % (Auto) 53.5 Lymph % (Auto) 29.7 [place] % (Auto) 12.8 H Eos % (Auto) 2.9 Baso % (Auto) 0.9 Lymph # (Auto) 1.6 [place] # (Auto) 0.7 Eos # (Auto) 0.2 Baso # (Auto) 0.1 Abs Immat Gran (auto) 0.01 Absolute Neuts (auto) 2.9 Absolute Nucleated RBC 0.000 Nucleated RBC % (auto) 0.0 Anion Gap 12 Estim Creat Clear Calc 47.0 Estimated GFR > 60 Fasting Glucose 89 Calcium 8.8 Total Bilirubin 0.4 AST 37 ALT 15 Alkaline Phosphatase 365 H Total Protein 6.6 Albumin 2.8 L Microbiology Microbiology Results: Microbiology 01/27/22 07:33 Blood Culture - Final Blood - Venous No growth after 5 days. 01/27/22 07:33 Blood Culture - Final Blood - Venous No growth after 5 days. Assessment and Plan (1) Liver mass, right lobe: Status: Acute (2) GI (gastrointestinal bleed): Status: Acute (3) Atrial tachycardia: Status: Acute (4) Severe anemia: Status: Acute Plan 66-year-old male with past medical history of CAD, CHF, hypertension presents to the hospital with complaints of abnormal labs found to have severe anemia along with acute on chronic CHF. Scheduled for EGD 02/01/22. CT abdomen done today demonstrates to 10.2 cm mass replacing the right hepatic lobe suggestive of infiltrated hepatocellular carcinoma; an additional 2.1 cm heterogeneously enhancing left hepatic lobe mass also suspicious for hepatocellular carcinoma. Concurrent finding of a 2.8 cm heterogeneously enhancing solid left exophytic renal mass suspicious for renal cell carcinoma. 1. Liver/Renal masses on CT -will discuss timing of Bx in am(somulent after procedure) 2.Acute on chronic microcytic anemia -Hgb stable -EGD/Colon done. Results in chart 3. Acute on chronic Systolic CHF exacerbation -echo 01/30/22 LVEF 20-25% -Aldactone 12.5 mg daily/valsartan 40 mg b.i.d. -follow renals/divalents 4.Paroxysmal Atrial tachycardia -acceptable rate control -continue Coreg...adjust as clinically indicated 5. GUERRERO -returned to baseline -continue lasix as ordered -follow renals/divalents 5. HTN -acceptable control on current therapies -adjust as per clinical response Heparin subQ Full Code Will require at least 2 midnights going forward to accommodate EGD on 02/01/2022. May require additional midnights based on results of EEG. Quality Stroke Does the patient have a stroke diagnosis?: No VTE Prior VTE?: No VTE Risk Level:: Medical - moderate - high VTE Device Contraindication: Treatment Not Indicated VTE Drug Contraindication: N/A - Med Ordered
[2022-02-01] MEDS: Omeprazole 40 MG CAPSULE.DR PO (18:06)
[2022-02-01] MEDS: QUEtiapine Fumarate 50 MG TABLET 150 MG PO (20:20)
--- NOTE | 2022-02-01 20:21 | PM.EVENT ---
Event Note Date of Service: 02/01/22 Event Note: AFib with RVR: Patient went into AFib with RVR with heart rate in 160s postprocedure. Patient was started on amiodarone drip. Currently converted to sinus with heart rate in 60s; Amiodarone drip discontinued Cardiology Dr. Teran was notified-recommended to start the patient on amiodarone 400 mg b.i.d..
[2022-02-01] MEDS: Amiodarone HCL 200 MG TABLET 400 MG PO (20:29)
[2022-02-02] VITALS (9 sets, daily range): BP systolic 117–141; BP diastolic 54–66; PULSE 56–69; RESP 14–20; TEMP 36.7–37.1; O2SAT 94–100; BMI 19.4
--- NOTE | 2022-02-02 | ECG_ITS ---
Test Reason : qtc check Blood Pressure : / mmHG Vent. Rate : 060 BPM Atrial Rate : 060 BPM P-R Int : 166 ms QRS Dur : 124 ms QT Int : 460 ms P-R-T Axes : -04 -62 -17 degrees QTc Int : 460 ms Normal sinus rhythm Left axis deviation Left ventricular hypertrophy with QRS widening ( Goran product , Romhilt-Granado ) Nonspecific T wave abnormality Abnormal ECG When compared with ECG of 28-JAN-2022 11:25, Premature atrial complexes are no longer Present QT has lengthened Referred By: Geetha Craig Electronically Signed By:Cruz Teran
[2022-02-02] MEDS: Omeprazole 40 MG CAPSULE.DR PO ×2 (06:09→15:45)
[2022-02-02 07:08] LABS: MANUAL DIFF FLAG NO
[2022-02-02 07:12] LABS: Basophils Absolute Auto 0.1 X10*3/uL (0.0-0.2); Basophils Percent Auto 1.1 % (0-2); Eosinophils Absolute Auto 0.1 X10*3/uL (0.0-0.4); Hematocrit 30.6 % (42.0-52.0); Imm Gran Abs Auto 0.02 X10*3/uL (0.00-0.03); Imm Gran Pct Auto 0.4 % (0.0-0.4); Lymphocytes Absolute Auto 1.4 X10*3/uL (1.2-4.9); Lymphocytes Percent Auto 25.3 % (20-40); Mean Corpuscular HGB Conc 29.4 g/dl (31.0-36.0); Mean Corpuscular Hemoglobin 23.4 pg (27.0-33.0); Mean Corpuscular Volume 79.7 fL (80.0-98.0); Mean Platelet Volume 11.5 fL (9.4-12.4); Monocytes Absolute Auto 0.7 X10*3/uL (0.1-1.2); Monocytes Percent Auto 12.1 % (2-11); Neutrophils Absolute Auto 3.3 x10*3/uL (2.0-8.3); Neutrophils Percent Auto 59.1 % (45-73); Platelet Count 278 X10*3/uL (160-400); Red Blood Count 3.84 X10*6/uL (4.60-5.80); Red Cell Distribution Width 19.6 % (11.0-16.0); White Blood Count 5.6 X10*3/uL (4.8-10.8)
[2022-02-02 07:25] LABS: Alanine Aminotransferase 15 U/L (0-40); Albumin Level 2.7 g/dL (3.5-5.0); Alkaline Phosphatase 374 U/L (39-117); Anion Gap 13 (12-20); Aspartate Amino Transferase 35 U/L (5-37); Bilirubin Total 0.4 mg/dL (0.0-1.0); Blood Urea Nitrogen 36 mg/dL (9-16); Calcium 8.9 mg/dL (8.4-10.2); Carbon Dioxide 33 mmol/L (22-29); Chloride 100 mmol/L (96-108); Creatinine Clr Calc Pharmacy 36.7; Estimated Glomerular Filt Rate 48; Glucose Fasting 88 mg/dL (60-99); Potassium 4.2 mmol/L (3.3-5.1); Sodium 142 mmol/L (135-145); Total Protein 6.5 g/dL (6.5-8.0)
[2022-02-02] MEDS: Fluticasone/Vilanterol 200/25 BLST.W.DEV 1 PUFF INHALE (07:41)
[2022-02-02] MEDS: Sertraline HCL 100 MG TABLET PO (07:58)
[2022-02-02] MEDS: Atorvastatin Calcium 20 MG TABLET PO (07:58)
[2022-02-02] MEDS: 0.9 % Sodium Chloride Flush 3 ML SYRINGE IVFLUSH ×3 (07:58→20:04)
[2022-02-02] MEDS: Folic Acid 1 MG TABLET PO (07:58)
[2022-02-02] MEDS: carvediloL 12.5 MG TABLET PO ×2 (07:58→20:03)
[2022-02-02] MEDS: Furosemide 40 MG TABLET PO ×2 (07:58→17:44)
[2022-02-02] MEDS: Amiodarone HCL 200 MG TABLET 400 MG PO ×2 (07:59→20:03)
[2022-02-02] MEDS: Spironolactone 25 MG TABLET 12.5 MG PO (07:59)
[2022-02-02] MEDS: Valsartan 40 MG TABLET PO ×2 (08:00→20:03)
[2022-02-02] MEDS: Multivitamin TABLET 1 TAB PO (08:00)
[2022-02-02] MEDS: amLODIPine Besylate 5 MG TABLET PO (08:00)
[2022-02-02] MEDS: Ferrous Sulfate 324 MG TABLET.DR PO (08:00)
[2022-02-02] MEDS: Cholecalciferol (Vitamin D3) 25 MCG TABLET PO (08:01)
--- NOTE | 2022-02-02 12:07 | HO.POSTANES ---
Post Anesthesia Evaluation Post Anesthesia Evaluation Vital Signs: Vital Signs Temp Pulse Resp BP Pulse Ox 02/02/22 11:29 98.1 F 65 18 132/63 95 02/02/22 07:43 66 18 02/02/22 07:31 98.1 F 60 16 133/64 98 02/02/22 03:41 98.2 F 59 20 141/66 H 97 Anesthesia: Monitored Mental Status: Awake Pain Control: Satisfactory Nausea/Vomiting: None Hydration: Adequate Anesthesia-Related Issues: No Anes. Related Issues
--- NOTE | 2022-02-02 15:59 | HO.PM.IMPN ---
Subjective Subjective Date of Service: 02/02/22 Interval History: (all issue gleaned through translator interpreter) No acute issues overnight. No focal complaints Review of Systems Denies chest pain Denies shortness of breath Denies nausea vomiting diarrhea Physical Exam Vital Signs: Vital Signs: Last Vital Signs Temp 98.5 F 02/02/22 15:04 Pulse 56 02/02/22 15:04 Resp 14 02/02/22 15:04 BP 124/60 02/02/22 15:04 Pulse Ox 98 02/02/22 15:04 Oxygen Flow Rate 2 02/02/22 13:08 BMI result Body Mass Index 19.4 Const: Other: Awake alert oriented x3 no acute distress Resp: Other: Clear auscultation bilaterally no rales rhonchi or wheezes Cardio: Other: No S4; positive S1-S2; no S3 murmurs of her gallops GI: Other: Soft nontender nondistended with normoactive bowel sounds Extrem: Other: No edema bilaterally Objective Data Active Medications Albuterol Sulfate (Albuterol Sulfate 90 Mcg 8 Gm Inhaler) 2 puff INHALE QID PRN PRN Reason: shortness of breath or wheezing Amiodarone HCl (Amiodarone Hcl 200 Mg Tablet) 400 mg PO BID [facility] Last Admin: 02/02/22 07:59 Dose: 400 mg Documented by: RASHAD Amlodipine Besylate (Amlodipine Besylate 5 Mg Tablet) 5 mg PO DAILY [facility]; Protocol Last Admin: 02/02/22 08:00 Dose: 5 mg Documented by: RASHAD Atorvastatin Calcium (Atorvastatin Calcium 20 Mg Tablet) 20 mg PO DAILY [facility] Last Admin: 02/02/22 07:58 Dose: 20 mg Documented by: RASHAD Carvedilol (Carvedilol 12.5 Mg Tablet) 12.5 mg PO BID [facility]; Protocol Last Admin: 02/02/22 07:58 Dose: 12.5 mg Documented by: RASHAD Docusate Sodium (Docusate Sodium 100 Mg Capsule) 100 mg PO DAILY PRN PRN Reason: Constipation Ferrous Sulfate (Ferrous Sulfate 324 Mg Tablet.Dr) 324 mg PO DAILY [facility] Last Admin: 02/02/22 08:00 Dose: 324 mg Documented by: ARSHAD Fluticasone/Vilanterol (Fluticasone/Vilanterol 200/25 Blst.W.Dev) 1 puff INHALE DAILY [facility] Last Admin: 02/02/22 07:41 Dose: 1 puff Documented by: ALESHA Folic Acid (Folic Acid 1 Mg Tablet) 1 mg PO DAILY [facility] Last Admin: 02/02/22 07:58 Dose: 1 mg Documented by: RASHAD Furosemide (Furosemide 40 Mg Tablet) 40 mg PO BID@0900,1800 [facility]; Protocol Last Admin: 02/02/22 07:58 Dose: 40 mg Documented by: RASHAD Multivitamins/Vitamin C (Multivitamin Tablet) 1 tab PO DAILY [facility] Last Admin: 02/02/22 08:00 Dose: 1 tab Documented by: RASHAD Nicotine Polacrilex (Nicotine Polacrilex 2 Mg Gum) 2 mg BUCCAL Q3H PRN PRN Reason: nicotine cravings Omeprazole (Omeprazole 40 Mg Capsule.Dr) 40 mg PO BID@0630,1630 [facility] Last Admin: 02/02/22 15:45 Dose: 40 mg Documented by: RASHAD Ondansetron HCl (Ondansetron Hcl 4 Mg/2 Ml Vial) 4 mg IVPUSH Q8H PRN PRN Reason: Nausea and Vomiting Ondansetron HCl (Ondansetron Odt 4 Mg Tab.Rapdis) 4 mg TRANSLINGU Q6H PRN PRN Reason: Nausea Oxybutynin Chloride (Oxybutynin Chloride Er 5 Mg Tab.Er.24) 5 mg PO DAILY [facility] Last Admin: 02/02/22 07:58 Dose: 5 mg Documented by: RASHAD Quetiapine Fumarate (Quetiapine Fumarate 50 Mg Tablet) 50 mg PO DAILY PRN PRN Reason: Agitation Quetiapine Fumarate (Quetiapine Fumarate 50 Mg Tablet) 150 mg PO BEDTIME [facility] Last Admin: 02/01/22 20:20 Dose: 150 mg Documented by: NAVYA Sertraline HCl (Sertraline Hcl 100 Mg Tablet) 100 mg PO DAILY [facility] Last Admin: 02/02/22 07:58 Dose: 100 mg Documented by: RASHAD Sodium Chloride (0.9 % Sodium Chloride Flush 3 Ml Syringe) 3 ml IVFLUSH QSHIFT [facility] Last Admin: 02/02/22 15:45 Dose: 3 ml Documented by: RASHAD Spironolactone (Spironolactone 25 Mg Tablet) 12.5 mg PO DAILY [facility]; Protocol Last Admin: 02/02/22 07:59 Dose: 12.5 mg Documented by: RASHAD Tiotropium [place] (Tiotropium [place] 18 Mcg Cap.W.Dev) 1 puff INHALE DAILY [facility] Last Admin: 02/02/22 07:41 Dose: 1 puff Documented by: ALESHA Valsartan (Valsartan 40 Mg Tablet) 40 mg PO BID [facility]; Protocol Last Admin: 02/02/22 08:00 Dose: 40 mg Documented by: RASHAD Vitamin D (Cholecalciferol (Vitamin D3) 25 Mcg Tablet) 25 mcg PO DAILY [facility] Last Admin: 02/02/22 08:01 Dose: 25 mcg Documented by: RASHAD Labs CBC & Chem 7: 02/02/22 06:45 02/02/22 06:45 Labs: Laboratory Results - last 24 hr 02/02/22 02/02/22 06:45 06:45 MCV 79.7 L MCH 23.4 L MCHC 29.4 L RDW 19.6 H Plt Count 278 MPV 11.5 Immature Gran % (Auto) 0.4 Neut % (Auto) 59.1 Lymph % (Auto) 25.3 [place] % (Auto) 12.1 H Eos % (Auto) 2.0 Baso % (Auto) 1.1 Lymph # (Auto) 1.4 [place] # (Auto) 0.7 Eos # (Auto) 0.1 Baso # (Auto) 0.1 Abs Immat Gran (auto) 0.02 Absolute Neuts (auto) 3.3 Absolute Nucleated RBC 0.000 Nucleated RBC % (auto) 0.0 Anion Gap 13 Estim Creat Clear Calc 36.7 Estimated GFR 48 Fasting Glucose 88 Calcium 8.9 Total Bilirubin 0.4 AST 35 ALT 15 Alkaline Phosphatase 374 H Total Protein 6.5 Albumin 2.7 L Assessment and Plan (1) Liver mass, right lobe: Status: Acute (2) GI (gastrointestinal bleed): Status: Acute (3) Atrial tachycardia: Status: Acute (4) CHF exacerbation: Status: Acute Plan 66-year-old male with past medical history of CAD, CHF, hypertension presents to the hospital with complaints of abnormal labs found to have severe anemia along with acute on chronic CHF. Scheduled for EGD 02/01/22. CT abdomen done today demonstrates to 10.2 cm mass replacing the right hepatic lobe suggestive of infiltrated hepatocellular carcinoma; an additional 2.1 cm heterogeneously enhancing left hepatic lobe mass also suspicious for hepatocellular carcinoma. Concurrent finding of a 2.8 cm heterogeneously enhancing solid left exophytic renal mass suspicious for renal cell carcinoma. 1. Liver/Renal masses on CT -US BX in am -AFP today -check coags in am 2.Acute on chronic microcytic anemia -Hgb stable -EGD/Colon done. Results in chart 3. Acute on chronic Systolic CHF exacerbation -echo 01/30/22 LVEF 20-25% -Aldactone 12.5 mg daily/valsartan 40 mg b.i.d. -episode of PSVT post procedure requiring AMio GTT -Now on oral load -follow renals/divalents 4.Paroxysmal Atrial tachycardia -acceptable rate control -continue Coreg...adjust as clinically indicated 5. GUERRERO -returned to baseline -continue lasix as ordered -follow renals/divalents 5. HTN -acceptable control on current therapies -adjust as per clinical response Heparin subQ Full Code Will require at least 2 midnights going forward to accommodate EGD on 02/01/2022. May require additional midnights based on results of EEG. Quality Stroke Does the patient have a stroke diagnosis?: No VTE Prior VTE?: No VTE Risk Level:: Medical - moderate - high VTE Device Contraindication: Treatment Not Indicated VTE Drug Contraindication: N/A - Med Ordered
[2022-02-02] MEDS: QUEtiapine Fumarate 50 MG TABLET 150 MG PO (20:04)
[2022-02-03] VITALS (16 sets, daily range): BP systolic 111–156; BP diastolic 53–72; PULSE 57–76; RESP 16–20; TEMP 36.6–37.1; O2SAT 94–99; BMI 19.1
[2022-02-03 06:24] LABS: MANUAL DIFF FLAG NO
[2022-02-03 06:32] LABS: Basophils Absolute Auto 0.1 X10*3/uL (0.0-0.2); Basophils Percent Auto 0.8 % (0-2); Eosinophils Absolute Auto 0.1 X10*3/uL (0.0-0.4); Eosinophils Percent Auto 1.4 % (0-4); Imm Gran Abs Auto 0.02 X10*3/uL (0.00-0.03); Imm Gran Pct Auto 0.3 % (0.0-0.4); Lymphocytes Absolute Auto 1.5 X10*3/uL (1.2-4.9); Lymphocytes Percent Auto 23.9 % (20-40); Mean Corpuscular Hemoglobin 23.6 pg (27.0-33.0); Mean Corpuscular Volume 78.5 fL (80.0-98.0); Mean Platelet Volume 12.1 fL (9.4-12.4); Monocytes Absolute Auto 0.9 X10*3/uL (0.1-1.2); Monocytes Percent Auto 13.6 % (2-11); Neutrophils Absolute Auto 3.8 x10*3/uL (2.0-8.3); Platelet Count 267 X10*3/uL (160-400); Red Blood Count 3.82 X10*6/uL (4.60-5.80); Red Cell Distribution Width 19.5 % (11.0-16.0); White Blood Count 6.3 X10*3/uL (4.8-10.8)
[2022-02-03 06:37] LABS: INTERNATIONAL NORM RATIO 1.1 (0.9-1.1); Prothrombin Time 12.6 SEC (9.9-13.0)
[2022-02-03 06:46] LABS: Alanine Aminotransferase 17 U/L (0-40); Albumin Level 2.8 g/dL (3.5-5.0); Alkaline Phosphatase 399 U/L (39-117); Anion Gap 11 (12-20); Aspartate Amino Transferase 39 U/L (5-37); Bilirubin Total 0.4 mg/dL (0.0-1.0); Blood Urea Nitrogen 36 mg/dL (9-16); Calcium 8.9 mg/dL (8.4-10.2); Carbon Dioxide 33 mmol/L (22-29); Chloride 101 mmol/L (96-108); Creatinine Clr Calc Pharmacy 37.7; Estimated Glomerular Filt Rate 50; Glucose Fasting 101 mg/dL (60-99); Potassium 4.2 mmol/L (3.3-5.1); Sodium 141 mmol/L (135-145); Total Protein 6.9 g/dL (6.5-8.0)
[2022-02-03] MEDS: Fluticasone/Vilanterol 200/25 BLST.W.DEV 1 PUFF INHALE (07:43)
--- NOTE | 2022-02-03 09:44 | HO.RADPN ---
RADIOLOGY Narrative Narrative: Right lobe liver biopsy using coaxial system. 4 20 g core biopsies obtained from right lobe lesion. No complication.
[2022-02-03] MEDS: Lidocaine HCl 1 % MPF 5 ML VIAL SUBCUT (10:02)
[2022-02-03] MEDS: Sertraline HCL 100 MG TABLET PO (10:29)
[2022-02-03] MEDS: Furosemide 40 MG TABLET PO ×2 (10:29→18:23)
[2022-02-03] MEDS: Atorvastatin Calcium 20 MG TABLET PO (10:30)
[2022-02-03] MEDS: Cholecalciferol (Vitamin D3) 25 MCG TABLET PO (10:30)
[2022-02-03] MEDS: Ferrous Sulfate 324 MG TABLET.DR PO (10:30)
[2022-02-03] MEDS: Folic Acid 1 MG TABLET PO (10:30)
[2022-02-03] MEDS: Multivitamin TABLET 1 TAB PO (10:30)
[2022-02-03] MEDS: Spironolactone 25 MG TABLET 12.5 MG PO (10:31)
[2022-02-03] MEDS: Amiodarone HCL 200 MG TABLET 400 MG PO ×2 (10:32→20:07)
[2022-02-03] MEDS: amLODIPine Besylate 5 MG TABLET PO (10:33)
[2022-02-03] MEDS: carvediloL 12.5 MG TABLET PO ×2 (10:33→20:08)
[2022-02-03] MEDS: Valsartan 40 MG TABLET PO ×2 (10:33→20:08)
[2022-02-03] MEDS: 0.9 % Sodium Chloride Flush 3 ML SYRINGE IVFLUSH ×3 (10:33→20:09)
[2022-02-03 12:27] LABS: Alpha Fetoprotein 4.5 ng/mL (<6.1)
--- NOTE | 2022-02-03 15:59 | P.PNIM_ITS ---
Subjective Subjective Date of Service: 02/03/22 Interval History: underwent liver biopsy this morning, postprocedure doing fine denies abdominal pain no nausea no vomiting no acute issues overnight, no recurrent bout of atrial tachycardia. Review of Systems Review of Systems: Yes all other systems are reviewed and are negative Physical Exam Vital Signs: Vital Signs: Last Vital Signs Temp 98.1 F 02/03/22 15:24 Pulse 65 02/03/22 15:24 Resp 16 02/03/22 15:24 BP 118/58 L 02/03/22 15:24 Pulse Ox 97 02/03/22 15:24 Oxygen Flow Rate 2 02/03/22 13:00 BMI result Body Mass Index 19.1 Const: Other: General awake alert, in no acute distress HEENT pupils equal round reactive to light and accommodation Neck supple,no JVD. CVS? regular rate rhythm, Respiratory lungs no crackles , no use of accessory muscle Gastrointestinal abdomen soft, nontender, bowel sounds audible,no guarding , no rigidity. Extremities no edema. Neuro nonfocal Skin no rash Psych appropriate affect Objective Data Active Medications Albuterol Sulfate (Albuterol Sulfate 90 Mcg 8 Gm Inhaler) 2 puff INHALE QID PRN PRN Reason: shortness of breath or wheezing Amiodarone HCl (Amiodarone Hcl 200 Mg Tablet) 400 mg PO BID [facility] Last Admin: 02/03/22 10:32 Dose: 400 mg Documented by: ENMANUEL Amlodipine Besylate (Amlodipine Besylate 5 Mg Tablet) 5 mg PO DAILY [facility]; Protocol Last Admin: 02/03/22 10:33 Dose: 5 mg Documented by: ENMANUEL Atorvastatin Calcium (Atorvastatin Calcium 20 Mg Tablet) 20 mg PO DAILY [facility] Last Admin: 02/03/22 10:30 Dose: 20 mg Documented by: ENMANUEL Carvedilol (Carvedilol 12.5 Mg Tablet) 12.5 mg PO BID [facility]; Protocol Last Admin: 02/03/22 10:33 Dose: 12.5 mg Documented by: ENMANUEL Docusate Sodium (Docusate Sodium 100 Mg Capsule) 100 mg PO DAILY PRN PRN Reason: Constipation Ferrous Sulfate (Ferrous Sulfate 324 Mg Tablet.Dr) 324 mg PO DAILY [facility] Last Admin: 02/03/22 10:30 Dose: 324 mg Documented by: ENMANUEL Fluticasone/Vilanterol (Fluticasone/Vilanterol 200/25 Blst.W.Dev) 1 puff INHALE DAILY [facility] Last Admin: 02/03/22 07:43 Dose: 1 puff Documented by: NIRANJAN Folic Acid (Folic Acid 1 Mg Tablet) 1 mg PO DAILY [facility] Last Admin: 02/03/22 10:30 Dose: 1 mg Documented by: ENMANUEL Furosemide (Furosemide 40 Mg Tablet) 40 mg PO BID@0900,1800 [facility]; Protocol Last Admin: 02/03/22 10:29 Dose: 40 mg Documented by: ENMANUEL Multivitamins/Vitamin C (Multivitamin Tablet) 1 tab PO DAILY [facility] Last Admin: 02/03/22 10:30 Dose: 1 tab Documented by: ENMANUEL Nicotine Polacrilex (Nicotine Polacrilex 2 Mg Gum) 2 mg BUCCAL Q3H PRN PRN Reason: nicotine cravings Omeprazole (Omeprazole 40 Mg Capsule.Dr) 40 mg PO BID@0630,1630 [facility] Last Admin: 02/03/22 05:52 Dose: Not Given Documented by: FERNANDO Non-Admin Reason: NPO Ondansetron HCl (Ondansetron Hcl 4 Mg/2 Ml Vial) 4 mg IVPUSH Q8H PRN PRN Reason: Nausea and Vomiting Ondansetron HCl (Ondansetron Odt 4 Mg Tab.Rapdis) 4 mg TRANSLINGU Q6H PRN PRN Reason: Nausea Oxybutynin Chloride (Oxybutynin Chloride Er 5 Mg Tab.Er.24) 5 mg PO DAILY [facility] Last Admin: 02/03/22 10:30 Dose: 5 mg Documented by: ENMANUEL Quetiapine Fumarate (Quetiapine Fumarate 50 Mg Tablet) 50 mg PO DAILY PRN PRN Reason: Agitation Quetiapine Fumarate (Quetiapine Fumarate 50 Mg Tablet) 150 mg PO BEDTIME [facility] Last Admin: 02/02/22 20:04 Dose: 150 mg Documented by: FERNANDO Sertraline HCl (Sertraline Hcl 100 Mg Tablet) 100 mg PO DAILY [facility] Last Admin: 02/03/22 10:29 Dose: 100 mg Documented by: ENMANUEL Sodium Chloride (0.9 % Sodium Chloride Flush 3 Ml Syringe) 3 ml IVFLUSH QSHIFT [facility] Last Admin: 02/03/22 10:33 Dose: 3 ml Documented by: ENMANUEL Spironolactone (Spironolactone 25 Mg Tablet) 12.5 mg PO DAILY [facility]; Protocol Last Admin: 02/03/22 10:31 Dose: 12.5 mg Documented by: ENMANUEL Tiotropium [place] (Tiotropium [place] 18 Mcg Cap.W.Dev) 1 puff INHALE DAILY [facility] Last Admin: 02/03/22 07:43 Dose: 1 puff Documented by: NIRANJAN Valsartan (Valsartan 40 Mg Tablet) 40 mg PO BID [facility]; Protocol Last Admin: 02/03/22 10:33 Dose: 40 mg Documented by: ENMANUEL Vitamin D (Cholecalciferol (Vitamin D3) 25 Mcg Tablet) 25 mcg PO DAILY [facility] Last Admin: 02/03/22 10:30 Dose: 25 mcg Documented by: ENMANUEL Labs CBC & Chem 7: 02/03/22 05:51 02/03/22 05:51 Labs: Laboratory Results - last 24 hr 02/02/22 02/03/22 02/03/22 16:48 05:51 05:51 MCV 78.5 L MCH 23.6 L MCHC 30.0 L RDW 19.5 H Plt Count 267 MPV 12.1 Immature Gran % (Auto) 0.3 Neut % (Auto) 60.0 Lymph % (Auto) 23.9 [place] % (Auto) 13.6 H Eos % (Auto) 1.4 Baso % (Auto) 0.8 Lymph # (Auto) 1.5 [place] # (Auto) 0.9 Eos # (Auto) 0.1 Baso # (Auto) 0.1 Abs Immat Gran (auto) 0.02 Absolute Neuts (auto) 3.8 Absolute Nucleated RBC 0.000 Nucleated RBC % (auto) 0.0 PT 12.6 INR 1.1 Anion Gap Estim Creat Clear Calc Estimated GFR Fasting Glucose Calcium Total Bilirubin AST ALT Alkaline Phosphatase Total Protein Albumin Alpha Fetoprotein 4.5 02/03/22 05:51 MCV MCH MCHC RDW Plt Count MPV Immature Gran % (Auto) Neut % (Auto) Lymph % (Auto) [place] % (Auto) Eos % (Auto) Baso % (Auto) Lymph # (Auto) [place] # (Auto) Eos # (Auto) Baso # (Auto) Abs Immat Gran (auto) Absolute Neuts (auto) Absolute Nucleated RBC Nucleated RBC % (auto) PT INR Anion Gap 11 L Estim Creat Clear Calc 37.7 Estimated GFR 50 Fasting Glucose 101 H Calcium 8.9 Total Bilirubin 0.4 AST 39 H ALT 17 Alkaline Phosphatase 399 H Total Protein 6.9 Albumin 2.8 L Alpha Fetoprotein Assessment and Plan (1) Liver mass, right lobe: Status: Acute (2) GI (gastrointestinal bleed): Status: Acute (3) Atrial tachycardia: Status: Acute (4) CHF exacerbation: Status: Acute Plan 66-year-old male with past medical history of CAD, CHF, hypertension presents to the hospital with complaints of abnormal labs found to have severe anemia along with acute on chronic CHF. Scheduled for EGD 02/01/22. CT abdomen done today demonstrates to 10.2 cm mass replacing the right hepatic lobe suggestive of infiltrated hepatocellular carcinoma; an additional 2.1 cm heterogeneously enhancing left hepatic lobe mass also suspicious for hepatocellular carcinoma. Concurrent finding of a 2.8 cm heterogeneously enhancing solid left exophytic renal mass suspicious for renal cell carcinoma. 1. Liver/Renal masses on CT - Underwent liver biopsy this morning post procedure denies abdominal pain , tolerating diet, no nausea no vomiting - AFP within normal, INR 1.1, low albumin 2.8 2.Acute on chronic microcytic anemia -Hgb stable, no acute GI bleed noted had guaiac-positive stools iron studies consistent with iron deficiency anemia status post 2 units of packed RBC -EGD done, it showed gastritis/ esophagitis, colonoscopy showed polyps and internal hemorrhoids. continue PPI 3. Acute on chronic Systolic CHF exacerbation -echo 01/30/22 LVEF 20-25%, status post IV Lasix drip now transitioned to oral Lasix 40 mg b.i.d.,Aldactone 12.5 mg daily/valsartan 40 mg b.i.d. -episode of PSVT post procedure requiring AMio GTT -Now on oral load -follow renals/divalents, wean oxygen patient not on home O2 4.Paroxysmal Atrial tachycardia - patient started on amiodarone loading dose due to recurrent episodes continue amiodarone 400 mg b.i.d. and transition to 200 mg daily, continue coreg 12.5 b.i.d. 5. GUERRERO -returned to baseline -continue lasix as ordered -follow renals/divalents 5. HTN -acceptable control on current therapies 6. acute hypoxic respiratory failure resolved will wean oxygen, not on home o2 Heparin subQ Full Code will need continued inpatient hospitalization requiring medication adjustment for atrial tachycardia and Chf Quality Stroke Does the patient have a stroke diagnosis?: No VTE Prior VTE?: No VTE Risk Level:: Medical - moderate - high VTE Device Contraindication: Treatment Not Indicated VTE Drug Contraindication: N/A - Med Ordered
[2022-02-03] MEDS: Omeprazole 40 MG CAPSULE.DR PO (16:00)
--- NOTE | 2022-02-03 19:29 | P.PNCA_ITS ---
Subjective Subjective Date of Service: 02/03/22 Principal diagnosis: Decompensated congestive heart failure. Interval history: Felling good. No SOB. Has been on amiodarone for atrial tach. Physical Exam Vital Signs: Last Vital Signs Temp 98.1 F 02/03/22 15:24 Pulse 65 02/03/22 15:24 Resp 16 02/03/22 15:24 BP 118/58 L 02/03/22 15:24 Pulse Ox 97 02/03/22 15:24 Oxygen Flow Rate 2 02/03/22 13:00 BMI result Body Mass Index 19.1 GENERAL APPEARANCE: in no acute distress, pleasant. NECK: no carotid bruit, no jugular venous distention. SKIN: no suspicious lesions, warm and dry. HEART: ? Holosystolic murmur left sternal border, regular rate and rhythm. LUNGS:? some crackles at bases. ABDOMEN: soft, nontender. EXTREMITIES: no edema. PERIPHERAL PULSES: equal. NEUROLOGIC: No gross deficits, AAO X 3 Objective Labs and Meds Result diagrams: 02/03/22 05:51 02/03/22 05:51 Lab results: Laboratory Results - last 24 hr 02/02/22 02/03/22 02/03/22 16:48 05:51 05:51 WBC 6.3 RBC 3.82 L Hgb 9.0 L Hct 30.0 L MCV 78.5 L MCH 23.6 L MCHC 30.0 L RDW 19.5 H Plt Count 267 MPV 12.1 Immature Gran % (Auto) 0.3 Neut % (Auto) 60.0 Lymph % (Auto) 23.9 [place] % (Auto) 13.6 H Eos % (Auto) 1.4 Baso % (Auto) 0.8 Lymph # (Auto) 1.5 [place] # (Auto) 0.9 Eos # (Auto) 0.1 Baso # (Auto) 0.1 Abs Immat Gran (auto) 0.02 Absolute Neuts (auto) 3.8 Absolute Nucleated RBC 0.000 Nucleated RBC % (auto) 0.0 PT 12.6 INR 1.1 Sodium Potassium Chloride Carbon Dioxide Anion Gap BUN Creatinine Estim Creat Clear Calc Estimated GFR Fasting Glucose Calcium Total Bilirubin AST ALT Alkaline Phosphatase Total Protein Albumin Alpha Fetoprotein 4.5 02/03/22 05:51 WBC RBC Hgb Hct MCV MCH MCHC RDW Plt Count MPV Immature Gran % (Auto) Neut % (Auto) Lymph % (Auto) [place] % (Auto) Eos % (Auto) Baso % (Auto) Lymph # (Auto) [place] # (Auto) Eos # (Auto) Baso # (Auto) Abs Immat Gran (auto) Absolute Neuts (auto) Absolute Nucleated RBC Nucleated RBC % (auto) PT INR Sodium 141 Potassium 4.2 Chloride 101 Carbon Dioxide 33 H Anion Gap 11 L BUN 36 H Creatinine 1.42 H Estim Creat Clear Calc 37.7 Estimated GFR 50 Fasting Glucose 101 H Calcium 8.9 Total Bilirubin 0.4 AST 39 H ALT 17 Alkaline Phosphatase 399 H Total Protein 6.9 Albumin 2.8 L Alpha Fetoprotein Imaging Radiologist's impression: Impressions Liver Biopsy Ultrasound 02/03/22 09:40 IMPRESSION: Ultrasound-guided liver biopsy. Progress Note: A&P Assessment and plan (1) Atrial tachycardia: Status: Acute (2) CHF exacerbation: Status: Acute Plan 66 year old gentleman with cardiomyopathy with severe LV dysfunction and VSD. He had atrial tach and has been on amiodarone. c/w Amiodarone 400 mg BID x 7 days then 200 mg daily. Euvolemic. Fall Risk Details Current Medications: Current Medications Albuterol Sulfate (Albuterol Sulfate 90 Mcg 8 Gm Inhaler) 2 puff INHALE QID PRN PRN Reason: shortness of breath or wheezing Amiodarone HCl (Amiodarone Hcl 200 Mg Tablet) 400 mg PO BID [facility] Last Admin: 02/03/22 10:32 Dose: 400 mg Documented by: Amlodipine Besylate (Amlodipine Besylate 5 Mg Tablet) 5 mg PO DAILY [facility]; Protocol Last Admin: 02/03/22 10:33 Dose: 5 mg Documented by: Atorvastatin Calcium (Atorvastatin Calcium 20 Mg Tablet) 20 mg PO DAILY [facility] Last Admin: 02/03/22 10:30 Dose: 20 mg Documented by: Carvedilol (Carvedilol 12.5 Mg Tablet) 12.5 mg PO BID [facility]; Protocol Last Admin: 02/03/22 10:33 Dose: 12.5 mg Documented by: Docusate Sodium (Docusate Sodium 100 Mg Capsule) 100 mg PO DAILY PRN PRN Reason: Constipation Ferrous Sulfate (Ferrous Sulfate 324 Mg Tablet.) 324 mg PO DAILY [facility] Last Admin: 02/03/22 10:30 Dose: 324 mg Documented by: Fluticasone/Vilanterol (Fluticasone/Vilanterol 200/25 Blst.W.Dev) 1 puff INHALE DAILY [facility] Last Admin: 02/03/22 07:43 Dose: 1 puff Documented by: Folic Acid (Folic Acid 1 Mg Tablet) 1 mg PO DAILY [facility] Last Admin: 02/03/22 10:30 Dose: 1 mg Documented by: Furosemide (Furosemide 40 Mg Tablet) 40 mg PO BID@0900,1800 [facility]; Protocol Last Admin: 02/03/22 18:23 Dose: 40 mg Documented by: Multivitamins/Vitamin C (Multivitamin Tablet) 1 tab PO DAILY [facility] Last Admin: 02/03/22 10:30 Dose: 1 tab Documented by: Nicotine Polacrilex (Nicotine Polacrilex 2 Mg Gum) 2 mg BUCCAL Q3H PRN PRN Reason: nicotine cravings Omeprazole (Omeprazole 40 Mg Capsule.Dr) 40 mg PO BID@0630,1630 [facility] Last Admin: 02/03/22 16:00 Dose: 40 mg Documented by: Ondansetron HCl (Ondansetron Hcl 4 Mg/2 Ml Vial) 4 mg IVPUSH Q8H PRN PRN Reason: Nausea and Vomiting Ondansetron HCl (Ondansetron Odt 4 Mg Tab.Rapdis) 4 mg TRANSLINGU Q6H PRN PRN Reason: Nausea Oxybutynin Chloride (Oxybutynin Chloride Er 5 Mg Tab.Er.24) 5 mg PO DAILY [facility] Last Admin: 02/03/22 10:30 Dose: 5 mg Documented by: Quetiapine Fumarate (Quetiapine Fumarate 50 Mg Tablet) 50 mg PO DAILY PRN PRN Reason: Agitation Quetiapine Fumarate (Quetiapine Fumarate 50 Mg Tablet) 150 mg PO BEDTIME [facility] Last Admin: 02/02/22 20:04 Dose: 150 mg Documented by: Sertraline HCl (Sertraline Hcl 100 Mg Tablet) 100 mg PO DAILY [facility] Last Admin: 02/03/22 10:29 Dose: 100 mg Documented by: Sodium Chloride (0.9 % Sodium Chloride Flush 3 Ml Syringe) 3 ml IVFLUSH QSHIFT [facility] Last Admin: 02/03/22 16:00 Dose: 3 ml Documented by: Spironolactone (Spironolactone 25 Mg Tablet) 12.5 mg PO DAILY [facility]; Protocol Last Admin: 02/03/22 10:31 Dose: 12.5 mg Documented by: Tiotropium [place] (Tiotropium [place] 18 Mcg Cap.W.Dev) 1 puff INHALE DAILY [facility] Last Admin: 02/03/22 07:43 Dose: 1 puff Documented by: Valsartan (Valsartan 40 Mg Tablet) 40 mg PO BID [facility]; Protocol Last Admin: 02/03/22 10:33 Dose: 40 mg Documented by: Vitamin D (Cholecalciferol (Vitamin D3) 25 Mcg Tablet) 25 mcg PO DAILY [facility] Last Admin: 02/03/22 10:30 Dose: 25 mcg Documented by: Time Spent With Patient Time: Total time spent is greater than 50% in coordination of care (as documented) at patient's floor/unit and/or counseling patient: Progress Note: Quality Stroke Does the patient have a stroke diagnosis?: No Procedures Date of Service Date of Service: 02/03/22
[2022-02-03] MEDS: QUEtiapine Fumarate 50 MG TABLET 150 MG PO (20:07)
--- NOTE | 2022-02-04 | ECG_ITS ---
Test Reason : CHECK QTC Blood Pressure : / mmHG Vent. Rate : 055 BPM Atrial Rate : 055 BPM P-R Int : 162 ms QRS Dur : 128 ms QT Int : 454 ms P-R-T Axes : 015 -80 -72 degrees QTc Int : 434 ms Sinus bradycardia Left axis deviation Left ventricular hypertrophy with QRS widening and repolarization abnormality ( Goran product , Romhilt-Granado ) Abnormal ECG When compared with ECG of 02-FEB-2022 13:58, No significant change was found Referred By: Geetha Craig Electronically Signed By:Cruz Teran
[2022-02-04 03:41] VITALS: BP 129/63; PULSE 58; RESP 18; TEMP 37.3; O2SAT 90
[2022-02-04 05:49] VITALS: BMI 18.5
[2022-02-04] MEDS: Omeprazole 40 MG CAPSULE.DR PO (06:17)
[2022-02-04 06:47] LABS: MANUAL DIFF FLAG NO
[2022-02-04 06:56] LABS: Basophils Percent Auto 0.3 % (0-2); Eosinophils Absolute Auto 0.1 X10*3/uL (0.0-0.4); Eosinophils Percent Auto 2.2 % (0-4); Hematocrit 30.8 % (42.0-52.0); Imm Gran Abs Auto 0.01 X10*3/uL (0.00-0.03); Imm Gran Pct Auto 0.2 % (0.0-0.4); Lymphocytes Absolute Auto 1.7 X10*3/uL (1.2-4.9); Lymphocytes Percent Auto 27.2 % (20-40); Mean Corpuscular HGB Conc 29.2 g/dl (31.0-36.0); Mean Corpuscular Hemoglobin 23.1 pg (27.0-33.0); Mean Corpuscular Volume 79.2 fL (80.0-98.0); Mean Platelet Volume 12.2 fL (9.4-12.4); Monocytes Absolute Auto 0.7 X10*3/uL (0.1-1.2); Neutrophils Absolute Auto 3.7 x10*3/uL (2.0-8.3); Neutrophils Percent Auto 59.1 % (45-73); Platelet Count 248 X10*3/uL (160-400); Red Blood Count 3.89 X10*6/uL (4.60-5.80); Red Cell Distribution Width 19.4 % (11.0-16.0); White Blood Count 6.3 X10*3/uL (4.8-10.8)
[2022-02-04 07:14] LABS: Alanine Aminotransferase 21 U/L (0-40); Albumin Level 2.9 g/dL (3.5-5.0); Alkaline Phosphatase 422 U/L (39-117); Anion Gap 16 (12-20); Aspartate Amino Transferase 41 U/L (5-37); Bilirubin Total 0.5 mg/dL (0.0-1.0); Blood Urea Nitrogen 36 mg/dL (9-16); Calcium 9.2 mg/dL (8.4-10.2); Carbon Dioxide 31 mmol/L (22-29); Chloride 100 mmol/L (96-108); Creatinine Clr Calc Pharmacy 32.2; Estimated Glomerular Filt Rate 43; Glucose Fasting 96 mg/dL (60-99); Potassium 4.8 mmol/L (3.3-5.1); Sodium 142 mmol/L (135-145)
[2022-02-04] MEDS: Fluticasone/Vilanterol 200/25 BLST.W.DEV 1 PUFF INHALE (07:39)
[2022-02-04 07:40] VITALS: PULSE 71; RESP 18; O2SAT 95
[2022-02-04 07:53] VITALS: BP 149/69; PULSE 63; RESP 20; TEMP 36.9; O2SAT 95
[2022-02-04] MEDS: 0.9 % Sodium Chloride Flush 3 ML SYRINGE IVFLUSH (07:58)
[2022-02-04] MEDS: Valsartan 40 MG TABLET PO (07:59)
[2022-02-04] MEDS: carvediloL 12.5 MG TABLET PO (07:59)
[2022-02-04] MEDS: Sertraline HCL 100 MG TABLET PO (07:59)
[2022-02-04] MEDS: Multivitamin TABLET 1 TAB PO (07:59)
[2022-02-04] MEDS: Atorvastatin Calcium 20 MG TABLET PO (07:59)
[2022-02-04] MEDS: Ferrous Sulfate 324 MG TABLET.DR PO (07:59)
[2022-02-04] MEDS: Cholecalciferol (Vitamin D3) 25 MCG TABLET PO (07:59)
[2022-02-04] MEDS: Spironolactone 25 MG TABLET 12.5 MG PO (08:00)
[2022-02-04] MEDS: Furosemide 40 MG TABLET PO (08:00)
[2022-02-04] MEDS: Amiodarone HCL 200 MG TABLET 400 MG PO (08:00)
[2022-02-04] MEDS: amLODIPine Besylate 5 MG TABLET PO (08:01)
[2022-02-04] MEDS: Folic Acid 1 MG TABLET PO (08:01)
[2022-02-04 12:00] VITALS: BP 102/50; PULSE 59; RESP 20; TEMP 36.4; O2SAT 94
--- NOTE | 2022-02-04 12:34 | PM.PNCARD ---
Subjective Subjective Date of Service: 02/04/22 <MACARENA Morgan - Last Filed: 02/04/22 12:48> 02/04/22 <Cruz Teran MD - Last Filed: 02/04/22 13:30> Principal diagnosis: Decompensated congestive heart failure, atrial tachycardia <MACARENA Morgan - Last Filed: 02/04/22 12:48> Interval history: Cardiology follow up for the above. Seen at 1100. Today he reports feeling well. He denies having any sob, cough, chest pains or palpitations. Ambulating to bathroom and steady on feet. Feels ready to go home. 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 <MACARENA Morgan - Last Filed: 02/04/22 12:48> Review of Systems Review of Systems as above <MACARENA Morgan - Last Filed: 02/04/22 12:48> Yes all other systems are reviewed and are negative <MACARENA Morgan - Last Filed: 02/04/22 12:48> Physical Exam Vital Signs: Last Vital Signs Temp 98.5 F 02/04/22 07:53 Pulse 63 02/04/22 07:53 Resp 20 02/04/22 07:53 BP 149/69 H 02/04/22 07:53 Pulse Ox 95 02/04/22 07:53 Oxygen Flow Rate 2 02/03/22 13:00 BMI result Body Mass Index 18.5 <MACARENA Morgan - Last Filed: 02/04/22 12:48> Const General: cooperative, no acute distress, alert and awake <MACARENA Morgan - Last Filed: 02/04/22 12:48> Orientation/consciousness: patient oriented x3 <MACARENA Morgan Last Filed: 02/04/22 12:48> Neck Neck: Yes normal visual inspection and Yes no JVD <MACARENA Morgan Last Filed: 02/04/22 12:48> Resp Effort & Inspection: normal respiratory effort, able to speak in complete sentences and not labored <MACARENA Morgan - Last Filed: 02/04/22 12:48> Auscultation: clear to auscultation bilaterally, no rales, no rhonchi and no wheezes <NADER MorganC - Last Filed: 02/04/22 12:48> Cardio Rate: regular rate <NADER Morgan - Last Filed: 02/04/22 12:48> Rhythm: regular rhythm <NADER oMrgan - Last Filed: 02/04/22 12:48> Heart sounds: S1 normal heart sound present and S2 normal heart sound present <Geetha Craig NPC - Last Filed: 02/04/22 12:48> Peripheral pulses: Peripheral pulses 2+ throughout <Geetha Craig NPC - Last Filed: 02/04/22 12:48> GI Inspection: Yes normal to inspection <Geetha Craig NP - Last Filed: 02/04/22 12:48> Neuro General: patient oriented x3 <NADER Morgan - Last Filed: 02/04/22 12:48> Extrem General: Yes normal to inspection and No edema <Geetha Craig NPC - Last Filed: 02/04/22 12:48> Objective Labs and Meds Result diagrams: : 02/04/22 06:30 02/04/22 06:30 <Geetha Craig NP - Last Filed: 02/04/22 12:48> Lab results: Laboratory Results - last 24 hr 02/04/22 02/04/22 06:30 06:30 WBC 6.3 RBC 3.89 L Hgb 9.0 L Hct 30.8 L MCV 79.2 L MCH 23.1 L MCHC 29.2 L RDW 19.4 H Plt Count 248 MPV 12.2 Immature Gran % (Auto) 0.2 Neut % (Auto) 59.1 Lymph % (Auto) 27.2 [place] % (Auto) 11.0 Eos % (Auto) 2.2 Baso % (Auto) 0.3 Lymph # (Auto) 1.7 [place] # (Auto) 0.7 Eos # (Auto) 0.1 Baso # (Auto) 0.0 Abs Immat Gran (auto) 0.01 Absolute Neuts (auto) 3.7 Absolute Nucleated RBC 0.000 Nucleated RBC % (auto) 0.0 Sodium 142 Potassium 4.8 Chloride 100 Carbon Dioxide 31 H Anion Gap 16 BUN 36 H Creatinine 1.61 H Estim Creat Clear Calc 32.2 Estimated GFR 43 Fasting Glucose 96 Calcium 9.2 Total Bilirubin 0.5 AST 41 H ALT 21 Alkaline Phosphatase 422 H Total Protein 7.0 Albumin 2.9 L <MACARENA Morgan - Last Filed: 02/04/22 12:48> Imaging Radiologist's impression: Impressions Liver Biopsy Ultrasound 02/03/22 09:40 IMPRESSION: Ultrasound-guided liver biopsy. <MACARENA Morgan - Last Filed: 02/04/22 12:48> Progress Note: A&P Assessment and plan (1) CHF exacerbation: Status: Acute <MACARENA Morgan - Last Filed: 02/04/22 12:48> Assessment and Plan: Echo from 11/09/21 with EF 25-30% while at [facility]. Was started on carvedilol, lisinopril, lasix at that time. Follows at [facility]iology. Admitted 01/26/22 with anemia, sob. He was noted to have decompensated HF and has been diuresed with IV Lasix. Echo on 01/29/22 shows EF 20-25%. His Lisinopril has been changed to valsartan with the eventual plan to change to Entresto. He continues on carvedilol. Creatinine up to 1.61 and has been getting Lasix 40 mg b.i.d, will change to 40 mg daily. His home dose was 20 mg daily. He is on Aldactone 12.5 mg daily and it will be continued. He is currently euvolemic on examination. He may be discharged from a cardiology perspective. He will need outpatient follow-up with [facility] cardiology in the near future. Plan for BMP in 5-7 days. <MACARENA Morgan - Last Filed: 02/04/22 12:48> (2) Cardiomyopathy: Status: Acute <MACARENA Morgan - Last Filed: 02/04/22 12:48> Assessment and Plan: This will need to be followed as outpatient. If EF does not improve then ICD will be indicated. <MACARENA Morgan - Last Filed: 02/04/22 12:48> (3) Atrial tachycardia: Status: Acute <MACARENA Morgan - Last Filed: 02/04/22 12:48> Assessment and Plan: Episodes of atrial tach noted on last admission and this admission. He denies any heart palpitations. He is on carvedilol and continues to have episodes. He was started on amiodarone load yesterday. Currently receiving 400 b.i.d. x1 week then reduce dose down to 200 mg once daily. EKG done today shows sinus bradycardia, rate 55, QTC 434 millisecond. Tele monitor shows sinus rhythm with average heart rate in the 60s with brief atrial tach episodes. Noted continue amiodarone and carvedilol. <MACARENA Morgan - Last Filed: 02/04/22 12:48> (4) Hypertension: Status: Acute <MACARENA Morgan - Last Filed: 02/04/22 12:48> Assessment and Plan: Adequately controlled at this time. Continue Aldactone, carvedilol, valsartan, Lasix, amlodipine. <MACARENA Morgan - Last Filed: 02/04/22 12:48> Plan Congestive heart failure, ventricular septal defect and atrial tachycardia. On amiodarone for atrial tachycardia at this point. Still having some episodes but not as long as before in duration. Continue amiodarone 400 mg twice a day for a week and then 200 mg once a day. May be in a month or 2 he can be changed to 100 mg once a day for amiodarone. He will follow-up with [facility] Cardiology as before. <Cruz Teran MD - Last Filed: 02/04/22 13:30> Fall Risk Details Current Medications: Current Medications Albuterol Sulfate (Albuterol Sulfate 90 Mcg 8 Gm Inhaler) 2 puff INHALE QID PRN PRN Reason: shortness of breath or wheezing Amiodarone HCl (Amiodarone Hcl 200 Mg Tablet) 400 mg PO BID [facility] Last Admin: 02/04/22 08:00 Dose: 400 mg Documented by: Amlodipine Besylate (Amlodipine Besylate 5 Mg Tablet) 5 mg PO DAILY [facility]; Protocol Last Admin: 02/04/22 08:01 Dose: 5 mg Documented by: Atorvastatin Calcium (Atorvastatin Calcium 20 Mg Tablet) 20 mg PO DAILY [facility] Last Admin: 02/04/22 07:59 Dose: 20 mg Documented by: Carvedilol (Carvedilol 12.5 Mg Tablet) 12.5 mg PO BID [facility]; Protocol Last Admin: 02/04/22 07:59 Dose: 12.5 mg Documented by: Docusate Sodium (Docusate Sodium 100 Mg Capsule) 100 mg PO DAILY PRN PRN Reason: Constipation Ferrous Sulfate (Ferrous Sulfate 324 Mg Tablet.) 324 mg PO DAILY [facility] Last Admin: 02/04/22 07:59 Dose: 324 mg Documented by: Fluticasone/Vilanterol (Fluticasone/Vilanterol 200/25 Blst.W.Dev) 1 puff INHALE DAILY [facility] Last Admin: 02/04/22 07:39 Dose: 1 puff Documented by: Folic Acid (Folic Acid 1 Mg Tablet) 1 mg PO DAILY [facility] Last Admin: 02/04/22 08:01 Dose: 1 mg Documented by: Furosemide (Furosemide 40 Mg Tablet) 40 mg PO BID@0900,1800 [facility]; Protocol Last Admin: 02/04/22 08:00 Dose: 40 mg Documented by: Multivitamins/Vitamin C (Multivitamin Tablet) 1 tab PO DAILY [facility] Last Admin: 02/04/22 07:59 Dose: 1 tab Documented by: Nicotine Polacrilex (Nicotine Polacrilex 2 Mg Gum) 2 mg BUCCAL Q3H PRN PRN Reason: nicotine cravings Omeprazole (Omeprazole 40 Mg Capsule.) 40 mg PO BID@0630,1630 [facility] Last Admin: 02/04/22 06:17 Dose: 40 mg Documented by: Ondansetron HCl (Ondansetron Hcl 4 Mg/2 Ml Vial) 4 mg IVPUSH Q8H PRN PRN Reason: Nausea and Vomiting Ondansetron HCl (Ondansetron Odt 4 Mg Tab.Rapdis) 4 mg TRANSLINGU Q6H PRN PRN Reason: Nausea Oxybutynin Chloride (Oxybutynin Chloride Er 5 Mg Tab.Er.24) 5 mg PO DAILY [facility] Last Admin: 02/04/22 08:00 Dose: 5 mg Documented by: Quetiapine Fumarate (Quetiapine Fumarate 50 Mg Tablet) 50 mg PO DAILY PRN PRN Reason: Agitation Quetiapine Fumarate (Quetiapine Fumarate 50 Mg Tablet) 150 mg PO BEDTIME [facility] Last Admin: 02/03/22 20:07 Dose: 150 mg Documented by: Sertraline HCl (Sertraline Hcl 100 Mg Tablet) 100 mg PO DAILY [facility] Last Admin: 02/04/22 07:59 Dose: 100 mg Documented by: Sodium Chloride (0.9 % Sodium Chloride Flush 3 Ml Syringe) 3 ml IVFLUSH QSHIFT [facility] Last Admin: 02/04/22 07:58 Dose: 3 ml Documented by: Spironolactone (Spironolactone 25 Mg Tablet) 12.5 mg PO DAILY [facility]; Protocol Last Admin: 02/04/22 08:00 Dose: 12.5 mg Documented by: Tiotropium Rheems (Tiotropium Rheems 18 Mcg Cap.W.Dev) 1 puff INHALE DAILY [facility] Last Admin: 02/04/22 07:39 Dose: 1 puff Documented by: Valsartan (Valsartan 40 Mg Tablet) 40 mg PO BID [facility]; Protocol Last Admin: 02/04/22 07:59 Dose: 40 mg Documented by: Vitamin D (Cholecalciferol (Vitamin D3) 25 Mcg Tablet) 25 mcg PO DAILY [facility] Last Admin: 02/04/22 07:59 Dose: 25 mcg Documented by: <MACARENA Morgan - Last Filed: 02/04/22 12:48> Time Spent With Patient Time: Total time spent is greater than 50% in coordination of care (as documented) at patient's floor/unit and/or counseling patient: 22 <MACARENA Morgan - Last Filed: 02/04/22 12:48> Progress Note: Quality Stroke Does the patient have a stroke diagnosis?: No <MACARENA Morgan - Last Filed: 02/04/22 12:48> Procedures Date of Service Date of Service: 02/04/22 <MACARENA Morgan - Last Filed: 02/04/22 12:48>
[2022-02-04 12:52] VITALS: BP 131/57; PULSE 66; RESP 18; O2SAT 92
--- NOTE | 2022-02-04 13:34 | MHC.CM.PN ---
Patient has been medically cleared for dc to home today, with services. Patient was active with [facility], who has been notified of today's dc.
--- NOTE | 2022-02-04 13:43 | MHC.CM.PN ---
IMM addressed with Patient at bedside and the original has been given to him and a copy has been placed on the chart. Patient's Brother will transport home.
--- NOTE | 2022-02-04 14:45 | PM.DS ---
DS: Providers Provider Date of Service: 02/04/22 Date of admission: 01/26/22 23:36 Primary care physician: Elliot Burgess MD Consults: 01/26/22 23:37 Consult to Gastroenterology Routine Consulting Provider: Tino Olivas Reason for consultation: Anemia, occult stool positive 01/26/22 23:45 Consult to Cardiology Routine Consulting Provider: Geraldo Boyle Reason for consultation: CHF Has provider been notified: No 02/01/22 11:26 Consult to Cardiology Routine Consulting Provider: Cruz Teran Reason for consultation: PAT..pre op Has provider been notified: Yes DS: Diagnosis Discharge Diagnosis (1) CHF exacerbation: Status: Acute (2) Cardiomyopathy: Status: Acute (3) Atrial tachycardia: Status: Acute (4) Hypertension: Status: Acute DS: Summary Hospital Course Hospital Course: Chief Complaint: anemia ?Nepali-speaking only, history is obtained with the help of heating and ventilating tender This is a 66-year-old Nepali-speaking male with past medical history of CHF on Lasix,? iron deficiency anemia,asthma, CAD, CVA, HTN, VSD who presents to the hospital with complaints of abnormal labs.? Patient reports that he did routine labs and was found to be anemic therefore was asked to come to the hospital.? Patient denies any use of NSAIDs,? he reports? dark stools but he reports that he takes iron., no hematochezia, hemoptysis or heat hematemesis.? He denies any dizziness, no weakness at this time.? Patient reports compliance with his iron supplement. ? on my a exam patient appear to be tachypneic, on further questioning he reported orthopnea, PND, dyspnea on exertion, no lower extremity edema. On arrival to the ED patient found to have a heart rate of 127, respiratory rate of 27, blood pressure stable,? patient's heart rate throughout the ED stay was jumping between 60s to 120s 130s. Labs are significant for hemoglobin of 6.4 which is significantly dropped from 9.2 in October, hematocrit 22.2, MCV of 75.8, INR of 1.3, creatinine of 1.9 C with a baseline around 1.28, iron of 25, TIBC of 475, BNP of 1238. stool guaiac positive ?Chest x-ray shows few scattered patchy opacities bilaterally, this may be mild infection versus inflammatory etiology. Hospital course 66-year-old male with past medical history of CAD, CHF, hypertension presents to the hospital with complaints of abnormal labs found to? have severe anemia along with acute on chronic CHF.? Scheduled for EGD 02/01/22.? CT abdomen done today demonstrates to 10.2 cm mass replacing the right hepatic lobe suggestive of infiltrated hepatocellular carcinoma; an additional 2.1 cm heterogeneously enhancing left hepatic lobe mass also suspicious for hepatocellular carcinoma.? Concurrent finding of a 2.8 cm heterogeneously enhancing solid left exophytic renal mass suspicious for renal cell carcinoma. Patient admitted to hospital with a diagnosis of acute on chronic microcytic anemia, patient noted to have no acute GI bleed, stool guaiac was positive, iron studies were consistent with iron deficiency anemia patient treated with 2 units of packed RBC hematocrit improved and remains stable subsequently patient underwent upper endoscopy that showed gastritis/esophagitis and colonoscopy showed polyps and internal hemorrhoids patient has been maintained on Prilosec and aspirin has been held for 1 week he has been recommended to resume aspirin by next week. Patient also noted to have acute on chronic systolic heart failure exacerbation and echocardiogram showed an EF 20-25% patient treated with IV Lasix drip with good response subsequently transition to by mouth Lasix, Aldactone 12.5 mg and valsartan 40 mg by mouth b.i.d. has been added and lisinopril has been discontinued patient noted to have multiple episode of atrial tachycardia/PSVT therefore patient started on amiodarone loading does recommended to take amiodarone 400 mg twice daily for 4 more days and then amiodarone 200 mg by mouth daily, he has been continued on Coreg. As part of workup CT scan of abdomen was obtained that showed liver and renal masses therefore patient underwent liver biopsy, report is pending AFB is within normal range recommend outpatient follow-up with primary care physician and gastroenterology Dr. Kim, patient blood pressure is within acceptable range on current medication. Acute hypoxic respiratory failure resolved was likely due to CHF and anemia. Acute kidney injury patient on admission was noted to have a creatinine of 1.9 that improved to 1.6 he has been recommended to check BMP in 1 week. Time Spent with Patient Time attestation: Total time spent providing and/or coordinating discharge services: Discharge coordination time: Greater than 30 minutes Quality: Safe Use of Opioids Does Pt have an Active Cancer Diagnosis on the Problem List?: No Quality: Stroke Does the patient have a stroke diagnosis?: No Physical Exam Vital Signs: Vital Signs: Last Vital Signs Temp 97.6 F 02/04/22 12:00 Pulse 66 02/04/22 12:52 Resp 18 02/04/22 12:52 BP 131/57 L 02/04/22 12:52 Pulse Ox 92 02/04/22 12:52 Oxygen Flow Rate 2 02/03/22 13:00 BMI result Body Mass Index 18.5 Const: Other: General awake alert, in no acute distress HEENT pupils equal round reactive to light and accommodation Neck supple,no JVD. CVS? regular rate rhythm, Respiratory lungs no crackles , no use of accessory muscle Gastrointestinal abdomen soft, nontender, bowel sounds audible,no guarding , no rigidity. Extremities no edema. Neuro nonfocal Skin no rash Psych appropriate affect DS: Data Data Completed and Pending Completed studies during hospitalization [Text1]: Pending at discharge 02/01/22 14:26 Surgical [PTH] Routine Pending studies at discharge: Pending at discharge 02/03/22 09:36 Surgical Path [Surgical] [PTH] Routine Labs on day of discharge: Laboratory Results - last 24 hr 02/04/22 02/04/22 06:30 06:30 WBC 6.3 RBC 3.89 L Hgb 9.0 L Hct 30.8 L MCV 79.2 L MCH 23.1 L MCHC 29.2 L RDW 19.4 H Plt Count 248 MPV 12.2 Immature Gran % (Auto) 0.2 Neut % (Auto) 59.1 Lymph % (Auto) 27.2 [place] % (Auto) 11.0 Eos % (Auto) 2.2 Baso % (Auto) 0.3 Lymph # (Auto) 1.7 [place] # (Auto) 0.7 Eos # (Auto) 0.1 Baso # (Auto) 0.0 Abs Immat Gran (auto) 0.01 Absolute Neuts (auto) 3.7 Absolute Nucleated RBC 0.000 Nucleated RBC % (auto) 0.0 Sodium 142 Potassium 4.8 Chloride 100 Carbon Dioxide 31 H Anion Gap 16 BUN 36 H Creatinine 1.61 H Estim Creat Clear Calc 32.2 Estimated GFR 43 Fasting Glucose 96 Calcium 9.2 Total Bilirubin 0.5 AST 41 H ALT 21 Alkaline Phosphatase 422 H Total Protein 7.0 Albumin 2.9 L Discharge Plan Discharge Patient Disposition: Home Health Service Discharge Diagnosis: Acute on chronic congestive heart failure with reduced EF Liver and renal masses Acute on chronic anemia Paroxysmal atrial tachycardia Acute kidney injury Acute hypoxic respiratory failure Referrals: [facility] [Outside] - 1 Week Elliot Burgess MD [Primary Care Provider] - 1 Week Discharge Medications: New furosemide 40 mg Tablet 40 mg PO DAILY Qty: 30 0RF Protocol: Hold for SBP< HOLD for SBP < : 90 omeprazole 40 mg Capsule,Delayed Release(Dr/Ec) 40 mg PO DAILY Qty: 30 0RF amiodarone 200 mg Tablet 400 mg PO BID Qty: 60 0RF Rx Instructions: Take amiodarone 200 mg 2 tablets (400mg) twice daily for 4 more days, and then take amiodarone 200 mg 1 tablet daily. spironolactone 25 mg Tablet 12.5 mg PO DAILY Qty: 30 0RF Protocol: Hold for SBP< HOLD for SBP < : 90 valsartan 40 mg Tablet 40 mg PO BID Qty: 60 0RF Protocol: Hold for SBP< HOLD for SBP < : 90 Continued terazosin 5 mg capsule 1 cap PO BEDTIME 0RF atorvastatin 20 mg tablet 1 tab PO DAILY 0RF sertraline 100 mg tablet 1 tab PO DAILY 0RF amlodipine 5 mg tablet 1 tab PO DAILY 0RF oxybutynin chloride 5 mg tablet extended release 24hr 1 tab PO DAILY 0RF folic acid 1 mg tablet 1 tab PO DAILY 0RF Spiriva with HandiHaler 18 mcg capsule, w/inhalation device 1 cap inhalation DAILY 0RF quetiapine 50 mg tablet 1 tab PO DAILY PRN (Reason: Agitation) 0RF cholecalciferol (vitamin D3) [Vitamin D3] 25 mcg (1,000 unit) tablet 1 tab PO DAILY 0RF multivitamin with folic acid [Tab-A-Miguelangel] 400 mcg tablet 1 tab PO DAILY 0RF quetiapine 150 mg tablet extended release 24 hr 1 tab PO BEDTIME 0RF nicotine (polacrilex) 2 mg Gum 2 mg buccal Q3H PRN (Reason: nicotine cravings) Qty: 60 0RF albuterol sulfate 90 mcg/actuation HFA aerosol inhaler 2 puff inhalation QID PRN (Reason: shortness of breath or wheezing) Qty: 8.5 0RF carvedilol 12.5 mg Tablet 12.5 mg PO BID Qty: 60 0RF Protocol: Hold for SBP/HR < HOLD for SBP < : 90 HOLD for HR < : 60 ferrous sulfate 325 mg (65 mg iron) tablet,delayed release (DR/EC) 1 tab PO DAILY 0RF fluticasone propion-salmeterol 232-14 mcg/actuation aerosol powdr breath activated 1 puff inhalation BID 0RF Held aspirin 81 mg tablet,delayed release (DR/EC) 1 tab PO DAILY 0RF Hold Instructions: Resume on 02/08/22. Discontinued lisinopril 10 mg tablet 1 tab PO DAILY 0RF furosemide 20 mg tablet 1 tab PO BID 0RF Discharge Orders: Discharge Order (Routine); Ordered 02/04/22 Ordered By: Sherrie Richmond Diet: low fat, low cholesterol and low salt diet Activity on Discharge: As tolerated Stand Alone Forms: Patient Portal Discharge page Other Ambulatory Orders: Basic Metabolic Panel (Routine) Timeframe: [id number] Facility: [facility] - Location: Laboratory Ordered By: Sherrie Richmond Care Plan Goals: Take amiodarone 400 mg ([id number]) twice daily for 4 more days then take amiodarone 200 mg 1 tablet by mouth daily, resume aspirin from February 08, take all other medications as prescribed, follow salt diet and return to check with worsening shortness of breath leg edema or chest pain. Take spironolactone 12.5 mg (1/2 of 25 mg) daily Follow-up on his liver and kidney masses, liver biopsy has been obtained report pending. 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 Kim (gastroenterology) to obtain report of liver biopsy call to make an appointment Assessment: As per discharge plan
== END 2022-02-04 15:19 | disposition home health service (06) | DRG 291 ==
LOC: HO.ED 22:33 → HO.EDOVER 23:43 → HO.IMC 01-29 01:34
PROVIDERS: Hospitalist; Internal Medicine Gastroenterology; Radiology Diagnostic Radiology; Admitting Provider Internal Medicine; Emergency Provider Internal Medicine; PCP Internal Medicine; Visit Provider Hospitalist
PROC: 0DB98ZX Excision of Duodenum, Via Natural or Artificial Opening Endoscopic, Diagnostic (ICD-10-PCS; principal; 2022-02-01 12:30)
PROC: 0FB13ZX Excision of Right Lobe Liver, Percutaneous Approach, Diagnostic (ICD-10-PCS; principal; 2022-02-03 09:00)
DX: I11.0 Hypertensive heart disease with heart failure (principal); I50.23 Acute on chronic systolic (congestive) heart failure; K29.71 Gastritis, unspecified, with bleeding; K20.91 Esophagitis, unspecified with bleeding; J96.01 Acute respiratory failure with hypoxia; N17.9 Acute kidney failure, unspecified; D62 Acute posthemorrhagic anemia; Q21.0 Ventricular septal defect; I25.2 Old myocardial infarction; I47.9 Paroxysmal tachycardia, unspecified; J43.9 Emphysema, unspecified; I25.10 Atherosclerotic heart disease of native coronary artery without angina pectoris; B19.20 Unspecified viral hepatitis C without hepatic coma; Z20.822 Contact with and (suspected) exposure to COVID-19; I42.9 Cardiomyopathy, unspecified; Z86.73 Personal history of transient ischemic attack (TIA), and cerebral infarction without residual deficits; R16.0 Hepatomegaly, not elsewhere classified; K64.8 Other hemorrhoids; K63.5 Polyp of colon; Z88.6 Allergy status to analgesic agent; F17.210 Nicotine dependence, cigarettes, uncomplicated; Z71.6 Tobacco abuse counseling; Z79.82 Long term (current) use of aspirin; Z79.52 Long term (current) use of systemic steroids; Z79.899 Other long term (current) drug therapy
CPT/HCPCS: 36415; 36430; 47000; 71045; 71250; 74170; 76700; 76942; 80048; 80053; 82105; 82272; 82947; 83540; 83605; 83735; 83880; 84484; 85025; 85027; 85610; 86850; 86900; 86901; 86923; 87040; 87140; 87635; 88305; 88307; 88313; 88341; 88342; 93005; 93308; 93975; 94640; 96374; 99285; J0282; J0456; J0696; J1940; P9016; Q9967

== ENCOUNTER 2022-02-18 01:31 | Inpatient (IN) | payer MEDICARE, MEDICAID, SELFPAY ==
[2022-02-18] VITALS (33 sets, daily range): BP systolic 103–137; BP diastolic 55–74; PULSE 70–148; RESP 15–24; TEMP 36.6–37.2; O2SAT 82–100; BMI 19.7
--- NOTE | 2022-02-18 | ECG_ITS ---
Test Reason : TACHYCARDIA Blood Pressure : / mmHG Vent. Rate : 140 BPM Atrial Rate : 000 BPM P-R Int : 000 ms QRS Dur : 132 ms QT Int : 338 ms P-R-T Axes : 000 196 -09 degrees QTc Int : 516 ms Possible sinus tachycardia Left ventricular hypertrophy with QRS widening and repolarization abnormality ( Goran product ) Abnormal ECG When compared with ECG of 04-FEB-2022 11:50, Vent. rate has increased BY 85 BPM Referred By: Brice Degroot Electronically Signed By:AMINA WHATLEY
--- NOTE | ~2022-02-18 | XR_ITS ---
EXAMINATION: XR CHEST CLINICAL INFORMATION: Shortness of breath with crackles COMPARISON: Chest radiograph 01/28/2022 CT chest 01/27/2022 TECHNIQUE: Frontal view of the chest was obtained. FINDINGS: Heart size within normal limits. A right-sided aortic arch is again seen. Again noted diffusely increased interstitial markings, slightly improved when compared to the prior study. Patchy bilateral airspace disease was present previously as well which appears improved. At this time, no consolidations or pleural effusions are seen. XR/XR chest 1V IMPRESSION: Improvement appearances since the study of 01/28/2022 with decrease in interstitial markings and patchy airspace disease. Some underlying interstitial abnormality persists. No acute intrathoracic disease.
--- NOTE | ~2022-02-18 | CT_ITS ---
EXAMINATION: CT ABDOMEN AND PELVIS WITHOUT CONTRAST CLINICAL INFORMATION: Acute epigastric pain. COMPARISON: CT abdomen pelvis 01/29/2022. CT chest 01/27/2022. Abdominal ultrasound 02/03/2022. TECHNIQUE: Multidetector volumetric imaging was performed from the superior aspect of the liver through the pubic symphysis. Sagittal and coronal reformatted images were obtained on the technologist's workstation. This CT examination was performed using dose optimization techniques as appropriate, variously including the following: *Automated exposure control *Adjustment of mA and/or kV according to patient size (this includes techniques or standardized protocols for targeted exams where dose is matched to indication/reason for exam; i.e. extremities or head) *Use of iterative reconstruction technique DLP: 319 mGy-cm FINDINGS: LUNG BASES: Minimal bibasilar dependent atelectasis of the lungs noted. Partial visualization made of multifocal coronary artery calcifications. LIVER, GALLBLADDER, AND BILIARY TREE: The previously noted 10 cm mass within the right lobe of the liver is again visualized and is grossly unchanged in size and extent on the current exam making comparison to contrast enhanced exam of 01/29/2022. The lesion replaces a large portion of the right lobe of the liver. The previously noted 2 cm lesion within the left lobe of the liver correlates with a low-density lesion of the same size and location on the current exam (series 2 image 22). A 1.2 cm partially calcified gallstone is present dependently within the gallbladder lumen. No biliary duct dilatation is identified. Trace right subphrenic low density fluid (13 Hounsfield units) measuring 3 mm in width is newly identified. PANCREAS: Unremarkable. SPLEEN: Unremarkable. ADRENAL GLANDS: Unremarkable. KIDNEYS AND URETERS: Exophytic 2.8 cm x 2.3 cm lesion associated with the inferior pole the left kidney (20 Hounsfield unit). This finding is unchanged compared with 01/29/2022. No hydronephrosis or perinephric inflammatory changes. BLADDER: Physiologically distended. GASTROINTESTINAL TRACT: A 1.6 cm x 0.5 cm rectangular radiodensity is present within the lumen of the transverse colon (series 2 image 35). This finding is new compared with 01/29/2022. No pericecal inflammatory changes noted. The appendix is normal in appearance (series 3 image 469) no free intraperitoneal fluid or gas collections identified. Normal appearance of the stomach. ABDOMINAL WALL: The lower abdominal ventral mesh graft is noted. No abdominal wall hernias identified. LYMPH NODES: No lymphadenopathy noted. No periportal or subphrenic lymphadenopathy visualized. VASCULAR: Extensive diffuse calcific atherosclerosis. PELVIC VISCERA: The prostate is normal in size. OSSEOUS STRUCTURES: Chronic appearing posttraumatic deformities of the left and right inferior pubic rami are noted. No suspicious skeletal lesions identified. Multilevel chronic spondylosis of the visualized thoracic and lumbar spine. No vertebral body compression deformities. Multiple Schmorl's node deformities within the lumbar spine. CT/CT abdomen pelvis wo con IMPRESSION: *10 cm mass within the right lobe of the liver suspicious for hepatocellular carcinoma unchanged compared with 01/29/2022. Trace right subphrenic ascites measuring 3 mm in maximum width is present and is new compared with 01/29/2022. *2 cm mass within the left lobe of the liver unchanged compared with 01/29/2022 suspicious for neoplasm. *Unchanged 2.8 cm partially exophytic lesion of the inferior pole the left kidney suspicious for renal cell carcinoma unchanged compared with 01/29/2022. *16 mm x 5 mm reticular radiodensity present within the lumen of the transverse colon. This finding may represent an ingested foreign body or capsule endoscopy. This finding is new compared with 01/29/2022. *Cholelithiasis. This result including discussion of the indeterminate radiodensity within the transverse colon noted above was discussed with Brice Degroot MD by telephone at 02/18/2022 3:50 AM and it was ascertained that the content and urgency of the report was understood at the time of direct communication.
--- NOTE | 2022-02-18 01:55 | ED.ABDPAIN ---
HPI - Abdominal Pain General Chief Complaint: Abdominal Pain Stated Complaint: ABD PAIN Time Seen by Provider: 02/18/22 01:54 Source: patient Mode of arrival: EMS Limitations: no limitations History of Present Illness HPI narrative: Patient is 66 years old male just discharged from the hospital on 02/04 with significant periwound history of hypertension hyperlipidemia CAD CHF EF of 25% atrial tachycardia CVA VSD iron deficiency anemia recently diagnosed with hepatocellular carcinoma came here as since 20:00 noticed epigastric pain patient had endoscopy done during last admission which showed gastritis a received 2 units of blood for hemoglobin 6.4. Patient denied any nausea vomiting or black stools just felt the pain in the epigastric area otherwise he was doing good since discharge no significant shortness of breath no chest pain Related Data Home Medications Medication Instructions Recorded Confirmed amlodipine 5 mg tablet 1 tab PO DAILY 11/07/21 02/18/22 aspirin 81 mg tablet,delayed 1 tab PO DAILY 11/07/21 02/18/22 release atorvastatin 20 mg tablet 1 tab PO DAILY 11/07/21 02/18/22 cholecalciferol (vitamin D3) 25 1 tab PO DAILY 11/07/21 02/18/22 mcg (1,000 unit) tablet (Vitamin D3) folic acid 1 mg tablet 1 tab PO DAILY 11/07/21 02/18/22 multivitamin with folic acid 400 1 tab PO DAILY 11/07/21 02/18/22 mcg tablet (Tab-A-Miguelangel) oxybutynin chloride 5 mg 1 tab PO DAILY 11/07/21 02/18/22 tablet,extended release 24 hr quetiapine 50 mg tablet 1 tab PO DAILY PRN 11/07/21 02/18/22 sertraline 100 mg tablet 1 tab PO DAILY 11/07/21 02/18/22 terazosin 5 mg capsule 1 cap PO BEDTIME 11/07/21 02/18/22 tiotropium bromide 18 mcg capsule 1 cap INHALATION DAILY 11/07/21 02/18/22 with inhalation device (Spiriva with HandiHaler) quetiapine 150 mg tablet,extended 1 tab PO BEDTIME 11/09/21 02/18/22 release 24 hr ferrous sulfate 325 mg (65 mg 1 tab PO DAILY 01/26/22 02/18/22 iron) tablet,delayed release fluticasone 232 mcg-salmeterol 14 1 puff INHALATION BID 01/26/22 02/18/22 mcg/actuation breath activated powdr amiodarone 200 mg tablet 200 mg PO BID 02/18/22 02/18/22 furosemide 40 mg tablet 1 tab PO DAILY 02/18/22 02/18/22 Previous Rx's Medication Instructions Recorded albuterol sulfate 90 mcg/actuation 2 puff INHALATION QID PRN #8.5 g 11/12/21 aerosol inhaler carvedilol 12.5 mg tablet 12.5 mg PO BID #60 tab 11/12/21 nicotine (polacrilex) 2 mg gum 2 mg BUCCAL Q3H PRN #60 ea 11/12/21 omeprazole 40 mg capsule,delayed 40 mg PO DAILY #30 cap 02/04/22 release spironolactone 25 mg tablet 12.5 mg PO DAILY #30 tab 02/04/22 valsartan 40 mg tablet 40 mg PO BID #60 tab 02/04/22 Allergies Allergy/AdvReac Type Severity Reaction Status Date / Time acetaminophen [From Tylenol] Allergy Unknown UNKNOWN Verified 02/03/22 09:01 Review of Systems Review of Systems Yes all other systems are reviewed and are negative [facility] Past Medical History Medical History Asthma Cardiomyopathy CHF (congestive heart failure) CHF (congestive heart failure) Coronary artery disease CVA (cerebrovascular accident) Essential hypertension Hypertension VSD (ventricular septal defect) Social History Social History Household Members: None Housing: Apartment Do you presently have visiting nurse or other home services: Yes (pt unsure) Alcohol intake: unknown Patient Tobacco Use Status: Current everyday Tobacco user Tobacco use type: Cigarette Cigarettes Per Day: 5.0 Second Hand Smoke Exposure: No Advance Directives: Yes Advance Directives on File: Yes Advance Directives Date on File: 11/13/21 service: No Current occupational status: unemployed Physical Exam ED Vital Signs: Vital Signs - 24 hr 02/18/22 01:43 02/18/22 01:50 02/18/22 02:10 Temperature 98.2 F Pulse Rate 141 H 140 H Respiratory Rate 18 15 17 Blood Pressure 121/71 Pulse Oximetry 96 96 02/18/22 02:14 02/18/22 02:18 02/18/22 03:27 Temperature Pulse Rate 94 Respiratory Rate 17 Blood Pressure Pulse Oximetry 89 L 96 99 02/18/22 03:28 02/18/22 04:16 02/18/22 04:49 Temperature Pulse Rate 100 103 H 101 H Respiratory Rate 23 H 21 H 19 Blood Pressure 114/56 L Pulse Oximetry 99 100 94 02/18/22 05:15 02/18/22 05:26 02/18/22 05:33 Temperature 98.2 F 98.2 F Pulse Rate 102 H 102 H Respiratory Rate 16 18 Blood Pressure 136/63 127/58 L Pulse Oximetry 90 L 97 BMI result Body Mass Index 19.7 Appearance: Alert. Oriented X3. No acute distress. Eyes:pallor++ ENT: Pharynx normal. Oral Mucosa moist Neck: Normal inspection. Neck supple. CVS: Normal heart rate and rhythm. Pulses normal. Respiratory: No respiratory distress. Equal air entry bilateral, no wheezing/rales/rhonchi Abdomen: Soft , tenderness in epigastric area no rebound tenderness no guarding Bowel sounds are present, no CVA tenderness Rectal: Dark stool guaiac +ve Skin: Skin warm and dry. Normal skin color. Normal skin turgor. Extremities: No lower extremity edema. No calf tenderness Neuro: Oriented X 3. No motor deficit. MDM - Abdominal Pain MDM Narrative Medical decision making narrative: Patient has significant anemia with guaiac-positive stool with epigastric tenderness abdominal CT was negative hemoglobin 6.3 hematocrit 21.3 will give 2 units of blood transfusion admit also will give Protonix IV, patient here potassium was 5.8 creatinine was 1.79 was given calcium gluconate and Kayexalate will admit patient for now on arrival EKG showed atrial tachycardia with heart rate of 140 beats per minute during stay heart rate dropped to 80s Medical Records Attestation: I reviewed the patient's medical records. Lab Data Attestation: I reviewed the patient's lab results. Result diagrams: 02/18/22 02:05 02/18/22 02:05 Labs: Lab Results 02/18/22 02/18/22 02/18/22 Range/Units 02:05 02:05 02:05 WBC 7.1 (4.8-10.8) X10*3/uL RBC 2.70 L D (4.60-5.80) X10*6/uL Hgb 6.3 L* D (14.0-18.0) g/dl Hct 21.3 L D (42.0-52.0) % MCV 78.9 L (80.0-98.0) fL MCH 23.3 L (27.0-33.0) pg MCHC 29.6 L (31.0-36.0) g/dl RDW 21.7 H (11.0-16.0) % Plt Count 298 (160-400) X10*3/uL MPV 12.2 (9.4-12.4) fL Immature Gran % (Auto) 0.4 (0.0-0.4) % Neut % (Auto) 85.9 H (45-73) % Lymph % (Auto) 9.0 L (20-40) % [place] % (Auto) 4.6 (2-11) % Eos % (Auto) 0.0 (0-4) % Baso % (Auto) 0.1 (0-2) % Lymph # (Auto) 0.6 L (1.2-4.9) X10*3/uL [place] # (Auto) 0.3 (0.1-1.2) X10*3/uL Eos # (Auto) 0.0 (0.0-0.4) X10*3/uL Baso # (Auto) 0.0 (0.0-0.2) X10*3/uL Abs Immat Gran (auto) 0.03 (0.00-0.03) X10*3/uL Absolute Neuts (auto) 6.1 (2.0-8.3) x10*3/uL Absolute Nucleated RBC 0.000 (0.0-0.012) X10*3/uL Nucleated RBC % (auto) 0.0 (0.0-0.2) /100WBC PT 12.0 (9.9-13.0) SEC INR 1.1 (0.9-1.1) Sodium 136 (135-145) mmol/L Potassium 5.8 H D (3.3-5.1) mmol/L Chloride 101 (96-108) mmol/L Carbon Dioxide 25 (22-29) mmol/L Anion Gap 16 (12-20) BUN 45 H (9-16) mg/dL Creatinine 1.79 H (0.5-1.4) mg/dL Estim Creat Clear Calc 29.9 Estimated GFR 38 Random Glucose 190 H D (60-115) mg/dL Calcium 9.4 (8.4-10.2) mg/dL Total Bilirubin 0.4 (0.0-1.0) mg/dL AST 34 (5-37) U/L ALT 23 (0-40) U/L Alkaline Phosphatase 452 H (39-117) U/L Total Protein 7.5 (6.5-8.0) g/dL Albumin 3.3 L (3.5-5.0) g/dL Lipase 43 (8-78) U/L Stool Occult Blood (NEGATIVE) Blood Type Antibody Screen Crossmatch 02/18/22 02/18/22 Range/Units 03:11 04:17 WBC (4.8-10.8) X10*3/uL RBC (4.60-5.80) X10*6/uL Hgb (14.0-18.0) g/dl Hct (42.0-52.0) % MCV (80.0-98.0) fL MCH (27.0-33.0) pg MCHC (31.0-36.0) g/dl RDW (11.0-16.0) % Plt Count (160-400) X10*3/uL MPV (9.4-12.4) fL Immature Gran % (Auto) (0.0-0.4) % Neut % (Auto) (45-73) % Lymph % (Auto) (20-40) % [place] % (Auto) (2-11) % Eos % (Auto) (0-4) % Baso % (Auto) (0-2) % Lymph # (Auto) (1.2-4.9) X10*3/uL [place] # (Auto) (0.1-1.2) X10*3/uL Eos # (Auto) (0.0-0.4) X10*3/uL Baso # (Auto) (0.0-0.2) X10*3/uL Abs Immat Gran (auto) (0.00-0.03) X10*3/uL Absolute Neuts (auto) (2.0-8.3) x10*3/uL Absolute Nucleated RBC (0.0-0.012) X10*3/uL Nucleated RBC % (auto) (0.0-0.2) /100WBC PT (9.9-13.0) SEC INR (0.9-1.1) Sodium (135-145) mmol/L Potassium (3.3-5.1) mmol/L Chloride (96-108) mmol/L Carbon Dioxide (22-29) mmol/L Anion Gap (12-20) BUN (9-16) mg/dL Creatinine (0.5-1.4) mg/dL Estim Creat Clear Calc Estimated GFR Random Glucose (60-115) mg/dL Calcium (8.4-10.2) mg/dL Total Bilirubin (0.0-1.0) mg/dL AST (5-37) U/L ALT (0-40) U/L Alkaline Phosphatase (39-117) U/L Total Protein (6.5-8.0) g/dL Albumin (3.5-5.0) g/dL Lipase (8-78) U/L Stool Occult Blood POSITIVE (NEGATIVE) Blood Type A Positive Antibody Screen NEGATIVE Crossmatch See Detail ECG Data Attestation: I personally reviewed and interpreted this ECG as follows: Interpretation: Atrial tachycardia with heart rate 140 beats per minute right axis deviation no acute ST T wave changes no acute ischemic Discharge Plan Discharge Clinical Impression: Acute GI bleeding, Severe anemia Patient Disposition: Admitted As Inpatient
[2022-02-18] MEDS: ondansetron HCL 4 MG/2 ML VIAL IVPUSH (02:09)
[2022-02-18 02:10] LABS: MANUAL DIFF FLAG NO
[2022-02-18] MEDS: Morphine Sulfate 4 MG/ML CARTRIDGE IVPUSH (02:10)
[2022-02-18 02:12] LABS: Basophils Percent Auto 0.1 % (0-2); Hematocrit 21.3 % (42.0-52.0); Imm Gran Abs Auto 0.03 X10*3/uL (0.00-0.03); Imm Gran Pct Auto 0.4 % (0.0-0.4); Lymphocytes Absolute Auto 0.6 X10*3/uL (1.2-4.9); Mean Corpuscular HGB Conc 29.6 g/dl (31.0-36.0); Mean Corpuscular Hemoglobin 23.3 pg (27.0-33.0); Mean Corpuscular Volume 78.9 fL (80.0-98.0); Mean Platelet Volume 12.2 fL (9.4-12.4); Monocytes Absolute Auto 0.3 X10*3/uL (0.1-1.2); Monocytes Percent Auto 4.6 % (2-11); Neutrophils Absolute Auto 6.1 x10*3/uL (2.0-8.3); Neutrophils Percent Auto 85.9 % (45-73); Platelet Count 298 X10*3/uL (160-400); Red Cell Distribution Width 21.7 % (11.0-16.0); White Blood Count 7.1 X10*3/uL (4.8-10.8)
[2022-02-18 02:14] LABS: Hemoglobin 6.3 g/dl (14.0-18.0)
[2022-02-18] MEDS: Famotidine/PF 20 MG/2 ML VIAL IVPUSH (02:15)
[2022-02-18 02:21] LABS: INTERNATIONAL NORM RATIO 1.1 (0.9-1.1)
[2022-02-18 02:30] LABS: Alanine Aminotransferase 23 U/L (0-40); Albumin Level 3.3 g/dL (3.5-5.0); Alkaline Phosphatase 452 U/L (39-117); Anion Gap 16 (12-20); Aspartate Amino Transferase 34 U/L (5-37); Bilirubin Total 0.4 mg/dL (0.0-1.0); Blood Urea Nitrogen 45 mg/dL (9-16); Calcium 9.4 mg/dL (8.4-10.2); Carbon Dioxide 25 mmol/L (22-29); Chloride 101 mmol/L (96-108); Creatinine Clr Calc Pharmacy 29.9; Estimated Glomerular Filt Rate 38; Glucose Random 190 mg/dL (60-115); Lipase 43 U/L (8-78); Potassium 5.8 mmol/L (3.3-5.1); Sodium 136 mmol/L (135-145); Total Protein 7.5 g/dL (6.5-8.0)
[2022-02-18] MEDS: Calcium Gluconate/NaCl,Iso-Osm 2 GM/100 ML PLAST..BAG IV (04:12)
[2022-02-18] MEDS: Pantoprazole Sodium 40 MG/10 ML VIAL IVPUSH (04:15)
[2022-02-18] MEDS: Sodium Polystyrene Sulfon/Sorb 15 GM/60 ML ORAL.SUSP 30 GM PO (04:15)
[2022-02-18 04:43] LABS: OBS Int Ctl Valid YES; OBS1 POSITIVE (NEGATIVE)
--- NOTE | 2022-02-18 05:40 | P.HPHOSP_ITS ---
History of Present Illness Date of Service: 02/18/22 Chief Complaint: Abdominal pain 66-year-old male with a past medical history of hypertension, hyperlipidemia, CAD, CHF EF of 20-25%, atrial tachycardia, CVA, VSD, iron deficiency anemia, recent diagnosis of hepatocellular carcinoma; recent admission to the hospital for anemia status post 2 units of blood transfusion; status post EGD showed gastritis; presented to the hospital today again with a chief complaint of left- sided abdominal pain. Patient reported that today he developed left-sided abdominal pain, sharp in nature, nonradiating, denies any associated nausea vomiting and diarrhea. Hence decided to come to the ER for further evaluation. Patient reports that he was recently told ER some mass in his liver and had biopsy done; also mentioned that his biopsy resulted cancer. Denies any chest pain or palpitations. Denies any fever chills cough. Denies any urinary symptoms. ER course: Per ER team patient had CT abdomen pelvis done which showed 10 cm liver mass suspicious for hepatocellular lesion unchanged from the recent CT scan; 2 cm mass in the left lobe of the liver; 16 mm to 5 mm reticular radiodensity noted in the lumen of the transverse colon-may represent ingested foreign body or capsule endoscopy; on labs noted to have hemoglobin of 6.3; stool guaiac was positive; patient was started on blood transfusion-plan for 2 units. Admitted for further management. [facility] Medical History (Updated 02/18/22 @ 05:41 by Brain Cunningham MD) Asthma Cardiomyopathy CHF (congestive heart failure) CHF (congestive heart failure) Coronary artery disease CVA (cerebrovascular accident) Essential hypertension Hypertension VSD (ventricular septal defect) Pertinent family history: Denies any family history of cancers Social History Household Members: None Housing: Apartment Do you presently have visiting nurse or other home services: Yes (pt unsure) Alcohol intake: unknown Patient Tobacco Use Status: Current everyday Tobacco user Tobacco use type: Cigarette Cigarettes Per Day: 5.0 Second Hand Smoke Exposure: No Advance Directives: Yes Advance Directives on File: Yes Advance Directives Date on File: 11/13/21 service: No Current occupational status: unemployed Meds Allergies Allergy/AdvReac Type Severity Reaction Status Date / Time acetaminophen [From Tylenol] Allergy Unknown UNKNOWN Verified 02/03/22 09:01 Active Medications: Current Medications Calcium Gluconate (Calcium Gluconate) 2 gm in 100 mls @ 50 mls/hr IV ONCE ONE Stop: 02/18/22 05:49 Last Admin: 02/18/22 04:12 Dose: 50 mls/hr Documented by: Melatonin (Melatonin 3 Mg Tablet) 6 mg PO BEDTIME PRN PRN Reason: Insomnia Pantoprazole Sodium (Pantoprazole Sodium 40 Mg/10 Ml Vial) 40 mg IVPUSH DAILY@0630 [facility] Senna (Sennosides 8.6 Mg Tablet) 17.2 mg PO BEDTIME PRN PRN Reason: Constipation Sodium Chloride (0.9 % Sodium Chloride Flush 3 Ml Syringe) 3 ml IVFLUSH QSHIFT KRISTIE Home Medications Medication Instructions Recorded Confirmed Last Taken Type amlodipine 5 mg tablet 1 tab PO DAILY 11/07/21 02/18/22 Unknown History aspirin 81 mg tablet,delayed 1 tab PO DAILY 11/07/21 02/18/22 Unknown History release atorvastatin 20 mg tablet 1 tab PO DAILY 11/07/21 02/18/22 Unknown History cholecalciferol (vitamin D3) 25 1 tab PO DAILY 11/07/21 02/18/22 Unknown History mcg (1,000 unit) tablet (Vitamin D3) folic acid 1 mg tablet 1 tab PO DAILY 11/07/21 02/18/22 Unknown History multivitamin with folic acid 400 1 tab PO DAILY 11/07/21 02/18/22 Unknown History mcg tablet (Tab-A-Miguelangel) oxybutynin chloride 5 mg 1 tab PO DAILY 11/07/21 02/18/22 Unknown History tablet,extended release 24 hr quetiapine 50 mg tablet 1 tab PO DAILY PRN 11/07/21 02/18/22 Unknown History sertraline 100 mg tablet 1 tab PO DAILY 11/07/21 02/18/22 Unknown History terazosin 5 mg capsule 1 cap PO BEDTIME 11/07/21 02/18/22 Unknown History tiotropium bromide 18 mcg capsule 1 cap INHALATION DAILY 11/07/21 02/18/22 Unknown History with inhalation device (Spiriva with HandiHaler) quetiapine 150 mg tablet,extended 1 tab PO BEDTIME 11/09/21 02/18/22 Unknown History release 24 hr ferrous sulfate 325 mg (65 mg 1 tab PO DAILY 01/26/22 02/18/22 Unknown History iron) tablet,delayed release fluticasone 232 mcg-salmeterol 14 1 puff INHALATION BID 01/26/22 02/18/22 Unknown History mcg/actuation breath activated powdr amiodarone 200 mg tablet 200 mg PO BID 02/18/22 02/18/22 Unknown History furosemide 20 mg tablet 1 tab PO DAILY 02/18/22 02/18/22 Unknown History lisinopril 10 mg tablet 1 tab PO DAILY 02/18/22 02/18/22 Unknown History Physical Exam Vital Signs and Narrative: Vital Signs: Last Vital Signs Temp 98.6 F 02/18/22 05:39 Pulse 102 H 02/18/22 05:39 Resp 22 H 02/18/22 05:39 BP 127/58 L 02/18/22 05:33 Pulse Ox 97 02/18/22 05:33 BMI result Body Mass Index 19.7 Gen: Appears be in no acute distress HEENT: NCAT, Moist mucosa. Pulmonary: Vesicular breath sounds, fair air entry CVS: Normal S1-S2 Abdomen: BS+, Soft, Nontender Extremities: Warm well perfused Neuro: Alert and awake. Results Labs CBC and Chem 7: 02/18/22 02:05 02/18/22 02:05 Labs: Laboratory Results - last 24 hr 02/18/22 02/18/22 02/18/22 02:05 02:05 02:05 MCV 78.9 L MCH 23.3 L MCHC 29.6 L RDW 21.7 H Plt Count 298 MPV 12.2 Immature Gran % (Auto) 0.4 Neut % (Auto) 85.9 H Lymph % (Auto) 9.0 L [place] % (Auto) 4.6 Eos % (Auto) 0.0 Baso % (Auto) 0.1 Lymph # (Auto) 0.6 L [place] # (Auto) 0.3 Eos # (Auto) 0.0 Baso # (Auto) 0.0 Abs Immat Gran (auto) 0.03 Absolute Neuts (auto) 6.1 Absolute Nucleated RBC 0.000 Nucleated RBC % (auto) 0.0 PT 12.0 INR 1.1 Anion Gap 16 Estim Creat Clear Calc 29.9 Estimated GFR 38 Random Glucose 190 H D Calcium 9.4 Total Bilirubin 0.4 AST 34 ALT 23 Alkaline Phosphatase 452 H Total Protein 7.5 Albumin 3.3 L Lipase 43 Stool Occult Blood Blood Type Antibody Screen Crossmatch 02/18/22 02/18/22 03:11 04:17 MCV MCH MCHC RDW Plt Count MPV Immature Gran % (Auto) Neut % (Auto) Lymph % (Auto) [place] % (Auto) Eos % (Auto) Baso % (Auto) Lymph # (Auto) [place] # (Auto) Eos # (Auto) Baso # (Auto) Abs Immat Gran (auto) Absolute Neuts (auto) Absolute Nucleated RBC Nucleated RBC % (auto) PT INR Anion Gap Estim Creat Clear Calc Estimated GFR Random Glucose Calcium Total Bilirubin AST ALT Alkaline Phosphatase Total Protein Albumin Lipase Stool Occult Blood POSITIVE Blood Type A Positive Antibody Screen NEGATIVE Crossmatch See Detail Imaging Radiologist's Impressions: Impressions Abdomen/Pelvis CT 02/18/22 03:05 IMPRESSION: *10 cm mass within the right lobe of the liver suspicious for hepatocellular carcinoma unchanged compared with 01/29/2022. Trace right subphrenic ascites measuring 3 mm in maximum width is present and is new compared with 01/29/2022. *2 cm mass within the left lobe of the liver unchanged compared with 01/29/2022 suspicious for neoplasm. *Unchanged 2.8 cm partially exophytic lesion of the inferior pole the left kidney suspicious for renal cell carcinoma unchanged compared with 01/29/2022. *16 mm x 5 mm reticular radiodensity present within the lumen of the transverse colon. This finding may represent an ingested foreign body or capsule endoscopy. This finding is new compared with 01/29/2022. *Cholelithiasis. This result including discussion of the indeterminate radiodensity within the transverse colon noted above was discussed with Brice Degroot MD by telephone at 02/18/2022 3:50 AM and it was ascertained that the content and urgency of the report was understood at the time of direct communication. Assessment and Plan (1) Acute GI bleeding: Status: Acute (2) Severe anemia: Status: Acute (3) Liver mass, right lobe: Status: Acute (4) Hypertension: Status: Acute (5) CHF (congestive heart failure): Qualifiers: Heart failure type: other Qualified Code(s): I50.9 - Heart failure, unspecified Status: Acute Plan 66-year-old male with a past medical history of hypertension, hyperlipidemia, CAD, CHF EF of 25-30%, atrial tachycardia, CVA, VSD, iron deficiency anemia, recent diagnosis of hepatocellular carcinoma; recent admission to the hospital for anemia status post 2 units of blood transfusion; status post EGD showed gastritis; presented to the hospital today again with a chief complaint of left- sided abdominal pain. Abdominal pain: Currently improved CT abdomen showed findings consistent with hepatocellular carcinoma Also noted to have foreign body versus capsule endoscopy in the transverse colon lumen. Gastroenterology consulted Anemia: Patient had recent admission to the hospital with hemoglobin of 6.3-status post 2 units of blood transfusion; discharge hemoglobin was 9.3. Hemoglobin on presentation today of 6.3. Stool guaiac was positive (confounded by iron supplementation) Order for 2 units of blood transfusion-to give Lasix after the 1st unit. Monitor for signs of fluid overload. NPO IV PPI Serial H&H History of hepatocellular carcinoma: Recently diagnosed. GI/Oncology follow- up. History of CHF: EF of 25-30%; VSD present; patient on Lasix at home-currently on hold given severe anemia. Monitor signs of fluid overload. Resume Lasix. History of hypertension: Hold home amlodipine for now; c/w carvedilol with holding parameters- reduced to 3.125bid for now; For all other chronic conditions, home medications continued DVT prophylaxis: SCD boots Code status: Full code Quality Stroke Does the patient have a stroke diagnosis?: No VTE Prior VTE?: No VTE Risk Level:: Medical - moderate - high VTE Device Contraindication: N/A - Device Ordered VTE Drug Contraindication: Treatment Not Indicated
--- NOTE | 2022-02-18 06:17 | PC.NURSE ---
medications reconciled using 02/04 discharge paperwork, which included discontinuing, and adjusting pts medications
[2022-02-18] MEDS: Furosemide 20 MG/2 ML VIAL IVPUSH (06:48)
--- NOTE | 2022-02-18 07:36 | PC.NURSE ---
resting quietly in bed. skin pwd. st on monitor. unlabored resp. denies SOB. LS crackles in bases. no pedal edema. doc jesin made aware, awaiting plan b/f second RBCs. lower conjunctiva remains pale. linens changed, new brief. pt has no complaints at this time.
[2022-02-18 08:46] LABS: Glucose, Whole Blood 142 mg/dL (60-115)
[2022-02-18] MEDS: Furosemide 40 MG/4 ML VIAL IVPUSH (08:47)
[2022-02-18] MEDS: carvediloL 3.125 MG TABLET PO (08:52)
[2022-02-18] MEDS: Sertraline HCL 100 MG TABLET PO (08:53)
[2022-02-18] MEDS: Atorvastatin Calcium 20 MG TABLET PO (08:53)
[2022-02-18] MEDS: Cholecalciferol (Vitamin D3) 25 MCG TABLET PO (08:53)
[2022-02-18] MEDS: Multivitamin TABLET 1 TAB PO (08:54)
[2022-02-18] MEDS: Folic Acid 1 MG TABLET PO (08:55)
--- NOTE | 2022-02-18 08:56 | P.CNHO_ITS ---
Subjective - Subjective Chief complaint: Consult for: HCC. Patient: new to practice Consult date: 02/18/22 Primary Care Provider: Unknown Physician Medical Summary: DIAGNOSIS: HCC. HPI - Consult Narrative Reason for consult: Consult for : HCC. Narrative: Chu Tan is a pleasant 66 year old gentleman who presented with Abdominal pain. He was recently here for anemia. Received 2 units of blood. He presented to the hospital yesterday with a chief complaint of left-sided abdominal pain. He developed left-sided abdominal pain, sharp in nature, nonradiating. He denies any associated nausea vomiting and diarrhea. Denies any fever chills cough. Denies any chest pain or palpitations. Denies any urinary symptoms. ER course: A CT abdomen pelvis done which showed: 10 cm liver mass suspicious for hepat ocellular lesion unchanged from the recent CT scan; 2 cm mass in the left lobe of the liver; 16 mm to 5 mm reticular radiodensity noted in the lumen of the transverse colon-may represent ingested foreign body or capsule endoscopy; Lab: A hemoglobin of 6.3; Stool guaiac was positive; Patient was given 2 units of PRBCs. He was recently diagnosed with a mass in his liver and had biopsy done. Ultrasound of the abdomen from 01/28: There are 2 hepatic mass is present measuring 11.9 cm and 2 cm. Surprisingly, these are extremely poorly seen on CT scan. MRI could be performed for further evaluation. The portal venous system appears patent. There is a mass in the left kidney measuring 3.6 cm which needs further evaluation. MRI would be an excellent choice for further evaluation of both the above- mentioned hepatic masses in the renal mass. He underwent biopsy of the liver lesion on 02/03. The biopsy results: Well-differentiated HCC. Past medical history of: 1. Hypertension, hyperlipidemia, 2. CAD, CHF EF of 20-25%, atrial tachycardia, 3. CVA, VSD, 4. Iron deficiency anemia: status post EGD showed gastritis. 5. Recent diagnosis of hepatocellular carcinoma; 6. Recent admission to the hospital for anemia status post 2 units of blood transfusion. Review of Systems - Constitutional Reports system reviewed and no additional complaints, except as documented, Reports anorexia, Reports lack of energy, Reports malaise, Reports weakness, Reports weight loss - Eyes Reports system reviewed and no additional complaints, except as documented - ENT Reports system reviewed and no additional complaints, except as documented - Cardiovascular Reports system reviewed and no additional complaints, except as documented - Respiratory Reports no additional respiratory complaints - Gastrointestinal Reports system reviewed and no additional complaints, except as documented - Genitourinary Genitourinary: Reports no additional male genitourinary complaints - Musculoskeletal Reports system reviewed and no additional complaints, except as documented - Integumentary/Breasts Skin/Breast: Reports no additional skin complaints - Neurologic Reports system reviewed and no additional complaints, except as documented - Psychiatric Reports system reviewed and no additional complaints, except as documented - Endocrine Reports no additional endocrine complaints - Hematologic/Lymphatic Reports system reviewed and no additional complaints, except as documented - Allergic/Immunologic Reports system reviewed and no additional complaints, except as documented Oncology Screenings - ECOG Performance Status ECOG Performance Status: 1 [facility] Medical History: Medical History (Last Reviewed 02/18/22 @ 06:25 by Brice Degroot MD) Asthma Cardiomyopathy CHF (congestive heart failure) CHF (congestive heart failure) Coronary artery disease CVA (cerebrovascular accident) Essential hypertension Hypertension VSD (ventricular septal defect) Functional capacity: uses cane/walker Patient : No Social History: Social History (Last Reviewed 02/18/22 @ 06:25 by Brice Degroot MD) Living Situation History: Household Members: None Housing: Apartment Do you presently have visiting nurse or other home services: Yes Tobacco History: Patient Tobacco Use Status: Current everyday Tobacco Tobacco use type: Cigarette Cigarette Packs Per Day: 10 Cigarettes Per Day: 200.0 Second Hand Smoke Exposure: No Advance Directives: Advance Directives Date on File: 11/13/21 Occupation Assessmet: service: No Current occupational status: unemployed Home Medications and Allergies Current Medications: Current Medications Albuterol Sulfate (Albuterol Sulfate 90 Mcg 8 Gm Inhaler) 2 puff INHALE RQID PRN PRN Reason: shortness of breath or wheezing Amiodarone HCl (Amiodarone Hcl 200 Mg Tablet) 200 mg PO DAILY [facility] Atorvastatin Calcium (Atorvastatin Calcium 20 Mg Tablet) 20 mg PO DAILY [facility] Carvedilol (Carvedilol 3.125 Mg Tablet) 3.125 mg PO BID [facility]; Protocol Doxazosin Mesylate (Doxazosin Mesylate 2 Mg Tablet) 4 mg PO BEDTIME [facility] Ferrous Sulfate (Ferrous Sulfate 324 Mg Tablet.Dr) 1 mg PO DAILY [facility] Folic Acid (Folic Acid 1 Mg Tablet) 1 mg PO DAILY [facility] Melatonin (Melatonin 3 Mg Tablet) 6 mg PO BEDTIME PRN PRN Reason: Insomnia Multivitamins/Vitamin C (Multivitamin Tablet) 1 tab PO DAILY [facility] Nicotine Polacrilex (Nicotine Polacrilex 2 Mg Gum) 2 mg BUCCAL Q3H PRN PRN Reason: nicotine cravings Non-Formulary Medication (Fluticasone Propion-Salmeterol) 1 puff INHALE BID [facility] Non-Formulary Medication (Quetiapine) 1 tab PO BEDTIME [facility] Oxybutynin Chloride (Oxybutynin Chloride Er 5 Mg Tab.Er.24) 5 mg PO DAILY [facility] Pantoprazole Sodium (Pantoprazole Sodium 40 Mg/10 Ml Vial) 40 mg IVPUSH DAILY@0630 [facility] Quetiapine Fumarate (Quetiapine Fumarate 50 Mg Tablet) 50 mg PO DAILY PRN PRN Reason: Agitation Senna (Sennosides 8.6 Mg Tablet) 17.2 mg PO BEDTIME PRN PRN Reason: Constipation Sertraline HCl (Sertraline Hcl 100 Mg Tablet) 100 mg PO DAILY [facility] Sodium Chloride (0.9 % Sodium Chloride Flush 3 Ml Syringe) 3 ml IVFLUSH QSHIFT [facility] Tiotropium [place] (Tiotropium [place] 18 Mcg Cap.W.Dev) 1 puff INHALE RDAILY [facility] Vitamin D (Cholecalciferol (Vitamin D3) 25 Mcg Tablet) 25 mcg PO DAILY [facility] Home Medications Medication Instructions Recorded Confirmed Type amlodipine 5 mg tablet 1 tab PO DAILY 11/07/21 02/18/22 History aspirin 81 mg tablet,delayed 1 tab PO DAILY 11/07/21 02/18/22 History release atorvastatin 20 mg tablet 1 tab PO DAILY 11/07/21 02/18/22 History cholecalciferol (vitamin D3) 25 1 tab PO DAILY 11/07/21 02/18/22 History mcg (1,000 unit) tablet (Vitamin D3) multivitamin with folic acid 400 1 tab PO DAILY 11/07/21 02/18/22 History mcg tablet (Tab-A-Miguelangel) oxybutynin chloride 5 mg 1 tab PO DAILY 11/07/21 02/18/22 History tablet,extended release 24 hr quetiapine 50 mg tablet 1 tab PO DAILY PRN 11/07/21 02/18/22 History sertraline 100 mg tablet 1 tab PO DAILY 11/07/21 02/18/22 History terazosin 5 mg capsule 1 cap PO BEDTIME 11/07/21 02/18/22 History tiotropium bromide 18 mcg capsule 1 cap INHALATION DAILY 11/07/21 02/18/22 History with inhalation device (Spiriva with HandiHaler) quetiapine 150 mg tablet,extended 1 tab PO BEDTIME 11/09/21 02/18/22 History release 24 hr ferrous sulfate 325 mg (65 mg 1 tab PO DAILY 01/26/22 02/18/22 History iron) tablet,delayed release fluticasone 232 mcg-salmeterol 14 1 puff INHALATION BID 01/26/22 02/18/22 History mcg/actuation breath activated powdr amiodarone 200 mg tablet 200 mg PO BID 02/18/22 02/18/22 History docusate sodium 100 mg capsule 1 cap PO BID PRN 02/18/22 02/18/22 History (DOK) furosemide 40 mg tablet 1 tab PO DAILY 02/18/22 02/18/22 History Allergies Allergy/AdvReac Type Severity Reaction Status Date / Time acetaminophen [From Tylenol] Allergy Unknown UNKNOWN Verified 02/03/22 09:01 Physical Exam Vital signs: Vital Signs Temp 97.8 F 02/18/22 07:35 Pulse 107 H 02/18/22 07:35 Resp 18 02/18/22 07:35 BP 137/69 02/18/22 07:35 Pulse Ox 82 L 02/18/22 08:38 Intake & Output 02/17/22 02/18/22 02/18/22 18:59 06:59 18:59 Intake Total 100 / 100 350 / 350 Balance 100 / 100 350 / 350 Intake: Intake (Blood Product) Amount 0 / 0 350 / 350 Red Blood Cells (E0382) Unit 0 / 0 350 / 350 [id number] Intake, IV Amount 100 / 100 Calcium Gluconate/NaCl,Iso-Osm 100 / 100 2 gm In 100 ml @ 50 mls/hr IV ONCE ONE Rx#:[id number] Other: Weight 52.163 kg Weight 52.163 kg - Constitutional Present: no acute distress - Routine HEENT Exam Head: Present: normal inspection ENT: Present: mucous membranes moist - Routine Neck Exam Present: supple - Routine Respiratory Exam Present: CTAB - Routine Cardiovascular Exam Cardiovascular: Present: RRR, S2 - Routine Abdominal Exam Present: normal bowel sounds, soft, tenderness - Routine Skin Exam Present: intact, normal turgor - Routine Neurological Exam Present: alert, altered mental status - Detailed Neurological Exam: Coma Scale Eye Opening: Spontaneous (4) Verbal Response: Oriented (5) Motor Response: Obeys commands (6) [place] Coma Scale Total: 15 - Routine Psychiatric Exam Present: depressed Hem/Onc Consult Result - Labs CBC & Chem 7: 02/23/22 06:23 02/23/22 06:23 Labs: Short CBC 02/18/22 Range/Units 02:05 WBC 7.1 (4.8-10.8) X10*3/uL Hgb 6.3 L* D (14.0-18.0) g/dl Hct 21.3 L D (42.0-52.0) % Plt Count 298 (160-400) X10*3/uL BMP 02/18/22 02:05 Sodium 136 Potassium 5.8 H D Chloride 101 Carbon Dioxide 25 BUN 45 H Creatinine 1.79 H Calcium 9.4 Liver Function 02/18/22 Range/Units 02:05 Total Bilirubin 0.4 (0.0-1.0) mg/dL AST 34 (5-37) U/L ALT 23 (0-40) U/L Alkaline Phosphatase 452 H (39-117) U/L Albumin 3.3 L (3.5-5.0) g/dL Assessment and Plan Patient Active problem list reviewed?: Yes (1) Hepatocellular carcinoma Status: Acute Assessment and plan: 66-year-old gentleman with recent diagnosis of hepatocellular carcinoma. Pathology from 02/03 revealed: Well-differentiated HCC. CT scan of the abdomen from 02/18 revealed: *10 cm mass within the right lobe of the liver suspicious for hepatocellular carcinoma unchanged compared with 01/29/2022. Trace right subphrenic ascites measu ring 3 mm in maximum width is present and is new compared with 01/29/2022. *2 cm mass within the left lobe of the liver unchanged compared with 01/29/2022 suspicious for neoplasm. *Unchanged 2.8 cm partially exophytic lesion of the inferior pole the left kidney suspicious for renal cell carcinoma unchanged compared with 01/29/2022. *16 mm x 5 mm reticular radiodensity present within the lumen of the transverse colon. This finding may represent an ingested foreign body or capsule endoscopy. This finding is new compared with 01/29/2022. *Cholelithiasis. Review of imaging with the radiologist, Dr. Weiss: It is concieveable that the renal mass is a complex cyst. Review of a CT scan from 2011 revealed that there was a simple cyst there: 2.5 cm. Now, 10 years later, it is 2.7 cm, indicates that there may be some hemorrhage into the simple cyst, pointing to a benign finding. PLAN: Reviewed imaging with Dr. griffith. He is not worried about the renal cyst. He does not feel MRI is necessary. Will discuss further treatment for HCC, once he is stable and interested. Will most likely involve targeted therapy. Thank you, Cc: Patient was discharged home on 02/23, discharge summary: Patient initially presented with epigastric pain, which quickly resolved. he was noted to have acute on chronic blood loss anemia with iron deficiency. he received 2 units prbc and 3 days iv iron, hgb has been stable. should continue ppi and iron as outpatient. for HCC, plan for MRI as outpatient. for atrial tachycardia, continue on amio and coreg. for acute hypoxic respiratory failure due to acute on chronic systolic chf and copd, he received iv lasix and hypoxia resolved. course was complicated by GUERRERO on CKD III and hyperkalemia, gordon-i and arb have been held, renal function improved, hyperkalemia resolved. for htn amlodipnie will be restarted. paitent feeling much better and will be discharged home. (2) Anemia Status: Acute Assessment and plan: 66-year-old gentleman, with significant anemia. Underwent upper endoscopy and colonoscopy on 02/02: Larynx:normal Esophagus: GE junction at 40 cm, diaphragm hiatus at 40 cm, esophagitis noted, LA grade A, no varices seen Stomach: Patchy erythema. Biopsies were obtained. Grade 2 flap valve on retroflexed examination of the cardia. There were flecks of blood in the stomach but no bleeding source ?from upper airway or nasal . No gastric varices seen Duodenum: Normal bulb and descending duodenum, bx taken. Terminal Ileum-normal, no blood seen Cecum: 12-15 mm sessile polyp removed with cold snare Ascending Colon: normal Transverse Colon -normal Descending Colon: 10 mm sessile polyp removed with cold snare and 3 clips applied for hemostasis Sigmoid Colon: 8 mm sessile polyp removed with cold snare -not retrieved Rectum: Retroflexion with small internal hemorrhoids, grade I Anorectum - normal. Pathology: Stomach: Antral type mucosa with moderate chronic inactive inflammation. No H pylori. Colon: Tubular adenomas. Presented again with a hemoglobin down to 6.3. Concern is ongoing GI bleeding. Upper endoscopy and colonoscopy did not reveal a source. Might have had the video capsule study. Will review with GI. - Time Spent With Patient Time Spent with Patient (in minutes): 30
[2022-02-18 09:12] LABS: COVID-19 Test Negative (Negative); IDNOW Serial# 55D5AD1C
--- NOTE | 2022-02-18 09:30 | PHA.MEDREC ---
Pharmacy Consult ? Medication Reconciliation Pharmacy has completed the medication reconciliation. No remarkable issues. Abimbola Newsome, RossyD
[2022-02-18] MEDS: Amiodarone HCL 200 MG TABLET PO (09:32)
--- NOTE | 2022-02-18 09:34 | PC.NURSE ---
resting quietly. doc jesin aware of increased HR. pt has no complaints. awaits 2nd unit of blood
[2022-02-18 09:41] LABS: Anion Gap 12 (12-20); Blood Urea Nitrogen 43 mg/dL (9-16); Calcium 9.3 mg/dL (8.4-10.2); Carbon Dioxide 28 mmol/L (22-29); Chloride 103 mmol/L (96-108); Creatinine Clr Calc Pharmacy 32.2; Estimated Glomerular Filt Rate 42; Glucose Random 137 mg/dL (60-115); Potassium 5.3 mmol/L (3.3-5.1); Sodium 138 mmol/L (135-145)
[2022-02-18] MEDS: carvediloL 12.5 MG TABLET PO ×2 (11:27→20:50)
--- NOTE | 2022-02-18 11:38 | MHC.CM.PN ---
PT LIVES WITH HIS BROTHER AND IS INDEPENDENT WITH CARE AT [facility]EL[facility] PT REPORTS HE IS ACTIVE WITH [facility] PT UNABLE TO NAME HIS PCP BUT SAYS HE GOES TO [facility] HCP ON FILE PT REPORTS HE IS COVID-19 VACCINATED PER RECORDS, HE RECEIVED [facility] IMM DELIVERED, COPY SENT TO [facility] RECORDS DCP HOME RESUME [facility] BROTHER TO TRANSPORT
--- NOTE | 2022-02-18 12:07 | P.PNIM_ITS ---
Subjective Subjective Date of Service: 02/18/22 Interval History: cc: abd pain interval history:improved, was hypoxic but asymptomatic Cardiovascular Cardiovascular: Reports no additional cardiovascular complaints Respiratory Respiratory: Reports no additional respiratory complaints Physical Exam Vital Signs: Vital Signs: Last Vital Signs Temp 98.8 F 02/18/22 10:22 Pulse 93 02/18/22 11:27 Resp 18 02/18/22 11:27 BP 132/70 02/18/22 11:27 Pulse Ox 97 02/18/22 11:27 BMI result Body Mass Index 19.7 General: AO X 3, no acute distress Resp: diminished bilateral, no accessory muscles used CVS: S1,S2,RRR GI: soft, midlly tender, non distended Neuro: motor grossly intact, alert Psych: appropriate affect, appropriate insight Objective Data Active Medications Albuterol Sulfate (Albuterol Sulfate 90 Mcg 8 Gm Inhaler) 2 puff INHALE RQID PRN PRN Reason: shortness of breath or wheezing Amiodarone HCl (Amiodarone Hcl 200 Mg Tablet) 200 mg PO DAILY [facility] Last Admin: 02/18/22 09:32 Dose: 200 mg Documented by: CHRISTIE Atorvastatin Calcium (Atorvastatin Calcium 20 Mg Tablet) 20 mg PO DAILY [facility] Last Admin: 02/18/22 08:53 Dose: 20 mg Documented by: CHRISTIE Carvedilol (Carvedilol 12.5 Mg Tablet) 12.5 mg PO BID [facility]; Protocol Doxazosin Mesylate (Doxazosin Mesylate 2 Mg Tablet) 4 mg PO BEDTIME [facility] Ferrous Sulfate (Ferrous Sulfate 324 Mg Tablet.Dr) 324 mg PO DAILY [facility] Fluticasone/Vilanterol (Fluticasone/Vilanterol 200/25 Blst.W.Dev) 1 puff INHALE RDAILY [facility] Folic Acid (Folic Acid 1 Mg Tablet) 1 mg PO DAILY [facility] Last Admin: 02/18/22 08:55 Dose: 1 mg Documented by: CHRISTIE Melatonin (Melatonin 3 Mg Tablet) 6 mg PO BEDTIME PRN PRN Reason: Insomnia Multivitamins/Vitamin C (Multivitamin Tablet) 1 tab PO DAILY [facility] Last Admin: 02/18/22 08:54 Dose: 1 tab Documented by: CHRISTIE Nicotine Polacrilex (Nicotine Polacrilex 2 Mg Gum) 2 mg BUCCAL Q3H PRN PRN Reason: nicotine cravings Oxybutynin Chloride (Oxybutynin Chloride Er 5 Mg Tab.Er.24) 5 mg PO DAILY [facility] Last Admin: 02/18/22 08:53 Dose: 5 mg Documented by: CHRISTIE Pantoprazole Sodium (Pantoprazole Sodium 40 Mg/10 Ml Vial) 40 mg IVPUSH DAILY@0630 [facility] Quetiapine Fumarate (Quetiapine Fumarate 50 Mg Tablet) 50 mg PO DAILY PRN PRN Reason: Agitation Quetiapine Fumarate (Quetiapine Fumarate 25 Mg Tablet) 75 mg PO BID [facility] Senna (Sennosides 8.6 Mg Tablet) 17.2 mg PO BEDTIME PRN PRN Reason: Constipation Sertraline HCl (Sertraline Hcl 100 Mg Tablet) 100 mg PO DAILY [facility] Last Admin: 02/18/22 08:53 Dose: 100 mg Documented by: CHRISTIE Sodium Chloride (0.9 % Sodium Chloride Flush 3 Ml Syringe) 3 ml IVFLUSH QSHIFT [facility] Last Admin: 02/18/22 08:52 Dose: Not Given Documented by: CHRISTIE Non-Admin Reason: Med Not Available Tiotropium [place] (Tiotropium [place] 18 Mcg Cap.W.Dev) 1 puff INHALE RDAILY [facility] Last Admin: 02/18/22 08:52 Dose: 1 puff Documented by: CHRISTIE Vitamin D (Cholecalciferol (Vitamin D3) 25 Mcg Tablet) 25 mcg PO DAILY [facility] Last Admin: 02/18/22 08:53 Dose: 25 mcg Documented by: CHRISTIE Labs CBC & Chem 7: 02/18/22 02:05 02/18/22 09:09 Labs: Laboratory Results - last 24 hr 02/18/22 02/18/22 02/18/22 02:05 02:05 02:05 MCV 78.9 L MCH 23.3 L MCHC 29.6 L RDW 21.7 H Plt Count 298 MPV 12.2 Immature Gran % (Auto) 0.4 Neut % (Auto) 85.9 H Lymph % (Auto) 9.0 L [place] % (Auto) 4.6 Eos % (Auto) 0.0 Baso % (Auto) 0.1 Lymph # (Auto) 0.6 L [place] # (Auto) 0.3 Eos # (Auto) 0.0 Baso # (Auto) 0.0 Abs Immat Gran (auto) 0.03 Absolute Neuts (auto) 6.1 Absolute Nucleated RBC 0.000 Nucleated RBC % (auto) 0.0 PT 12.0 INR 1.1 Anion Gap 16 Estim Creat Clear Calc 29.9 Estimated GFR 38 POC Glucose Random Glucose 190 H D Calcium 9.4 Total Bilirubin 0.4 AST 34 ALT 23 Alkaline Phosphatase 452 H Total Protein 7.5 Albumin 3.3 L Lipase 43 Stool Occult Blood COVID-19 (SOLE) COVID-19 [employer] Blood Type Antibody Screen Crossmatch 02/18/22 02/18/22 02/18/22 03:11 04:17 07:00 MCV MCH MCHC RDW Plt Count MPV Immature Gran % (Auto) Neut % (Auto) Lymph % (Auto) [place] % (Auto) Eos % (Auto) Baso % (Auto) Lymph # (Auto) [place] # (Auto) Eos # (Auto) Baso # (Auto) Abs Immat Gran (auto) Absolute Neuts (auto) Absolute Nucleated RBC Nucleated RBC % (auto) PT INR Anion Gap Estim Creat Clear Calc Estimated GFR POC Glucose Random Glucose Calcium Total Bilirubin AST ALT Alkaline Phosphatase Total Protein Albumin Lipase Stool Occult Blood POSITIVE COVID-19 (SOLE) Negative COVID-19 [employer] See Note Blood Type A Positive Antibody Screen NEGATIVE Crossmatch See Detail 02/18/22 02/18/22 08:42 09:09 MCV MCH MCHC RDW Plt Count MPV Immature Gran % (Auto) Neut % (Auto) Lymph % (Auto) [place] % (Auto) Eos % (Auto) Baso % (Auto) Lymph # (Auto) [place] # (Auto) Eos # (Auto) Baso # (Auto) Abs Immat Gran (auto) Absolute Neuts (auto) Absolute Nucleated RBC Nucleated RBC % (auto) PT INR Anion Gap 12 Estim Creat Clear Calc 32.2 Estimated GFR 42 POC Glucose 142 H Random Glucose 137 H Calcium 9.3 Total Bilirubin AST ALT Alkaline Phosphatase Total Protein Albumin Lipase Stool Occult Blood COVID-19 (SOLE) COVID-19 [employer] Blood Type Antibody Screen Crossmatch Assessment and Plan (1) Hepatocellular carcinoma: Status: Acute Plan 66M presented with abd pain, found to have signficant anemia, hypoxia abdominal pain resolved, likely related to ongoing pain for HCC acute on chronic blood loss anemia hgb 6.3, follow up cbc, received 2 units prbc GI eval patient unaware if capsule done, ?seen on CT abd cotniue ppi atrial tachycardia amio 200mg daily coreg 12.5mg bid acute hypoxic resp failure due to acute on chronic systolic chf and copd iv lasix times one, monitor breo hypoerkalemia improved to 5.3 monitor CKD III stable, monitor HCC will need MRI with contrast outpatinet follow up HTN amlodipnie on hold for concern for hypotension in gi bleed dvt prophylaxis - mechancial due to gi bleed reason for continued hospitalization: heart rate control, close monitoring on tele, labs, Quality Stroke Does the patient have a stroke diagnosis?: No VTE Prior VTE?: No VTE Risk Level:: Medical - moderate - high VTE Device Contraindication: N/A - Device Ordered VTE Drug Contraindication: Treatment Not Indicated
--- NOTE | 2022-02-18 12:52 | PC.NURSE ---
rn to rn with zack in [place].
--- NOTE | 2022-02-18 14:07 | PM.GICN ---
History of Present Illness Data of Consult Service Date: 02/18/22 Requesting physician: Jose E Fernandez Primary Care Provider: Unknown Physician HPI Reason for consult: anemia 66-year-old male with past medical history of CHF,? iron deficiency anemia, asthma, CAD, CVA, HTN, VSD, active Hep C infection who I am seeing for assessment for anemia. I saw the patient about 3 weeks ago for a similar anemia assessment. At that time he was admitted after he had lab work done which revealed hemoglobin of 6.4 which? dropped from 9.2 in October. Imaging had also revealed liver and renal masses, with Ir guided bx of liver lesion revealing HCC. He had an EGd,colonoscopy performed with no varices seen, and few adenomatous polyps removed Now he comes with left-sided abdominal pain, sharp in nature, nonradiating as well as HGB again of 6 g/dl. Patient denies any use of NSAIDs, PMFSH Past Medical History Medical History Asthma Cardiomyopathy CHF (congestive heart failure) CHF (congestive heart failure) Coronary artery disease CVA (cerebrovascular accident) Essential hypertension Hypertension VSD (ventricular septal defect) Functional capacity: uses cane/walker Social History Social History Household Members: None Housing: Apartment Do you presently have visiting nurse or other home services: Yes (pt unsure) Alcohol intake: unknown Patient Tobacco Use Status: Current everyday Tobacco user Tobacco use type: Cigarette Second Hand Smoke Exposure: No Advance Directives: Yes Advance Directives on File: Yes Advance Directives Date on File: 11/13/21 service: No Current occupational status: unemployed Meds Allergies Allergy/AdvReac Type Severity Reaction Status Date / Time acetaminophen [From Tylenol] Allergy Unknown UNKNOWN Verified 02/03/22 09:01 Active Medications: Current Medications Albuterol Sulfate (Albuterol Sulfate 90 Mcg 8 Gm Inhaler) 2 puff INHALE RQID PRN PRN Reason: shortness of breath or wheezing Amiodarone HCl (Amiodarone Hcl 200 Mg Tablet) 200 mg PO DAILY [facility] Last Admin: 02/18/22 09:32 Dose: 200 mg Documented by: Atorvastatin Calcium (Atorvastatin Calcium 20 Mg Tablet) 20 mg PO DAILY [facility] Last Admin: 02/18/22 08:53 Dose: 20 mg Documented by: Carvedilol (Carvedilol 12.5 Mg Tablet) 12.5 mg PO BID [facility]; Protocol Doxazosin Mesylate (Doxazosin Mesylate 2 Mg Tablet) 4 mg PO BEDTIME [facility] Ferrous Sulfate (Ferrous Sulfate 324 Mg Tablet.Dr) 324 mg PO DAILY [facility] Fluticasone/Vilanterol (Fluticasone/Vilanterol 200/25 Blst.W.Dev) 1 puff INHALE RDAILY [facility] Folic Acid (Folic Acid 1 Mg Tablet) 1 mg PO DAILY [facility] Last Admin: 02/18/22 08:55 Dose: 1 mg Documented by: Furosemide (Furosemide 40 Mg Tablet) 40 mg PO DAILY [facility]; Protocol Melatonin (Melatonin 3 Mg Tablet) 6 mg PO BEDTIME PRN PRN Reason: Insomnia Multivitamins/Vitamin C (Multivitamin Tablet) 1 tab PO DAILY [facility] Last Admin: 02/18/22 08:54 Dose: 1 tab Documented by: Nicotine Polacrilex (Nicotine Polacrilex 2 Mg Gum) 2 mg BUCCAL Q3H PRN PRN Reason: nicotine cravings Oxybutynin Chloride (Oxybutynin Chloride Er 5 Mg Tab.Er.24) 5 mg PO DAILY [facility] Last Admin: 02/18/22 08:53 Dose: 5 mg Documented by: Pantoprazole Sodium (Pantoprazole Sodium 40 Mg/10 Ml Vial) 40 mg IVPUSH DAILY@0630 [facility] Quetiapine Fumarate (Quetiapine Fumarate 50 Mg Tablet) 50 mg PO DAILY PRN PRN Reason: Agitation Quetiapine Fumarate (Quetiapine Fumarate 25 Mg Tablet) 75 mg PO BID [facility] Senna (Sennosides 8.6 Mg Tablet) 17.2 mg PO BEDTIME PRN PRN Reason: Constipation Sertraline HCl (Sertraline Hcl 100 Mg Tablet) 100 mg PO DAILY [facility] Last Admin: 02/18/22 08:53 Dose: 100 mg Documented by: Sodium Chloride (0.9 % Sodium Chloride Flush 3 Ml Syringe) 3 ml IVFLUSH QSHIFT [facility] Last Admin: 02/18/22 08:52 Dose: Not Given Documented by: Tiotropium [place] (Tiotropium [place] 18 Mcg Cap.W.Dev) 1 puff INHALE RDAILY [facility] Last Admin: 02/18/22 08:52 Dose: 1 puff Documented by: Vitamin D (Cholecalciferol (Vitamin D3) 25 Mcg Tablet) 25 mcg PO DAILY [facility] Last Admin: 02/18/22 08:53 Dose: 25 mcg Documented by: Home Medications Medication Instructions Recorded Confirmed Last Taken Type amlodipine 5 mg tablet 1 tab PO DAILY 11/07/21 02/18/22 02/17/22 History aspirin 81 mg tablet,delayed 1 tab PO DAILY 11/07/21 02/18/22 02/17/22 History release atorvastatin 20 mg tablet 1 tab PO DAILY 11/07/21 02/18/22 02/17/22 History cholecalciferol (vitamin D3) 25 1 tab PO DAILY 11/07/21 02/18/22 02/17/22 History mcg (1,000 unit) tablet (Vitamin D3) multivitamin with folic acid 400 1 tab PO DAILY 11/07/21 02/18/22 02/17/22 History mcg tablet (Tab-A-Miguelangel) oxybutynin chloride 5 mg 1 tab PO DAILY 11/07/21 02/18/22 02/17/22 History tablet,extended release 24 hr quetiapine 50 mg tablet 1 tab PO DAILY PRN 11/07/21 02/18/22 02/17/22 History sertraline 100 mg tablet 1 tab PO DAILY 11/07/21 02/18/22 02/17/22 History terazosin 5 mg capsule 1 cap PO BEDTIME 11/07/21 02/18/22 02/17/22 History tiotropium bromide 18 mcg capsule 1 cap INHALATION DAILY 11/07/21 02/18/22 02/17/22 History with inhalation device (Spiriva with HandiHaler) quetiapine 150 mg tablet,extended 1 tab PO BEDTIME 11/09/21 02/18/22 02/17/22 History release 24 hr ferrous sulfate 325 mg (65 mg 1 tab PO DAILY 01/26/22 02/18/22 02/17/22 History iron) tablet,delayed release fluticasone 232 mcg-salmeterol 14 1 puff INHALATION BID 01/26/22 02/18/22 02/17/22 History mcg/actuation breath activated powdr amiodarone 200 mg tablet 200 mg PO BID 02/18/22 02/18/22 02/17/22 History docusate sodium 100 mg capsule 1 cap PO BID PRN 02/18/22 02/18/22 Unknown History (DOK) furosemide 40 mg tablet 1 tab PO DAILY 02/18/22 02/18/22 02/17/22 History lisinopril 10 mg tablet 1 tab PO DAILY 02/18/22 02/18/22 02/17/22 History Physical Exam Vital Signs: Vital Signs: Last Vital Signs Temp 98.1 F 02/18/22 12:57 Pulse 88 02/18/22 13:34 Resp 24 H 02/18/22 13:34 BP 125/74 02/18/22 13:34 Pulse Ox 96 02/18/22 13:34 BMI result Body Mass Index 19.7 Results Labs CBC & Chem 7: 02/18/22 02:05 02/18/22 09:09 Labs: Short CBC 02/18/22 Range/Units 02:05 WBC 7.1 (4.8-10.8) X10*3/uL Hgb 6.3 L* D (14.0-18.0) g/dl Hct 21.3 L D (42.0-52.0) % Plt Count 298 (160-400) X10*3/uL BMP 02/18/22 02/18/22 02:05 09:09 Sodium 136 138 Potassium 5.8 H D 5.3 H Chloride 101 103 Carbon Dioxide 25 28 BUN 45 H 43 H Creatinine 1.79 H 1.66 H Calcium 9.4 9.3 Liver Function 02/18/22 Range/Units 02:05 Total Bilirubin 0.4 (0.0-1.0) mg/dL AST 34 (5-37) U/L ALT 23 (0-40) U/L Alkaline Phosphatase 452 H (39-117) U/L Albumin 3.3 L (3.5-5.0) g/dL
--- NOTE | 2022-02-18 14:11 | P.CNGI_ITS ---
History of Present Illness Data of Consult Service Date: 02/18/22 Requesting physician: Brain Cunningham Primary Care Provider: Unknown Physician HPI Reason for consult: Anemia, heme positive stools 66 YM with hypertension, hyperlipidemia, CAD, CHF EF of 20-25%, atrial tachycardia, CVA, VSD, iron deficiency anemia, recent diagnosis of hepatocellular carcinoma. Pt was hospitalized at [facility] from 01/26 to 02/04/22 with anemia status post 2 units of blood transfusion; EGD and Colonoscopy was performed by Dr Olivas. EGD showed mild esophagitis and gastritis. Three small to medium sized adenomatous polyps were removed during same-day colonoscopy. Biopsy of the liver mass showed well-differentiated hepatocellular carcinoma. H & H was 9 and 30.8 at discharge. Pt came to [facility] ED on 02/18/22 with left-sided abdominal pain.? Patient reported that today he developed left-sided abdominal pain, sharp in nature, nonradiating, denies any associated nausea vomiting and diarrhea.? Labs showed H & H of 6.3 and 21.3. Stool hemoccult was positive. ER course: Per ER team patient had CT abdomen pelvis done which showed 10 cm liver mass suspicious for hepatocellular lesion unchanged from the recent CT scan; 2 cm mass in the left lobe of the liver; 16 mm to 5 mm reticular radiodensity noted in the lumen of the transverse colon-may represent ingested foreign body or caps ule endoscopy; on labs noted to have hemoglobin of 6.3; stool guaiac was positive; patient was started on blood transfusion-plan for 2 units.? Admitted for further management. IMAGING STUDIES: 02/18/[address] SCAN SHOWED: *10 cm mass within the right lobe of the liver suspicious for hepatocellular carcinoma unchanged compared with 01/29/2022. Trace right subphrenic ascites measuring 3 mm in maximum width is present and is new compared with 01/29/2022. *2 cm mass within the left lobe of the liver unchanged compared with 01/29/2022 suspicious for neoplasm. *Unchanged 2.8 cm partially exophytic lesion of the inferior pole the left kidney suspicious for renal cell carcinoma unchanged compared with 01/29/2022. *16 mm x 5 mm reticular radiodensity present within the lumen of the transverse colon. This finding may represent an ingested foreign body or capsule endoscopy. This finding is new compared with 01/29/2022. *Cholelithiasis. Review of Systems Review of Systems: Yes all other systems are reviewed and are negative [facility] Past Medical History Medical History Asthma Cardiomyopathy CHF (congestive heart failure) CHF (congestive heart failure) Coronary artery disease CVA (cerebrovascular accident) Essential hypertension Hypertension VSD (ventricular septal defect) Functional capacity: uses cane/walker Social History Social History Household Members: None Housing: Apartment Do you presently have visiting nurse or other home services: Yes Alcohol intake: unknown Patient Tobacco Use Status: Current everyday Tobacco user Tobacco use type: Cigarette Cigarette Packs Per Day: 10 Cigarettes Per Day: 200.0 Second Hand Smoke Exposure: No Advance Directives Date on File: 11/13/21 service: No Current occupational status: unemployed Meds Allergies Allergy/AdvReac Type Severity Reaction Status Date / Time acetaminophen [From Tylenol] Allergy Unknown UNKNOWN Verified 02/03/22 09:01 Active Medications: Current Medications Albuterol Sulfate (Albuterol Sulfate 90 Mcg 8 Gm Inhaler) 2 puff INHALE RQID PRN PRN Reason: shortness of breath or wheezing Amiodarone HCl (Amiodarone Hcl 200 Mg Tablet) 200 mg PO DAILY [facility] Last Admin: 02/18/22 09:32 Dose: 200 mg Documented by: Atorvastatin Calcium (Atorvastatin Calcium 20 Mg Tablet) 20 mg PO DAILY [facility] Last Admin: 02/18/22 08:53 Dose: 20 mg Documented by: Carvedilol (Carvedilol 12.5 Mg Tablet) 12.5 mg PO BID [facility]; Protocol Doxazosin Mesylate (Doxazosin Mesylate 2 Mg Tablet) 4 mg PO BEDTIME [facility] Ferrous Sulfate (Ferrous Sulfate 324 Mg Tablet.Dr) 324 mg PO DAILY [facility] Fluticasone/Vilanterol (Fluticasone/Vilanterol 200/25 Blst.W.Dev) 1 puff INHALE RDAILY [facility] Folic Acid (Folic Acid 1 Mg Tablet) 1 mg PO DAILY [facility] Last Admin: 02/18/22 08:55 Dose: 1 mg Documented by: Furosemide (Furosemide 40 Mg Tablet) 40 mg PO DAILY [facility]; Protocol Melatonin (Melatonin 3 Mg Tablet) 6 mg PO BEDTIME PRN PRN Reason: Insomnia Multivitamins/Vitamin C (Multivitamin Tablet) 1 tab PO DAILY [facility] Last Admin: 02/18/22 08:54 Dose: 1 tab Documented by: Nicotine Polacrilex (Nicotine Polacrilex 2 Mg Gum) 2 mg BUCCAL Q3H PRN PRN Reason: nicotine cravings Oxybutynin Chloride (Oxybutynin Chloride Er 5 Mg Tab.Er.24) 5 mg PO DAILY [facility] Last Admin: 02/18/22 08:53 Dose: 5 mg Documented by: Pantoprazole Sodium (Pantoprazole Sodium 40 Mg/10 Ml Vial) 40 mg IVPUSH DAILY@0630 [facility] Quetiapine Fumarate (Quetiapine Fumarate 50 Mg Tablet) 50 mg PO DAILY PRN PRN Reason: Agitation Quetiapine Fumarate (Quetiapine Fumarate 25 Mg Tablet) 75 mg PO BID [facility] Senna (Sennosides 8.6 Mg Tablet) 17.2 mg PO BEDTIME PRN PRN Reason: Constipation Sertraline HCl (Sertraline Hcl 100 Mg Tablet) 100 mg PO DAILY [facility] Last Admin: 02/18/22 08:53 Dose: 100 mg Documented by: Sodium Chloride (0.9 % Sodium Chloride Flush 3 Ml Syringe) 3 ml IVFLUSH QSHIFT [facility] Last Admin: 02/18/22 08:52 Dose: Not Given Documented by: Tiotropium [place] (Tiotropium [place] 18 Mcg Cap.W.Dev) 1 puff INHALE RDAILY S Last Admin: 02/18/22 08:52 Dose: 1 puff Documented by: Vitamin D (Cholecalciferol (Vitamin D3) 25 Mcg Tablet) 25 mcg PO DAILY [facility] Last Admin: 02/18/22 08:53 Dose: 25 mcg Documented by: Home Medications Medication Instructions Recorded Confirmed Last Taken Type amlodipine 5 mg tablet 1 tab PO DAILY 11/07/21 02/18/22 02/17/22 History aspirin 81 mg tablet,delayed 1 tab PO DAILY 11/07/21 02/18/22 02/17/22 History release atorvastatin 20 mg tablet 1 tab PO DAILY 11/07/21 02/18/22 02/17/22 History cholecalciferol (vitamin D3) 25 1 tab PO DAILY 11/07/21 02/18/22 02/17/22 History mcg (1,000 unit) tablet (Vitamin D3) multivitamin with folic acid 400 1 tab PO DAILY 11/07/21 02/18/22 02/17/22 History mcg tablet (Tab-A-Miguelangel) oxybutynin chloride 5 mg 1 tab PO DAILY 11/07/21 02/18/22 02/17/22 History tablet,extended release 24 hr quetiapine 50 mg tablet 1 tab PO DAILY PRN 11/07/21 02/18/22 02/17/22 History sertraline 100 mg tablet 1 tab PO DAILY 11/07/21 02/18/22 02/17/22 History terazosin 5 mg capsule 1 cap PO BEDTIME 11/07/21 02/18/22 02/17/22 History tiotropium bromide 18 mcg capsule 1 cap INHALATION DAILY 11/07/21 02/18/22 02/17/22 History with inhalation device (Spiriva with HandiHaler) quetiapine 150 mg tablet,extended 1 tab PO BEDTIME 11/09/21 02/18/22 02/17/22 History release 24 hr ferrous sulfate 325 mg (65 mg 1 tab PO DAILY 01/26/22 02/18/22 02/17/22 History iron) tablet,delayed release fluticasone 232 mcg-salmeterol 14 1 puff INHALATION BID 01/26/22 02/18/22 02/17/22 History mcg/actuation breath activated powdr amiodarone 200 mg tablet 200 mg PO BID 02/18/22 02/18/22 02/17/22 History docusate sodium 100 mg capsule 1 cap PO BID PRN 02/18/22 02/18/22 Unknown History (DOK) furosemide 40 mg tablet 1 tab PO DAILY 02/18/22 02/18/22 02/17/22 History Physical Exam Vital Signs: Vital Signs: Last Vital Signs Temp 98.1 F 02/18/22 12:57 Pulse 88 02/18/22 13:34 Resp 24 H 02/18/22 13:34 BP 125/74 02/18/22 13:34 Pulse Ox 96 02/18/22 13:34 BMI result Body Mass Index 19.7 Const: General: no acute distress and ill appearing Nutritional Appearance: average body habitus Orientation/consciousness: patient oriented x3 Limitations: no limitations HEENT: Head: Yes normal to inspection Ears: hearing grossly normal bilaterally Mouth: Normal oral and palatal mucosa present Eyes: Sclerae: sclerae normal Pupils: Equal, round and reactive pupils present Neck: Neck: Yes normal visual inspection Chest: Chest palpation & inspection: normal inspection of the chest Resp: Effort & Inspection: normal respiratory effort Auscultation: clear to auscultation bilaterally Cardio: Palpation: normal PMI Rate: regular rate Rhythm: regular rhythm Heart sounds: S1 normal heart sound present, S2 normal heart sound present and no murmurs GI: Palpation (GI): Soft to palpation, Tenderness to palpation present (GI) (mild epigastric tenderness) and No hepatosplenomegaly present Auscultation: normal bowel sounds Rectal Exam - Male: Yes deferred Skin: General skin exam: no rashes or lesions noted Neuro: General: patient oriented x3, gait normal and moves all extremities Cranial nerves: Yes Equal, round and reactive pupils present Psych: Appearance: grossly normal Mental Status: mental status grossly normal Results Labs CBC & Chem 7: 02/23/22 06:23 02/23/22 06:23 Labs: Short CBC 02/18/22 Range/Units 02:05 WBC 7.1 (4.8-10.8) X10*3/uL Hgb 6.3 L* D (14.0-18.0) g/dl Hct 21.3 L D (42.0-52.0) % Plt Count 298 (160-400) X10*3/uL BMP 02/18/22 02/18/22 02:05 09:09 Sodium 136 138 Potassium 5.8 H D 5.3 H Chloride 101 103 Carbon Dioxide 25 28 BUN 45 H 43 H Creatinine 1.79 H 1.66 H Calcium 9.4 9.3 Liver Function 02/18/22 Range/Units 02:05 Total Bilirubin 0.4 (0.0-1.0) mg/dL AST 34 (5-37) U/L ALT 23 (0-40) U/L Alkaline Phosphatase 452 H (39-117) U/L Albumin 3.3 L (3.5-5.0) g/dL Assessment and Plan (1) Hepatocellular carcinoma: Status: Acute (2) Severe anemia: Status: Acute Plan 66 YM with hypertension, hyperlipidemia, CAD, CHF EF of 20-25%, atrial tachycardia, CVA, VSD, iron deficiency anemia, recent diagnosis of hepatocel lular carcinoma. Pt was hospitalized at [facility] from 01/26 to 02/04/22 with anemia status post 2 units of blood transfusion; EGD and Colonoscopy was performed by Dr Olivas. EGD showed mild esophagitis and gastritis. Three small to medium sized adenomatous polyps were removed during same-day colonoscopy. Biopsy of the liver mass showed well-differentiated hepatocellular carcinoma. H & H was 9 and 30.8 at discharge. Pt admitted to [facility] with left-sided abdominal pain.? Labs showed H & H of 6.3 and 21.3. Stool hemoccult was positive. Patient was transfused 1 unit of packed red blood cell. Pt denies overt GI bleeding - hematochezia or melena. RECOMMENDATIONS: 1. Repeat CBC post blood transfusion 2. Agree with IV PPI 3. MRI scan for FU of HCC 4. Monitor H &H since patient has undergone recent endoscopic evaluation. Procedures Date of Service Date of Service: 02/18/22
--- NOTE | 2022-02-18 14:28 | PC.NURSE ---
Addendum entered by Shaye Lubin RN 02/18/22 14:37: SR with bundle branch block on tele Original Note: pt alert and oriented, able to make needs known. LS clear, satting well on 2L NC. pt told plan of care and NPO diet, call mares in reach.
[2022-02-18] MEDS: 0.9 % Sodium Chloride Flush 3 ML SYRINGE IVFLUSH (16:10)
[2022-02-18 17:01] LABS: Mean Corpuscular Hemoglobin 25.6 pg (27.0-33.0); Mean Corpuscular Volume 82.6 fL (80.0-98.0); Mean Platelet Volume 12.6 fL (9.4-12.4); Platelet Count 324 X10*3/uL (160-400); Red Blood Count 3.51 X10*6/uL (4.60-5.80); Red Cell Distribution Width 19.7 % (11.0-16.0); White Blood Count 9.7 X10*3/uL (4.8-10.8)
[2022-02-18 17:33] LABS: Glucose, Whole Blood 105 mg/dL (60-115)
--- NOTE | 2022-02-18 19:48 | PC.NURSE ---
PATIENT WAS ASSISTED TO THE BATHROOM WITH 1 ASSIST .
--- NOTE | 2022-02-18 19:49 | PC.NURSE ---
patient ate 100 % of meals ,drank 240 ml ivette chioma
[2022-02-18] MEDS: QUEtiapine Fumarate 25 MG TABLET 75 MG PO (20:49)
[2022-02-18] MEDS: Doxazosin Mesylate 2 MG TABLET 4 MG PO (20:49)
--- NOTE | 2022-02-18 21:31 | PC.NURSE ---
Pt alert and oriented, denies any pain ,claimed some SOB, tolerating O2 at 2L/min via NC, meds tolerated, report called to [facility] and given to DALI Milligan at 2106, pt was transported to [facility] at 2129
[2022-02-18 21:47] LABS: Glucose, Whole Blood 130 mg/dL (60-115)
[2022-02-18 21:56] LABS: Glucose, Whole Blood 156 mg/dL (60-115)
[2022-02-19] VITALS (8 sets, daily range): BP systolic 108–135; BP diastolic 56–83; PULSE 59–84; RESP 18–20; TEMP 36.6–37.3; O2SAT 91–100
[2022-02-19] MEDS: 0.9 % Sodium Chloride Flush 3 ML SYRINGE IVFLUSH ×4 (01:55→20:24)
[2022-02-19] MEDS: Pantoprazole Sodium 40 MG/10 ML VIAL IVPUSH (06:40)
[2022-02-19 06:58] LABS: Hematocrit 30.6 % (42.0-52.0); Hemoglobin 9.3 g/dl (14.0-18.0); Mean Corpuscular HGB Conc 30.4 g/dl (31.0-36.0); Mean Corpuscular Hemoglobin 25.1 pg (27.0-33.0); Mean Corpuscular Volume 82.5 fL (80.0-98.0); Mean Platelet Volume 12.3 fL (9.4-12.4); Platelet Count 287 X10*3/uL (160-400); Red Blood Count 3.71 X10*6/uL (4.60-5.80); Red Cell Distribution Width 19.8 % (11.0-16.0); White Blood Count 10.2 X10*3/uL (4.8-10.8)
[2022-02-19 07:19] LABS: Anion Gap 14 (12-20); Blood Urea Nitrogen 48 mg/dL (9-16); Carbon Dioxide 27 mmol/L (22-29); Chloride 101 mmol/L (96-108); Creatinine Clr Calc Pharmacy 28.3; Estimated Glomerular Filt Rate 36; Glucose Fasting 92 mg/dL (60-99); Potassium 4.9 mmol/L (3.3-5.1); Sodium 137 mmol/L (135-145)
[2022-02-19 07:23] LABS: Anion Gap 13 (12-20); Blood Urea Nitrogen 48 mg/dL (9-16); Carbon Dioxide 29 mmol/L (22-29); Chloride 100 mmol/L (96-108); Creatinine Clr Calc Pharmacy 28.3; Estimated Glomerular Filt Rate 36; Glucose Random 93 mg/dL (60-115); Iron 24 mcg/dL (45-160); Percent Iron Saturation 6 % (15-50); Potassium 4.9 mmol/L (3.3-5.1); Sodium 137 mmol/L (135-145); Total Iron Binding Capacity 431 mcg/dL (228-428); Unsaturated Iron Binding 407 ug/dL
[2022-02-19 07:47] LABS: Ferritin 60 ng/mL (20-250)
[2022-02-19] MEDS: Fluticasone/Vilanterol 200/25 BLST.W.DEV 1 PUFF INHALE (08:32)
[2022-02-19] MEDS: QUEtiapine Fumarate 25 MG TABLET 75 MG PO ×2 (09:48→20:22)
[2022-02-19] MEDS: carvediloL 12.5 MG TABLET PO (09:48)
[2022-02-19] MEDS: Sertraline HCL 100 MG TABLET PO (09:48)
[2022-02-19] MEDS: Folic Acid 1 MG TABLET PO (09:49)
[2022-02-19] MEDS: Amiodarone HCL 200 MG TABLET PO (09:49)
[2022-02-19] MEDS: Cholecalciferol (Vitamin D3) 25 MCG TABLET PO (09:49)
[2022-02-19] MEDS: Ferrous Sulfate 324 MG TABLET.DR PO (09:49)
[2022-02-19] MEDS: Multivitamin TABLET 1 TAB PO (09:49)
[2022-02-19] MEDS: Furosemide 40 MG TABLET PO (09:50)
[2022-02-19] MEDS: Atorvastatin Calcium 20 MG TABLET PO (09:50)
[2022-02-19] MEDS: Sodium Ferric Gluconat/Sucrose 125 MG in 0.9 % Sodium Chloride 100 ML 100 MG IV (13:45)
--- NOTE | 2022-02-19 13:50 | P.PNIM_ITS ---
Subjective Subjective Date of Service: 02/19/22 Interval History: Abdominal pain improved complaining of mild epigastric pain this morning, complaining of chest tightness, and mild shortness of breath, oxygenation stable on 2 L not on home oxygen, denies nausea vomiting no acute events overnight. 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 diminish ed bilateral, no w heeze, no rhonchi, no accessory musc les used CVS: S1,S 2,RRR GI: soft, mi ld epigastric tend erness, non disten ded Neuro:? motor grossly intact, al ert Psych: appropr iate affect, appro priate insight? Sk in no rash Objective Data Active Medications Albuterol Sulfate (Albuterol Sulfate 90 Mcg 8 Gm Inhaler) 2 puff INHALE RQID PRN PRN Reason: shortness of breath or wheezing Albuterol/Ipratropium (Albuterol/Iprat 2.5/0.5mg 3 Ml Ampul.Neb) 3 ml INHALE RQ4H PRN PRN Reason: Shortness of Breath/Wheezing Amiodarone HCl (Amiodarone Hcl 200 Mg Tablet) 200 mg PO DAILY [facility] Last Admin: 02/19/22 09:49 Dose: 200 mg Documented by: NYDIA Atorvastatin Calcium (Atorvastatin Calcium 20 Mg Tablet) 20 mg PO DAILY [facility] Last Admin: 02/19/22 09:50 Dose: 20 mg Documented by: NYDIA Carvedilol (Carvedilol 12.5 Mg Tablet) 12.5 mg PO BID [facility]; Protocol Last Admin: 02/19/22 09:48 Dose: 12.5 mg Documented by: NYDIA Doxazosin Mesylate (Doxazosin Mesylate 2 Mg Tablet) 4 mg PO BEDTIME [facility] Last Admin: 02/18/22 20:49 Dose: 4 mg Documented by: MARTHA Comments: BS=029/84 H 90 Ferrous Sulfate (Ferrous Sulfate 324 Mg Tablet.) 324 mg PO DAILY [facility] Last Admin: 02/19/22 09:49 Dose: 324 mg Documented by: NYDIA Fluticasone/Vilanterol (Fluticasone/Vilanterol 200/25 Blst.W.Dev) 1 puff INHALE RDAILY [facility] Last Admin: 02/19/22 08:32 Dose: 1 puff Documented by: CHAD Folic Acid (Folic Acid 1 Mg Tablet) 1 mg PO DAILY [facility] Last Admin: 02/19/22 09:49 Dose: 1 mg Documented by: NYDIA Melatonin (Melatonin 3 Mg Tablet) 6 mg PO BEDTIME PRN PRN Reason: Insomnia Multivitamins/Vitamin C (Multivitamin Tablet) 1 tab PO DAILY [facility] Last Admin: 02/19/22 09:49 Dose: 1 tab Documented by: NYDIA Nicotine Polacrilex (Nicotine Polacrilex 2 Mg Gum) 2 mg BUCCAL Q3H PRN PRN Reason: nicotine cravings Oxybutynin Chloride (Oxybutynin Chloride Er 5 Mg Tab.Er.24) 5 mg PO DAILY [facility] Last Admin: 02/19/22 09:49 Dose: 5 mg Documented by: NYDIA Pantoprazole Sodium (Pantoprazole Sodium 40 Mg/10 Ml Vial) 40 mg IVPUSH DAILY@0630 [facility] Last Admin: 02/19/22 06:40 Dose: 40 mg Documented by: YAIR Quetiapine Fumarate (Quetiapine Fumarate 50 Mg Tablet) 50 mg PO DAILY PRN PRN Reason: Agitation Quetiapine Fumarate (Quetiapine Fumarate 25 Mg Tablet) 75 mg PO BID [facility] Last Admin: 02/19/22 09:48 Dose: 75 mg Documented by: NYDIA Senna (Sennosides 8.6 Mg Tablet) 17.2 mg PO BEDTIME PRN PRN Reason: Constipation Sertraline HCl (Sertraline Hcl 100 Mg Tablet) 100 mg PO DAILY [facility] Last Admin: 02/19/22 09:48 Dose: 100 mg Documented by: NYDIA Sodium Chloride (0.9 % Sodium Chloride Flush 3 Ml Syringe) 3 ml IVFLUSH QSHIFT [facility] Last Admin: 02/19/22 09:48 Dose: 3 ml Documented by: NYDIA Tiotropium [place] (Tiotropium [place] 18 Mcg Cap.W.Dev) 1 puff INHALE RDAILY [facility] Last Admin: 02/19/22 08:32 Dose: 1 puff Documented by: CHAD Vitamin D (Cholecalciferol (Vitamin D3) 25 Mcg Tablet) 25 mcg PO DAILY [facility] Last Admin: 02/19/22 09:49 Dose: 25 mcg Documented by: NYDIA Labs CBC & Chem 7: 02/19/22 06:22 02/19/22 06:22 Labs: Laboratory Results - last 24 hr 02/18/22 02/18/22 02/18/22 16:51 17:23 21:13 MCV 82.6 MCH 25.6 L MCHC 31.0 RDW 19.7 H Plt Count 324 MPV 12.6 H Absolute Nucleated RBC 0.000 Nucleated RBC % (auto) 0.0 Anion Gap Estim Creat Clear Calc Estimated GFR POC Glucose 105 156 H Random Glucose Fasting Glucose Calcium Iron TIBC % Saturation Unsat Iron Binding Ferritin 02/18/22 02/19/22 02/19/22 21:43 06:22 06:22 MCV MCH MCHC RDW Plt Count MPV Absolute Nucleated RBC Nucleated RBC % (auto) Anion Gap 13 Estim Creat Clear Calc 28.3 Estimated GFR 36 POC Glucose 130 H Random Glucose 93 Fasting Glucose Calcium 9.0 Iron 24 L TIBC 431 H % Saturation 6 L Unsat Iron Binding 407 Ferritin 60 02/19/22 02/19/22 06:22 06:22 MCV 82.5 MCH 25.1 L MCHC 30.4 L RDW 19.8 H Plt Count 287 MPV 12.3 Absolute Nucleated RBC 0.000 Nucleated RBC % (auto) 0.0 Anion Gap 14 Estim Creat Clear Calc 28.3 Estimated GFR 36 POC Glucose Random Glucose Fasting Glucose 92 Calcium 9.0 Iron TIBC % Saturation Unsat Iron Binding Ferritin Assessment and Plan (1) Hepatocellular carcinoma: Status: Acute Plan 66M presented with abd pain, found to have signficant anemia, hypoxia Epigastric pain Improved, DC IV Protonix, transition to by mouth PPI Recent upper endoscopy showed gastritis/esophagitis and colonoscopy showed internal hemorrhoids and polyps Recommend close GI follow-up acute on chronic blood loss anemia with iron deficiency hgb 6.3, on admission improved to 9.3,s/p [address] abdomen showed capsule GI note reviewed, MRI scan recommended patient noted to have worsening renal function case discussed with Dr. Wilcox she recommend to hold MRI and if needed can be done as outpatient. Will give 1 dose of IV Ferrlecit, and placed on by mouth iron upon discharge atrial tachycardia Stable, amio 200mg daily coreg 12.5mg bid acute hypoxic resp failure due to acute on chronic systolic chf and copd s/p iv lasix , noted to have worsening creatinine and BUN will hold Lasix today Patient complaining of chest tightness will place on scheduled and as needed updraft continue home inhalers breo/Spiriva hyperkalemia improved to 4.9 monitor CKD III Mild bump in creatinine to 1.89, hold Lasix, follow BMP at a.m. HCC Discussed with Dr. Wilcox she recommend to hold MRI HTN amlodipnie on hold for concern for hypotension in gi bleed dvt prophylaxis - mechancial due to gi bleed reason for continued hospitalization: Close monitoring of renal function, continue treatment for anemia and abdominal pain. Quality Stroke Does the patient have a stroke diagnosis?: No VTE Prior VTE?: No VTE Risk Level:: Medical - moderate - high VTE Device Contraindication: N/A - Device Ordered VTE Drug Contraindication: Treatment Not Indicated
[2022-02-19] MEDS: Omeprazole 20 MG CAPSULE.DR PO (17:30)
[2022-02-19] MEDS: Albuterol/Iprat 2.5/0.5MG 3 ML AMPUL.NEB INHALE (19:02)
[2022-02-19] MEDS: Doxazosin Mesylate 2 MG TABLET 4 MG PO (20:23)
[2022-02-20] VITALS (9 sets, daily range): BP systolic 112–151; BP diastolic 58–66; PULSE 57–118; RESP 16–19; TEMP 36.4–37.3; O2SAT 92–100
[2022-02-20] MEDS: Omeprazole 20 MG CAPSULE.DR PO ×2 (06:21→16:20)
[2022-02-20 06:55] LABS: Anion Gap 13 (12-20); Blood Urea Nitrogen 53 mg/dL (9-16); Calcium 8.6 mg/dL (8.4-10.2); Carbon Dioxide 29 mmol/L (22-29); Chloride 103 mmol/L (96-108); Creatinine Clr Calc Pharmacy 32.2; Estimated Glomerular Filt Rate 42; Glucose Random 93 mg/dL (60-115); Potassium 4.1 mmol/L (3.3-5.1); Sodium 141 mmol/L (135-145)
[2022-02-20] MEDS: Albuterol/Iprat 2.5/0.5MG 3 ML AMPUL.NEB INHALE ×3 (07:45→18:51)
[2022-02-20] MEDS: Fluticasone/Vilanterol 200/25 BLST.W.DEV 1 PUFF INHALE (07:45)
[2022-02-20] MEDS: Folic Acid 1 MG TABLET PO (08:35)
[2022-02-20] MEDS: QUEtiapine Fumarate 25 MG TABLET 75 MG PO ×2 (08:35→20:28)
[2022-02-20] MEDS: carvediloL 12.5 MG TABLET PO ×2 (08:35→20:29)
[2022-02-20] MEDS: Amiodarone HCL 200 MG TABLET PO (08:35)
[2022-02-20] MEDS: Cholecalciferol (Vitamin D3) 25 MCG TABLET PO (08:35)
[2022-02-20] MEDS: Atorvastatin Calcium 20 MG TABLET PO (08:35)
[2022-02-20] MEDS: Ferrous Sulfate 324 MG TABLET.DR PO (08:35)
[2022-02-20] MEDS: Multivitamin TABLET 1 TAB PO (08:35)
[2022-02-20] MEDS: 0.9 % Sodium Chloride Flush 3 ML SYRINGE IVFLUSH ×3 (08:36→20:29)
[2022-02-20] MEDS: Sertraline HCL 100 MG TABLET PO (08:40)
--- NOTE | 2022-02-20 10:16 | P.PNIM_ITS ---
Subjective Subjective Date of Service: 02/20/22 Interval History: cc: abd pain interval history: sob, weak Cardiovascular Cardiovascular: Reports no additional cardiovascular complaints Respiratory Respiratory: Reports no additional respiratory complaints Physical Exam Vital Signs: Vital Signs: Last Vital Signs Temp 97.9 F 02/20/22 08:00 Pulse 75 02/20/22 08:00 Resp 16 02/20/22 08:00 BP 151/66 H 02/20/22 08:00 Pulse Ox 96 02/20/22 08:00 BMI result Body Mass Index 19.7 General:? Awake alert x3, no acute distress Neck no JVD, normal inspection Resp:? diminished bilateral, no wheeze, no rhonchi, no accessory muscles used CVS: S1,S2,RRR GI: soft, mild epigastric tenderness, non distended Neuro:? motor grossly intact, alert Psych: appropriate affect, appropriate insight? Skin no rash Objective Data Active Medications Albuterol Sulfate (Albuterol Sulfate 90 Mcg 8 Gm Inhaler) 2 puff INHALE RQID PRN PRN Reason: shortness of breath or wheezing Albuterol/Ipratropium (Albuterol/Iprat 2.5/0.5mg 3 Ml Ampul.Neb) 3 ml INHALE RQ4H PRN PRN Reason: Shortness of Breath/Wheezing Albuterol/Ipratropium (Albuterol/Iprat 2.5/0.5mg 3 Ml Ampul.Neb) 3 ml INHALE RQ6H WHILE AWAKE [facility] Last Admin: 02/20/22 07:45 Dose: 3 ml Documented by: SHAILA Amiodarone HCl (Amiodarone Hcl 200 Mg Tablet) 200 mg PO DAILY [facility] Last Admin: 02/20/22 08:35 Dose: 200 mg Documented by: RASHAD Atorvastatin Calcium (Atorvastatin Calcium 20 Mg Tablet) 20 mg PO DAILY [facility] Last Admin: 02/20/22 08:35 Dose: 20 mg Documented by: RASHAD Carvedilol (Carvedilol 12.5 Mg Tablet) 12.5 mg PO BID [facility]; Protocol Last Admin: 02/20/22 08:35 Dose: 12.5 mg Documented by: RASHAD Doxazosin Mesylate (Doxazosin Mesylate 2 Mg Tablet) 4 mg PO BEDTIME [facility] Last Admin: 02/19/22 20:23 Dose: 4 mg Documented by: SWETHA Ferrous Sulfate (Ferrous Sulfate 324 Mg Tablet.) 324 mg PO DAILY [facility] Last Admin: 02/20/22 08:35 Dose: 324 mg Documented by: RASHAD Fluticasone/Vilanterol (Fluticasone/Vilanterol 200/25 Blst.W.Dev) 1 puff INHALE RDAILY [facility] Last Admin: 02/20/22 07:45 Dose: 1 puff Documented by: SHAILA Folic Acid (Folic Acid 1 Mg Tablet) 1 mg PO DAILY [facility] Last Admin: 02/20/22 08:35 Dose: 1 mg Documented by: RASHAD Melatonin (Melatonin 3 Mg Tablet) 6 mg PO BEDTIME PRN PRN Reason: Insomnia Multivitamins/Vitamin C (Multivitamin Tablet) 1 tab PO DAILY [facility] Last Admin: 02/20/22 08:35 Dose: 1 tab Documented by: RASHAD Nicotine Polacrilex (Nicotine Polacrilex 2 Mg Gum) 2 mg BUCCAL Q3H PRN PRN Reason: nicotine cravings Omeprazole (Omeprazole 20 Mg Capsule.) 20 mg PO BID@0630,1630 [facility] Last Admin: 02/20/22 06:21 Dose: 20 mg Documented by: SWETHA Oxybutynin Chloride (Oxybutynin Chloride Er 5 Mg Tab.Er.24) 5 mg PO DAILY [facility] Last Admin: 02/20/22 08:35 Dose: 5 mg Documented by: RASHAD Quetiapine Fumarate (Quetiapine Fumarate 50 Mg Tablet) 50 mg PO DAILY PRN PRN Reason: Agitation Quetiapine Fumarate (Quetiapine Fumarate 25 Mg Tablet) 75 mg PO BID [facility] Last Admin: 02/20/22 08:35 Dose: 75 mg Documented by: RASHAD Senna (Sennosides 8.6 Mg Tablet) 17.2 mg PO BEDTIME PRN PRN Reason: Constipation Sertraline HCl (Sertraline Hcl 100 Mg Tablet) 100 mg PO DAILY [facility] Last Admin: 02/20/22 08:40 Dose: 100 mg Documented by: RASHAD Sodium Chloride (0.9 % Sodium Chloride Flush 3 Ml Syringe) 3 ml IVFLUSH QSHIFT [facility] Last Admin: 02/20/22 08:36 Dose: 3 ml Documented by: RASHAD Tiotropium [place] (Tiotropium [place] 18 Mcg Cap.W.Dev) 1 puff INHALE RDAILY [facility] Last Admin: 02/20/22 07:45 Dose: 1 puff Documented by: SHAILA Vitamin D (Cholecalciferol (Vitamin D3) 25 Mcg Tablet) 25 mcg PO DAILY [facility] Last Admin: 02/20/22 08:35 Dose: 25 mcg Documented by: RASHAD Labs CBC & Chem 7: 02/19/22 06:22 02/20/22 05:46 Labs: Laboratory Results - last 24 hr 02/20/22 05:46 Anion Gap 13 Estim Creat Clear Calc 32.2 Estimated GFR 42 Random Glucose 93 Calcium 8.6 Assessment and Plan (1) Hepatocellular carcinoma: Status: Acute Plan 66M presented with abd pain, found to have signficant anemia, hypoxia Epigastric pain Improved, po PPI Recent upper endoscopy showed gastritis/esophagitis and colonoscopy showed internal hemorrhoids and polyps Recommend close GI follow-up acute on chronic blood loss anemia with iron deficiency hgb 6.3, on admission improved to 9.3,s/p 2 units prbc GI note reviewed, MRI scan recommended patient noted to have worsening renal function case discussed with Dr. Wilcox she recommend to hold MRI and if needed can be done as outpatient. stable atrial tachycardia Stable, amio 200mg daily coreg 12.5mg bid acute hypoxic resp failure due to acute on chronic systolic chf and copd s/p iv lasix , noted to have worsening creatinine and BUN will hold Lasix today Patient complaining of chest tightness will place on scheduled and as needed updraft continue home inhalers breo/Spiriva hyperkalemia improved monitor CKD III monitor HCC Discussed with Dr. Wilcox she recommend to hold MRI HTN amlodipnie on hold for concern for hypotension in gi bleed dvt prophylaxis - mechancial due to gi bleed reason for continued hospitalization: Close monitoring of renal function, continue treatment for anemia and abdominal pain. Quality Stroke Does the patient have a stroke diagnosis?: No VTE Prior VTE?: No VTE Risk Level:: Medical - moderate - high VTE Device Contraindication: N/A - Device Ordered VTE Drug Contraindication: Treatment Not Indicated
[2022-02-20] MEDS: Doxazosin Mesylate 2 MG TABLET 4 MG PO (20:28)
[2022-02-21] VITALS (8 sets, daily range): BP systolic 107–125; BP diastolic 50–69; PULSE 66–75; RESP 16–18; TEMP 36.3–37.2; O2SAT 92–99
[2022-02-21] MEDS: Omeprazole 20 MG CAPSULE.DR PO ×2 (06:15→18:22)
[2022-02-21 06:47] LABS: Hemoglobin 8.3 g/dl (14.0-18.0); Mean Corpuscular HGB Conc 29.6 g/dl (31.0-36.0); Mean Corpuscular Hemoglobin 24.5 pg (27.0-33.0); Mean Corpuscular Volume 82.6 fL (80.0-98.0); Mean Platelet Volume 12.4 fL (9.4-12.4); Platelet Count 255 X10*3/uL (160-400); Red Blood Count 3.39 X10*6/uL (4.60-5.80); White Blood Count 6.5 X10*3/uL (4.8-10.8)
[2022-02-21 07:18] LABS: Anion Gap 13 (12-20); Blood Urea Nitrogen 48 mg/dL (9-16); Calcium 8.7 mg/dL (8.4-10.2); Carbon Dioxide 28 mmol/L (22-29); Chloride 103 mmol/L (96-108); Creatinine Clr Calc Pharmacy 35.7; Estimated Glomerular Filt Rate 47; Glucose Fasting 107 mg/dL (60-99); Potassium 4.3 mmol/L (3.3-5.1); Sodium 140 mmol/L (135-145)
[2022-02-21] MEDS: Multivitamin TABLET 1 TAB PO (09:09)
[2022-02-21] MEDS: Sertraline HCL 100 MG TABLET PO (09:09)
[2022-02-21] MEDS: carvediloL 12.5 MG TABLET PO ×2 (09:09→20:45)
[2022-02-21] MEDS: QUEtiapine Fumarate 25 MG TABLET 75 MG PO ×2 (09:09→20:45)
[2022-02-21] MEDS: Folic Acid 1 MG TABLET PO (09:09)
[2022-02-21] MEDS: Amiodarone HCL 200 MG TABLET PO (09:09)
[2022-02-21] MEDS: Atorvastatin Calcium 20 MG TABLET PO (09:10)
[2022-02-21] MEDS: Ferrous Sulfate 324 MG TABLET.DR PO (09:10)
[2022-02-21] MEDS: 0.9 % Sodium Chloride Flush 3 ML SYRINGE IVFLUSH ×3 (09:10→20:45)
[2022-02-21] MEDS: Cholecalciferol (Vitamin D3) 25 MCG TABLET PO (09:10)
[2022-02-21] MEDS: Fluticasone/Vilanterol 200/25 BLST.W.DEV 1 PUFF INHALE (09:25)
[2022-02-21] MEDS: Albuterol/Iprat 2.5/0.5MG 3 ML AMPUL.NEB INHALE ×3 (09:25→18:49)
--- NOTE | 2022-02-21 11:24 | HO.PM.IMPN ---
Subjective Subjective Date of Service: 02/21/22 Interval History: cc: abd pain interval history: sob, weak Cardiovascular Cardiovascular: Reports no additional cardiovascular complaints Respiratory Respiratory: Reports no additional respiratory complaints Physical Exam Vital Signs: Vital Signs: Last Vital Signs Temp 98.4 F 02/21/22 11:22 Pulse 72 02/21/22 11:22 Resp 17 02/21/22 11:22 BP 107/69 02/21/22 11:22 Pulse Ox 97 02/21/22 11:22 BMI result Body Mass Index 19.7 General:? Awake alert x3, no acute distress Neck no JVD, normal inspection Resp:? diminished bilateral, no wheeze, no rhonchi, no accessory muscles used CVS: S1,S2,RRR GI: soft, mild epigastric tenderness, non distended Neuro:? motor grossly intact, alert Psych: appropriate affect, appropriate insight? Skin no rash Objective Data Active Medications Albuterol Sulfate (Albuterol Sulfate 90 Mcg 8 Gm Inhaler) 2 puff INHALE RQID PRN PRN Reason: shortness of breath or wheezing Albuterol/Ipratropium (Albuterol/Iprat 2.5/0.5mg 3 Ml Ampul.Neb) 3 ml INHALE RQ4H PRN PRN Reason: Shortness of Breath/Wheezing Albuterol/Ipratropium (Albuterol/Iprat 2.5/0.5mg 3 Ml Ampul.Neb) 3 ml INHALE RQ6H WHILE AWAKE [facility] Last Admin: 02/21/22 09:25 Dose: 3 ml Documented by: SHAILA Amiodarone HCl (Amiodarone Hcl 200 Mg Tablet) 200 mg PO DAILY [facility] Last Admin: 02/21/22 09:09 Dose: 200 mg Documented by: RASHAD Atorvastatin Calcium (Atorvastatin Calcium 20 Mg Tablet) 20 mg PO DAILY [facility] Last Admin: 02/21/22 09:10 Dose: 20 mg Documented by: RASHAD Carvedilol (Carvedilol 12.5 Mg Tablet) 12.5 mg PO BID [facility]; Protocol Last Admin: 02/21/22 09:09 Dose: 12.5 mg Documented by: RASHAD Doxazosin Mesylate (Doxazosin Mesylate 2 Mg Tablet) 4 mg PO BEDTIME [facility] Last Admin: 02/20/22 20:28 Dose: 4 mg Documented by: SWETHA Ferrous Sulfate (Ferrous Sulfate 324 Mg Tablet.) 324 mg PO DAILY [facility] Last Admin: 02/21/22 09:10 Dose: 324 mg Documented by: RASHAD Fluticasone/Vilanterol (Fluticasone/Vilanterol 200/25 Blst.W.Dev) 1 puff INHALE RDAILY [facility] Last Admin: 02/21/22 09:25 Dose: 1 puff Documented by: SHAILA Folic Acid (Folic Acid 1 Mg Tablet) 1 mg PO DAILY [facility] Last Admin: 02/21/22 09:09 Dose: 1 mg Documented by: RASHAD Ferric Sodium Gluconate Complex 125 mg/ Sodium Chloride 110 mls @ 100 mls/hr IV DAILY [facility] Stop: 02/23/22 10:05 Melatonin (Melatonin 3 Mg Tablet) 6 mg PO BEDTIME PRN PRN Reason: Insomnia Multivitamins/Vitamin C (Multivitamin Tablet) 1 tab PO DAILY [facility] Last Admin: 02/21/22 09:09 Dose: 1 tab Documented by: RASHAD Nicotine Polacrilex (Nicotine Polacrilex 2 Mg Gum) 2 mg BUCCAL Q3H PRN PRN Reason: nicotine cravings Omeprazole (Omeprazole 20 Mg Capsule.) 20 mg PO BID@0630,1630 [facility] Last Admin: 02/21/22 06:15 Dose: 20 mg Documented by: ELISE Oxybutynin Chloride (Oxybutynin Chloride Er 5 Mg Tab.Er.24) 5 mg PO DAILY [facility] Last Admin: 02/21/22 09:09 Dose: 5 mg Documented by: RASHAD Quetiapine Fumarate (Quetiapine Fumarate 50 Mg Tablet) 50 mg PO DAILY PRN PRN Reason: Agitation Quetiapine Fumarate (Quetiapine Fumarate 25 Mg Tablet) 75 mg PO BID [facility] Last Admin: 02/21/22 09:09 Dose: 75 mg Documented by: RASHAD Senna (Sennosides 8.6 Mg Tablet) 17.2 mg PO BEDTIME PRN PRN Reason: Constipation Sertraline HCl (Sertraline Hcl 100 Mg Tablet) 100 mg PO DAILY [facility] Last Admin: 02/21/22 09:09 Dose: 100 mg Documented by: RASHAD Sodium Chloride (0.9 % Sodium Chloride Flush 3 Ml Syringe) 3 ml IVFLUSH QSHIFT [facility] Last Admin: 02/21/22 09:10 Dose: 3 ml Documented by: RASHAD Tiotropium [place] (Tiotropium [place] 18 Mcg Cap.W.Dev) 1 puff INHALE RDAILY [facility] Last Admin: 02/21/22 09:25 Dose: 1 puff Documented by: SHAILA Vitamin D (Cholecalciferol (Vitamin D3) 25 Mcg Tablet) 25 mcg PO DAILY [facility] Last Admin: 02/21/22 09:10 Dose: 25 mcg Documented by: RASHAD Labs CBC & Chem 7: 02/21/22 05:57 02/21/22 05:57 Labs: Laboratory Results - last 24 hr 02/21/22 02/21/22 05:57 05:57 MCV 82.6 MCH 24.5 L MCHC 29.6 L RDW 20.0 H Plt Count 255 MPV 12.4 Absolute Nucleated RBC 0.000 Nucleated RBC % (auto) 0.0 Anion Gap 13 Estim Creat Clear Calc 35.7 Estimated GFR 47 Fasting Glucose 107 H Calcium 8.7 Assessment and Plan (1) Hepatocellular carcinoma: Status: Acute Plan 66M presented with abd pain, found to have signficant anemia, hypoxia Epigastric pain Improved, po PPI Recent upper endoscopy showed gastritis/esophagitis and colonoscopy showed internal hemorrhoids and polyps Recommend close GI follow-up acute on chronic blood loss anemia with iron deficiency hgb 6.3, on admission improved to 9.3,s/p 2 units prbc GI note reviewed, MRI scan recommended patient noted to have worsening renal function case discussed with Dr. Wilcox she recommend to hold MRI and if needed can be done as outpatient. stable, will give iv iron atrial tachycardia Stable, amio 200mg daily coreg 12.5mg bid acute hypoxic resp failure due to acute on chronic systolic chf and copd s/p iv lasix , will restart po lasix Patient complaining of chest tightness will place on scheduled and as needed updraft continue home inhalers breo/Spiriva wean o2 hyperkalemia improved monitor CKD III monitor HCC Discussed with Dr. Wilcox she recommend to hold MRI HTN amlodipnie on hold for concern for hypotension in gi bleed dvt prophylaxis - mechancial due to gi bleed reason for continued hospitalization: Close monitoring of renal function, continue treatment for anemia and abdominal pain. Quality Stroke Does the patient have a stroke diagnosis?: No VTE Prior VTE?: No VTE Risk Level:: Medical - moderate - high VTE Device Contraindication: N/A - Device Ordered VTE Drug Contraindication: Treatment Not Indicated
[2022-02-21] MEDS: Sodium Ferric Gluconat/Sucrose 125 MG in 0.9 % Sodium Chloride 100 ML 100 MG IV (11:59)
[2022-02-21] MEDS: Doxazosin Mesylate 2 MG TABLET 4 MG PO (20:45)
[2022-02-22] VITALS (9 sets, daily range): BP systolic 114–144; BP diastolic 57–68; PULSE 60–75; RESP 16–20; TEMP 36.3–37.1; O2SAT 93–99
[2022-02-22] MEDS: Omeprazole 20 MG CAPSULE.DR PO ×2 (04:53→16:53)
[2022-02-22 05:03] LABS: Hemoglobin 8.1 g/dl (14.0-18.0); Mean Corpuscular Hemoglobin 25.1 pg (27.0-33.0); Mean Corpuscular Volume 83.6 fL (80.0-98.0); Mean Platelet Volume 11.6 fL (9.4-12.4); Platelet Count 234 X10*3/uL (160-400); Red Blood Count 3.23 X10*6/uL (4.60-5.80); Red Cell Distribution Width 20.5 % (11.0-16.0); White Blood Count 6.8 X10*3/uL (4.8-10.8)
[2022-02-22 05:26] LABS: Anion Gap 11 (12-20); Blood Urea Nitrogen 49 mg/dL (9-16); Calcium 8.7 mg/dL (8.4-10.2); Carbon Dioxide 29 mmol/L (22-29); Chloride 103 mmol/L (96-108); Creatinine Clr Calc Pharmacy 39.7; Estimated Glomerular Filt Rate 53; Glucose Fasting 108 mg/dL (60-99); Potassium 4.4 mmol/L (3.3-5.1); Sodium 139 mmol/L (135-145)
[2022-02-22] MEDS: Fluticasone/Vilanterol 200/25 BLST.W.DEV 1 PUFF INHALE (08:18)
[2022-02-22] MEDS: Albuterol/Iprat 2.5/0.5MG 3 ML AMPUL.NEB INHALE ×3 (08:18→19:51)
[2022-02-22] MEDS: QUEtiapine Fumarate 25 MG TABLET 75 MG PO ×2 (08:57→21:53)
[2022-02-22] MEDS: Ferrous Sulfate 324 MG TABLET.DR PO (08:58)
[2022-02-22] MEDS: Multivitamin TABLET 1 TAB PO (08:58)
[2022-02-22] MEDS: Cholecalciferol (Vitamin D3) 25 MCG TABLET PO (08:58)
[2022-02-22] MEDS: carvediloL 12.5 MG TABLET PO ×2 (08:58→21:54)
[2022-02-22] MEDS: Amiodarone HCL 200 MG TABLET PO (08:58)
[2022-02-22] MEDS: Furosemide 40 MG TABLET PO (08:58)
[2022-02-22] MEDS: Sertraline HCL 100 MG TABLET PO (08:58)
[2022-02-22] MEDS: Folic Acid 1 MG TABLET PO (08:58)
[2022-02-22] MEDS: Atorvastatin Calcium 20 MG TABLET PO (08:58)
[2022-02-22] MEDS: 0.9 % Sodium Chloride Flush 3 ML SYRINGE IVFLUSH ×3 (09:02→21:54)
[2022-02-22] MEDS: Sodium Ferric Gluconat/Sucrose 125 MG in 0.9 % Sodium Chloride 100 ML 100 MG IV (09:02)
--- NOTE | 2022-02-22 11:32 | P.PNIM_ITS ---
Subjective Subjective Date of Service: 02/22/22 Interval History: cc: abd pain interval history: overall improved Respiratory Respiratory: Reports no additional respiratory complaints Gastrointestinal Gastrointestinal: Reports no additional gastrointestinal complaints Physical Exam Vital Signs: Vital Signs: Last Vital Signs Temp 97.6 F 02/22/22 11:08 Pulse 60 02/22/22 11:08 Resp 18 02/22/22 11:08 BP 144/57 H 02/22/22 11:08 Pulse Ox 94 02/22/22 11:08 BMI result Body Mass Index 19.7 General:? Awake alert x3, no acute distress Neck no JVD, normal inspection Resp:? diminished bilateral, no wheeze, no rhonchi, no accessory muscles used CVS: S1,S2,RRR GI: soft, mild epigastric tenderness, non distended Neuro:? motor grossly intact, alert Psych: appropriate affect, appropriate insight? Skin no rash Objective Data Active Medications Albuterol Sulfate (Albuterol Sulfate 90 Mcg 8 Gm Inhaler) 2 puff INHALE RQID PRN PRN Reason: shortness of breath or wheezing Albuterol/Ipratropium (Albuterol/Iprat 2.5/0.5mg 3 Ml Ampul.Neb) 3 ml INHALE RQ4H PRN PRN Reason: Shortness of Breath/Wheezing Albuterol/Ipratropium (Albuterol/Iprat 2.5/0.5mg 3 Ml Ampul.Neb) 3 ml INHALE RQ6H WHILE AWAKE [facility] Last Admin: 02/22/22 08:18 Dose: 3 ml Documented by: SHAILA Amiodarone HCl (Amiodarone Hcl 200 Mg Tablet) 200 mg PO DAILY [facility] Last Admin: 02/22/22 08:58 Dose: 200 mg Documented by: RAY Atorvastatin Calcium (Atorvastatin Calcium 20 Mg Tablet) 20 mg PO DAILY [facility] Last Admin: 02/22/22 08:58 Dose: 20 mg Documented by: RAY Carvedilol (Carvedilol 12.5 Mg Tablet) 12.5 mg PO BID [facility]; Protocol Last Admin: 02/22/22 08:58 Dose: 12.5 mg Documented by: RAY Doxazosin Mesylate (Doxazosin Mesylate 2 Mg Tablet) 4 mg PO BEDTIME [facility] Last Admin: 02/21/22 20:45 Dose: 4 mg Documented by: SWETHA Ferrous Sulfate (Ferrous Sulfate 324 Mg Tablet.) 324 mg PO DAILY [facility] Last Admin: 02/22/22 08:58 Dose: 324 mg Documented by: RAY Fluticasone/Vilanterol (Fluticasone/Vilanterol 200/25 Blst.W.Dev) 1 puff INHALE RDAILY [facility] Last Admin: 02/22/22 08:18 Dose: 1 puff Documented by: SHAILA Folic Acid (Folic Acid 1 Mg Tablet) 1 mg PO DAILY [facility] Last Admin: 02/22/22 08:58 Dose: 1 mg Documented by: RAY Furosemide (Furosemide 40 Mg Tablet) 40 mg PO DAILY [facility]; Protocol Last Admin: 02/22/22 08:58 Dose: 40 mg Documented by: RAY Ferric Sodium Gluconate Complex 125 mg/ Sodium Chloride 110 mls @ 100 mls/hr IV DAILY [facility] Stop: 02/23/22 10:05 Last Admin: 02/22/22 09:02 Dose: 100 mls/hr Documented by: RAY Melatonin (Melatonin 3 Mg Tablet) 6 mg PO BEDTIME PRN PRN Reason: Insomnia Multivitamins/Vitamin C (Multivitamin Tablet) 1 tab PO DAILY [facility] Last Admin: 02/22/22 08:58 Dose: 1 tab Documented by: RAY Nicotine Polacrilex (Nicotine Polacrilex 2 Mg Gum) 2 mg BUCCAL Q3H PRN PRN Reason: nicotine cravings Omeprazole (Omeprazole 20 Mg Capsule.) 20 mg PO BID@0630,1630 [facility] Last Admin: 02/22/22 04:53 Dose: 20 mg Documented by: SWETHA Oxybutynin Chloride (Oxybutynin Chloride Er 5 Mg Tab.Er.24) 5 mg PO DAILY [facility] Last Admin: 02/22/22 08:58 Dose: 5 mg Documented by: RAY Quetiapine Fumarate (Quetiapine Fumarate 50 Mg Tablet) 50 mg PO DAILY PRN PRN Reason: Agitation Quetiapine Fumarate (Quetiapine Fumarate 25 Mg Tablet) 75 mg PO BID [facility] Last Admin: 02/22/22 08:57 Dose: 75 mg Documented by: RAY Senna (Sennosides 8.6 Mg Tablet) 17.2 mg PO BEDTIME PRN PRN Reason: Constipation Sertraline HCl (Sertraline Hcl 100 Mg Tablet) 100 mg PO DAILY [facility] Last Admin: 02/22/22 08:58 Dose: 100 mg Documented by: RAY Sodium Chloride (0.9 % Sodium Chloride Flush 3 Ml Syringe) 3 ml IVFLUSH QSHIFT [facility] Last Admin: 02/22/22 09:02 Dose: 3 ml Documented by: RAY Tiotropium Borger (Tiotropium Borger 18 Mcg Cap.W.Dev) 1 puff INHALE RDAILY [facility] Last Admin: 02/22/22 08:18 Dose: 1 puff Documented by: SHAILA Vitamin D (Cholecalciferol (Vitamin D3) 25 Mcg Tablet) 25 mcg PO DAILY [facility] Last Admin: 02/22/22 08:58 Dose: 25 mcg Documented by: RAY Labs CBC & Chem 7: 02/22/22 04:47 02/22/22 04:47 Labs: Laboratory Results - last 24 hr 02/22/22 02/22/22 04:47 04:47 MCV 83.6 MCH 25.1 L MCHC 30.0 L RDW 20.5 H Plt Count 234 MPV 11.6 Absolute Nucleated RBC 0.000 Nucleated RBC % (auto) 0.0 Anion Gap 11 L Estim Creat Clear Calc 39.7 Estimated GFR 53 Fasting Glucose 108 H Calcium 8.7 Assessment and Plan (1) Hepatocellular carcinoma: Status: Acute Plan 66M presented with abd pain, found to have signficant anemia, hypoxia Epigastric pain Improved, po PPI Recent upper endoscopy showed gastritis/esophagitis and colonoscopy showed internal hemorrhoids and polyps Recommend close GI follow-up acute on chronic blood loss anemia with iron deficiency hgb 6.3, on admission improved to 9.3,s/p 2 units prbc GI note reviewed, MRI scan recommended patient noted to have worsening renal function case discussed with Dr. Wilcox she recommend to hold MRI and if needed can be done as outpatient. stable, will give iv iron day 2/3 atrial tachycardia Stable, amio 200mg daily coreg 12.5mg bid acute hypoxic resp failure due to acute on chronic systolic chf and copd s/p iv lasix , changed po lasix Patient complaining of chest tightness will place on scheduled and as needed updraft continue home inhalers breo/Spiriva wean o2 hyperkalemia improved monitor CKD III monitor HCC Discussed with Dr. Wilcox she recommend to hold MRI HTN amlodipnie on hold for concern for hypotension in gi bleed dvt prophylaxis - mechancial due to gi bleed reason for continued hospitalization: Close monitoring of renal function, continue treatment for anemia and abdominal pain. Quality Stroke Does the patient have a stroke diagnosis?: No VTE Prior VTE?: No VTE Risk Level:: Medical - moderate - high VTE Device Contraindication: N/A - Device Ordered VTE Drug Contraindication: Treatment Not Indicated
[2022-02-22 12:37] LABS: Alpha Fetoprotein 4.1 ng/mL (<6.1)
--- NOTE | 2022-02-22 14:55 | MHC.CM.PN ---
Addendum entered by Triny Bates 02/22/22 15:00: Discharge is anticipated tomorrow. Original Note: Male 66 DX GIB Patient has been scoped up+down F/U with GI out patient. PO lasix started today. Anticipate DC tomorrow. DP Home with resumption of of [facility]. Patients brother will provide transport at DC.
[2022-02-22] MEDS: Doxazosin Mesylate 2 MG TABLET 4 MG PO (21:54)
[2022-02-23] VITALS: BP 125/55; PULSE 70; RESP 18; TEMP 37; O2SAT 94
[2022-02-23 03:37] VITALS: BP 138/61; PULSE 66; RESP 18; TEMP 36.6; O2SAT 92
[2022-02-23] MEDS: Omeprazole 20 MG CAPSULE.DR PO (06:16)
[2022-02-23 06:37] LABS: Hematocrit 28.6 % (42.0-52.0); Hemoglobin 8.6 g/dl (14.0-18.0); Mean Corpuscular HGB Conc 30.1 g/dl (31.0-36.0); Mean Corpuscular Hemoglobin 25.1 pg (27.0-33.0); Mean Corpuscular Volume 83.6 fL (80.0-98.0); Mean Platelet Volume 11.5 fL (9.4-12.4); Platelet Count 239 X10*3/uL (160-400); Red Blood Count 3.42 X10*6/uL (4.60-5.80); White Blood Count 6.5 X10*3/uL (4.8-10.8)
[2022-02-23 06:54] LABS: Anion Gap 11 (12-20); Blood Urea Nitrogen 45 mg/dL (9-16); Carbon Dioxide 29 mmol/L (22-29); Chloride 103 mmol/L (96-108); Creatinine Clr Calc Pharmacy 42.8; Estimated Glomerular Filt Rate 58; Glucose Fasting 108 mg/dL (60-99); Potassium 4.3 mmol/L (3.3-5.1); Sodium 139 mmol/L (135-145)
[2022-02-23 07:48] VITALS: BP 126/60; PULSE 67; RESP 20; TEMP 36.9; O2SAT 96
[2022-02-23 07:58] VITALS: PULSE 84; RESP 18; O2SAT 96
[2022-02-23] MEDS: Fluticasone/Vilanterol 200/25 BLST.W.DEV 1 PUFF INHALE (07:58)
[2022-02-23] MEDS: Albuterol/Iprat 2.5/0.5MG 3 ML AMPUL.NEB INHALE (07:58)
[2022-02-23] MEDS: Sodium Ferric Gluconat/Sucrose 125 MG in 0.9 % Sodium Chloride 100 ML 100 MG IV (09:22)
[2022-02-23] MEDS: Atorvastatin Calcium 20 MG TABLET PO (09:23)
[2022-02-23] MEDS: Sertraline HCL 100 MG TABLET PO (09:23)
[2022-02-23] MEDS: Folic Acid 1 MG TABLET PO (09:23)
[2022-02-23] MEDS: Amiodarone HCL 200 MG TABLET PO (09:23)
[2022-02-23] MEDS: carvediloL 12.5 MG TABLET PO (09:23)
[2022-02-23] MEDS: Furosemide 40 MG TABLET PO (09:23)
[2022-02-23] MEDS: Ferrous Sulfate 324 MG TABLET.DR PO (09:23)
[2022-02-23] MEDS: Multivitamin TABLET 1 TAB PO (09:23)
[2022-02-23] MEDS: Cholecalciferol (Vitamin D3) 25 MCG TABLET PO (09:23)
[2022-02-23] MEDS: QUEtiapine Fumarate 25 MG TABLET 75 MG PO (09:23)
[2022-02-23] MEDS: 0.9 % Sodium Chloride Flush 3 ML SYRINGE IVFLUSH (09:24)
--- NOTE | 2022-02-23 10:44 | PM.DS ---
DS: Providers Provider Date of Service: 02/23/22 Date of admission: 02/18/22 05:36 Primary care physician: Elliot Burgess MD Consults: 02/18/22 05:37 Consult to Gastroenterology Routine Consulting Provider: Jayson Dai Reason for consultation: anemia; guaiac positive; recent EGD 02/18/22 05:47 Consult to Hematology / Oncology Routine Consulting Provider: Julianne Wilcox Reason for consultation: Hepatocellular carcinoma DS: Diagnosis Discharge Diagnosis (1) Hepatocellular carcinoma: Status: Acute DS: Summary Hospital Course Hospital Course: from initial hpi: Chief Complaint: Abdominal pain 66-year-old male with a past medical history of hypertension, hyperlipidemia, CAD, CHF EF of 20-25%, atrial tachycardia, CVA, VSD, iron deficiency anemia, recent diagnosis of hepatocellular carcinoma; recent admission to the hospital for anemia status post 2 units of blood transfusion; status post EGD showed gastritis; presented to the hospital today again with a chief complaint of left-sided abdominal pain.? Patient reported that today he developed left-sided abdominal pain, sharp in nature, nonradiating, denies any associated nausea vomiting and diarrhea.? Hence decided to come to the ER for further evaluation.? Patient reports that he was recently told ER some mass in his liver and had biopsy done; also mentioned that his biopsy resulted cancer.? Denies any chest pain or palpitations.? Denies any fever chills cough.? Denies any urinary symptoms.? ER course: Per ER team patient had CT abdomen pelvis done which showed 10 cm liver mass suspicious for hepatocellular lesion unchanged from the recent CT scan; 2 cm mass in the left lobe of the liver; 16 mm to 5 mm reticular radiodensity noted in the lumen of the transverse colon-may represent ingested foreign body or capsule endoscopy; on labs noted to have hemoglobin of 6.3; stool guaiac was positive; patient was started on blood transfusion-plan for 2 units.? Admitted for further management. hospital course: patient initially presented with epigastric pain, which quickly resolved. he was noted to have acute on chronic blood loss anemia with iron defeciency. he received 2 units prbc and 3 days iv iron, hgb has been stable. should continue ppi and iron as outpatient. for HCC, plan for MRI as outpatient. for atrial tachycardia, continue on amio and coreg. for acute hypoxic respiratory failure due to acute on chronic systolic chf and copd, he received iv lasix and hypoxia resolved. course was complicated by GUERRERO on CKD III and hyperkalemia, gordon-i and arb have been held, renal function improved, hyperkalemia resolved. for htn amlodipnie will be restarted. paitent feeling much better and will be discharged home. Time Spent with Patient Time attestation: Total time spent providing and/or coordinating discharge services: Discharge coordination time: Greater than 30 minutes Quality: Safe Use of Opioids Does Pt have an Active Cancer Diagnosis on the Problem List?: Yes Opioid Measure Date for [facility] Report: 01/24/22 Opioid Measure Time for [facility] Report: 10:45 Quality: Stroke Does the patient have a stroke diagnosis?: No Physical Exam Vital Signs: Vital Signs: Last Vital Signs Temp 98.5 F 02/23/22 07:48 Pulse 84 02/23/22 07:58 Resp 18 02/23/22 07:58 BP 126/60 02/23/22 07:48 Pulse Ox 96 02/23/22 07:48 BMI result Body Mass Index 19.7 General:? Awake alert x3, no acute distress Neck no JVD, normal inspection Resp:? diminished bilateral, no wheeze, no rhonchi, no accessory muscles used CVS: S1,S2,RRR GI: soft, mild epigastric tenderness, non distended Neuro:? motor grossly intact, alert Psych: appropriate affect, appropriate insight? DS: Data Data Completed and Pending Completed studies during hospitalization [Text1]: Procedures Control Bleeding in Gastrointestinal Tract, Via Natural or Artificial Opening Endoscopic (01/26/22) Excision of Cecum, Via Natural or Artificial Opening Endoscopic, Diagnostic (01/26/22) Excision of Descending Colon, Via Natural or Artificial Opening Endoscopic, Diagnostic (01/26/22) Excision of Duodenum, Via Natural or Artificial Opening Endoscopic, Diagnostic (01/26/22) Excision of Right Lobe Liver, Percutaneous Approach, Diagnostic (01/26/22) Excision of Sigmoid Colon, Via Natural or Artificial Opening Endoscopic, Diagnostic (01/26/22) Excision of Stomach, Pylorus, Via Natural or Artificial Opening Endoscopic, Diagnostic (01/26/22) Transfusion of Nonautologous Red Blood Cells into Peripheral Vein, Percutaneous Approach (01/26/22) Labs on day of discharge: Laboratory Results - last 24 hr 02/18/22 02/23/2222 09:09 06:23 06:23 WBC 6.5 RBC 3.42 L Hgb 8.6 L Hct 28.6 L MCV 83.6 MCH 25.1 L MCHC 30.1 L RDW 21.0 H Plt Count 239 MPV 11.5 Absolute Nucleated RBC 0.000 Nucleated RBC % (auto) 0.0 Sodium 139 Potassium 4.3 Chloride 103 Carbon Dioxide 29 Anion Gap 11 L BUN 45 H Creatinine 1.25 Estim Creat Clear Calc 42.8 Estimated GFR 58 Fasting Glucose 108 H Calcium 9.0 Alpha Fetoprotein 4.1 Discharge Plan Discharge Patient Disposition: Home, Self-Care Discharge Diagnosis: anemia Referrals: Elliot Burgess MD [Primary Care Provider] - 1 Week Discharge Medications: New folic acid 1 mg Tablet 1 mg PO DAILY Qty: 30 0RF Continued terazosin 5 mg capsule 1 cap PO BEDTIME 0RF atorvastatin 20 mg tablet 1 tab PO DAILY 0RF sertraline 100 mg tablet 1 tab PO DAILY 0RF amlodipine 5 mg tablet 1 tab PO DAILY 0RF aspirin 81 mg tablet,delayed release (DR/EC) 1 tab PO DAILY 0RF Hold Instructions: Resume on 02/08/22. oxybutynin chloride 5 mg tablet extended release 24hr 1 tab PO DAILY 0RF Spiriva with HandiHaler 18 mcg capsule, w/inhalation device 1 cap inhalation DAILY 0RF quetiapine 50 mg tablet 1 tab PO DAILY PRN (Reason: Agitation) 0RF cholecalciferol (vitamin D3) [Vitamin D3] 25 mcg (1,000 unit) tablet 1 tab PO DAILY 0RF multivitamin with folic acid [Tab-A-Miguelangel] 400 mcg tablet 1 tab PO DAILY 0RF quetiapine 150 mg tablet extended release 24 hr 1 tab PO BEDTIME 0RF nicotine (polacrilex) 2 mg Gum 2 mg buccal Q3H PRN (Reason: nicotine cravings) Qty: 60 0RF albuterol sulfate 90 mcg/actuation HFA aerosol inhaler 2 puff inhalation QID PRN (Reason: shortness of breath or wheezing) Qty: 8.5 0RF carvedilol 12.5 mg Tablet 12.5 mg PO BID Qty: 60 0RF Protocol: Hold for SBP/HR < HOLD for SBP < : 90 HOLD for HR < : 60 ferrous sulfate 325 mg (65 mg iron) tablet,delayed release (DR/EC) 1 tab PO DAILY 0RF fluticasone propion-salmeterol 232-14 mcg/actuation aerosol powdr breath activated 1 puff inhalation BID 0RF omeprazole 40 mg Capsule,Delayed Release(Dr/Ec) 40 mg PO DAILY Qty: 30 0RF spironolactone 25 mg Tablet 12.5 mg PO DAILY Qty: 30 0RF Protocol: Hold for SBP< HOLD for SBP < : 90 amiodarone 200 mg tablet 200 mg PO BID 0RF furosemide 40 mg tablet 1 tab PO DAILY 0RF docusate sodium [DOK] 100 mg capsule 1 cap PO BID PRN (Reason: constipation) 0RF Discontinued valsartan 40 mg Tablet 40 mg PO BID Qty: 60 0RF Protocol: Hold for SBP< HOLD for SBP < : 90 lisinopril 10 mg tablet 1 tab PO DAILY 0RF Discharge Orders: Discharge Order (Routine); Ordered 02/23/22 Ordered By: Jose E Fernandez Diet: advance to usual diet Activity on Discharge: As tolerated Stand Alone Forms: Patient Portal Discharge page Care Plan Goals: recovery Health Concerns: anemia, hcc Plan of Treatment: contiue iron, ppi, follow up oncology, gi Assessment: see above
--- NOTE | 2022-02-23 11:06 | MHC.CM.PN ---
IMM 02/23/22 Male 66 DX Anemia Discharged today. [facility] will resume services. Patient's Brother is providing transportation home. [facility]charge info [facility] to [facility].
== END 2022-02-23 11:46 | disposition home health service (06) | DRG 377 ==
LOC: HO.ED 04:22 → HO.EDOVER 05:48 → HO.IMC 19:25
PROVIDERS: Hospitalist; Internal Medicine Gastroenterology; Internal Medicine Medical Oncology; Admitting Provider Hospitalist; Emergency Provider Internal Medicine; PCP Internal Medicine; Visit Provider Internal Medicine
DX: K92.2 Gastrointestinal hemorrhage, unspecified (principal); J96.01 Acute respiratory failure with hypoxia; C22.0 Liver cell carcinoma; I13.0 Hypertensive heart and chronic kidney disease with heart failure and stage 1 through stage 4 chronic kidney disease, or unspecified chronic kidney disease; I50.32 Chronic diastolic (congestive) heart failure; I47.1 Supraventricular tachycardia; D63.0 Anemia in neoplastic disease; N18.30 Chronic kidney disease, stage 3 unspecified; D63.1 Anemia in chronic kidney disease; I25.10 Atherosclerotic heart disease of native coronary artery without angina pectoris; E87.5 Hyperkalemia; E78.5 Hyperlipidemia, unspecified; F17.210 Nicotine dependence, cigarettes, uncomplicated; Z20.822 Contact with and (suspected) exposure to COVID-19; Z71.6 Tobacco abuse counseling; Z88.6 Allergy status to analgesic agent; Z79.82 Long term (current) use of aspirin; Z79.899 Other long term (current) drug therapy
CPT/HCPCS: 36415; 36430; 71045; 74176; 80048; 80053; 82105; 82272; 82728; 82947; 83540; 83690; 85025; 85027; 85610; 86850; 86900; 86901; 86923; 87635; 93005; 94640; 96365; 96366; 96375; 99285; J0610; J1940; J2270; J2405; J2916; P9016